=== PATIENT | female | born 1935 | race Caucasian/White ===

== ENCOUNTER 2018-05-21 08:43 | Inpatient (IN) | payer MEDICARE ==
[~2018-05-21] VITALS: Ht 157.5 cm; Wt 80.0 kg
[2018-05-21 14:45] VITALS: BP 148/37
[2018-05-21] MEDS ORDERED: FURO40TA4 PO ×2 (15:03)
[2018-05-21] MEDS ORDERED: CLOP75TA PO (15:03)
[2018-05-21] MEDS ORDERED: ONDA4TAB12 PO (15:03)
[2018-05-21] MEDS ORDERED: METO-239 PO (15:03)
[2018-05-21] MEDS ORDERED: CRESTOR20 MG PO (15:03)
[2018-05-21] MEDS ORDERED: LEVO88TA4 PO (15:11)
[2018-05-21] MEDS ORDERED: LOSA100T14 PO (15:11)
[2018-05-21] MEDS ORDERED: AMIO200T4 PO (15:11)
[2018-05-21] MEDS ORDERED: PANT20TA2 PO (15:11)
[2018-05-21] MEDS ORDERED: METO2.5T PO (15:11)
[2018-05-21] MEDS ORDERED: ONDANSETRON ODT 4 MG TAB.RAPDIS. PO PRN (15:30)
--- NOTE | 2018-05-21 16:01 | PDOC2 ---
CARDIAC CONSULT DATE OF CONSULT Date of Consult DATE: 05/21/18 TIME: 15:54 REASON FOR CONSULT Reason for Consult: hypotension, bradycardia, CHF REFERRING PHYSICIAN Referring Physician: Albert SOURCE Source: Chart review, Patient HISTORY OF PRESENT ILLNESS HISTORY OF PRESENT ILLNESS This is a pleasant 82 yo female admitted for complains of nausea, vomiting, anorexia. Also with LIVE but no SOA at rest. She went to PCP yesterday and CT abd was ordered and noted with hepatosplenomegaly with possible cirrhosis. She was over at the PCPs office and noted with bradycardia but unclear how low and also with low BP. Denies any significant abdominal pain, fever or chills. No orthopnea, PND. Denies any chest pain, palpitations, dizziness or passing out. She is positive for CAD, CHF and hx of PAFIB. She just moved here from [place] to be close to her daughter. PAST MEDICAL HISTORY Cardiovascular: AFIB, CAD, CHF, HTN, Hyperlipidemia, Other (carotid artery disease) Pulmonary: No pertinent hx CENTRAL NERVOUS SYSTEM: Other (tremors) GI: GERD Heme/Onc: Anemia NOS (blood transfusion in the past) Hepatobiliary: No pertinent hx Psych: No pertinent hx Musculoskeletal: Osteoarthritis Rheumatologic: No pertinent hx Infectious disease: No pertinent hx ENT: No pertinent hx Renal/: Chronic renal insuff Endocrine: Hypothyroidism Dermatology: No pertinent hx PAST SURGICAL HISTORY Past Surgical History: Appendectomy, Cataract Removal, Other (PCI/stents' left carotid endarterectomy) FAMILY HISTORY Family History: Coronary Artery Disease (mother and father) SOCIAL HISTORY Smoke: Quit (remotely) ALCOHOL: none Drugs: None Lives: with Family (daughter) ALLERGIES ALLERGIES: Coded Allergies: Sulfa (Sulfonamide Antibiotics) (Verified Allergy, Severe, Rash, 05/21/18) blisters on whole body morphine (Verified Allergy, Intermediate, Nausea and Vomiting, 05/21/18) ROS Review of System 14 point ROS evlauated with pertinent positives noted per HPI PHYSICAL EXAM General: Alert, Oriented X3, Cooperative, No acute distress HEENT: Atraumatic, Mucous membr. moist/pink Lungs: Clear to auscultation Heart: Regular rate (SR/SB), Normal S1, Normal S2, Other (2/6 systolic murmur to LLS border) Abdomen: Soft, No tenderness Extremities: No cyanosis, Other (trace LE edema) Skin: No breakdown, No significant lesion, Other (telangectasia) Neuro: Normal speech, Sensation intact Psych/Mental Status: Mental status NL, Mood NL MUSCULOSKELETAL: Osteoarthritic changes both hands VITALS VITALS Vital Signs Date Time Temp Pulse Resp B/P (MAP) Pulse Ox O2 Delivery O2 Flow Rate FiO2 05/21/18 14:45 98.4 54 16 148/37 (74) 100 Nasal Cannula 2.0 98.4 IMAGES IMAGES IMPRESSION: 1. Mild hepatosplenomegaly. There is slight suspected recanalization of the umbilical vein which may be due to a component of cirrhosis. Correlate with liver function laboratory values. 2. Colonic diverticulosis. 3. Small right renal cysts. 4. No acute abdominal or pelvic finding. DATE: 05/20/18 1446 ASSESSMENT/PLAN ASSESSMENT/PLAN 1. 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 Diastolic CHF: appears compensated 3. CAD: 03/2018 x2 stents in [place], no CP, clinically stable 4. HLP 5. HTN: controlled. Hypotensive at times. 6. Essential tremors: amiodarone could be a factor as well. 7. PAFIB: currently SR/SB 9. TAMMY vs CKD: possibly stage 4. 10. Hypothyroidism: on home replacement 11. Episodes of recent hypotension likely from BP meds, poor intake and vomiting. Recommendations CMP, INR, CBC, NH3, Mg, EKG, TTE, CXR GI workup pending Stop amiodarone (has been on amiodarone for 3 yrs). Start lower of toprol unless significantly bradycardic. ASA, plavix till cath report is obtained unless severely thrombocytopenic. Restart statin if OK with GI and pending lipids. Await renal labs before restarting home diuretics Was on Xarelto in the past but discontinued due to anemia and possibly not a candidate for chcf use with liver issues. Consult nephrology Records from [place] pending NAHUN SAENZ APRN May 21, 2018 16:01
[2018-05-21 16:25] LABS: BASO % 1 % (0-3); EOS # 0.1 x10^3/uL (0.0-0.7); EOS % 1 % (0-3); HEMATOCRIT 31.9 % (36.0-47.0); HEMOGLOBIN 10.6 g/dL (12.0-15.5); LYMPH # 0.9 x10^3/uL (1.0-4.8); LYMPH % 17 % (24-48); MEAN CORPUSCULAR HEMOGLOBIN 29 pg (25-35); MEAN CORPUSCULAR HGB CONC 33 g/dL (31-37); MEAN CORPUSCULAR VOLUME 87 fL (79-100); MONO # 0.4 x10^3/uL (0.0-1.1); MONO % 8 % (0-9); NEUT % 74 % (31-73); PLATELET COUNT 164 x10^3/uL (140-400); RED BLOOD COUNT 3.67 x10^6/uL (3.50-5.40); RED CELL DISTRIBUTION WIDTH 16.3 % (11.5-14.5); WHITE BLOOD COUNT 5.3 x10^3/uL (4.0-11.0)
[2018-05-21 16:26] LABS: CALCIUM 9.3 mg/dL (8.5-10.1); CREATININE 2.9 mg/dL (0.6-1.0); GFR 15.6; POTASSIUM 3.2 mmol/L (3.5-5.1)
[2018-05-21 16:29] LABS: PROTHROMBIN TIME PATIENT 13.8 SEC (11.7-14.0)
[2018-05-21 16:33] LABS: ALBUMIN 3.6 g/dL (3.4-5.0); ALBUMIN/GLOBULIN RATIO 0.8 (1.0-1.7); TOTAL BILIRUBIN 0.5 mg/dL (0.2-1.0); TOTAL PROTEIN 7.9 g/dL (6.4-8.2)
--- NOTE | 2018-05-21 16:33 | EKG ---
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
--- NOTE | 2018-05-21 16:54 | PDOC2 ---
GI CONSULT Reason For Consult: elevated liver enzymes, direct admit HPI: HPI: 82 y/o female directly admitted. Recently moved to this area from [place], [place] - there was recently hospitalized for heart issues. Here w/ daughter and son-in -law (Simran and Cliff). Established new PCP yesterday - was feeling "sick to stomach" like she has since 10/2017. Frequent nausea and retching, "can't eat." Has lost 30 pounds (daughter mentions some of this might be due to fluid) but mostly drinks Gatorade and doesn't eat much. Had labs and CT - was called today and told to come to the hospital for abnormal labs. CT showed mild hepatosplenomegaly and suspected recanalization of the umbilical vein w/ possible component of cirrhosis. Also noted diverticulosis (colon and proximal duodenal diverticulum). During recent hospitalization, was transfused - "it happened after they put me on Xarelto." Denies hematemesis, hematochezia, and melena. Does not recall being told to take iron or B12. Did have EGD and colonoscopy in [place], [place] last month - says colonoscopy was normal and EGD showed "irritation from here to here" (points to throat and epigastrium). Was given pantoprazole which she has been taking - says this doesn't help her nausea/retching. Denies reflux/ heartburn, dysphagia, abd pain, and diarrhea. Admits early satiety. Occasional constipation on Miralax PRN. H/o CAD on Plavix and h/o A Fib on amiodarone x 3 years. No NSAIDs. No GB, liver, or pancreas history. PMH: PMH: A Fib, CAD w/ stents, CHF, HTN, HLD, CKD, tremors, macular degeneration, hypothyroidism appendectomy, hysterectomy, left carotid endarterectomy, cataract removal FH: Family History: Cancer (breast), DM Social History: Smoke: Quit ALCOHOL: none Drugs: None ROS: GEN: Denies fevers, chills, sweats HEENT: Denies blurred vision, sore throat CV: Denies chest pain RESP: Denies shortness of air, cough GI: Per HPI : Denies hematuria, dysuria ENDO: +weight loss NEURO: Denies confusion, dizziness MSK: Denies weakness, joint pain/swelling SKIN: Denies jaundice, pruritus Vitals: Vitals: Vital Signs Date Time Temp Pulse Resp B/P (MAP) Pulse Ox O2 Delivery O2 Flow Rate FiO2 05/21/18 14:45 98.4 54 16 148/37 (74) 100 Nasal Cannula 2.0 98.4 Labs: Labs: Laboratory Tests Test 05/21/18 16:00 White Blood Count 5.3 x10^3/uL (4.0-11.0) Red Blood Count 3.67 x10^6/uL (3.50-5.40) Hemoglobin 10.6 g/dL (12.0-15.5) Hematocrit 31.9 % (36.0-47.0) Mean Corpuscular Volume 87 fL (79-100) Mean Corpuscular Hemoglobin 29 pg (25-35) Mean Corpuscular Hemoglobin Concent 33 g/dL (31-37) Red Cell Distribution Width 16.3 % (11.5-14.5) Platelet Count 164 x10^3/uL (140-400) Neutrophils (%) (Auto) 74 % (31-73) Lymphocytes (%) (Auto) 17 % (24-48) Monocytes (%) (Auto) 8 % (0-9) Eosinophils (%) (Auto) 1 % (0-3) Basophils (%) (Auto) 1 % (0-3) Neutrophils # (Auto) 4.0 x10^3uL (1.8-7.7) Lymphocytes # (Auto) 0.9 x10^3/uL (1.0-4.8) Monocytes # (Auto) 0.4 x10^3/uL (0.0-1.1) Eosinophils # (Auto) 0.1 x10^3/uL (0.0-0.7) Basophils # (Auto) 0.0 x10^3/uL (0.0-0.2) Prothrombin Time 13.8 SEC (11.7-14.0) Prothromb Time International Ratio 1.1 (0.8-1.1) Sodium Level 136 mmol/L (136-145) Potassium Level 3.2 mmol/L (3.5-5.1) Chloride Level 94 mmol/L (98-107) Carbon Dioxide Level 32 mmol/L (21-32) Anion Gap 10 (6-14) Blood Urea Nitrogen 70 mg/dL (7-20) Creatinine 2.9 mg/dL (0.6-1.0) Estimated GFR (Cockcroft-Gault) 15.6 BUN/Creatinine Ratio 24 (6-20) Glucose Level 99 mg/dL (70-99) Calcium Level 9.3 mg/dL (8.5-10.1) Magnesium Level 2.4 mg/dL (1.8-2.4) Total Bilirubin 0.5 mg/dL (0.2-1.0) Aspartate Amino Transf (AST/SGOT) 76 U/L (15-37) Alanine Aminotransferase (ALT/SGPT) 61 U/L (14-59) Alkaline Phosphatase 74 U/L (46-116) Ammonia < 10 mcmol/L (11-34) Total Protein 7.9 g/dL (6.4-8.2) Albumin 3.6 g/dL (3.4-5.0) Albumin/Globulin Ratio 0.8 (1.0-1.7) Allergies: Coded Allergies: Sulfa (Sulfonamide Antibiotics) (Verified Allergy, Severe, Rash, 05/21/18) blisters on whole body morphine (Verified Allergy, Intermediate, Nausea and Vomiting, 05/21/18) Imaging: Imaging: Per HPI. PE: GEN: NAD HEENT: Atraumatic, PERRL LUNGS: CTAB HEART: mildly bradycardic ABD: NABS, S/ND/NT EXTREMITY: No edema SKIN: No rashes, no jaundice NEURO/PSYCH: A & O 3 A/P: A/P: N/v, early satiety, weight loss Anemia, ?TAMMY/CKD, mild transaminitis - recent transfusion Abnormal CT - recanalization of the umbilical vein w/ possible component of cirrhosis ?GERD - "irritation" on recent EGD, on PPI CRC screen - UTD (04/2018 in [place], [place]) Diverticulosis Constipation - controlled w/ Miralax PRN H/o A Fib and CAD - on Plavix and amiodarone -- Check iron profile, Hep B and C, US/Doppler, and GES. Continue PPI. D/w cardiology - plans to stop amiodarone. KAROL JULIAN May 21, 2018 16:54
[2018-05-21] MEDS: PANTOPRAZOLE 40 MG TABLET.DR. PO SCH (17:00)
[2018-05-21] MEDS: METOPROLOL SUCC 24HR ER 25 MG TAB.ER.24H. PO SCH ×2 (17:00→21:22)
--- NOTE | 2018-05-21 17:54 | RAD ---
CHEST PA LATERAL CLINICAL INDICATION: LIVE COMPARISON: None FINDINGS: Heart is normal in size. Lungs are hyperinflated with mild prominence of bilateral interstitium. No focal consolidation. No pneumothorax or pleural effusion. Visualized bony thorax within normal limits. IMPRESSION: Findings of COPD with superimposed atypical/viral infection not ruled out. Electronically signed by: Haroon Cook DO (05/21/2018 5:51 PM) [facility]
[2018-05-21 19:44] VITALS: BP 165/48
[2018-05-21 20:22] LABS: BILIRUBIN,URINE NEGATIVE (NEG); CLARITY,URINE CLOUDY; COLOR,URINE YELLOW; NITRITE,URINE POSITIVE (NEG); PH,URINE 7.5; PROTEIN,URINE 30 mg/dL (NEG-TRACE)
[2018-05-21 20:34] LABS: BACTERIA,URINE MANY /HPF (0-FEW); SQUAMOUS EPITHELIAL CELL,UR MOD /LPF; WBC,URINE TNTC /HPF (0-4)
[2018-05-21] MEDS: ATORVASTATIN CALCIUM 20 MG TABLET PO SCH (21:22)
[2018-05-21 23:40] VITALS: BP 136/30
[2018-05-22 03:59] VITALS: BP 123/47
[2018-05-22] MEDS: PANTOPRAZOLE 40 MG TABLET.DR. PO SCH (06:22)
[2018-05-22] MEDS: LEVOTHYROXINE 88 MCG TABLET PO SCH (06:22)
[2018-05-22 06:43] LABS: CHOLESTEROL/HDL RATIO 2.4
[2018-05-22 07:25] VITALS: BP 149/44
--- NOTE | 2018-05-22 08:08 | RAD ---
Realtime, color and spectral duplex DOPPLER ultrasonography of the right upper quadrant was performed with focused Doppler evaluation of the hepatic vasculature. Clinical Indication: Chronic nausea and vomiting, transaminitis, questionable cirrhosis on CT. Comparison: CT abdomen and pelvis dated 05/20/2018. Grayscale And Color Doppler Abdominal Findings: The liver is mildly enlarged measuring 18.9 cm. Slightly coarse hepatic echotexture. No intrahepatic biliary ductal dilatation or mass is seen. Gallbladder sludge. No gallstones, pericholecystic fluid, or gallbladder wall thickening are seen. The common bile duct is normal in diameter and measures 0.3 cm. Sonographic Kenny's Sign was negative. The IVC is patent at the level of the liver. The right kidney is normal in appearance, measuring 10.4 x 4.7 x 3.1 cm in length. It contains a 0.8 x 0.8 x 1.0 cm cyst in the upper pole. Prominent right renal pelvis. No hydronephrosis or perinephric fluid is seen around the right kidney. The pancreatic head and proximal body are unremarkable in appearance. The tail is not well visualized. The spleen is enlarged measuring 13.3 cm. Duplex Doppler Findings: The portal vein is normal in size measuring up to 1.0 cm. Hepatopedal flow is seen within the main, right, and left portal veins. Main portal venous velocity is slightly elevated measuring 47.7 cm/s. The left portal vein velocity measuring 46.1 cm/s. Hepatofugal flow is seen in the right, middle, and left hepatic veins. Patent hepatic artery with a peak systolic velocity of 98.6 cm/s. Recanalized umbilical vein. Normal directional flow within the splenic vein. Impression: 1. Mild hepatomegaly. Slightly coarse hepatic echotexture which can be seen with hepatocellular disease. 2. Slightly elevated portal venous velocities. Recanalized umbilical vein and splenomegaly indicating portal hypertension. No ascites or large varices seen. 3. Gallbladder sludge. No echogenic gallstone or sonographic evidence of acute cholecystitis. Electronically signed by: Bradley Engle MD (05/22/2018 8:05 AM) [facility]
[2018-05-22] MEDS: ASPIRIN ENTERIC COATED 81 MG TABLET.DR. PO SCH (08:57)
[2018-05-22] MEDS: METOPROLOL SUCC 24HR ER 25 MG TAB.ER.24H. PO SCH (08:57)
[2018-05-22] MEDS: CLOPIDOGREL BISULFATE 75 MG TABLET PO SCH (08:57)
[2018-05-22 11:00] VITALS: BP 106/43
[2018-05-22 11:11] LABS: CALCIUM 8.9 mg/dL (8.5-10.1); CREATININE 2.6 mg/dL (0.6-1.0); GFR 17.7; POTASSIUM 3.1 mmol/L (3.5-5.1)
--- NOTE | 2018-05-22 11:58 | HP ---
ADMIT DATE: 05/21/2018 HISTORY OF PRESENT ILLNESS: The patient is an 82-year-old female patient who has moved recently from [place] to be with her daughter. She was seen at her primary care physician and lab work and CT scan done, showed that she has hepatosplenomegaly, as well as normal liver enzymes and abnormal kidney function and therefore the patient was admitted directly for further evaluation by the automatic machine attendant, full stack java developer as well as dairy grazer. Kidney function was also noted to be abnormal with a creatinine up to 2.9. On questioning her, she said that she has had nausea, vomiting and dry heaving since 10/2017. She has an unintentional weight loss of 25 pounds since 02/2018. She also complained of shortness of breath for the last 3 years and since she started amiodarone for her atrial fibrillation. She also has blurring of vision, that also started or coincided with amiodarone, although she also carries a diagnosis of senile macular degeneration, has had bilateral cataract extraction. According to her, the mitochondrial disorders counselor told her that there is effect of amiodarone on her eyes. PAST MEDICAL HISTORY: Significant for coronary artery disease status post coronary artery bypass graft surgery. She has hypertension, hyperlipidemia, nephrolithiasis, carotid artery disease, gastroesophageal reflux disease and severe esophagitis. According to her, she has also osteoarthritis, hypothyroidism and chronic renal failure. PAST SURGICAL HISTORY: Significant for left heart catheterization and stent deployment, bilateral cataract extraction, appendectomy, total abdominal hysterectomy. She also had percutaneous coronary artery intervention with stent deployment and left carotid endarterectomy. FAMILY HISTORY: Positive for coronary artery disease in her mother and father. Her brother at age of 92 because of prostate cancer. She has 3 older sisters, all of them in their early 70s, two with complication of diabetes and one had stroke. SOCIAL HISTORY: She is , lives alone. She has two daughters. Her son at age of 11 because of malignant brain tumor. She is an ex-smoker, quit 36 years ago. She does not drink alcohol or use any recreational drugs. REVIEW OF SYSTEMS: The patient obviously has bilateral cataract extractions, has blurring vision. She has also senile macular degeneration. 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 She has also some nosebleed, but denied any nasal stuffiness or postnasal drip. She did complain of sore throat, sore tongue, has recently treated for oropharyngeal thrush. Did complain of nausea and vomiting, but denied any hematemesis. Denied any melena or hematochezia. Denied any dysuria, frequency or hematuria. Denied any chest pain, but did complain of shortness of breath on exertion, orthopnea. Denied any paroxysmal nocturnal dyspnea. She denied any cough, phlegm or hemoptysis. Denied any dizziness, lightheadedness, or vertigo. PHYSICAL EXAMINATION: GENERAL: On examining her, she looked well and was clearly in no apparent respiratory distress. She was pale, no jaundice, cyanosis or thyromegaly. No jugular venous distention. No lower limb edema. VITAL SIGNS: Her heart rate was 54, blood pressure was 148/37, temperature was 98.4, respiratory rate was 16 and oxygen saturation was 100% on 2 liters of oxygen. HEAD, EYES, EARS, NOSE AND THROAT: Showed normocephalic, atraumatic. NECK: Supple. HEART: Showed normal first and second sounds. No gallop, rub or murmur. CHEST: Clear to auscultation. No crepitation or rhonchi. ABDOMEN: Distended, soft, nontender. NEUROLOGIC: She was awake, alert, responding appropriately. All cranial nerves intact. EXTREMITIES: She moves extremities without difficulty. She ambulates with a walker. LABORATORY DATA: Showed serum sodium was 136, potassium 3.2, chloride 94, bicarbonate 32, anion gap of 10, BUN 70, creatinine 2.9, estimated GFR was 15.6 mL per minute. Her glucose was 99, calcium 9.3. Total bilirubin and alkaline phosphatase normal. AST, ALT are elevated. Her ammonia is less than 10. Total protein was 7.9, albumin was 3.6. Her white cell count was 5300, hemoglobin 11, hematocrit 32, MCV 87, and platelet count of 164,000 with normal manual differential. Her prothrombin time was 13.8, INR 1.1. Urinalysis showed urine was yellow, cloudy with pH of 7.5, specific gravity of 1.010. There was small amount of protein; negative for glucose, ketones; small amount of blood; positive for nitrite; there was large amount of leukocyte esterase; 3-5 rbc's; too numerous to count wbc and too many bacteria. Her hepatitis A IgM antibody nonreactive, hepatitis B surface antigen nonreactive, hepatitis B core IgM antibody nonreactive and hepatitis ____ antibody nonreactive. ASSESSMENT: In summary, this is an 82-year-old female patient who was seen at her primary care physician and lab work and imaging studies showed that she has hepatosplenomegaly as well as recanalization of the umbilical vein with possible component of cirrhosis as well as diverticulosis. She has nausea, vomiting and weight loss of more than 25 pounds over the last 3 months that is unintentional. She has also acute versus [id number] kidney injury. She is apparently ALLERGIC TO SULFA AND MORPHINE. MEDICATIONS: She is currently on following medications: She is on Plavix 75 mg once a day, amiodarone 200 mg once a day, Crestor 20 mg once a day, metoprolol succinate 50 mg twice a day, losartan potassium 100 mg daily, furosemide 40 mg twice a day and furosemide 40 mg daily p.r.n., metolazone 2.5 mg 3 times per week, ondansetron 4 mg 3 times a day and Protonix 40 mg once a day, levothyroxine sodium 88 mcg once a day. PLAN: I did consult the Gastroenterology team as well as the full stack java developer and dairy grazer. I did hold her Crestor and amiodarone for abnormal liver enzymes. I also held her furosemide and metolazone and losartan because of the abnormal kidney function. I will probably resume her metoprolol, although her heart rate is slow, she is in sinus bradycardia. I will repeat her lab work again today and await the record from [facility]. MARÍA DAWN MD DR: FAWAD/jun JOB#: [id number] / [id number]
--- NOTE | 2018-05-22 12:44 | CARD ---
MR#: [id number] Date of Study: 05/21/2018 Ordering Physician: NAHUN SAENZ, Referring Physician: MARÍA DAWN, Tech: Catie Alexandra APPROVED REPORT EXAM: Two-dimensional and M-mode echocardiogram with Doppler and color Doppler. Other Information Quality : AverageHR: 76bpm INDICATION Congestive Heart Failure Cirrhosis 2D DIMENSIONS RVDd3.5 (2.9-3.5cm)Left Atrium(2D)4.1 (1.6-4.0cm) IVSd1.2 (0.7-1.1cm)Aortic Root(2D)2.5 (2.0-3.7cm) LVDd5.3 (3.9-5.9cm)LVOT Diameter2.0 (1.8-2.4cm) PWd1.1 (0.7-1.1cm)LVDs2.9 (2.5-4.0cm) FS (%) 45.0 %SV103.7 ml Aortic Valve AoV Peak Jonah.127.6cm/sAoV VTI34.7cm AO Peak GR.6.5mmHgLVOT VTI 14.64cm AO Mean GR.4mmHg Mitral Valve MV E Lcpjounz647.4cm/sMV E Peak Gr.10mmHg MV DECEL [id number] A Xuklivii34.2cm/s MV E Mean Gr.2mmHgE/A Ratio2.7 TDI Lateral E' P. V8.88cm/sMedial E' P. V11.26cm/s E/Lateral E'12.4E/Medial E'9.8 Tricuspid Valve TR P. Rbbtyihj525ia/sRAP [id number] TR Peak Gr.08leUpRUVJ24qoVn Pulmonary Vein S1 Wzeuyibo90.2cm/sS2 Zlsckgoa34.20cm/s D2 Invptzya98.2cm/sPVa [id number] LEFT VENTRICLE The left ventricle is normal size. There is mild concentric left ventricular hypertrophy. The left ve ntricular systolic function is normal and the ejection fraction is within normal range. The Ejection Fraction is 55-60%. There is normal LV segmental wall motion. The left ventricular diastolic function and filling is normal for age. RIGHT VENTRICLE The right ventricle is normal size. The right ventricle is borderline hypertrophied. The right ventri cular systolic function is normal. ATRIA The left atrium is borderline dilated. The right atrium size is normal. The interatrial septum is int act with no evidence for an atrial septal defect or patent foramen ovale as noted on 2-D or Doppler i maging. AORTIC VALVE The aortic valve is not well visualized. Doppler and Color Flow revealed no significant aortic regurg itation. There is no significant aortic valvular stenosis. MITRAL VALVE The mitral valve is thickened but opens well. There is no evidence of mitral valve prolapse. There is no mitral valve stenosis. Doppler and Color-flow revealed trace mitral regurgitation. TRICUSPID VALVE The tricuspid valve is normal in structure and function. Doppler and Color Flow revealed trace to mil d tricuspid regurgitation with an estimated PAP of 40 mmHg. There is no tricuspid valve stenosis. PULMONIC VALVE The pulmonic valve is not well visualized. Doppler and Color Flow revealed trace pulmonic valvular re gurgitation. GREAT VESSELS The aortic root is normal in size. The IVC is normal in size and collapses >50% with inspiration. PERICARDIAL EFFUSION There is a trace pericardial effusion with no hemodynamic significance. Critical Notification Critical Value: No <Conclusion> The left ventricle is normal size. The left ventricular systolic function is normal and the ejection fraction is within normal range. The Ejection Fraction is 55-60%. There is mild concentric left ventricular hypertrophy. There is no significant aortic valvular stenosis. Doppler and Color Flow revealed no significant aortic regurgitation. Doppler and Color-flow revealed trace mitral regurgitation. Doppler and Color Flow revealed trace to mild tricuspid regurgitation with an estimated PAP of 40 mmH g. There is a trace pericardial effusion with no hemodynamic significance. Signed by : Emiliano French MD Electronically Approved : 05/22/2018 12:43:30
--- NOTE | 2018-05-22 13:25 | PDOC ---
PROGRESS NOTES Subjective Subjective Patient seen and examined The patient is feeling better today but continues with some mild to moderate nausea. Objective Objective Vital Signs Date Time Temp Pulse Resp B/P (MAP) Pulse Ox O2 Delivery O2 Flow Rate FiO2 05/22/18 11:00 98.0 50 20 106/43 (64) 100 Nasal Cannula 2.0 98.0 Intake and Output 05/22/18 07:00 Intake Total 240 ml Output Total 400 ml Balance -160 ml Intake Oral 240 ml Output Urine Total 400 ml # Voids 2 Physical Exam Abdomen: Normal bowel sounds Heart: Other (regular rhythm rate of 54.) General: mild distress Lungs: Clear to auscultation Assessment Assessment Diastolic heart failure. Compensated. Echo shows a normal ejection fraction at 55-60%, mild tricuspid regurgitation and mildly elevated PAP at 40 mmHg. Continue present treatment. Coronary artery disease. 2 stents placed in March in [place]. No chest pain. Continue medications. Hypertension. Controlled. Continue to monitor. Paxil paroxysmal atrial fibrillation. Currently in sinus rhythm. Acute kidney injury. Monitoring lab. Patient has been on amiodarone apparently for atrial fibrillation. Liver disease as above. Discontinue amiodarone. Additionally her anticoagulation has been held due to anemia and her liver disease. GI and renal ongoing. Comment Review of Relevant I have reviewed the following items brittani (where applicable) has been applied. Labs Laboratory Tests Test 05/21/18 16:00 05/21/18 19:01 05/22/18 05:30 White Blood Count 5.3 x10^3/uL (4.0-11.0) Red Blood Count 3.67 x10^6/uL (3.50-5.40) Hemoglobin 10.6 g/dL (12.0-15.5) Hematocrit 31.9 % (36.0-47.0) Mean Corpuscular Volume 87 fL (79-100) Mean Corpuscular Hemoglobin 29 pg (25-35) Mean Corpuscular Hemoglobin Concent 33 g/dL (31-37) Red Cell Distribution Width 16.3 % (11.5-14.5) Platelet Count 164 x10^3/uL (140-400) Neutrophils (%) (Auto) 74 % (31-73) Lymphocytes (%) (Auto) 17 % (24-48) Monocytes (%) (Auto) 8 % (0-9) Eosinophils (%) (Auto) 1 % (0-3) Basophils (%) (Auto) 1 % (0-3) Neutrophils # (Auto) 4.0 x10^3uL (1.8-7.7) Lymphocytes # (Auto) 0.9 x10^3/uL (1.0-4.8) Monocytes # (Auto) 0.4 x10^3/uL (0.0-1.1) Eosinophils # (Auto) 0.1 x10^3/uL (0.0-0.7) Basophils # (Auto) 0.0 x10^3/uL (0.0-0.2) Prothrombin Time 13.8 SEC (11.7-14.0) Prothromb Time International Ratio 1.1 (0.8-1.1) Sodium Level 136 mmol/L (136-145) 139 mmol/L (136-145) Potassium Level 3.2 mmol/L (3.5-5.1) 3.1 mmol/L (3.5-5.1) Chloride Level 94 mmol/L (98-107) 96 mmol/L (98-107) Carbon Dioxide Level 32 mmol/L (21-32) 32 mmol/L (21-32) Anion Gap 10 (6-14) 11 (6-14) Blood Urea Nitrogen 70 mg/dL (7-20) 64 mg/dL (7-20) Creatinine 2.9 mg/dL (0.6-1.0) 2.6 mg/dL (0.6-1.0) Estimated GFR (Cockcroft-Gault) 15.6 17.7 BUN/Creatinine Ratio 24 (6-20) Glucose Level 99 mg/dL (70-99) 98 mg/dL (70-99) Calcium Level 9.3 mg/dL (8.5-10.1) 8.9 mg/dL (8.5-10.1) Magnesium Level 2.4 mg/dL (1.8-2.4) Iron Level 42 ug/dL (50-170) Total Iron Binding Capacity 371 ug/dL (250-450) Iron Saturation 11 % (15-34) Total Bilirubin 0.5 mg/dL (0.2-1.0) Aspartate Amino Transf (AST/SGOT) 76 U/L (15-37) Alanine Aminotransferase (ALT/SGPT) 61 U/L (14-59) Alkaline Phosphatase 74 U/L (46-116) Ammonia < 10 mcmol/L (11-34) UJ-Uoe-S-Type Natriuretic Peptide 366 pg/mL (0-449) Total Protein 7.9 g/dL (6.4-8.2) Albumin 3.6 g/dL (3.4-5.0) Albumin/Globulin Ratio 0.8 (1.0-1.7) Thyroid Stimulating Hormone (TSH) 2.707 uIU/mL (0.358-3.74) Hepatitis A IgM Antibody Nonreactive (Nonreactive) Hepatitis B Surface Antigen Nonreactive (Nonreactive) Hepatitis B Core IgM Antibody Nonreactive (Nonreactive) Hepatitis C IgG Antibody Nonreactive (Nonreactive) Urine Collection Type Unknown Urine Color Yellow Urine Clarity Cloudy Urine pH 7.5 Urine Specific [place] 1.010 Urine Protein 30 mg/dL (NEG-TRACE) Urine Glucose (UA) Negative mg/dL (NEG) Urine Ketones (Stick) Negative mg/dL (NEG) Urine Blood Small (NEG) Urine Nitrite Positive (NEG) Urine Bilirubin Negative (NEG) Urine Urobilinogen Dipstick 1.0 mg/dL (0.2 mg/dL) Urine Leukocyte Esterase Large (NEG) Urine RBC 3-5 /HPF (0-2) Urine WBC Tntc /HPF (0-4) Urine Squamous Epithelial Cells Mod /LPF Urine Bacteria Many /HPF (0-FEW) Triglycerides Level 87 mg/dL (0-150) Cholesterol Level 116 mg/dL (0-200) LDL Cholesterol, Calculated 51 mg/dL (0-100) VLDL Cholesterol, Calculated 17 mg/dL (0-40) Non-HDL Cholesterol Calculated 68 mg/dL (0-129) HDL Cholesterol 48 mg/dL (40-60) Cholesterol/HDL Ratio 2.4 Laboratory Tests Test 05/21/18 16:00 05/21/18 19:01 05/22/18 05:30 White Blood Count 5.3 x10^3/uL (4.0-11.0) Red Blood Count 3.67 x10^6/uL (3.50-5.40) Hemoglobin 10.6 g/dL (12.0-15.5) Hematocrit 31.9 % (36.0-47.0) Mean Corpuscular Volume 87 fL (79-100) Mean Corpuscular Hemoglobin 29 pg (25-35) Mean Corpuscular Hemoglobin Concent 33 g/dL (31-37) Red Cell Distribution Width 16.3 % (11.5-14.5) Platelet Count 164 x10^3/uL (140-400) Neutrophils (%) (Auto) 74 % (31-73) Lymphocytes (%) (Auto) 17 % (24-48) Monocytes (%) (Auto) 8 % (0-9) Eosinophils (%) (Auto) 1 % (0-3) Basophils (%) (Auto) 1 % (0-3) Neutrophils # (Auto) 4.0 x10^3uL (1.8-7.7) Lymphocytes # (Auto) 0.9 x10^3/uL (1.0-4.8) Monocytes # (Auto) 0.4 x10^3/uL (0.0-1.1) Eosinophils # (Auto) 0.1 x10^3/uL (0.0-0.7) Basophils # (Auto) 0.0 x10^3/uL (0.0-0.2) Prothrombin Time 13.8 SEC (11.7-14.0) Prothromb Time International Ratio 1.1 (0.8-1.1) Sodium Level 136 mmol/L (136-145) 139 mmol/L (136-145) Potassium Level 3.2 mmol/L (3.5-5.1) 3.1 mmol/L (3.5-5.1) Chloride Level 94 mmol/L (98-107) 96 mmol/L (98-107) Carbon Dioxide Level 32 mmol/L (21-32) 32 mmol/L (21-32) Anion Gap 10 (6-14) 11 (6-14) Blood Urea Nitrogen 70 mg/dL (7-20) 64 mg/dL (7-20) Creatinine 2.9 mg/dL (0.6-1.0) 2.6 mg/dL (0.6-1.0) Estimated GFR (Cockcroft-Gault) 15.6 17.7 BUN/Creatinine Ratio 24 (6-20) Glucose Level 99 mg/dL (70-99) 98 mg/dL (70-99) Calcium Level 9.3 mg/dL (8.5-10.1) 8.9 mg/dL (8.5-10.1) Magnesium Level 2.4 mg/dL (1.8-2.4) Iron Level 42 ug/dL (50-170) Total Iron Binding Capacity 371 ug/dL (250-450) Iron Saturation 11 % (15-34) Total Bilirubin 0.5 mg/dL (0.2-1.0) Aspartate Amino Transf (AST/SGOT) 76 U/L (15-37) Alanine Aminotransferase (ALT/SGPT) 61 U/L (14-59) Alkaline Phosphatase 74 U/L (46-116) Ammonia < 10 mcmol/L (11-34) UD-Ubg-K-Type Natriuretic Peptide 366 pg/mL (0-449) Total Protein 7.9 g/dL (6.4-8.2) Albumin 3.6 g/dL (3.4-5.0) Albumin/Globulin Ratio 0.8 (1.0-1.7) Thyroid Stimulating Hormone (TSH) 2.707 uIU/mL (0.358-3.74) Hepatitis A IgM Antibody Nonreactive (Nonreactive) Hepatitis B Surface Antigen Nonreactive (Nonreactive) Hepatitis B Core IgM Antibody Nonreactive (Nonreactive) Hepatitis C IgG Antibody Nonreactive (Nonreactive) Urine Collection Type Unknown Urine Color Yellow Urine Clarity Cloudy Urine pH 7.5 Urine Specific [place] 1.010 Urine Protein 30 mg/dL (NEG-TRACE) Urine Glucose (UA) Negative mg/dL (NEG) Urine Ketones (Stick) Negative mg/dL (NEG) Urine Blood Small (NEG) Urine Nitrite Positive (NEG) Urine Bilirubin Negative (NEG) Urine Urobilinogen Dipstick 1.0 mg/dL (0.2 mg/dL) Urine Leukocyte Esterase Large (NEG) Urine RBC 3-5 /HPF (0-2) Urine WBC Tntc /HPF (0-4) Urine Squamous Epithelial Cells Mod /LPF Urine Bacteria Many /HPF (0-FEW) Triglycerides Level 87 mg/dL (0-150) Cholesterol Level 116 mg/dL (0-200) LDL Cholesterol, Calculated 51 mg/dL (0-100) VLDL Cholesterol, Calculated 17 mg/dL (0-40) Non-HDL Cholesterol Calculated 68 mg/dL (0-129) HDL Cholesterol 48 mg/dL (40-60) Cholesterol/HDL Ratio 2.4 Medications Current Medications Levothyroxine Sodium (Synthroid) 88 mcg DAILY06 PO Last administered on 06:22; Start 05/22/18 at 06:00 Ondansetron HCl (Zofran Odt) 8 mg PRN TID PRN PO NAUSEA/VOMITING; Start at 15:30 Clopidogrel Bisulfate (Plavix) 75 mg DAILYWBKFT PO Last administered on 08:57; Start 05/22/18 at 08:00 Aspirin (Ecotrin) 81 mg DAILYWBKFT PO Last administered on 05/22/18 08:57; Start 05/22/18 at 08:00 Metoprolol Succinate (Toprol Xl) 25 mg DAILY PO Last administered on 05/22/18 08:57; Start 05/21/18 at 17:00 Atorvastatin Calcium (Lipitor) 20 mg QHS PO Last administered on 05/21/18 21:22 ; Start 05/21/18 at 21:00 Pantoprazole Sodium (Protonix) 40 mg DAILYAC PO Last administered on 05/22/18 06:22; Start 05/21/18 at 17:00 Active Scripts Active Reported Levothyroxine Sodium 88 Mcg Tablet 1 Tab PO DAILY Protonix (Pantoprazole Sodium) 20 Mg Tablet.dr 40 Mg PO DAILY Losartan Potassium 100 Mg Tablet 100 Mg PO DAILY Amiodarone Hcl 200 Mg Tablet 1 Tab PO DAILY Metolazone 2.5 Mg Tablet 2.5 Mg PO 3X/WEEK Metoprolol Succinate ( Xl ) (Metoprolol Succinate) 25 Mg Tab.er.24h 2 Tab PO BID Furosemide 40 Mg Tablet 40 Mg PO PRN DAILY PRN Furosemide 40 Mg Tablet 40 Mg PO BID Clopidogrel (Clopidogrel Bisulfate) 75 Mg Tablet 1 Tab PO DAILY Ondansetron Odt (Ondansetron) 4 Mg Tab.rapdis 8 Mg PO TID PRN Crestor (Rosuvastatin Calcium) 20 Mg Tablet 20 Mg PO HS PRN Vitals/I & O Vital Sign - Last 24 Hours 05/21/18 05/21/18 05/21/18 05/21/18 14:45 19:44 20:00 21:22 Temp 98.4 98.2 98.4 98.2 Pulse 54 55 55 Resp 16 18 B/P (MAP) 148/37 (74) 165/48 (87) 165/48 Pulse Ox 100 99 O2 Delivery Nasal Cannula Nasal Cannula Nasal Cannula O2 Flow Rate 2.0 2.0 2.0 05/21/18 05/22/18 05/22/18 05/22/18 23:40 03:59 07:25 08:00 Temp 97.3 97.8 97.7 97.3 97.8 97.7 Pulse 51 52 51 Resp 17 19 20 B/P (MAP) 136/30 (65) 123/47 (72) 149/44 (79) Pulse Ox 100 92 99 O2 Delivery Nasal Cannula Room Air Nasal Cannula Nasal Cannula O2 Flow Rate 2.0 2.0 2.0 05/22/18 05/22/18 08:57 11:00 Temp 98.0 98.0 Pulse 51 50 Resp 20 B/P (MAP) 149/44 106/43 (64) Pulse Ox 100 O2 Delivery Nasal Cannula O2 Flow Rate 2.0 Intake and Output 05/21/18 05/21/18 05/22/18 15:00 23:00 07:00 Intake Total 240 ml Output Total 400 ml Balance -160 ml ELENA GOVEA MD May 22, 2018 13:25
[2018-05-22 15:00] VITALS: BP 106/24
--- NOTE | 2018-05-22 15:34 | PDOC2 ---
CONSULT Date of Consult Date of Consult DATE: 05/22/18 TIME: 15:01 Reason for Consult Reason for Consult: Renal disease Source Source: Chart review, Patient History of Present Illness Reason for Visit: Pt is a 82 yo CF admitted for complains of nausea, gagging anorexia. Also with LIVE but no SOA at rest. She went to PCP and CT abd was ordered and noted with hepatosplenomegaly with possible cirrhosis. She was also noted to have bradycardia and low BP. She reports she was hospitalized in [place] in [place] where she underwent heart cath x2. Initially she was told by card that"her kidney are acting up and she recd IV Lasix" followed by 2 nd cardiac cath and stent placement. She reports she has lost 20-25 lbs weight since February, she was having only popsicles as she couldn't tolerate food and would gag. She denies any vomiting just dry heaves and gagging. She underwent EGD and colonoscopy as well in [place] - states she had irritation of esophagus and was advised to take Protonix qd Denies NSAID, Occ Tylenol. No ETOH, Quit Tobacco 36 yrs back Denies any abdominal pain, fever or chills. No orthopnea, Denies any chest pain, palpitations, dizziness or passing out. She denies any urinary complaints Hx of Nephrolithiasis x 1 many years back She just moved here from [place] to be close to her daughter.Soon in law is at bedside Past Medical History Cardiovascular: AFIB, CAD, CHF, HTN, Hyperlipidemia, Other (carotid artery disease) Pulmonary: No pertinent hx CENTRAL NERVOUS SYSTEM: Other (tremors) GI: GERD Heme/Onc: Anemia NOS (blood transfusion in the past) Hepatobiliary: No pertinent hx Psych: No pertinent hx Musculoskeletal: Osteoarthritis Rheumatologic: No pertinent hx Infectious disease: No pertinent hx ENT: No pertinent hx Renal/: Chronic renal insuff Endocrine: Hypothyroidism Dermatology: No pertinent hx Past Surgical History Past Surgical History: Appendectomy, Cataract Removal, Other (PCI/stents' left carotid endarterectomy) Family History Family History: Coronary Artery Disease (mother and father) Social History Quit ALCOHOL: none Drugs: None Lives: with Family (daughter) Current Medications Current Medications Current Medications Levothyroxine Sodium (Synthroid) 88 mcg DAILY06 PO Last administered on at 06:22; Start 05/22/18 at 06:00 Ondansetron HCl (Zofran Odt) 8 mg PRN TID PRN PO NAUSEA/VOMITING; Start at 15:30 Clopidogrel Bisulfate (Plavix) 75 mg DAILYWBKFT PO Last administered on at 08:57; Start 05/22/18 at 08:00 Aspirin (Ecotrin) 81 mg DAILYWBKFT PO Last administered on 05/22/18 08:57; Start 05/22/18 at 08:00 Metoprolol Succinate (Toprol Xl) 25 mg DAILY PO Last administered on 05/22/18at 08:57; Start 05/21/18 at 17:00 Atorvastatin Calcium (Lipitor) 20 mg QHS PO Last administered on 05/21/18 21:22 ; Start 05/21/18 at 21:00 Pantoprazole Sodium (Protonix) 40 mg DAILYAC PO Last administered on 05/22/18 06:22; Start 05/21/18 at 17:00 Active Scripts Active Reported Levothyroxine Sodium 88 Mcg Tablet 1 Tab PO DAILY Protonix (Pantoprazole Sodium) 20 Mg Tablet.dr 40 Mg PO DAILY Losartan Potassium 100 Mg Tablet 100 Mg PO DAILY Amiodarone Hcl 200 Mg Tablet 1 Tab PO DAILY Metolazone 2.5 Mg Tablet 2.5 Mg PO 3X/WEEK Metoprolol Succinate ( Xl ) (Metoprolol Succinate) 25 Mg Tab.er.24h 2 Tab PO BID Furosemide 40 Mg Tablet 40 Mg PO PRN DAILY PRN Furosemide 40 Mg Tablet 40 Mg PO BID Clopidogrel (Clopidogrel Bisulfate) 75 Mg Tablet 1 Tab PO DAILY Ondansetron Odt (Ondansetron) 4 Mg Tab.rapdis 8 Mg PO TID PRN Crestor (Rosuvastatin Calcium) 20 Mg Tablet 20 Mg PO HS PRN Allergies Allergies: Coded Allergies: Sulfa (Sulfonamide Antibiotics) (Verified Allergy, Severe, Rash, 05/21/18) blisters on whole body morphine (Verified Allergy, Intermediate, Nausea and Vomiting, 05/21/18) ROS Review of System As per HPI Physical Exam Physical Exam General: No acute distress HEENT: Atraumatic, Mucous membr. moist/pink NECK: Supple Lungs: Clear to auscultation Heart: Regular rate Abdomen: Soft, No tenderness Extremities: trace LE edema Skin: No rash Neuro: Normal speech, Sensation intact Psych/Mental Status: Mental status NL, Mood NL - No Price Vital Signs Vital Signs Date Time Temp Pulse Resp B/P (MAP) Pulse Ox O2 Delivery O2 Flow Rate FiO2 05/22/18 11:00 98.0 50 20 106/43 (64) 100 Nasal Cannula 2.0 98.0 Assessment & Plan TAMMY -Pre-renal, ? 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 Hypotensive at times. Essential tremors: amiodarone could be a factor as well. PAFIB: currently SR/SB Discussed A/P with Pt and son-in law at bed side Labs Labs Laboratory Tests Test 05/21/18 16:00 05/21/18 19:01 05/22/18 05:30 White Blood Count 5.3 x10^3/uL (4.0-11.0) Red Blood Count 3.67 x10^6/uL (3.50-5.40) Hemoglobin 10.6 g/dL (12.0-15.5) Hematocrit 31.9 % (36.0-47.0) Mean Corpuscular Volume 87 fL (79-100) Mean Corpuscular Hemoglobin 29 pg (25-35) Mean Corpuscular Hemoglobin Concent 33 g/dL (31-37) Red Cell Distribution Width 16.3 % (11.5-14.5) Platelet Count 164 x10^3/uL (140-400) Neutrophils (%) (Auto) 74 % (31-73) Lymphocytes (%) (Auto) 17 % (24-48) Monocytes (%) (Auto) 8 % (0-9) Eosinophils (%) (Auto) 1 % (0-3) Basophils (%) (Auto) 1 % (0-3) Neutrophils # (Auto) 4.0 x10^3uL (1.8-7.7) Lymphocytes # (Auto) 0.9 x10^3/uL (1.0-4.8) Monocytes # (Auto) 0.4 x10^3/uL (0.0-1.1) Eosinophils # (Auto) 0.1 x10^3/uL (0.0-0.7) Basophils # (Auto) 0.0 x10^3/uL (0.0-0.2) Prothrombin Time 13.8 SEC (11.7-14.0) Prothromb Time International Ratio 1.1 (0.8-1.1) Sodium Level 136 mmol/L (136-145) 139 mmol/L (136-145) Potassium Level 3.2 mmol/L (3.5-5.1) 3.1 mmol/L (3.5-5.1) Chloride Level 94 mmol/L (98-107) 96 mmol/L (98-107) Carbon Dioxide Level 32 mmol/L (21-32) 32 mmol/L (21-32) Anion Gap 10 (6-14) 11 (6-14) Blood Urea Nitrogen 70 mg/dL (7-20) 64 mg/dL (7-20) Creatinine 2.9 mg/dL (0.6-1.0) 2.6 mg/dL (0.6-1.0) Estimated GFR (Cockcroft-Gault) 15.6 17.7 BUN/Creatinine Ratio 24 (6-20) Glucose Level 99 mg/dL (70-99) 98 mg/dL (70-99) Calcium Level 9.3 mg/dL (8.5-10.1) 8.9 mg/dL (8.5-10.1) Magnesium Level 2.4 mg/dL (1.8-2.4) Iron Level 42 ug/dL (50-170) Total Iron Binding Capacity 371 ug/dL (250-450) Iron Saturation 11 % (15-34) Total Bilirubin 0.5 mg/dL (0.2-1.0) Aspartate Amino Transf (AST/SGOT) 76 U/L (15-37) Alanine Aminotransferase (ALT/SGPT) 61 U/L (14-59) Alkaline Phosphatase 74 U/L (46-116) Ammonia < 10 mcmol/L (11-34) SE-Fbl-O-Type Natriuretic Peptide 366 pg/mL (0-449) Total Protein 7.9 g/dL (6.4-8.2) Albumin 3.6 g/dL (3.4-5.0) Albumin/Globulin Ratio 0.8 (1.0-1.7) Thyroid Stimulating Hormone (TSH) 2.707 uIU/mL (0.358-3.74) Hepatitis A IgM Antibody Nonreactive (Nonreactive) Hepatitis B Surface Antigen Nonreactive (Nonreactive) Hepatitis B Core IgM Antibody Nonreactive (Nonreactive) Hepatitis C IgG Antibody Nonreactive (Nonreactive) Urine Collection Type Unknown Urine Color Yellow Urine Clarity Cloudy Urine pH 7.5 Urine Specific [place] 1.010 Urine Protein 30 mg/dL (NEG-TRACE) Urine Glucose (UA) Negative mg/dL (NEG) Urine Ketones (Stick) Negative mg/dL (NEG) Urine Blood Small (NEG) Urine Nitrite Positive (NEG) Urine Bilirubin Negative (NEG) Urine Urobilinogen Dipstick 1.0 mg/dL (0.2 mg/dL) Urine Leukocyte Esterase Large (NEG) Urine RBC 3-5 /HPF (0-2) Urine WBC Tntc /HPF (0-4) Urine Squamous Epithelial Cells Mod /LPF Urine Bacteria Many /HPF (0-FEW) Triglycerides Level 87 mg/dL (0-150) Cholesterol Level 116 mg/dL (0-200) LDL Cholesterol, Calculated 51 mg/dL (0-100) VLDL Cholesterol, Calculated 17 mg/dL (0-40) Non-HDL Cholesterol Calculated 68 mg/dL (0-129) HDL Cholesterol 48 mg/dL (40-60) Cholesterol/HDL Ratio 2.4 Laboratory Tests Test 05/21/18 16:00 05/21/18 19:01 05/22/18 05:30 White Blood Count 5.3 x10^3/uL (4.0-11.0) Red Blood Count 3.67 x10^6/uL (3.50-5.40) Hemoglobin 10.6 g/dL (12.0-15.5) Hematocrit 31.9 % (36.0-47.0) Mean Corpuscular Volume 87 fL (79-100) Mean Corpuscular Hemoglobin 29 pg (25-35) Mean Corpuscular Hemoglobin Concent 33 g/dL (31-37) Red Cell Distribution Width 16.3 % (11.5-14.5) Platelet Count 164 x10^3/uL (140-400) Neutrophils (%) (Auto) 74 % (31-73) Lymphocytes (%) (Auto) 17 % (24-48) Monocytes (%) (Auto) 8 % (0-9) Eosinophils (%) (Auto) 1 % (0-3) Basophils (%) (Auto) 1 % (0-3) Neutrophils # (Auto) 4.0 x10^3uL (1.8-7.7) Lymphocytes # (Auto) 0.9 x10^3/uL (1.0-4.8) Monocytes # (Auto) 0.4 x10^3/uL (0.0-1.1) Eosinophils # (Auto) 0.1 x10^3/uL (0.0-0.7) Basophils # (Auto) 0.0 x10^3/uL (0.0-0.2) Prothrombin Time 13.8 SEC (11.7-14.0) Prothromb Time International Ratio 1.1 (0.8-1.1) Sodium Level 136 mmol/L (136-145) 139 mmol/L (136-145) Potassium Level 3.2 mmol/L (3.5-5.1) 3.1 mmol/L (3.5-5.1) Chloride Level 94 mmol/L (98-107) 96 mmol/L (98-107) Carbon Dioxide Level 32 mmol/L (21-32) 32 mmol/L (21-32) Anion Gap 10 (6-14) 11 (6-14) Blood Urea Nitrogen 70 mg/dL (7-20) 64 mg/dL (7-20) Creatinine 2.9 mg/dL (0.6-1.0) 2.6 mg/dL (0.6-1.0) Estimated GFR (Cockcroft-Gault) 15.6 17.7 BUN/Creatinine Ratio 24 (6-20) Glucose Level 99 mg/dL (70-99) 98 mg/dL (70-99) Calcium Level 9.3 mg/dL (8.5-10.1) 8.9 mg/dL (8.5-10.1) Magnesium Level 2.4 mg/dL (1.8-2.4) Iron Level 42 ug/dL (50-170) Total Iron Binding Capacity 371 ug/dL (250-450) Iron Saturation 11 % (15-34) Total Bilirubin 0.5 mg/dL (0.2-1.0) Aspartate Amino Transf (AST/SGOT) 76 U/L (15-37) Alanine Aminotransferase (ALT/SGPT) 61 U/L (14-59) Alkaline Phosphatase 74 U/L (46-116) Ammonia < 10 mcmol/L (11-34) MW-Sic-K-Type Natriuretic Peptide 366 pg/mL (0-449) Total Protein 7.9 g/dL (6.4-8.2) Albumin 3.6 g/dL (3.4-5.0) Albumin/Globulin Ratio 0.8 (1.0-1.7) Thyroid Stimulating Hormone (TSH) 2.707 uIU/mL (0.358-3.74) Hepatitis A IgM Antibody Nonreactive (Nonreactive) Hepatitis B Surface Antigen Nonreactive (Nonreactive) Hepatitis B Core IgM Antibody Nonreactive (Nonreactive) Hepatitis C IgG Antibody Nonreactive (Nonreactive) Urine Collection Type Unknown Urine Color Yellow Urine Clarity Cloudy Urine pH 7.5 Urine Specific [place] 1.010 Urine Protein 30 mg/dL (NEG-TRACE) Urine Glucose (UA) Negative mg/dL (NEG) Urine Ketones (Stick) Negative mg/dL (NEG) Urine Blood Small (NEG) Urine Nitrite Positive (NEG) Urine Bilirubin Negative (NEG) Urine Urobilinogen Dipstick 1.0 mg/dL (0.2 mg/dL) Urine Leukocyte Esterase Large (NEG) Urine RBC 3-5 /HPF (0-2) Urine WBC Tntc /HPF (0-4) Urine Squamous Epithelial Cells Mod /LPF Urine Bacteria Many /HPF (0-FEW) Triglycerides Level 87 mg/dL (0-150) Cholesterol Level 116 mg/dL (0-200) LDL Cholesterol, Calculated 51 mg/dL (0-100) VLDL Cholesterol, Calculated 17 mg/dL (0-40) Non-HDL Cholesterol Calculated 68 mg/dL (0-129) HDL Cholesterol 48 mg/dL (40-60) Cholesterol/HDL Ratio 2.4 Review All relevant outside records, renal labs, imaging studies, telemetry/EKG's were reviewed. Images Images Abdominal US-- The liver is mildly enlarged measuring 18.9 cm. Slightly coarse hepatic echotexture. No intrahepatic biliary ductal dilatation or mass is seen. Gallbladder sludge. No gallstones, pericholecystic fluid, or gallbladder wall thickening are seen. The common bile duct is normal in diameter and measures 0.3 cm. Sonographic Kenny's Sign was negative. The IVC is patent at the level of the liver. The right kidney is normal in appearance, measuring 10.4 x 4.7 x 3.1 cm in length. It contains a 0.8 x 0.8 x 1.0 cm cyst in the upper pole. Prominent right renal pelvis. No hydronephrosis or perinephric fluid is seen around the right kidney. The pancreatic head and proximal body are unremarkable in appearance. The tail is not well visualized. The spleen is enlarged measuring 13.3 cm. Duplex Doppler Findings: The portal vein is normal in size measuring up to 1.0 cm. Hepatopedal flow is seen within the main, right, and left portal veins. Main portal venous velocity is slightly elevated measuring 47.7 cm/s. The left portal vein velocity measuring 46.1 cm/s. Hepatofugal flow is seen in the right, middle, and left hepatic veins. Patent hepatic artery with a peak systolic velocity of 98.6 cm/s. Recanalized umbilical vein. Normal directional flow within the splenic vein. Impression: 1. Mild hepatomegaly. Slightly coarse hepatic echotexture which can be seen with hepatocellular disease. 2. Slightly elevated portal venous velocities. Recanalized umbilical vein and splenomegaly indicating portal hypertension. No ascites or large varices seen. 3. Gallbladder sludge. No echogenic gallstone or sonographic evidence of acute cholecystitis. FARHANA VALENZUELA MD May 22, 2018 15:34
[2018-05-22] MEDS: POLYETHYLENE GLYCOL 3350 17 GM PACKET. PO PRN (17:24)
[2018-05-22] MEDS ORDERED: cefTRIAXone IV Push 1 GM VIAL. IVP SCH (18:00)
[2018-05-22] MEDS ORDERED: POTASSIUM CHLORIDE 20 MEQ TABLET.ER. PO ONE (18:00)
[2018-05-22 19:38] VITALS: BP 160/46
[2018-05-22] MEDS: ATORVASTATIN CALCIUM 20 MG TABLET PO SCH (20:18)
[2018-05-22 23:54] VITALS: BP 126/76
[2018-05-23 03:43] VITALS: BP 129/37
[2018-05-23] MEDS: LEVOTHYROXINE 88 MCG TABLET PO SCH (06:09)
[2018-05-23 06:34] LABS: CALCIUM 8.6 mg/dL (8.5-10.1); CREATININE 2.4 mg/dL (0.6-1.0); GFR 19.4; POTASSIUM 3.8 mmol/L (3.5-5.1)
[2018-05-23 07:25] VITALS: BP 113/53
[2018-05-23] MEDS: ASPIRIN ENTERIC COATED 81 MG TABLET.DR. PO SCH (08:41)
[2018-05-23] MEDS: PANTOPRAZOLE 40 MG TABLET.DR. PO SCH (08:41)
[2018-05-23] MEDS: POLYETHYLENE GLYCOL 3350 17 GM PACKET. PO PRN (08:41)
[2018-05-23] MEDS: METOPROLOL SUCC 24HR ER 25 MG TAB.ER.24H. PO SCH (08:42)
[2018-05-23] MEDS: CLOPIDOGREL BISULFATE 75 MG TABLET PO SCH (08:42)
[2018-05-23 11:16] VITALS: BP 126/32
--- NOTE | 2018-05-23 14:03 | PDOC ---
PROGRESS NOTES Subjective Subjective Patient seen and examined The patient is feeling mildly better today. She was able to eat breakfast. Objective Objective Vital Signs Date Time Temp Pulse Resp B/P (MAP) Pulse Ox O2 Delivery O2 Flow Rate FiO2 05/23/18 11:16 98.2 53 20 126/32 (63) 100 Nasal Cannula 2.0 98.2 Intake and Output 05/23/18 07:00 Intake Total 880 ml Balance 880 ml Intake Oral 880 ml # Voids 3 Physical Exam Abdomen: Normal bowel sounds Heart: Regular rate General: No acute distress Lungs: Clear to auscultation Assessment Assessment Diastolic heart failure. Compensated. Echo shows a normal ejection fraction at 55-60%, mild tricuspid regurgitation and mildly elevated PAP at 40 mmHg. Continue present treatment. Coronary artery disease. 2 stents placed in March in [place]. No chest pain. Continue medications. Hypertension. Controlled. Continue to monitor. Paroxysmal atrial fibrillation. Currently in sinus rhythm. Continue as above. Have discontinued amiodarone. Acute kidney injury. Monitoring lab. Renal following. Liver disease as above. Discontinue amiodarone. Additionally her anticoagulation has been held due to anemia and her liver disease. GI and renal evaluation is continuing. Comment Review of Relevant I have reviewed the following items brittani (where applicable) has been applied. Labs Laboratory Tests Test 05/21/18 16:00 05/21/18 19:01 05/22/18 05:30 05/23/18 04:55 White Blood Count 5.3 x10^3/uL (4.0-11.0) Red Blood Count 3.67 x10^6/uL (3.50-5.40) Hemoglobin 10.6 g/dL (12.0-15.5) Hematocrit 31.9 % (36.0-47.0) Mean Corpuscular Volume 87 fL (79-100) Mean Corpuscular Hemoglobin 29 pg (25-35) Mean Corpuscular Hemoglobin Concent 33 g/dL (31-37) Red Cell Distribution Width 16.3 % (11.5-14.5) Platelet Count 164 x10^3/uL (140-400) Neutrophils (%) (Auto) 74 % (31-73) Lymphocytes (%) (Auto) 17 % (24-48) Monocytes (%) (Auto) 8 % (0-9) Eosinophils (%) (Auto) 1 % (0-3) Basophils (%) (Auto) 1 % (0-3) Neutrophils # (Auto) 4.0 x10^3uL (1.8-7.7) Lymphocytes # (Auto) 0.9 x10^3/uL (1.0-4.8) Monocytes # (Auto) 0.4 x10^3/uL (0.0-1.1) Eosinophils # (Auto) 0.1 x10^3/uL (0.0-0.7) Basophils # (Auto) 0.0 x10^3/uL (0.0-0.2) Prothrombin Time 13.8 SEC (11.7-14.0) Prothromb Time International Ratio 1.1 (0.8-1.1) Sodium Level 136 mmol/L (136-145) 139 mmol/L (136-145) 138 mmol/L (136-145) Potassium Level 3.2 mmol/L (3.5-5.1) 3.1 mmol/L (3.5-5.1) 3.8 mmol/L (3.5-5.1) Chloride Level 94 mmol/L (98-107) 96 mmol/L (98-107) 100 mmol/L (98-107) Carbon Dioxide Level 32 mmol/L (21-32) 32 mmol/L (21-32) 32 mmol/L (21-32) Anion Gap 10 (6-14) 11 (6-14) 6 (6-14) Blood Urea Nitrogen 70 mg/dL (7-20) 64 mg/dL (7-20) 56 mg/dL (7-20) Creatinine 2.9 mg/dL (0.6-1.0) 2.6 mg/dL (0.6-1.0) 2.4 mg/dL (0.6-1.0) Estimated GFR (Cockcroft-Gault) 15.6 17.7 19.4 BUN/Creatinine Ratio 24 (6-20) Glucose Level 99 mg/dL (70-99) 98 mg/dL (70-99) 92 mg/dL (70-99) Calcium Level 9.3 mg/dL (8.5-10.1) 8.9 mg/dL (8.5-10.1) 8.6 mg/dL (8.5-10.1) Magnesium Level 2.4 mg/dL (1.8-2.4) Iron Level 42 ug/dL (50-170) Total Iron Binding Capacity 371 ug/dL (250-450) Iron Saturation 11 % (15-34) Total Bilirubin 0.5 mg/dL (0.2-1.0) Aspartate Amino Transf (AST/SGOT) 76 U/L (15-37) Alanine Aminotransferase (ALT/SGPT) 61 U/L (14-59) Alkaline Phosphatase 74 U/L (46-116) Ammonia < 10 mcmol/L (11-34) LR-Jzk-C-Type Natriuretic Peptide 366 pg/mL (0-449) Total Protein 7.9 g/dL (6.4-8.2) Albumin 3.6 g/dL (3.4-5.0) Albumin/Globulin Ratio 0.8 (1.0-1.7) Thyroid Stimulating Hormone (TSH) 2.707 uIU/mL (0.358-3.74) Hepatitis A IgM Antibody Nonreactive (Nonreactive) Hepatitis B Surface Antigen Nonreactive (Nonreactive) Hepatitis B Core IgM Antibody Nonreactive (Nonreactive) Hepatitis C IgG Antibody Nonreactive (Nonreactive) Urine Collection Type Unknown Urine Color Yellow Urine Clarity Cloudy Urine pH 7.5 Urine Specific [place] 1.010 Urine Protein 30 mg/dL (NEG-TRACE) Urine Glucose (UA) Negative mg/dL (NEG) Urine Ketones (Stick) Negative mg/dL (NEG) Urine Blood Small (NEG) Urine Nitrite Positive (NEG) Urine Bilirubin Negative (NEG) Urine Urobilinogen Dipstick 1.0 mg/dL (0.2 mg/dL) Urine Leukocyte Esterase Large (NEG) Urine RBC 3-5 /HPF (0-2) Urine WBC Tntc /HPF (0-4) Urine Squamous Epithelial Cells Mod /LPF Urine Bacteria Many /HPF (0-FEW) Creatine Kinase 33 U/L (26-192) Triglycerides Level 87 mg/dL (0-150) Cholesterol Level 116 mg/dL (0-200) LDL Cholesterol, Calculated 51 mg/dL (0-100) VLDL Cholesterol, Calculated 17 mg/dL (0-40) Non-HDL Cholesterol Calculated 68 mg/dL (0-129) HDL Cholesterol 48 mg/dL (40-60) Cholesterol/HDL Ratio 2.4 Laboratory Tests Test 05/23/18 04:55 Sodium Level 138 mmol/L (136-145) Potassium Level 3.8 mmol/L (3.5-5.1) Chloride Level 100 mmol/L (98-107) Carbon Dioxide Level 32 mmol/L (21-32) Anion Gap 6 (6-14) Blood Urea Nitrogen 56 mg/dL (7-20) Creatinine 2.4 mg/dL (0.6-1.0) Estimated GFR (Cockcroft-Gault) 19.4 Glucose Level 92 mg/dL (70-99) Calcium Level 8.6 mg/dL (8.5-10.1) Medications Current Medications Levothyroxine Sodium (Synthroid) 88 mcg DAILY06 PO Last administered on 06:09; Start 05/22/18 at 06:00 Ondansetron HCl (Zofran Odt) 8 mg PRN TID PRN PO NAUSEA/VOMITING; Start at 15:30 Clopidogrel Bisulfate (Plavix) 75 mg DAILYWBKFT PO Last administered on 08:42; Start 05/22/18 at 08:00 Aspirin (Ecotrin) 81 mg DAILYWBKFT PO Last administered on 05/23/18 08:41; Start 05/22/18 at 08:00 Metoprolol Succinate (Toprol Xl) 25 mg DAILY PO Last administered on 05/23/18 08:42; Start 05/21/18 at 17:00 Atorvastatin Calcium (Lipitor) 20 mg QHS PO Last administered on 05/22/18 20:18 ; Start 05/21/18 at 21:00 Pantoprazole Sodium (Protonix) 40 mg DAILYAC PO Last administered on 05/23/18 08:41; Start 05/21/18 at 17:00 Polyethylene Glycol (miraLAX PACKET) 17 gm PRN DAILY PRN PO CONSTIPATION Last administered on 05/23/18 08:41; Start 05/22/18 at 17:00 Ceftriaxone Sodium (Rocephin) 1 gm Q24H IVP Last administered on 05/22/18 17:23 ; Start 05/22/18 at 18:00 Potassium Chloride (Klor-Con) 40 meq 1X ONCE PO Last administered on 05/22/18 17:24; Start 05/22/18 at 18:00; Stop 05/22/18 at 18:01; Status DC Lactobacillus Rhamnosus (Culturelle) 1 cap BID PO ; Start 05/23/18 at 21:00 Active Scripts Active Reported Levothyroxine Sodium 88 Mcg Tablet 1 Tab PO DAILY Protonix (Pantoprazole Sodium) 20 Mg Tablet.dr 40 Mg PO DAILY Losartan Potassium 100 Mg Tablet 100 Mg PO DAILY Amiodarone Hcl 200 Mg Tablet 1 Tab PO DAILY Metolazone 2.5 Mg Tablet 2.5 Mg PO 3X/WEEK Metoprolol Succinate ( Xl ) (Metoprolol Succinate) 25 Mg Tab.er.24h 2 Tab PO BID Furosemide 40 Mg Tablet 40 Mg PO PRN DAILY PRN Furosemide 40 Mg Tablet 40 Mg PO BID Clopidogrel (Clopidogrel Bisulfate) 75 Mg Tablet 1 Tab PO DAILY Ondansetron Odt (Ondansetron) 4 Mg Tab.rapdis 8 Mg PO TID PRN Crestor (Rosuvastatin Calcium) 20 Mg Tablet 20 Mg PO HS PRN Vitals/I & O Vital Sign - Last 24 Hours 05/22/18 05/22/18 05/22/18 05/22/18 15:00 19:38 20:10 23:54 Temp 97.9 97.9 97.5 97.9 97.9 97.5 Pulse 48 50 54 Resp 20 20 16 B/P (MAP) 106/24 (51) 160/46 (84) 126/76 (93) Pulse Ox 100 100 100 O2 Delivery Nasal Cannula Nasal Cannula Nasal Cannula Nasal Cannula O2 Flow Rate 2.0 2.0 2.0 2.0 05/23/18 05/23/18 05/23/18 05/23/18 03:43 07:25 08:00 08:42 Temp 98.1 97.7 98.1 97.7 Pulse 55 50 50 Resp 16 20 B/P (MAP) 129/37 (67) 113/53 (73) 113/53 Pulse Ox 100 99 O2 Delivery Nasal Cannula Nasal Cannula Nasal Cannula O2 Flow Rate 2.0 2.0 2.0 05/23/18 11:16 Temp 98.2 98.2 Pulse 53 Resp 20 B/P (MAP) 126/32 (63) Pulse Ox 100 O2 Delivery Nasal Cannula O2 Flow Rate 2.0 Intake and Output 05/22/18 05/22/18 05/23/18 15:00 23:00 07:00 Intake Total 200 ml 300 ml 380 ml Balance 200 ml 300 ml 380 ml ELENA GOVEA MD May 23, 2018 14:03
--- NOTE | 2018-05-23 14:12 | PDOC ---
SUBJECTIVE ROS States feeling better, OBJECTIVE Vital Signs Vital Signs Date Time Temp Pulse Resp B/P (MAP) Pulse Ox O2 Delivery O2 Flow Rate FiO2 05/23/18 11:16 98.2 53 20 126/32 (63) 100 Nasal Cannula 2.0 98.2 I & 0 Intake and Output 05/23/18 07:00 Intake Total 880 ml Balance 880 ml Intake Oral 880 ml # Voids 3 PHYSICAL EXAM Physical Exam General: No acute distress HEENT: Atraumatic, Mucous membr. 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 Hypotensive at times. Essential tremors: amiodarone could be a factor as well. PAFIB: currently SR/SB GI Symptoms- s/p EGD in Mar Scheduled for [facility] Discussed A/P with Pt and son-in law at bed side COMMENT/RELEVANT DATA Meds Current Medications Medications (Trade) Dose Ordered Sig/Therese Start Time Stop Time Status Last Admin Dose Admin Aspirin (Ecotrin) 81 mg DAILYWBKFT 05/22/18 08:00 05/23/18 08:41 81 MG Atorvastatin Calcium (Lipitor) 20 mg QHS 05/21/18 21:00 05/22/18 20:18 20 MG Ceftriaxone Sodium (Rocephin) 1 gm Q24H 05/22/18 18:00 05/22/18 17:23 1 GM Clopidogrel Bisulfate (Plavix) 75 mg DAILYWBKFT 05/22/18 08:00 05/23/18 08:42 75 MG Lactobacillus Rhamnosus (Culturelle) 1 cap BID 05/23/18 21:00 Levothyroxine Sodium (Synthroid) 88 mcg DAILY06 05/22/18 06:00 05/23/18 06:09 88 MCG Metoprolol Succinate (Toprol Xl) 25 mg DAILY 05/21/18 17:00 05/23/18 08:42 25 MG Ondansetron HCl (Zofran Odt) 8 mg PRN TID PRN 05/21/18 15:30 Pantoprazole Sodium (Protonix) 40 mg DAILYAC 05/21/18 17:00 05/23/18 08:41 40 MG Polyethylene Glycol (miraLAX PACKET) 17 gm PRN DAILY PRN 05/22/18 17:00 05/23/18 08:41 17 GM Potassium Chloride (Klor-Con) 40 meq 1X ONCE 05/22/18 18:00 05/22/18 18:01 DC 05/22/18 17:24 40 MEQ Lab Laboratory Tests Test 05/23/18 04:55 Sodium Level 138 mmol/L (136-145) Potassium Level 3.8 mmol/L (3.5-5.1) Chloride Level 100 mmol/L (98-107) Carbon Dioxide Level 32 mmol/L (21-32) Anion Gap 6 (6-14) Blood Urea Nitrogen 56 mg/dL (7-20) Creatinine 2.4 mg/dL (0.6-1.0) Estimated GFR (Cockcroft-Gault) 19.4 Glucose Level 92 mg/dL (70-99) Calcium Level 8.6 mg/dL (8.5-10.1) Results All relevant outside records, renal labs, imaging studies, telemetry/EKG's were reviewed. FARHANA VALENZUELA MD May 23, 2018 14:12
[2018-05-23 15:06] VITALS: BP 156/51
--- NOTE | 2018-05-23 15:11 | PN ---
DATE: 05/23/2018 SUBJECTIVE: The patient is sitting at the edge of the bed comfortably in no apparent distress. On questioning her, she denied any complaints, in particular denied any chest pain or shortness of breath. Denied any orthopnea or paroxysmal nocturnal dyspnea. Denied any cough, phlegm or hemoptysis. She continued to be in sinus bradycardia despite stopping her amiodarone. PHYSICAL EXAMINATION: GENERAL: When I examined her, she looked well and was clearly in no apparent respiratory distress. No pallor, jaundice, cyanosis or thyromegaly. No jugular venous distension. No lower limb edema. VITAL SIGNS: Her heart rate was 50, blood pressure 113/53, temperature was 97.7, respiratory rate 20, and oxygen saturation was 99% on 2 liters of oxygen. HEAD, EYES, EARS, NOSE AND THROAT: Showed normocephalic, atraumatic. NECK: Supple. HEART: Showed normal first and second heart sounds. No gallop, rub or murmur. CHEST: Clear to auscultation. No crepitation or rhonchi. ABDOMEN: Distended, soft, nontender. No guarding or rigidity. No organomegaly. All hernial orifice intact. Bowel sounds normal. NEUROLOGIC: She is awake, alert, responding appropriately. All cranial nerves intact. She moves extremities without difficulty. She ambulates with a walker. Her intake was 240, output was 400. LABORATORY DATA: As of this morning, her serum sodium was 138, potassium 3.8, chloride was 100, bicarbonate 32, anion gap of 6, BUN 56, creatinine 2.4, estimated GFR was 19.4, glucose was 92 and calcium was 8.6. Her CK was 33. Her triglycerides were 87, total cholesterol 116, LDL was 51, VLDL was 17, HDL cholesterol was 48 and the ratio was 2.4. Her serum iron was 42, TIBC was 371 and iron saturation was 11%. ASSESSMENT: 1. Chronic diastolic congestive heart failure, compensated. Echo shows normal ejection fraction of 55-60%, with mild tricuspid regurgitation, mildly elevated pulmonary artery pressure of 40. 2. Coronary artery disease, status post PCI with stent deployment. The patient is now chest pain free. 3. Hypertension, well controlled. 4. Paroxysmal atrial fibrillation, rate controlled, currently in sinus bradycardia. 5. Acute on chronic kidney injury. Creatinine is improving from 2.9-2.4. 6. 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 Her anticoagulation has also been held due to anemia and her liver disease. PLAN: To continue with current treatment. MARÍA DAWN MD DR: FAWAD/jun JOB#: [id number] / [id number]
[2018-05-23] MEDS ORDERED: BISACODYL 10 MG SUPP.RECT. PR PRN (15:30)
[2018-05-23 19:00] VITALS: BP 135/43
[2018-05-23] MEDS ORDERED: BISACODYL 5 MG TABLET.DR. PO PRN (19:15)
[2018-05-23] MEDS: DOCUSATE SODIUM 100 MG CAPSULE. PO SCH (19:18)
[2018-05-23] MEDS: ACETAMINOPHEN 325 MG TABLET. PO PRN (20:20)
[2018-05-23] MEDS: ATORVASTATIN CALCIUM 20 MG TABLET PO SCH (21:00)
[2018-05-23] MEDS: CEFDINIR 300 MG CAPSULE PO SCH (21:00)
[2018-05-23] MEDS: LACTOBACILLUS RHAMNOSUS GG 1 CAPSULE. PO SCH (21:00)
[2018-05-23 22:52] LABS: BILIRUBIN,URINE NEGATIVE (NEG); CLARITY,URINE CLOUDY; COLOR,URINE YELLOW; NITRITE,URINE NEGATIVE (NEG); PH,URINE 5.5; PROTEIN,URINE 30 mg/dL (NEG-TRACE)
[2018-05-23 22:59] LABS: BACTERIA,URINE MODERATE /HPF (0-FEW); SQUAMOUS EPITHELIAL CELL,UR FEW /LPF; WBC,URINE TNTC /HPF (0-4)
[2018-05-23 23:00] VITALS: BP 137/30
[2018-05-24 03:00] VITALS: BP 116/36
[2018-05-24 05:58] LABS: HEMATOCRIT 28.7 % (36.0-47.0); HEMOGLOBIN 9.5 g/dL (12.0-15.5); RED BLOOD COUNT 3.26 x10^6/uL (3.50-5.40); RED CELL DISTRIBUTION WIDTH 16.7 % (11.5-14.5); WHITE BLOOD COUNT 6.3 x10^3/uL (4.0-11.0)
[2018-05-24] MEDS: LEVOTHYROXINE 88 MCG TABLET PO SCH (06:00)
[2018-05-24 06:24] LABS: ALBUMIN 3.1 g/dL (3.4-5.0); ALBUMIN/GLOBULIN RATIO 0.8 (1.0-1.7); CALCIUM 8.7 mg/dL (8.5-10.1); CREATININE 2.3 mg/dL (0.6-1.0); GFR 20.4; POTASSIUM 3.8 mmol/L (3.5-5.1); TOTAL BILIRUBIN 0.4 mg/dL (0.2-1.0); TOTAL PROTEIN 6.9 g/dL (6.4-8.2)
[2018-05-24 07:00] VITALS: BP 159/40
[2018-05-24] MEDS: PANTOPRAZOLE 40 MG TABLET.DR. PO SCH (07:30)
[2018-05-24] MEDS: CLOPIDOGREL BISULFATE 75 MG TABLET PO SCH (08:00)
[2018-05-24] MEDS: ASPIRIN ENTERIC COATED 81 MG TABLET.DR. PO SCH (08:00)
[2018-05-24] MEDS: METOPROLOL SUCC 24HR ER 25 MG TAB.ER.24H. PO SCH (09:00)
[2018-05-24] MEDS: LACTOBACILLUS RHAMNOSUS GG 1 CAPSULE. PO SCH ×2 (09:00→21:15)
[2018-05-24] MEDS ORDERED: DOCUSATE SODIUM 100 MG CAPSULE. PO SCH (09:00)
--- NOTE | 2018-05-24 10:10 | PDOC ---
SUBJECTIVE ROS States feeling tired, didn't have a good sleep, also just came back from [facility] Denies any SOB, feels retaining some fluid OBJECTIVE Vital Signs Vital Signs Date Time Temp Pulse Resp B/P (MAP) Pulse Ox O2 Delivery O2 Flow Rate FiO2 05/24/18 08:22 Nasal Cannula 2.0 05/24/18 07:00 98.1 60 18 159/40 (79) 99 98.1 I & 0 Intake and Output 05/24/18 06:59 Intake Total 500 ml Output Total 200 ml Balance 300 ml Intake Oral 500 ml Output Urine Total 200 ml # Voids 2 PHYSICAL EXAM Physical Exam General: No acute distress HEENT: On o2 by NC NECK: Supple Lungs: Clear to auscultation Heart: Regular rate Abdomen: Soft, No tenderness Extremities: trace LE edema Skin: No rash Neuro: Normal speech, Sensation intact Psych/Mental Status: Mental status NL, Mood NL - No Price DIAGNOSIS/ASSESSMENT Assessment & Plan TAMMY - ATN, UTI ,Poor PO intake, wt loss baseline Unknown, Recd Contrast x 2 03/2018 At Home Losartan Lasix and Metolazone Renal US unremarkable, CT done at [place] Records from [place] still Not available Cr improving slow UTI - On Abx Hypokalemia- normal today Replace as indicated 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 Hypotensive at times. Essential tremors: amiodarone could be a factor as well. PAFIB: currently SR/SB GI Symptoms- s/p EGD in [place] [facility] today Discussed A/P with Pt and RN at bedside COMMENT/RELEVANT DATA Meds Current Medications Medications (Trade) Dose Ordered Sig/Therese Start Time Stop Time Status Last Admin Dose Admin Acetaminophen (Tylenol) 650 mg PRN Q4HRS PRN 05/23/18 20:00 05/23/18 20:20 650 MG Aspirin (Ecotrin) 81 mg DAILYWBKFT 05/22/18 08:00 05/23/18 08:41 81 MG Atorvastatin Calcium (Lipitor) 20 mg QHS 05/21/18 21:00 05/22/18 20:18 20 MG Bisacodyl (Dulcolax Supp) 10 mg PRN DAILY PRN 05/23/18 15:30 05/23/18 15:42 10 MG Bisacodyl (Dulcolax Tab) 10 mg PRN DAILY PRN 05/23/18 19:15 05/23/18 19:17 10 MG Cefdinir (Omnicef) 300 mg QHS 05/23/18 21:00 Ceftriaxone Sodium (Rocephin) 1 gm Q24H 05/22/18 18:00 05/23/18 19:05 DC 05/22/18 17:23 1 GM Clopidogrel Bisulfate (Plavix) 75 mg DAILYWBKFT 05/22/18 08:00 05/23/18 08:42 75 MG Docusate Sodium (Colace) 100 mg DAILY 05/23/18 19:15 05/23/18 19:18 100 MG Lactobacillus Rhamnosus (Culturelle) 1 cap BID 05/23/18 21:00 Levothyroxine Sodium (Synthroid) 88 mcg DAILY06 05/22/18 06:00 05/23/18 06:09 88 MCG Metoprolol Succinate (Toprol Xl) 25 mg DAILY 05/21/18 17:00 05/23/18 08:42 25 MG Ondansetron HCl (Zofran Odt) 8 mg PRN TID PRN 05/21/18 15:30 Pantoprazole Sodium (Protonix) 40 mg DAILYAC 05/21/18 17:00 05/23/18 08:41 40 MG Polyethylene Glycol (miraLAX PACKET) 17 gm PRN DAILY PRN 05/22/18 17:00 05/23/18 08:41 17 GM Potassium Chloride (Klor-Con) 40 meq 1X ONCE 05/22/18 18:00 05/22/18 18:01 DC 05/22/18 17:24 40 MEQ Lab Laboratory Tests Test 05/23/18 22:40 05/24/18 05:00 Urine Collection Type Unknown Urine Color Yellow Urine Clarity Cloudy Urine pH 5.5 Urine Specific [place] 1.015 Urine Protein 30 mg/dL (NEG-TRACE) Urine Glucose (UA) Negative mg/dL (NEG) Urine Ketones (Stick) Negative mg/dL (NEG) Urine Blood Trace (NEG) Urine Nitrite Negative (NEG) Urine Bilirubin Negative (NEG) Urine Urobilinogen Dipstick 1.0 mg/dL (0.2 mg/dL) Urine Leukocyte Esterase Large (NEG) Urine RBC 1-2 /HPF (0-2) Urine WBC Tntc /HPF (0-4) Urine Squamous Epithelial Cells Few /LPF Urine Bacteria Moderate /HPF (0-FEW) Urine Mucus Slight /LPF White Blood Count 6.3 x10^3/uL (4.0-11.0) Red Blood Count 3.26 x10^6/uL (3.50-5.40) Hemoglobin 9.5 g/dL (12.0-15.5) Hematocrit 28.7 % (36.0-47.0) Mean Corpuscular Volume 88 fL (79-100) Mean Corpuscular Hemoglobin 29 pg (25-35) Mean Corpuscular Hemoglobin Concent 33 g/dL (31-37) Red Cell Distribution Width 16.7 % (11.5-14.5) Platelet Count 137 x10^3/uL (140-400) Sodium Level 139 mmol/L (136-145) Potassium Level 3.8 mmol/L (3.5-5.1) Chloride Level 99 mmol/L (98-107) Carbon Dioxide Level 32 mmol/L (21-32) Anion Gap 8 (6-14) Blood Urea Nitrogen 54 mg/dL (7-20) Creatinine 2.3 mg/dL (0.6-1.0) Estimated GFR (Cockcroft-Gault) 20.4 BUN/Creatinine Ratio 23 (6-20) Glucose Level 88 mg/dL (70-99) Calcium Level 8.7 mg/dL (8.5-10.1) Total Bilirubin 0.4 mg/dL (0.2-1.0) Aspartate Amino Transf (AST/SGOT) 58 U/L (15-37) Alanine Aminotransferase (ALT/SGPT) 49 U/L (14-59) Alkaline Phosphatase 69 U/L (46-116) Total Protein 6.9 g/dL (6.4-8.2) Albumin 3.1 g/dL (3.4-5.0) Albumin/Globulin Ratio 0.8 (1.0-1.7) Results All relevant outside records, renal labs, imaging studies, telemetry/EKG's were reviewed. FARHANA VALENZUELA MD May 24, 2018 10:10
--- NOTE | 2018-05-24 10:14 | PDOC ---
Subjective: Subjective: Not feeling too good today. Ate some [place] toast and chicken pot pie yesterday, then vomited in the evening. Denies pain. Concerned because no BM since Thursday - usually Miralax works. Has taken Miralax and Dulcolax here without good response - but says disimpacted herself last night and feels better now. Kept oatmeal down for [facility]. Objective: Vital Signs: Vital Signs Date Time Temp Pulse Resp B/P (MAP) Pulse Ox O2 Delivery O2 Flow Rate FiO2 05/24/18 08:22 Nasal Cannula 2.0 05/24/18 07:00 98.1 60 18 159/40 (79) 99 98.1 Labs: Laboratory Tests Test 05/23/18 22:40 05/24/18 05:00 Urine Collection Type Unknown Urine Color Yellow Urine Clarity Cloudy Urine pH 5.5 Urine Specific [place] 1.015 Urine Protein 30 mg/dL Urine Glucose (UA) Negative mg/dL Urine Ketones (Stick) Negative mg/dL Urine Blood Trace Urine Nitrite Negative Urine Bilirubin Negative Urine Urobilinogen Dipstick 1.0 mg/dL Urine Leukocyte Esterase Large Urine RBC 1-2 /HPF Urine WBC Tntc /HPF Urine Squamous Epithelial Cells Few /LPF Urine Bacteria Moderate /HPF Urine Mucus Slight /LPF White Blood Count 6.3 x10^3/uL Red Blood Count 3.26 x10^6/uL Hemoglobin 9.5 g/dL Hematocrit 28.7 % Mean Corpuscular Volume 88 fL Mean Corpuscular Hemoglobin 29 pg Mean Corpuscular Hemoglobin Concent 33 g/dL Red Cell Distribution Width 16.7 % Platelet Count 137 x10^3/uL Sodium Level 139 mmol/L Potassium Level 3.8 mmol/L Chloride Level 99 mmol/L Carbon Dioxide Level 32 mmol/L Anion Gap 8 Blood Urea Nitrogen 54 mg/dL Creatinine 2.3 mg/dL Estimated GFR (Cockcroft-Gault) 20.4 BUN/Creatinine Ratio 23 Glucose Level 88 mg/dL Calcium Level 8.7 mg/dL Total Bilirubin 0.4 mg/dL Aspartate Amino Transf (AST/SGOT) 58 U/L Alanine Aminotransferase (ALT/SGPT) 49 U/L Alkaline Phosphatase 69 U/L Total Protein 6.9 g/dL Albumin 3.1 g/dL Albumin/Globulin Ratio 0.8 Imaging: CXR 05/21 IMPRESSION: Findings of COPD with superimposed atypical/viral infection not ruled out. Abd US/Doppler 05/22 Impression: 1. Mild hepatomegaly. Slightly coarse hepatic echotexture which can be seen with hepatocellular disease. 2. Slightly elevated portal venous velocities. Recanalized umbilical vein and splenomegaly indicating portal hypertension. No ascites or large varices seen. 3. Gallbladder sludge. No echogenic gallstone or sonographic evidence of acute cholecystitis. [facility]ES 05/24 in process PE: GEN: NAD LUNGS: CTAB HEART: RRR ABD: NABS, S/ND/NT NEURO/PSYCH: A & O 3 A/P: N/v, early satiety, weight loss ?GERD Constipation Anemia - iron sat 11, on Plavix and ASA Mild transaminitis (checked 05/21/18), hepatomegaly/cirrhosis, portal hypertension - previously on Amiodarone, viral Hep panel neg -- Await [facility]. No records received from recent EGD and colonoscopy in [place], [place]. Continue PPI, adjust constipation meds. KAROL JULIAN May 24, 2018 10:14
--- NOTE | 2018-05-24 10:22 | PDOC ---
CARDIO Progress Notes Date and Time Date of Service 05/24/18 Time of Evaluation 1010 Subjective Subjective: No Chest Pain, No shortness of breath Vitals Vitals Vital Signs Date Time Temp Pulse Resp B/P (MAP) Pulse Ox O2 Delivery O2 Flow Rate FiO2 05/24/18 08:22 Nasal Cannula 2.0 05/24/18 07:00 98.1 60 18 159/40 (79) 99 98.1 Weight Weight [ ] Input and Output Intake and Output Intake and Output 05/24/18 06:59 Intake Total 500 ml Output Total 200 ml Balance 300 ml Intake Oral 500 ml Output Urine Total 200 ml # Voids 2 Laboratory Labs Laboratory Tests Test 05/23/18 22:40 05/24/18 05:00 Urine Collection Type Unknown Urine Color Yellow Urine Clarity Cloudy Urine pH 5.5 Urine Specific [place] 1.015 Urine Protein 30 mg/dL (NEG-TRACE) Urine Glucose (UA) Negative mg/dL (NEG) Urine Ketones (Stick) Negative mg/dL (NEG) Urine Blood Trace (NEG) Urine Nitrite Negative (NEG) Urine Bilirubin Negative (NEG) Urine Urobilinogen Dipstick 1.0 mg/dL (0.2 mg/dL) Urine Leukocyte Esterase Large (NEG) Urine RBC 1-2 /HPF (0-2) Urine WBC Tntc /HPF (0-4) Urine Squamous Epithelial Cells Few /LPF Urine Bacteria Moderate /HPF (0-FEW) Urine Mucus Slight /LPF White Blood Count 6.3 x10^3/uL (4.0-11.0) Red Blood Count 3.26 x10^6/uL (3.50-5.40) Hemoglobin 9.5 g/dL (12.0-15.5) Hematocrit 28.7 % (36.0-47.0) Mean Corpuscular Volume 88 fL (79-100) Mean Corpuscular Hemoglobin 29 pg (25-35) Mean Corpuscular Hemoglobin Concent 33 g/dL (31-37) Red Cell Distribution Width 16.7 % (11.5-14.5) Platelet Count 137 x10^3/uL (140-400) Sodium Level 139 mmol/L (136-145) Potassium Level 3.8 mmol/L (3.5-5.1) Chloride Level 99 mmol/L (98-107) Carbon Dioxide Level 32 mmol/L (21-32) Anion Gap 8 (6-14) Blood Urea Nitrogen 54 mg/dL (7-20) Creatinine 2.3 mg/dL (0.6-1.0) Estimated GFR (Cockcroft-Gault) 20.4 BUN/Creatinine Ratio 23 (6-20) Glucose Level 88 mg/dL (70-99) Calcium Level 8.7 mg/dL (8.5-10.1) Total Bilirubin 0.4 mg/dL (0.2-1.0) Aspartate Amino Transf (AST/SGOT) 58 U/L (15-37) Alanine Aminotransferase (ALT/SGPT) 49 U/L (14-59) Alkaline Phosphatase 69 U/L (46-116) Total Protein 6.9 g/dL (6.4-8.2) Albumin 3.1 g/dL (3.4-5.0) Albumin/Globulin Ratio 0.8 (1.0-1.7) Physical Exam HEENT: Neck Supple W Full Motion Chest: Symmetric LUNGS: Clear to Auscultation Heart: S1S2, RRR Abdomen: Soft N/T Extremities: No Edema Neurology: alert, oriented Assessment Assessment 1. Liver disease/nausea/vomiting; gastric emptying study today. As per GI 2. Chronic diastolic CHF: clinically compensated 3. CAD: 03/2018 x2 stents in [place], no CP, clinically stable 4. HLP 5. HTN: controlled. 6. PAFIB: currently SR/SB. Amiodarone has been discontinued due to liver disease 7. TAMMY on CKD: improved 10. Hypothyroidism: on home replacement Recommendations No OSH received. Hold metoprolol with bradycardia Continue ASA/Plavix unless severe thrombocytopenia is noted.. Continue statin ASA for stroke prevention; previously on Xarelto, but discontinued due to anemia. Follow GI recs F/u in our office with Dr. Isaac in 1 month LEANNE GONZALEZ APRN May 24, 2018 10:22
[2018-05-24 11:00] VITALS: BP 169/79
[2018-05-24] MEDS ORDERED: BISACODYL 10 MG SUPP.RECT. PR PRN (11:00)
[2018-05-24] MEDS ORDERED: BISACODYL 5 MG TABLET.DR. PO PRN (11:00)
--- NOTE | 2018-05-24 12:53 | RAD ---
Gastric Emptying Study 05/24/2018 Indication: dry heaves, nausea for 7 months, acid reflux, Oatmeal and 4oz. water. 2.1mCi Tc99m Sulfur Colloid. Stopped scan at 3 hours. Procedure: Anterior and posterior projection static images are obtained over the stomach following oral administration of 2.1 mCi of 99 M technetium sulfur colloid in a solid meal. Time points include an immediate baseline, and 1, 2, 3 hour measurements were obtained as follows. Findings: There is progressive emptying of the stomach on sequential images. Percentage retention at... One hour is 17% (normal 34.8-91%). Two hours 9 % (normal 2.7-60%). Three hours 3% (normal 0.5-28%). Impression: Rapid gastric emptying at 1 hour time point. Correlate with evidence of dumping syndrome. Consensus Recommendations for Gastric Emptying Scintigraphy: A Joint Report of the [place] [employer] and the Society of Nuclear Medicine: J. Nucl. Med. Technol. April 2007 vol. 36 no. 1 44-54 Grading for severity of delayed GE based on the 4-h value: grade 1 (mild): 11?20% retention at 4 h grade 2 (moderate): 21?35% retention at 4 h grade 3 (severe): 36?50% retention at 4 h grade 4 (very severe): >50% retention at 4 h. Electronically signed by: Renato Fried MD (05/24/2018 12:51 PM) [id number]
--- NOTE | 2018-05-24 12:55 | NUR ---
SW following Pt for anticipated dc needs. Chart reviewed and discussed with RN. Pt lives at home with family and has home 02. Pt seen by PT/OT and does not have skilled needs. No other SW needs noted at this time.
[2018-05-24] MEDS: FUROSEMIDE 40 MG TABLET. PO SCH (13:00)
[2018-05-24] MEDS: DOCUSATE SODIUM 100 MG CAPSULE. PO SCH (13:01)
[2018-05-24 16:00] VITALS: BP 157/43
[2018-05-24] MEDS ORDERED: POLYETHYLENE GLYCOL 3350 17 GM PACKET. PO PRN (16:00)
[2018-05-24] MEDS: FERROUS SULFATE 325 MG TABLET. PO SCH (16:11)
[2018-05-24] MEDS: ACETAMINOPHEN 325 MG TABLET. PO PRN (16:12)
[2018-05-24 19:15] VITALS: BP 152/48
[2018-05-24] MEDS ORDERED: POLYETHYLENE GLYCOL 3350 17 GM PACKET. PO SCH (21:00)
[2018-05-24] MEDS: CEFDINIR 300 MG CAPSULE PO SCH (21:15)
[2018-05-24] MEDS: ATORVASTATIN CALCIUM 20 MG TABLET PO SCH (21:15)
[2018-05-24 23:15] VITALS: BP 165/53
--- NOTE | 2018-05-25 00:01 | PN ---
DATE: 05/24/2018 SUBJECTIVE: The patient is sitting in the edge of the bed comfortably in no apparent distress. She denied any complaint, in particular any shortness of breath, orthopnea or paroxysmal nocturnal dyspnea. Denied any cough, phlegm or hemoptysis. She apparently had not had any bowel movement, but denied any nausea, vomiting. Denied any abdominal pain. She is scheduled for gastric emptying study today. PHYSICAL EXAMINATION: GENERAL: When I examined her, she was pale, no jaundice, cyanosis, or thyromegaly. No jugular venous distension. No lower limb edema. VITAL SIGNS: Her heart rate was 60, blood pressure was 159/40, temperature was 98.1, respiratory rate was 18 and oxygen saturation was 99% on 2 liters of oxygen. HEAD, EYES, EARS, NOSE AND THROAT: Showed normocephalic, atraumatic. NECK: Supple. HEART: Showed normal first and second sounds. No gallop, rub or murmur. CHEST: Clear to auscultation. No crepitation or rhonchi. ABDOMEN: Distended, soft, nontender. No guarding or rigidity. No organomegaly. All hernial orifices intact. Bowel sounds normal. NEUROLOGIC: She was awake, alert, responding appropriately. All cranial nerves intact. She moves extremities without difficulty. She ambulates with a walker. Her intake was 808 and no output was recorded. LABORATORY DATA: This morning showed a serum sodium 139, potassium 3.8, chloride 99, bicarbonate 32, anion gap of 8, BUN 54, creatinine 2.3, estimated GFR was 20 mL per minute. Her glucose was 88, calcium was 8.7. Total bilirubin, AST, ALT, alkaline phosphatase were normal. Total protein was 6.9, albumin was 3.1. Her white cell count was 6300, hemoglobin 9.5, hematocrit 28.7, MCV 88 and platelet count of 137,000. Her prothrombin time was 13.8, INR 1.1. Urinalysis showed the urine was yellow, cloudy with a pH of 5.5, specific gravity 1.015 with too numerous to count wbc's, large amount of leukocyte esterase, moderate amount of bacteria. Her hepatitis A IgM antibody negative. Hepatitis B surface antigen and hepatitis B core IgM antibody negative and hepatitis C IgG antibodies were negative. ASSESSMENT: 1. Chronic diastolic congestive heart failure, compensated. Echo shows normal ejection fraction 55-60% with mild tricuspid regurgitation, mildly elevated pulmonary artery pressure of 40 mmHg. 2. Coronary artery disease, status post PCI stent deployment. The patient is now chest pain free. 3. Hypertension, well controlled. 4. Paroxysmal atrial fibrillation, rate controlled, currently in sinus bradycardia. 5. [id number]-rx-[id number] kidney injury. Her creatinine is down from 2.9 to 2.3. 6. 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 7. She is not currently on any anticoagulation given her anemia and liver disease. 8. Hypothyroidism for which she is on levothyroxine 88 mcg. Her TSH is normal at 2.707. PLAN: To await for the gastric emptying study and I will discuss with the site damage prevention technician to discussed what medication she needs to go on home when decision is made to discharge her. MARÍA DAWN MD DR: FAWAD/jun JOB#: [id number] / [id number]
[2018-05-25 03:15] VITALS: BP 133/45
[2018-05-25] MEDS: PANTOPRAZOLE 40 MG TABLET.DR. PO SCH (05:34)
[2018-05-25] MEDS: LEVOTHYROXINE 88 MCG TABLET PO SCH (05:34)
[2018-05-25 07:49] VITALS: BP 131/39
[2018-05-25] MEDS: DOCUSATE SODIUM 100 MG CAPSULE. PO SCH (08:26)
[2018-05-25] MEDS: LACTOBACILLUS RHAMNOSUS GG 1 CAPSULE. PO SCH (08:26)
[2018-05-25] MEDS: FERROUS SULFATE 325 MG TABLET. PO SCH (08:27)
[2018-05-25] MEDS: CLOPIDOGREL BISULFATE 75 MG TABLET PO SCH (08:27)
[2018-05-25] MEDS: METOPROLOL SUCC 24HR ER 25 MG TAB.ER.24H. PO SCH (08:27)
[2018-05-25] MEDS: ASPIRIN ENTERIC COATED 81 MG TABLET.DR. PO SCH (08:30)
[2018-05-25] MEDS: FUROSEMIDE 40 MG TABLET. PO SCH (08:33)
--- NOTE | 2018-05-25 09:42 | PDOC ---
Subjective: Subjective: Ate a pancake for breakfast and stooled at 3:00 a.m. - feeling better. Asks if she can go home. Objective: Vital Signs: Vital Signs Date Time Temp Pulse Resp B/P (MAP) Pulse Ox O2 Delivery O2 Flow Rate FiO2 05/25/18 08:27 65 131/39 05/25/18 07:49 97.8 19 100 Nasal Cannula 2.0 97.8 Imaging: [facility] 05/24 Percentage retention at... One hour is 17% (normal 34.8-91%). Two hours 9 % (normal 2.7-60%). Three hours 3% (normal 0.5-28%). Impression: Rapid gastric emptying at 1 hour time point. Correlate with evidence of dumping syndrome. PE: GEN: NAD - sitting on edge of bed LUNGS: NC HEART: RRR ABD: S/ND/NT NEURO/PSYCH: A & O 3 A/P: N/v, early satiety - better, presume h/o GERD on recent 'scopes in [place], [place] ( no records) Constipation - resolved MICHELLE - started PO iron yesterday Hepatomegaly/cirrhosis, portal hypertension - Amiodarone stopped -- DC per primary on PPI, iron, and Miralax. Follow-up w/ GI PRN. KAROL JULIAN May 25, 2018 09:42
[2018-05-25 10:50] VITALS: BP 138/39
--- NOTE | 2018-05-25 13:24 | DS ---
DATE OF DISCHARGE: 05/25/2018 HISTORY OF PRESENT ILLNESS: The patient is an 82-year-old female patient who was admitted directly from her primary care physician's office as lab work and CT scan showed that she has hepatosplenomegaly as well as abnormal liver enzymes, abnormal kidney function and therefore she was admitted to [facility] for further evaluation by the rn critical care, arc cutter as well as locomotive firer/fireman. On admission, her creatinine was 2.9. The patient stated that she has been having nausea, vomiting and dry heaving since 10/2017, has had unintentional weight loss of over 25 pounds since 02/2018. Did complain of shortness of breath for the last 3 years ever since she started amiodarone for atrial fibrillation, she also has blurring of vision since she was started on amiodarone, although she also carries a diagnosis of macular degeneration, has had bilateral cataract extractions. She was seen by the rn critical care and recommended to discontinue amiodarone as it was felt that the liver disease is induced by amiodarone. Her hepatitis serologies were all negative. She was excessively diuresed and dehydrated with [id number] kidney injury, so we stopped her Lasix, metolazone as well as losartan and her kidney function has steadily improved. Her creatinine came down from 2.9 to 2.3 and her BUN came down from 70 to 54. She was seen in consultation by the locomotive firer/fireman who recommended to restart her on Lasix at 40 mg once a day and the arc cutter also recommended to discontinue the amiodarone. While in the hospital, she was also noted to have urinary tract infection for which she was treated with IV Rocephin and eventually she was switched to cefdinir 300 mg twice a day. As she has remained stable, a decision was made to discharge her home to continue with the aspirin and Plavix, continue with statin and continue with proton pump inhibitor and on the Lasix 40 mg once a day. She did have also an episode of constipation and finally had a bowel movement after she was treated with Colace, MiraLax and Dulcolax suppository. PHYSICAL EXAMINATION: GENERAL: When I saw her this morning, she was resting slightly propped up in bed, in no apparent respiratory distress, pale, but no jaundice, cyanosis, or thyromegaly. No jugular venous distension. No limb edema. VITAL SIGNS: Her heart rate was 65, blood pressure 131/39, temperature was 97.8, respiratory rate was 19, and oxygen saturation 100% at 2 liters of oxygen. HEAD, EYES, EARS, NOSE AND THROAT: Showed normocephalic, atraumatic. NECK: Supple. HEART: Showed normal first and second heart sounds. No gallop, rub or murmur. CHEST: Clear to auscultation. No crepitation or rhonchi. ABDOMEN: Distended, soft, nontender. No guarding or rigidity. No organomegaly. All hernial orifices intact. Bowel sounds normal. NEUROLOGIC: She is awake, alert, responding appropriately. All her cranial nerves intact. She moves extremities without difficulty. She ambulates with a walker. INS AND OUTS: Her intake over the last 24 hours was 500, no output was recorded. LABORATORY DATA: Most recent lab work showed a serum sodium 139, potassium 3.8, chloride 99, bicarbonate 32, anion gap of 8, BUN 54, creatinine 2.3, estimated GFR was 20 mL per minute. Her glucose was 88, calcium was 8.7. Total bilirubin, AST, ALT, alkaline phosphatase were normal. Her total protein was 6.9, albumin 3.1. Her white cell count was 6300, hemoglobin 10, hematocrit 29, MCV 88 and platelet count of 137,000. Her hepatitis A IgM antibody was nonreactive, hepatitis B surface antigen was negative, hepatitis B core IgM antibody was negative and hepatitis C IgG antibody was negative. Urinalysis was positive for nitrite. There was large amount of leukocyte esterase and too numerous to count wbc's and large amount of bacteria. The urine culture and sensitivity is still pending at the time of this dictation. The abdominal ultrasound showed that the liver is mildly enlarged measuring 18.9, slightly coarse hepatic echotexture, no intrahepatic biliary ductal dilatation or masses seen. There is gallbladder sludge. No gallstones, pericholecystic fluid or gallbladder wall thickening are seen. The common bile duct is normal in diameter and measures 0.3 cm, sonographic Kenny sign was negative. Her IVC is patent at the level of the liver. The right kidney is normal in appearance measuring 10.4 x 4.7 x 3.1 cm. No hydronephrosis or perinephric fluid is seen around the right kidney. The pancreatic head and proximal body are unremarkable in appearance. The tail is not well visualized. The spleen is enlarged measuring 13.3 cm. She underwent gastric emptying study, which basically showed that she has rapid gastric emptying at 1 hour time point, correlate with evidence of dumping syndrome. DISCHARGE MEDICATIONS: The patient was discharged home to continue on following medications: Cefdinir 300 mg twice a day for 5 more days, docusate sodium 100 mg twice a day, ferrous sulfate 325 mg twice a day with meals, furosemide 40 mg daily, lactobacillus acidophilus 1 capsule twice a day, polyethylene glycol 17 grams daily. She should continue also on Plavix 75 mg once a day, levothyroxine sodium 88 mcg once a day, losartan potassium 100 mg once a day, metoprolol succinate 25 mg 2 tablets p.o. b.i.d., ondansetron 8 mg 3 times a day, Protonix 40 mg daily and Crestor 20 mg at bedtime. FINAL DISCHARGE DIAGNOSES: 1. Liver disease, felt to be likely due to amiodarone and therefore amiodarone was discontinued. Nausea and vomiting resolved. Her gastric emptying showed that the gastric emptying is rapid in one hour consistent with dumping syndrome. 2. Chronic diastolic congestive heart failure, clinically well compensated. 3. Coronary artery disease, status post percutaneous coronary intervention with stent deployment x 2, currently chest pain free, clinically stable. 4. Hyperlipidemia. 5. Hypertension. 6. Paroxysmal atrial fibrillation. Her amiodarone has been discontinued due to liver disease. 7. Acute on chronic kidney injury has improved. 8. Hypothyroidism. The patient is both clinically and biochemically euthyroid. MARÍA DAWN MD DR: FAWAD/jun JOB#: [id number] / [id number]
[2018-05-25] MEDS: ACETAMINOPHEN 325 MG TABLET. PO PRN (14:43)
--- NOTE | 2018-05-25 14:44 | PDOC ---
CARDIO Progress Notes Date and Time Date of Service 05/25/2018 Time of Evaluation 1440 Subjective Subjective: No Chest Pain, No shortness of breath, No Palpitations Vitals Vitals Vital Signs Date Time Temp Pulse Resp B/P (MAP) Pulse Ox O2 Delivery O2 Flow Rate FiO2 05/25/18 10:50 97.7 59 18 138/39 (72) 100 Room Air 97.7 05/25/18 08:00 2.0 Weight Weight [ ] Input and Output Intake and Output Intake and Output 05/25/18 06:59 Intake Total 700 ml Balance 700 ml Intake Oral 700 ml # Voids 6 # Bowel Movements 1 Physical Exam HEENT: Neck Supple W Full Motion Chest: Symmetric LUNGS: Clear to Auscultation Heart: S1S2, RRR (SR) Abdomen: Soft N/T Extremities: Other (trace LE edema) Neurology: alert, oriented, follow commands Assessment Assessment 1. Cirrhosis/gastroparesis; GI following 2. Chronic diastolic CHF: EF nml. clinically compensated 3. CAD: 03/2018 x2 stents in [place], no CP, clinically stable 4. HLP 5. HTN: controlled. 6. PAFIB: currently SR/SB. Amiodarone has been discontinued due to liver disease 7. TAMMY on CKD: improved, nephrology following 10. Hypothyroidism: on home replacement Recommendations Continue ASA/Plavix Continue low dose statin, metoprolol. ASA for stroke prevention; previously on Xarelto, but discontinued due to anemia. Follow GI recs F/u in our office with Dr. Isaac in 1 month NAHUN SAENZ APRN May 25, 2018 14:44
[2018-05-25 15:00] VITALS: BP 145/41
--- NOTE | 2018-05-25 15:12 | PDOC ---
SUBJECTIVE ROS Sitting at the side of bed, states wants to go home. Having mild headache OBJECTIVE Vital Signs Vital Signs Date Time Temp Pulse Resp B/P (MAP) Pulse Ox O2 Delivery O2 Flow Rate FiO2 05/25/18 10:50 97.7 59 18 138/39 (72) 100 Room Air 97.7 05/25/18 08:00 2.0 I & 0 Intake and Output 05/25/18 06:59 Intake Total 700 ml Balance 700 ml Intake Oral 700 ml # Voids 6 # Bowel Movements 1 PHYSICAL EXAM Physical Exam General: No acute distress HEENT: On o2 by NC NECK: Supple Lungs: Clear to auscultation Heart: Regular rate Abdomen: Soft, No tenderness Extremities: trace LE edema Skin: No rash Neuro: Normal speech, Sensation intact Psych/Mental Status: Mental status NL, Mood NL - No Price DIAGNOSIS/ASSESSMENT Assessment & Plan TAMMY - ATN, UTI ,Poor PO intake, wt loss baseline Unknown, Recd Contrast x 2 03/2018 At Home Losartan Lasix and Metolazone Renal US unremarkable, CT done at [facility] Records from [place] still Not available Cr improving slow UTI - On Abx Hypokalemia- No labs Cirrhosis - ? amiodarone induced Diastolic CHF: appears compensated Add back Lasix PO 40 mg QD(Home dose is 40 BID and Metolazone 3 x wwek) CAD: 03/2018 x2 stents in [place] HTN: controlled. Hypotensive at times. Essential tremors: amiodarone could be a factor as well. PAFIB: currently SR/SB GI Symptoms- s/p EGD in [place] [facility] today Discussed A/P with Pt and RN at bedside Follow up with PCP in 1-2 weeks with BMP Follow with our office in 1-2 months COMMENT/RELEVANT DATA Meds Current Medications Medications (Trade) Dose Ordered Sig/Therese Start Time Stop Time Status Last Admin Dose Admin Acetaminophen (Tylenol) 650 mg PRN Q4HRS PRN 05/23/18 20:00 05/25/18 14:43 650 MG Aspirin (Ecotrin) 81 mg DAILYWBKFT 05/22/18 08:00 05/25/18 08:30 81 MG Atorvastatin Calcium (Lipitor) 20 mg QHS 05/21/18 21:00 05/24/18 21:15 20 MG Bisacodyl (Dulcolax Supp) 10 mg PRN DAILY PRN 05/24/18 11:00 UNV Bisacodyl (Dulcolax Tab) 5 mg PRN DAILY PRN 05/24/18 11:00 UNV Cefdinir (Omnicef) 300 mg QHS 05/23/18 21:00 05/24/18 21:15 300 MG Ceftriaxone Sodium (Rocephin) 1 gm Q24H 05/22/18 18:00 05/23/18 19:05 DC 05/22/18 17:23 1 GM Clopidogrel Bisulfate (Plavix) 75 mg DAILYWBKFT 05/22/18 08:00 05/25/18 08:27 75 MG Docusate Sodium (Colace) 100 mg DAILY 05/23/18 19:15 05/25/18 08:26 100 MG Ferrous Sulfate (Feosol) 325 mg BIDWMEALS 05/24/18 17:00 05/25/18 08:27 325 MG Furosemide (Lasix) 40 mg DAILY 05/24/18 12:30 05/25/18 08:33 40 MG Lactobacillus Rhamnosus (Culturelle) 1 cap BID 05/23/18 21:00 05/25/18 08:26 1 CAP Levothyroxine Sodium (Synthroid) 88 mcg DAILY06 05/22/18 06:00 05/25/18 05:34 88 MCG Metoprolol Succinate (Toprol Xl) 25 mg DAILY 05/21/18 17:00 05/25/18 08:27 25 MG Ondansetron HCl (Zofran Odt) 8 mg PRN TID PRN 05/21/18 15:30 Pantoprazole Sodium (Protonix) 40 mg DAILYAC 05/21/18 17:00 05/25/18 05:34 40 MG Polyethylene Glycol (miraLAX PACKET) 17 gm PRN BID PRN 05/24/18 16:00 05/24/18 21:16 17 GM Potassium Chloride (Klor-Con) 40 meq 1X ONCE 05/22/18 18:00 05/22/18 18:01 DC 05/22/18 17:24 40 MEQ Results All relevant outside records, renal labs, imaging studies, telemetry/EKG's were reviewed. FARHANA VALENZUELA MD May 25, 2018 15:12
[2018-05-25] MEDS ORDERED: METO-239 PO ×3 (17:31→17:34)
[2018-05-25] MEDS ORDERED: LOSA-73 PO (17:32)
--- NOTE | 2018-05-25 18:05 | NUR ---
Pt discharged to home with family. Discussed medication changes with daughter and pt. Gave information and phone numbers for all consults. Verbalized understanding of discharge instructions.
== END 2018-05-25 18:05 | disposition home or self-care (01) | DRG 441 ==
LOC: 6 SOUTH 13:39
PROVIDERS: ADMIT Internal Medicine; ATTEND Internal Medicine
DX: K71.7 Toxic liver disease with fibrosis and cirrhosis of liver (principal); N17.0 Acute kidney failure with tubular necrosis; I13.0 Hypertensive heart and chronic kidney disease with heart failure and stage 1 through stage 4 chronic kidney disease, or unspecified chronic kidney disease; I50.32 Chronic diastolic (congestive) heart failure; K76.6 Portal hypertension; N39.0 Urinary tract infection, site not specified; K57.50 Diverticulosis of both small and large intestine without perforation or abscess without bleeding; N18.9 Chronic kidney disease, unspecified; T46.2X5A Adverse effect of other antidysrhythmic drugs, initial encounter; Z88.2 Allergy status to sulfonamides; Z88.8 Allergy status to other drugs, medicaments and biological substances; B34.9 Viral infection, unspecified; D64.9 Anemia, unspecified; E03.9 Hypothyroidism, unspecified; E78.5 Hyperlipidemia, unspecified; E86.0 Dehydration; G25.0 Essential tremor; H35.30 Unspecified macular degeneration; I25.10 Atherosclerotic heart disease of native coronary artery without angina pectoris; I48.0 Paroxysmal atrial fibrillation; J44.9 Chronic obstructive pulmonary disease, unspecified; K21.9 Gastro-esophageal reflux disease without esophagitis; K31.84 Gastroparesis; K59.00 Constipation, unspecified; K82.8 Other specified diseases of gallbladder; M19.90 Unspecified osteoarthritis, unspecified site; K91.1 Postgastric surgery syndromes; N28.1 Cyst of kidney, acquired; Z79.899 Other long term (current) drug therapy; Z80.3 Family history of malignant neoplasm of breast; Z82.3 Family history of stroke; Z82.49 Family history of ischemic heart disease and other diseases of the circulatory system; Z83.3 Family history of diabetes mellitus; Z87.442 Personal history of urinary calculi; Z87.891 Personal history of nicotine dependence; Z88.5 Allergy status to narcotic agent; Z90.710 Acquired absence of both cervix and uterus; Z95.1 Presence of aortocoronary bypass graft; Z95.5 Presence of coronary angioplasty implant and graft; Z98.41 Cataract extraction status, right eye; Z98.42 Cataract extraction status, left eye; E87.6 Hypokalemia
CPT/HCPCS: 36415; 71046; 76705; 78264; 80048; 80053; 80061; 81001; 82140; 82550; 83540; 83550; 83735; 83880; 84443; 85025; 85027; 85610; 86705; 86709; 86803; 87086; 87186; 87340; 93005; 93306; 93976; A9541; J0696

== ENCOUNTER 2018-06-29 14:02 | Inpatient (IN) | payer MEDICARE ==
[~2018-06-29] VITALS: Ht 157.5 cm; Wt 79.8 kg
[~2018-06-29 14:02] MED LIST: AMIO200T4 PO; CLOP75TA PO; CRESTOR20 MG PO; FURO40TA4 PO; LEVO88TA4 PO; LOSA-73 PO; LOSA100T14 PO; METO-239 PO; METO2.5T PO; ONDA4TAB12 PO; PANT20TA2 PO
[2018-06-29 15:32] LABS: BASO % 1 % (0-3); EOS # 0.1 x10^3/uL (0.0-0.7); EOS % 1 % (0-3); LYMPH # 0.8 x10^3/uL (1.0-4.8); LYMPH % 16 % (24-48); MEAN CORPUSCULAR HEMOGLOBIN 28 pg (25-35); MEAN CORPUSCULAR HGB CONC 32 g/dL (31-37); MEAN CORPUSCULAR VOLUME 88 fL (79-100); MONO # 0.4 x10^3/uL (0.0-1.1); MONO % 8 % (0-9); NEUT # 3.6 x10^3uL (1.8-7.7); NEUT % 74 % (31-73); PLATELET COUNT 194 x10^3/uL (140-400); RED BLOOD COUNT 1.88 x10^6/uL (3.50-5.40); RED CELL DISTRIBUTION WIDTH 16.1 % (11.5-14.5); WHITE BLOOD COUNT 4.9 x10^3/uL (4.0-11.0)
[2018-06-29 15:36] LABS: HEMATOCRIT 16.6 % (36.0-47.0); HEMOGLOBIN 5.3 g/dL (12.0-15.5)
[2018-06-29 15:44] LABS: CALCIUM 9.1 mg/dL (8.5-10.1); CREATININE 1.7 mg/dL (0.6-1.0); GFR 28.8; POTASSIUM 4.7 mmol/L (3.5-5.1)
[2018-06-29 15:50] LABS: ALBUMIN 2.9 g/dL (3.4-5.0); ALBUMIN/GLOBULIN RATIO 0.7 (1.0-1.7); TOTAL BILIRUBIN 0.4 mg/dL (0.2-1.0); TOTAL PROTEIN 6.8 g/dL (6.4-8.2)
--- NOTE | 2018-06-29 15:59 | PHYS DOC ---
Past Medical History Past Medical History: A-Fib, CAD, CHF, GERD, Hypertension, Hypothyroid Past Surgical History: Appendectomy, Hysterectomy, Other Additional Past Surgical Histo: caratodidectomy; cardiac stent Alcohol Use: None Drug Use: None Adult General Chief Complaint Chief Complaint: ABNORMAL LABS HPI HPI Patient is a 82 year old F who presents for abnormal labs. She has not been feeling well for awhile. She was also recently tx for a UTI. 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 She denies blood in stool, black stools, or any bleeding at all. Review of Systems Review of Systems Constitutional: Denies fever or chills Eyes: Denies change in visual acuity, redness, or eye pain HENT: Denies nasal congestion or sore throat Respiratory: Denies cough or shortness of breath Cardiovascular: Denies CP GI: Denies abdominal pain, nausea, vomiting, bloody stools or diarrhea : Denies dysuria or hematuria Musculoskeletal: Denies back pain or joint pain Integument: Denies rash or skin lesions Neurologic: Denies headache, focal weakness or sensory changes Endocrine: Denies polyuria or polydipsia All other systems were reviewed and found to be within normal limits, except as documented in this note. Allergies Allergies Allergies Coded Allergies Type Severity Reaction Last Updated Verified Sulfa (Sulfonamide Antibiotics) Allergy Severe Rash 05/21/18 Yes morphine Allergy Intermediate Nausea and Vomiting 05/21/18 Yes Physical Exam Physical Exam Constitutional: Well developed, well nourished, no acute distress, non-toxic appearance. HENT: Normocephalic, atraumatic, bilateral external ears normal, oropharynx moist, no oral exudates, nose normal. Eyes: PERRLA, EOMI, conjunctiva normal, no discharge. Neck: Normal range of motion, no tenderness, supple, no stridor. Cardiovascular:Heart rate regular rhythm, no murmur Lungs & Thorax: Bilateral breath sounds clear to auscultation Abdomen: Bowel sounds normal, soft, no tenderness, no masses, no pulsatile masses. Skin: Warm, dry, no erythema, no rash. Back: No tenderness, no CVA tenderness. Extremities: No tenderness, no cyanosis, no clubbing, ROM intact, 2+ pitting edema Neurologic: Alert and oriented X 3, normal motor function, normal sensory function, no focal deficits noted. Psychologic: Affect normal, judgement normal, mood normal. Current Patient Data Vital Signs Vital Signs Date Time Temp Pulse Resp B/P (MAP) Pulse Ox O2 Delivery O2 Flow Rate FiO2 06/29/18 14:55 98.3 67 18 147/61 (89) 100 Room Air 98.3 Lab Values Laboratory Tests Test 06/29/18 15:14 White Blood Count 4.9 x10^3/uL (4.0-11.0) Red Blood Count 1.88 x10^6/uL (3.50-5.40) L Hemoglobin 5.3 g/dL (12.0-15.5) *L Hematocrit 16.6 % (36.0-47.0) *L Mean Corpuscular Volume 88 fL (79-100) Mean Corpuscular Hemoglobin 28 pg (25-35) Mean Corpuscular Hemoglobin Concent 32 g/dL (31-37) Red Cell Distribution Width 16.1 % (11.5-14.5) H Platelet Count 194 x10^3/uL (140-400) Neutrophils (%) (Auto) 74 % (31-73) H Lymphocytes (%) (Auto) 16 % (24-48) L Monocytes (%) (Auto) 8 % (0-9) Eosinophils (%) (Auto) 1 % (0-3) Basophils (%) (Auto) 1 % (0-3) Neutrophils # (Auto) 3.6 x10^3uL (1.8-7.7) Lymphocytes # (Auto) 0.8 x10^3/uL (1.0-4.8) L Monocytes # (Auto) 0.4 x10^3/uL (0.0-1.1) Eosinophils # (Auto) 0.1 x10^3/uL (0.0-0.7) Basophils # (Auto) 0.0 x10^3/uL (0.0-0.2) Sodium Level 137 mmol/L (136-145) Potassium Level 4.7 mmol/L (3.5-5.1) Chloride Level 102 mmol/L (98-107) Carbon Dioxide Level 26 mmol/L (21-32) Anion Gap 9 (6-14) Blood Urea Nitrogen 51 mg/dL (7-20) H Creatinine 1.7 mg/dL (0.6-1.0) H Estimated GFR (Cockcroft-Gault) 28.8 BUN/Creatinine Ratio 30 (6-20) H Glucose Level 104 mg/dL (70-99) H Calcium Level 9.1 mg/dL (8.5-10.1) Magnesium Level 2.0 mg/dL (1.8-2.4) Total Bilirubin 0.4 mg/dL (0.2-1.0) Aspartate Amino Transferase (AST) 35 U/L (15-37) Alanine Aminotransferase (ALT) 20 U/L (14-59) Alkaline Phosphatase 71 U/L (46-116) Total Protein 6.8 g/dL (6.4-8.2) Albumin 2.9 g/dL (3.4-5.0) L Albumin/Globulin Ratio 0.7 (1.0-1.7) L Laboratory Tests 06/29/18 15:14 Laboratory Tests 06/29/18 15:14 EKG EKG [] Radiology/Procedures Radiology/Procedures [] Course & Med Decision Making Course & Med Decision Making Pertinent Labs and Imaging studies reviewed. (See chart for details) 82 y/o F presents for anemia. Sent to ER by her PMD for admission and blood transfusion. Hb 5.3. Type and screen ordered. UA ordered - pt recently tx for UTI. Admit to hospitalist. Nguyễn Disclaimer Dragon Disclaimer This electronic medical record was generated, in whole or in part, using a voice recognition dictation system. Departure Departure Impression: Primary Impression: Anemia Disposition: 09 ADMITTED INPATIENT Admitting Physician: Kellee Andrew Condition: GUARDED Referrals: LIZ LAMBERT (PCP) YOKO GARCIA MD June 29, 2018 15:59
--- NOTE | 2018-06-29 16:51 | EKG ---
[facility] [address] [place] [address] Test Date: 2018-06-29 Test Time: 14:57:29 Pat Name: GABY JHA Department: Room: Gender: F [employer] Programmer: JANA : 1935 Requested By: YOKO GARCIA Order Number: [id number] Reading MD: Kenny Malone Measurements Intervals [place] Rate: 73 P: 90 CO: 204 QRS: -15 QRSD: 92 T: 46 QT: 406 QTc: 451 Interpretive Statements SINUS RHYTHM LEFTWARD AXIS Electronically Signed On 07-23-2018 11:50:18 CDT by Kenny Malone
[2018-06-29 18:12] LABS: BILIRUBIN,URINE NEGATIVE (NEG); CLARITY,URINE CLEAR; COLOR,URINE YELLOW; NITRITE,URINE POSITIVE (NEG); PH,URINE 5.5; PROTEIN,URINE NEGATIVE (NEG-TRACE); UROBILINOGEN,URINE 0.2 mg/dL (0.2 mg/dL)
[2018-06-29 18:24] LABS: BACTERIA,URINE MANY /HPF (0-FEW); HYALINE CASTS, URINE FEW /HPF; RBC,URINE RARE /HPF (0-2); SQUAMOUS EPITHELIAL CELL,UR MANY /LPF
--- NOTE | 2018-06-29 19:09 | PDOC1 ---
History and Physical Date of Admission Date of Admission DATE: 06/29/18 TIME: 19:03 Identification/Chief Complaint Chief Complaint weakness Source Source: Chart review, Patient History of Present Illness History of Present Illness MS. Damon, is a 82 year old cantankerous F admit for worsneing weakness, and lethargy, she had seen primary care today, sent to the ER for anemia, prior admit for same, unable to locate source, slow GI bleed seems likely , prior EGD in [place], [place], 4 months ago, ongoing problems, ongoing amemia, she was very weak for 3 days, lethargic and new LE edema She was also recently tx for a UTI. 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 she is retired from [employer], Past Medical History Cardiovascular: CAD, HTN GI: Other (slow GI bleed) Heme/Onc: No pertinent hx Hepatobiliary: Cirrhosis Musculoskeletal: low back pain Family History Family History: Heart Disease Social History Smoke: No ALCOHOL: none (never) Drugs: None Current Problem List Problem List Problems Medical Problems: (1) Anemia Status: Acute Current Medications Current Medications Active Scripts Active Reported Metoprolol Succinate ( Xl ) (Metoprolol Succinate) 25 Mg Tab.er.24h 1 Tab PO DAILY Losartan Potassium 50 Mg Tablet 50 Mg PO DAILY Levothyroxine Sodium 88 Mcg Tablet 1 Tab PO DAILY Protonix (Pantoprazole Sodium) 20 Mg Tablet.dr 40 Mg PO DAILY Clopidogrel (Clopidogrel Bisulfate) 75 Mg Tablet 1 Tab PO DAILY Ondansetron Odt (Ondansetron) 4 Mg Tab.rapdis 8 Mg PO TID PRN Crestor (Rosuvastatin Calcium) 20 Mg Tablet 20 Mg PO HS PRN Allergies Allergies: Coded Allergies: Sulfa (Sulfonamide Antibiotics) (Verified Allergy, Severe, Rash, 05/21/18) blisters on whole body morphine (Verified Allergy, Intermediate, Nausea and Vomiting, 05/21/18) ROS General: YES: Chills, Fatigue, Malaise; No: Night Sweats, Appetite, Other PSYCHOLOGICAL ROS: No: Anxiety, Behavioral Disorder, Concentration difficultie, Decreased libido, Depression, Disorientation, Hallucinations, Hostility, Irritablity, Memory difficulties, Mood Swings, Obsessive thoughts, Physical abuse, Sexual abuse, Sleep disturbances, Suicidal ideation, Other Eyes: No Blurry vision, No Decreased vision, No Double vision, No Dry eyes, No Excessive tearing, No Eye Pain, No Itchy Eyes, No Loss of vision, No Photophobia, No Scotomata, No Uses contacts, No Uses glasses, No Other HEENT: No: Heacaches, Visual Changes, Hearing change, Nasal congestion, Nasal discharge, Oral lesions, Sinus pain, Sore Throat, Epistaxis, Sneezing, Snoring, Tinnitus, Vertigo, Vocal changes, Other Respiratory: No: Cough, Hemoptysis, Orthopnea, Pleuritic Pain, Shortness of breath, SOB with excertion, Sputum Changes, Stridor, Tachypnea, Wheezing, Other Cardiovascular: No Chest Pain, No Palpitations, No Orthopnea, No Paroxysmal Noc. Dyspnea, No Edema, No Lt Headedness, No Other Gastrointestinal: Yes Nausea; No Vomiting, No Abdominal Pain, No Diarrhea, No Constipation, No Melena, No Hematochezia, No Other Genitourinary: No Dysuria, No Frequency, No Incontinence, No Hematuria, No Retention, No Discharge, No Urgency, No Pain, No Flank Pain, No Other, No , No , No , No , No , No , No Musculoskeletal: Yes Muscular Weakness Neurological: Yes Weakness; No Behavorial Changes, No Bowel/Bladder ControlChng, No Confusion, No Dizziness, No Gait Disturbance, No Headaches, No Impaired Coord/balance, No Memory Loss, No Numbness/Tingling, No Seizures, No Speech Problems, No Tremors, No Visual Changes, No Other Skin: No Dry Skin, No Eczema, No Hair Changes, No Lumps, No Mole Changes, No Mottling, No Nail Changes, No Pruritus, No Rash, No Skin Lesion Changes, No Other, No Acne Physical Exam General: Alert, Oriented X3, Cooperative, mild distress (weak) HEENT: PERRLA, EOMI, Mucous membr. moist/pink Lungs: Clear to auscultation, Normal air movement Heart: S1S2, no gallops, no murmurs Abdomen: Normal bowel sounds, Soft Extremities: No cyanosis, No edema, Normal pulses Skin: No rashes Neuro: Normal gait, Normal speech, Strength at 5/5 X4 ext, Normal tone, Sensation intact Psych/Mental Status: Mood NL Vitals Vitals Vital Signs Date Time Temp Pulse Resp B/P (MAP) Pulse Ox O2 Delivery O2 Flow Rate FiO2 06/29/18 17:59 70 20 167/67 (100) 98 Room Air 06/29/18 14:55 98.3 98.3 Labs Labs Laboratory Tests Test 06/29/18 15:14 06/29/18 17:30 White Blood Count 4.9 x10^3/uL (4.0-11.0) Red Blood Count 1.88 x10^6/uL (3.50-5.40) Hemoglobin 5.3 g/dL (12.0-15.5) Hematocrit 16.6 % (36.0-47.0) Mean Corpuscular Volume 88 fL (79-100) Mean Corpuscular Hemoglobin 28 pg (25-35) Mean Corpuscular Hemoglobin Concent 32 g/dL (31-37) Red Cell Distribution Width 16.1 % (11.5-14.5) Platelet Count 194 x10^3/uL (140-400) Neutrophils (%) (Auto) 74 % (31-73) Lymphocytes (%) (Auto) 16 % (24-48) Monocytes (%) (Auto) 8 % (0-9) Eosinophils (%) (Auto) 1 % (0-3) Basophils (%) (Auto) 1 % (0-3) Neutrophils # (Auto) 3.6 x10^3uL (1.8-7.7) Lymphocytes # (Auto) 0.8 x10^3/uL (1.0-4.8) Monocytes # (Auto) 0.4 x10^3/uL (0.0-1.1) Eosinophils # (Auto) 0.1 x10^3/uL (0.0-0.7) Basophils # (Auto) 0.0 x10^3/uL (0.0-0.2) Sodium Level 137 mmol/L (136-145) Potassium Level 4.7 mmol/L (3.5-5.1) Chloride Level 102 mmol/L (98-107) Carbon Dioxide Level 26 mmol/L (21-32) Anion Gap 9 (6-14) Blood Urea Nitrogen 51 mg/dL (7-20) Creatinine 1.7 mg/dL (0.6-1.0) Estimated GFR (Cockcroft-Gault) 28.8 BUN/Creatinine Ratio 30 (6-20) Glucose Level 104 mg/dL (70-99) Calcium Level 9.1 mg/dL (8.5-10.1) Magnesium Level 2.0 mg/dL (1.8-2.4) Total Bilirubin 0.4 mg/dL (0.2-1.0) Aspartate Amino Transf (AST/SGOT) 35 U/L (15-37) Alanine Aminotransferase (ALT/SGPT) 20 U/L (14-59) Alkaline Phosphatase 71 U/L (46-116) Total Protein 6.8 g/dL (6.4-8.2) Albumin 2.9 g/dL (3.4-5.0) Albumin/Globulin Ratio 0.7 (1.0-1.7) Urine Collection Type Unknown Urine Color Yellow Urine Clarity Clear Urine pH 5.5 Urine Specific [place] 1.010 Urine Protein Negative mg/dL (NEG-TRACE) Urine Glucose (UA) Negative mg/dL (NEG) Urine Ketones (Stick) Negative mg/dL (NEG) Urine Blood Negative (NEG) Urine Nitrite Positive (NEG) Urine Bilirubin Negative (NEG) Urine Urobilinogen Dipstick 0.2 mg/dL (0.2 mg/dL) Urine Leukocyte Esterase Moderate (NEG) Urine RBC Rare /HPF (0-2) Urine WBC 11-20 /HPF (0-4) Urine Squamous Epithelial Cells Many /LPF Urine Bacteria Many /HPF (0-FEW) Urine Hyaline Casts Few /HPF Urine Mucus Slight /LPF Laboratory Tests Test 06/29/18 15:14 06/29/18 17:30 White Blood Count 4.9 x10^3/uL (4.0-11.0) Red Blood Count 1.88 x10^6/uL (3.50-5.40) Hemoglobin 5.3 g/dL (12.0-15.5) Hematocrit 16.6 % (36.0-47.0) Mean Corpuscular Volume 88 fL (79-100) Mean Corpuscular Hemoglobin 28 pg (25-35) Mean Corpuscular Hemoglobin Concent 32 g/dL (31-37) Red Cell Distribution Width 16.1 % (11.5-14.5) Platelet Count 194 x10^3/uL (140-400) Neutrophils (%) (Auto) 74 % (31-73) Lymphocytes (%) (Auto) 16 % (24-48) Monocytes (%) (Auto) 8 % (0-9) Eosinophils (%) (Auto) 1 % (0-3) Basophils (%) (Auto) 1 % (0-3) Neutrophils # (Auto) 3.6 x10^3uL (1.8-7.7) Lymphocytes # (Auto) 0.8 x10^3/uL (1.0-4.8) Monocytes # (Auto) 0.4 x10^3/uL (0.0-1.1) Eosinophils # (Auto) 0.1 x10^3/uL (0.0-0.7) Basophils # (Auto) 0.0 x10^3/uL (0.0-0.2) Sodium Level 137 mmol/L (136-145) Potassium Level 4.7 mmol/L (3.5-5.1) Chloride Level 102 mmol/L (98-107) Carbon Dioxide Level 26 mmol/L (21-32) Anion Gap 9 (6-14) Blood Urea Nitrogen 51 mg/dL (7-20) Creatinine 1.7 mg/dL (0.6-1.0) Estimated GFR (Cockcroft-Gault) 28.8 BUN/Creatinine Ratio 30 (6-20) Glucose Level 104 mg/dL (70-99) Calcium Level 9.1 mg/dL (8.5-10.1) Magnesium Level 2.0 mg/dL (1.8-2.4) Total Bilirubin 0.4 mg/dL (0.2-1.0) Aspartate Amino Transf (AST/SGOT) 35 U/L (15-37) Alanine Aminotransferase (ALT/SGPT) 20 U/L (14-59) Alkaline Phosphatase 71 U/L (46-116) Total Protein 6.8 g/dL (6.4-8.2) Albumin 2.9 g/dL (3.4-5.0) Albumin/Globulin Ratio 0.7 (1.0-1.7) Urine Collection Type Unknown Urine Color Yellow Urine Clarity Clear Urine pH 5.5 Urine Specific [place] 1.010 Urine Protein Negative mg/dL (NEG-TRACE) Urine Glucose (UA) Negative mg/dL (NEG) Urine Ketones (Stick) Negative mg/dL (NEG) Urine Blood Negative (NEG) Urine Nitrite Positive (NEG) Urine Bilirubin Negative (NEG) Urine Urobilinogen Dipstick 0.2 mg/dL (0.2 mg/dL) Urine Leukocyte Esterase Moderate (NEG) Urine RBC Rare /HPF (0-2) Urine WBC 11-20 /HPF (0-4) Urine Squamous Epithelial Cells Many /LPF Urine Bacteria Many /HPF (0-FEW) Urine Hyaline Casts Few /HPF Urine Mucus Slight /LPF VTE Prophylaxis Ordered VTE Prophylaxis Devices: No VTE Pharmacological Prophylaxi: Contraindicated Assessment/Plan Assessment/Plan symptomatic anemia acute on chronic GI bleed, Hx CAD, CHF, le edema, should improved with hgb improvement hypothyroid, check tsh obese, BMI 32 RAYA MANNING MD June 29, 2018 19:09
[2018-06-29] MEDS ORDERED: ONDANSETRON ODT 4 MG TAB.RAPDIS. PO PRN (19:15)
[2018-06-29 19:27] VITALS: BP 142/39
[2018-06-29] MEDS ORDERED: [UNRECOGNIZED DRUG - OTHER] PO (20:18)
[2018-06-29] MEDS ORDERED: FURO40TA4 PO (20:18)
[2018-06-29 20:20] VITALS: BP 130/49
[2018-06-29] MEDS ORDERED: POLY17PO29 PO (20:31)
[2018-06-29 21:20] VITALS: BP 144/44
[2018-06-29 22:20] VITALS: BP 161/44
[2018-06-29] MEDS: ATORVASTATIN CALCIUM 40 MG TABLET. PO SCH (22:34)
[2018-06-29] MEDS: POLYETHYLENE GLYCOL 3350 17 GM PACKET. PO SCH (22:34)
[2018-06-29 23:25] VITALS: BP 156/45
[2018-06-29 23:35] VITALS: BP 156/45
[2018-06-30] VITALS (10 sets, daily range): BP systolic 138–171; BP diastolic 32–53
[2018-06-30 05:04] LABS: BASO % 1 % (0-3); EOS # 0.1 x10^3/uL (0.0-0.7); EOS % 2 % (0-3); HEMATOCRIT 22.3 % (36.0-47.0); HEMOGLOBIN 7.2 g/dL (12.0-15.5); LYMPH # 0.8 x10^3/uL (1.0-4.8); LYMPH % 15 % (24-48); MEAN CORPUSCULAR HEMOGLOBIN 29 pg (25-35); MEAN CORPUSCULAR HGB CONC 32 g/dL (31-37); MEAN CORPUSCULAR VOLUME 89 fL (79-100); MONO # 0.4 x10^3/uL (0.0-1.1); MONO % 7 % (0-9); NEUT % 76 % (31-73); PLATELET COUNT 173 x10^3/uL (140-400); RED CELL DISTRIBUTION WIDTH 14.6 % (11.5-14.5); WHITE BLOOD COUNT 5.4 x10^3/uL (4.0-11.0)
[2018-06-30 05:17] LABS: ALBUMIN 2.7 g/dL (3.4-5.0); ALBUMIN/GLOBULIN RATIO 0.8 (1.0-1.7); CALCIUM 8.9 mg/dL (8.5-10.1); CREATININE 1.5 mg/dL (0.6-1.0); GFR 33.3; POTASSIUM 4.3 mmol/L (3.5-5.1); TOTAL BILIRUBIN 0.6 mg/dL (0.2-1.0); TOTAL PROTEIN 6.1 g/dL (6.4-8.2)
[2018-06-30] MEDS: LEVOTHYROXINE 88 MCG TABLET PO SCH (06:06)
[2018-06-30] MEDS ORDERED: POTA20LI27 PO (06:35)
--- NOTE | 2018-06-30 08:05 | NUR ---
Chart review done. Pt admitted w/ anemia. H&P indicates progressive weakness. Pt may benefit from PT/OT Eval and treat. Addendum: 06/30/18 at 0805 by DMITRI ALMODOVAR OT Amended: Links added.
[2018-06-30] MEDS: PANTOPRAZOLE 40 MG TABLET.DR. PO SCH (08:23)
[2018-06-30] MEDS: FUROSEMIDE 40 MG TABLET. PO SCH ×2 (08:23→14:35)
[2018-06-30] MEDS: LOSARTAN POTASSIUM 50 MG TABLET. PO SCH (08:23)
[2018-06-30] MEDS: METOPROLOL SUCC 24HR ER 25 MG TAB.ER.24H. PO SCH (08:24)
[2018-06-30] MEDS: POLYETHYLENE GLYCOL 3350 17 GM PACKET. PO SCH (09:00)
--- NOTE | 2018-06-30 09:22 | PDOC2 ---
GI CONSULT Reason For Consult: GI bleed acute on chronic HPI: HPI: 82 y/o female who we saw last month for a variety of GI issues including nausea, retching, weight loss, early satiety, constipation, cirrhosis/portal hypertension on imaging (thought to be related to amiodarone use - has been stopped), and MICHELLE. Reports EGD and colonoscopy w/ "inflammation" in [place], [place] in 04/2018 - records were requested but not received. She was discharged on 05/25/18 w/ recommendations to take adjust PPI dosing (take in in a.m. 30-45 min before breakfast) and to continue PO iron. Nausea, retching, and anorexia have resolved - she has continued pantoprazole. Also reports she stopped Zofran and has Reglan for PRN use - took once. Is stooling w/ Miralax. Has continued Plavix and ASA for h/o CAD and A Fib. Did not continue iron and says "no one gave it to me." Has been feeling SOA and weak, back to ER yesterday for this. Hgb was 5.3 (now 7.2 s/p transfusions). Says Dr. lAonso and Dr. Oliveira recommended repeating EGD and colonoscopy. Denies dysphagia, abd pain, hematochezia, and melena. No GB or pancreas history. No NSAIDs. 4 hr GES was normal in 05/2018. PMH: PMH: A Fib, CAD w/ stents, CHF, HTN, HLD, CKD, tremors, macular degeneration, hypothyroidism, GERD, constipation, cirrhosis/portal hypertension appendectomy, hysterectomy, left carotid endarterectomy, cataract removal FH: Family History: No pertinent hx Social History: Smoke: No ALCOHOL: none Drugs: None ROS: GEN: Denies fevers, chills, sweats HEENT: Denies blurred vision, sore throat CV: Denies chest pain RESP: +SOA GI: Per HPI : Denies hematuria, dysuria ENDO: Denies weight changes NEURO: Denies confusion, dizziness MSK: +weakness SKIN: Denies jaundice, pruritus Vitals: Vitals: Vital Signs Date Time Temp Pulse Resp B/P (MAP) Pulse Ox O2 Delivery O2 Flow Rate FiO2 06/30/18 08:24 69 155/42 06/30/18 07:00 98.2 16 97 Nasal Cannula 2.0 98.2 Labs: Labs: Laboratory Tests Test 06/29/18 15:14 06/29/18 17:30 06/30/18 04:30 White Blood Count 4.9 x10^3/uL (4.0-11.0) 5.4 x10^3/uL (4.0-11.0) Red Blood Count 1.88 x10^6/uL (3.50-5.40) 2.48 x10^6/uL (3.50-5.70) Hemoglobin 5.3 g/dL (12.0-15.5) 7.2 g/dL (12.0-15.5) Hematocrit 16.6 % (36.0-47.0) 22.3 % (36.0-47.0) Mean Corpuscular Volume 88 fL (79-100) 89 fL (79-100) Mean Corpuscular Hemoglobin 28 pg (25-35) 29 pg (25-35) Mean Corpuscular Hemoglobin Concent 32 g/dL (31-37) 32 g/dL (31-37) Red Cell Distribution Width 16.1 % (11.5-14.5) 14.6 % (11.5-14.5) Platelet Count 194 x10^3/uL (140-400) 173 x10^3/uL (140-400) Neutrophils (%) (Auto) 74 % (31-73) 76 % (31-73) Lymphocytes (%) (Auto) 16 % (24-48) 15 % (24-48) Monocytes (%) (Auto) 8 % (0-9) 7 % (0-9) Eosinophils (%) (Auto) 1 % (0-3) 2 % (0-3) Basophils (%) (Auto) 1 % (0-3) 1 % (0-3) Neutrophils # (Auto) 3.6 x10^3uL (1.8-7.7) 4.0 x10^3uL (1.8-7.7) Lymphocytes # (Auto) 0.8 x10^3/uL (1.0-4.8) 0.8 x10^3/uL (1.0-4.8) Monocytes # (Auto) 0.4 x10^3/uL (0.0-1.1) 0.4 x10^3/uL (0.0-1.1) Eosinophils # (Auto) 0.1 x10^3/uL (0.0-0.7) 0.1 x10^3/uL (0.0-0.7) Basophils # (Auto) 0.0 x10^3/uL (0.0-0.2) 0.0 x10^3/uL (0.0-0.2) Sodium Level 137 mmol/L (136-145) 138 mmol/L (136-145) Potassium Level 4.7 mmol/L (3.5-5.1) 4.3 mmol/L (3.5-5.1) Chloride Level 102 mmol/L (98-107) 103 mmol/L (98-107) Carbon Dioxide Level 26 mmol/L (21-32) 25 mmol/L (21-32) Anion Gap 9 (6-14) 10 (6-14) Blood Urea Nitrogen 51 mg/dL (7-20) 51 mg/dL (7-20) Creatinine 1.7 mg/dL (0.6-1.0) 1.5 mg/dL (0.6-1.0) Estimated GFR (Cockcroft-Gault) 28.8 33.3 BUN/Creatinine Ratio 30 (6-20) 34 (6-20) Glucose Level 104 mg/dL (70-99) 95 mg/dL (70-99) Calcium Level 9.1 mg/dL (8.5-10.1) 8.9 mg/dL (8.5-10.1) Magnesium Level 2.0 mg/dL (1.8-2.4) Total Bilirubin 0.4 mg/dL (0.2-1.0) 0.6 mg/dL (0.2-1.0) Aspartate Amino Transf (AST/SGOT) 35 U/L (15-37) 34 U/L (15-37) Alanine Aminotransferase (ALT/SGPT) 20 U/L (14-59) 17 U/L (14-59) Alkaline Phosphatase 71 U/L (46-116) 59 U/L (46-116) Total Protein 6.8 g/dL (6.4-8.2) 6.1 g/dL (6.4-8.2) Albumin 2.9 g/dL (3.4-5.0) 2.7 g/dL (3.4-5.0) Albumin/Globulin Ratio 0.7 (1.0-1.7) 0.8 (1.0-1.7) Urine Collection Type Unknown Urine Color Yellow Urine Clarity Clear Urine pH 5.5 Urine Specific [place] 1.010 Urine Protein Negative mg/dL (NEG-TRACE) Urine Glucose (UA) Negative mg/dL (NEG) Urine Ketones (Stick) Negative mg/dL (NEG) Urine Blood Negative (NEG) Urine Nitrite Positive (NEG) Urine Bilirubin Negative (NEG) Urine Urobilinogen Dipstick 0.2 mg/dL (0.2 mg/dL) Urine Leukocyte Esterase Moderate (NEG) Urine RBC Rare /HPF (0-2) Urine WBC 11-20 /HPF (0-4) Urine Squamous Epithelial Cells Many /LPF Urine Bacteria Many /HPF (0-FEW) Urine Hyaline Casts Few /HPF Urine Mucus Slight /LPF Absolute Reticulocyte Count 0.070 x10^6/uL (0.020-0.120) Percent Reticulocyte Count 2.8 % (0.5-2.3) Immature Reticulocyte Fraction 0.46 (0.20-0.60) Iron Level 35 ug/dL (50-170) Total Iron Binding Capacity 361 ug/dL (250-450) Iron Saturation 10 % (15-34) Thyroid Stimulating Hormone (TSH) 3.320 uIU/mL (0.358-3.74) Allergies: Coded Allergies: Sulfa (Sulfonamide Antibiotics) (Verified Allergy, Severe, Rash, 05/21/18) blisters on whole body morphine (Verified Allergy, Intermediate, Nausea and Vomiting, 05/21/18) Medications: Current Medications Medications (Trade) Dose Ordered Sig/Therese Route PRN Reason Start Time Stop Time Status Last Admin Dose Admin Levothyroxine Sodium (Synthroid) 88 mcg DAILY06 PO 06/30/18 06:00 06/30/18 06:06 Losartan Potassium (Cozaar) 50 mg DAILY PO 06/30/18 09:00 06/30/18 08:23 Metoprolol Succinate (Toprol Xl) 25 mg DAILY PO 06/30/18 09:00 06/30/18 08:24 Pantoprazole Sodium (Protonix) 40 mg DAILYAC PO 06/30/18 07:30 06/30/18 08:23 Atorvastatin Calcium (Lipitor) 80 mg QHS PO 06/29/18 21:00 06/29/18 22:34 Furosemide (Lasix) 40 mg [id number] PO 06/30/18 09:00 06/30/18 08:23 Polyethylene Glycol (miraLAX PACKET) 17 gm DAILY PO 06/29/18 21:00 06/29/18 22:34 Imaging: Imaging: - PE: GEN: NAD - sitting on edge of bed HEENT: Atraumatic, PERRL LUNGS: diminished, NC HEART: RRR ABD: NABS, S/ND/NT EXTREMITY: No edema SKIN: No rashes, no jaundice NEURO/PSYCH: A & O 3, pleasant A/P: A/P: SOA, weakness MICHELLE GERD - symptoms better w/ PPI Chronic constipation - controlled CRC screen - UTD (04/2018) Cirrhosis/portal hypertension - amiodarone stopped 05/2018 H/o CAD and A Fib on Plavix and ASA, CKD ?UTI -- Known MICHELLE not taking iron. She feels better with transfusion. Had 'scopes in [place], [place] in 04/2018 - records requested last admission but not received, will try again. Continue PPI, restart iron. KAROL JULIAN June 30, 2018 09:22
--- NOTE | 2018-06-30 09:30 | PDOC2 ---
CONSULT Date of Consult Date of Consult DATE: 06/30/18 TIME: 09:21 Reason for consultation: Anemia Consult: Hematology oncology, Dr. Junior Oliveira History of present illness: Patient is an 82-year-old female, admitted with severe anemia, from clinic after seeing Dr. Alonso yesterday, with history of renal insufficiency, hemoglobin was 5.3, associated with dyspnea, despite oxygen, improved after 2 units transfusion, acute, hemoglobin had been 10.6 on 21 May 2018, likely worsened due to some associated upper GI findings noted in March, she's not sure what they were but did believe that there was a cause of bleeding noted at that time on EGD, and she has also had iron deficient anemia getting IV iron infusions. the last was probably about February of this year or last January, from a doctor in [place]. She has transferred care up here as she now lives with her daughter. Past medical history: Iron deficiency anemia Upper GI bleeding, occult UTI Cirrhosis Coronary artery disease Hypertension Hypothyroid GERD Hyperlipidemia Obesity Macular degeneration Tremor A. fib Oxygen dependent Osteoarthritis Nephrolithiasis Past surgical history: EGD with colonoscopy separate 2018 Cataracts Left carotid endarterectomy with stent CABG Appendectomy Hysterectomy Allergies: Morphine and sulfa Medications: See attached list Social history: Lives with the daughter, quit smoking 39 years ago, no alcohol, no drugs, retired Family history: Prostate and breast and colon cancer and her son of medulloblastoma at 11 Review of systems: Constipation, GERD, nosebleed, nausea and vomiting, weight loss of 20 pounds, anorexia, urinary retention, lower extremity edema, tremor, shortness of air with anemia, otherwise 10 point review of systems negative Physical exam: Vitals reviewed Gen.: Well-nourished and well-developed in no acute distress elderly female HEENT: mucous membranes moist, head normocephalic atraumatic Neck: Supple, no lymphadenopathy Lymph nodes: No palpable lymphadenopathy neck or axilla Lungs: Breathing comfortably, nasal cannula on top of nose, no evidence of respiratory distress, slight epistaxis Abdomen: Soft, nontender, nondistended Extremities: No cyanosis, bilateral lower extremity edema Skin: No obvious rashes or skin breakdown on limited skin exam Neuro: Alert and oriented 3 Psych: pleasant mood and affect Lab reviewed: White count 4.9, hemoglobin 5.3 up to 7.2 after 2 units, platelets 194, MCV of 88 Hemoglobin had been 10.6 in May Antibody screen for blood transfusion negative Iron sat of 10%, TIBC of 361, serum iron 35, T bili normal Retic 2.8% Creatinine 1.5 TSH 3.3 Ammonia less than 10 Rads reviewed: Recent gastric emptying study showed rapid gastric emptying in A pril and ultrasound at the time showed portal hypertension with mild hepatosplenomegaly Case discussed with: Patient, [facility] including labs and radiology, please see note for summary details. Assessment and Plan: Ms Damon is an 82-year-old female with history of iron deficient anemia and concern for ongoing upper GI bleed. Anemia: Would transfuse for hemoglobin less than 7, checking rest of anemia labs, folic acid cannot be checked here, history of IV iron, if ferritin is low will repeat IV iron here or as outpatient as needed Concern for upper GI bleed: May need repeat endoscopy, GI has been consulted, on PPI renal insufficiency: May benefit from Aranesp if hemoglobin remains less than 10 in follow-up History of vascular disease, Plavix is currently held, she tells me she will always need this Disposition: After continued clinical improvement, I will not be here tomorrow but will see her on Thursday if still here and we can certainly set up follow-up as an outpatient as needed as she will be receiving IV iron from us here as needed in the future if she has ongoing GI bleeding issues Thank you kindly for this consultation, and please don't hesitate to call with any further questions. Past Medical History Cardiovascular: CAD, HTN GI: Other (slow GI bleed) Heme/Onc: No pertinent hx Hepatobiliary: Cirrhosis Musculoskeletal: low back pain Family History Family History: Heart Disease Social History No ALCOHOL: none (never) Drugs: None Current Problem List Problem List Problems Medical Problems: (1) Anemia Status: Acute Current Medications Current Medications Current Medications Levothyroxine Sodium (Synthroid) 88 mcg DAILY06 PO Last administered on 06/30/18at 06:06; Start 06/30/18 at 06:00 Losartan Potassium (Cozaar) 50 mg DAILY PO Last administered on 06/30/18at 08:23; Start 06/30/18 at 09:00 Metoprolol Succinate (Toprol Xl) 25 mg DAILY PO Last administered on 06/30/18at 08:24; Start 06/30/18 at 09:00 Ondansetron HCl (Zofran Odt) 8 mg PRN TID PRN PO NAUSEA/VOMITING; Start 06/29/18 at 19:15 Pantoprazole Sodium (Protonix) 40 mg DAILYAC PO Last administered on 06/30/18at 08:23; Start 06/30/18 at 07:30 Atorvastatin Calcium (Lipitor) 80 mg QHS PO Last administered on 06/29/18at 22:34; Start 06/29/18 at 21:00 Furosemide (Lasix) 40 mg BID92 PO Last administered on 06/30/18at 08:23; Start 06/30/18 at 09:00 Polyethylene Glycol (miraLAX PACKET) 17 gm DAILY PO Last administered on 06/29/18at 22:34; Start 06/29/18 at 21:00 Active Scripts Active Reported Potassium Chloride Oral Liquid (Potassium Chloride) 20 Meq/15 Ml Liquid 20 Meq PO TIDWMEALS Miralax (Polyethylene Glycol 3350) 17 Gm Powd.pack 1 Pkt PO HS [macuguard supplement] 1 Tab PO DAILY Furosemide 40 Mg Tablet 40 Mg PO BID Metoprolol Succinate ( Xl ) (Metoprolol Succinate) 25 Mg Tab.er.24h 1 Tab PO DAILY Losartan Potassium 50 Mg Tablet 50 Mg PO DAILY Levothyroxine Sodium 88 Mcg Tablet 1 Tab PO DAILY Protonix (Pantoprazole Sodium) 20 Mg Tablet.dr 40 Mg PO DAILY Clopidogrel (Clopidogrel Bisulfate) 75 Mg Tablet 1 Tab PO DAILY Ondansetron Odt (Ondansetron) 4 Mg Tab.rapdis 8 Mg PO TID PRN Crestor (Rosuvastatin Calcium) 20 Mg Tablet 20 Mg PO HS PRN Allergies Allergies: Coded Allergies: Sulfa (Sulfonamide Antibiotics) (Verified Allergy, Severe, Rash, 05/21/18) blisters on whole body morphine (Verified Allergy, Intermediate, Nausea and Vomiting, 05/21/18) Vitals VITALS Vital Signs Date Time Temp Pulse Resp B/P (MAP) Pulse Ox O2 Delivery O2 Flow Rate FiO2 06/30/18 08:24 69 155/42 06/30/18 07:00 98.2 16 97 Nasal Cannula 2.0 98.2 Labs Labs Laboratory Tests Test 06/29/18 15:14 06/29/18 17:30 06/30/18 04:30 White Blood Count 4.9 x10^3/uL (4.0-11.0) 5.4 x10^3/uL (4.0-11.0) Red Blood Count 1.88 x10^6/uL (3.50-5.40) 2.48 x10^6/uL (3.50-5.70) Hemoglobin 5.3 g/dL (12.0-15.5) 7.2 g/dL (12.0-15.5) Hematocrit 16.6 % (36.0-47.0) 22.3 % (36.0-47.0) Mean Corpuscular Volume 88 fL (79-100) 89 fL (79-100) Mean Corpuscular Hemoglobin 28 pg (25-35) 29 pg (25-35) Mean Corpuscular Hemoglobin Concent 32 g/dL (31-37) 32 g/dL (31-37) Red Cell Distribution Width 16.1 % (11.5-14.5) 14.6 % (11.5-14.5) Platelet Count 194 x10^3/uL (140-400) 173 x10^3/uL (140-400) Neutrophils (%) (Auto) 74 % (31-73) 76 % (31-73) Lymphocytes (%) (Auto) 16 % (24-48) 15 % (24-48) Monocytes (%) (Auto) 8 % (0-9) 7 % (0-9) Eosinophils (%) (Auto) 1 % (0-3) 2 % (0-3) Basophils (%) (Auto) 1 % (0-3) 1 % (0-3) Neutrophils # (Auto) 3.6 x10^3uL (1.8-7.7) 4.0 x10^3uL (1.8-7.7) Lymphocytes # (Auto) 0.8 x10^3/uL (1.0-4.8) 0.8 x10^3/uL (1.0-4.8) Monocytes # (Auto) 0.4 x10^3/uL (0.0-1.1) 0.4 x10^3/uL (0.0-1.1) Eosinophils # (Auto) 0.1 x10^3/uL (0.0-0.7) 0.1 x10^3/uL (0.0-0.7) Basophils # (Auto) 0.0 x10^3/uL (0.0-0.2) 0.0 x10^3/uL (0.0-0.2) Sodium Level 137 mmol/L (136-145) 138 mmol/L (136-145) Potassium Level 4.7 mmol/L (3.5-5.1) 4.3 mmol/L (3.5-5.1) Chloride Level 102 mmol/L (98-107) 103 mmol/L (98-107) Carbon Dioxide Level 26 mmol/L (21-32) 25 mmol/L (21-32) Anion Gap 9 (6-14) 10 (6-14) Blood Urea Nitrogen 51 mg/dL (7-20) 51 mg/dL (7-20) Creatinine 1.7 mg/dL (0.6-1.0) 1.5 mg/dL (0.6-1.0) Estimated GFR (Cockcroft-Gault) 28.8 33.3 BUN/Creatinine Ratio 30 (6-20) 34 (6-20) Glucose Level 104 mg/dL (70-99) 95 mg/dL (70-99) Calcium Level 9.1 mg/dL (8.5-10.1) 8.9 mg/dL (8.5-10.1) Magnesium Level 2.0 mg/dL (1.8-2.4) Total Bilirubin 0.4 mg/dL (0.2-1.0) 0.6 mg/dL (0.2-1.0) Aspartate Amino Transf (AST/SGOT) 35 U/L (15-37) 34 U/L (15-37) Alanine Aminotransferase (ALT/SGPT) 20 U/L (14-59) 17 U/L (14-59) Alkaline Phosphatase 71 U/L (46-116) 59 U/L (46-116) Total Protein 6.8 g/dL (6.4-8.2) 6.1 g/dL (6.4-8.2) Albumin 2.9 g/dL (3.4-5.0) 2.7 g/dL (3.4-5.0) Albumin/Globulin Ratio 0.7 (1.0-1.7) 0.8 (1.0-1.7) Urine Collection Type Unknown Urine Color Yellow Urine Clarity Clear Urine pH 5.5 Urine Specific [place] 1.010 Urine Protein Negative mg/dL (NEG-TRACE) Urine Glucose (UA) Negative mg/dL (NEG) Urine Ketones (Stick) Negative mg/dL (NEG) Urine Blood Negative (NEG) Urine Nitrite Positive (NEG) Urine Bilirubin Negative (NEG) Urine Urobilinogen Dipstick 0.2 mg/dL (0.2 mg/dL) Urine Leukocyte Esterase Moderate (NEG) Urine RBC Rare /HPF (0-2) Urine WBC 11-20 /HPF (0-4) Urine Squamous Epithelial Cells Many /LPF Urine Bacteria Many /HPF (0-FEW) Urine Hyaline Casts Few /HPF Urine Mucus Slight /LPF Absolute Reticulocyte Count 0.070 x10^6/uL (0.020-0.120) Percent Reticulocyte Count 2.8 % (0.5-2.3) Immature Reticulocyte Fraction 0.46 (0.20-0.60) Iron Level 35 ug/dL (50-170) Total Iron Binding Capacity 361 ug/dL (250-450) Iron Saturation 10 % (15-34) Thyroid Stimulating Hormone (TSH) 3.320 uIU/mL (0.358-3.74) Laboratory Tests Test 06/29/18 15:14 06/29/18 17:30 06/30/18 04:30 White Blood Count 4.9 x10^3/uL (4.0-11.0) 5.4 x10^3/uL (4.0-11.0) Red Blood Count 1.88 x10^6/uL (3.50-5.40) 2.48 x10^6/uL (3.50-5.70) Hemoglobin 5.3 g/dL (12.0-15.5) 7.2 g/dL (12.0-15.5) Hematocrit 16.6 % (36.0-47.0) 22.3 % (36.0-47.0) Mean Corpuscular Volume 88 fL (79-100) 89 fL (79-100) Mean Corpuscular Hemoglobin 28 pg (25-35) 29 pg (25-35) Mean Corpuscular Hemoglobin Concent 32 g/dL (31-37) 32 g/dL (31-37) Red Cell Distribution Width 16.1 % (11.5-14.5) 14.6 % (11.5-14.5) Platelet Count 194 x10^3/uL (140-400) 173 x10^3/uL (140-400) Neutrophils (%) (Auto) 74 % (31-73) 76 % (31-73) Lymphocytes (%) (Auto) 16 % (24-48) 15 % (24-48) Monocytes (%) (Auto) 8 % (0-9) 7 % (0-9) Eosinophils (%) (Auto) 1 % (0-3) 2 % (0-3) Basophils (%) (Auto) 1 % (0-3) 1 % (0-3) Neutrophils # (Auto) 3.6 x10^3uL (1.8-7.7) 4.0 x10^3uL (1.8-7.7) Lymphocytes # (Auto) 0.8 x10^3/uL (1.0-4.8) 0.8 x10^3/uL (1.0-4.8) Monocytes # (Auto) 0.4 x10^3/uL (0.0-1.1) 0.4 x10^3/uL (0.0-1.1) Eosinophils # (Auto) 0.1 x10^3/uL (0.0-0.7) 0.1 x10^3/uL (0.0-0.7) Basophils # (Auto) 0.0 x10^3/uL (0.0-0.2) 0.0 x10^3/uL (0.0-0.2) Sodium Level 137 mmol/L (136-145) 138 mmol/L (136-145) Potassium Level 4.7 mmol/L (3.5-5.1) 4.3 mmol/L (3.5-5.1) Chloride Level 102 mmol/L (98-107) 103 mmol/L (98-107) Carbon Dioxide Level 26 mmol/L (21-32) 25 mmol/L (21-32) Anion Gap 9 (6-14) 10 (6-14) Blood Urea Nitrogen 51 mg/dL (7-20) 51 mg/dL (7-20) Creatinine 1.7 mg/dL (0.6-1.0) 1.5 mg/dL (0.6-1.0) Estimated GFR (Cockcroft-Gault) 28.8 33.3 BUN/Creatinine Ratio 30 (6-20) 34 (6-20) Glucose Level 104 mg/dL (70-99) 95 mg/dL (70-99) Calcium Level 9.1 mg/dL (8.5-10.1) 8.9 mg/dL (8.5-10.1) Magnesium Level 2.0 mg/dL (1.8-2.4) Total Bilirubin 0.4 mg/dL (0.2-1.0) 0.6 mg/dL (0.2-1.0) Aspartate Amino Transf (AST/SGOT) 35 U/L (15-37) 34 U/L (15-37) Alanine Aminotransferase (ALT/SGPT) 20 U/L (14-59) 17 U/L (14-59) Alkaline Phosphatase 71 U/L (46-116) 59 U/L (46-116) Total Protein 6.8 g/dL (6.4-8.2) 6.1 g/dL (6.4-8.2) Albumin 2.9 g/dL (3.4-5.0) 2.7 g/dL (3.4-5.0) Albumin/Globulin Ratio 0.7 (1.0-1.7) 0.8 (1.0-1.7) Urine Collection Type Unknown Urine Color Yellow Urine Clarity Clear Urine pH 5.5 Urine Specific [place] 1.010 Urine Protein Negative mg/dL (NEG-TRACE) Urine Glucose (UA) Negative mg/dL (NEG) Urine Ketones (Stick) Negative mg/dL (NEG) Urine Blood Negative (NEG) Urine Nitrite Positive (NEG) Urine Bilirubin Negative (NEG) Urine Urobilinogen Dipstick 0.2 mg/dL (0.2 mg/dL) Urine Leukocyte Esterase Moderate (NEG) Urine RBC Rare /HPF (0-2) Urine WBC 11-20 /HPF (0-4) Urine Squamous Epithelial Cells Many /LPF Urine Bacteria Many /HPF (0-FEW) Urine Hyaline Casts Few /HPF Urine Mucus Slight /LPF Absolute Reticulocyte Count 0.070 x10^6/uL (0.020-0.120) Percent Reticulocyte Count 2.8 % (0.5-2.3) Immature Reticulocyte Fraction 0.46 (0.20-0.60) Iron Level 35 ug/dL (50-170) Total Iron Binding Capacity 361 ug/dL (250-450) Iron Saturation 10 % (15-34) Thyroid Stimulating Hormone (TSH) 3.320 uIU/mL (0.358-3.74) JUNIOR OLIVEIRA MD June 30, 2018 09:30
--- NOTE | 2018-06-30 10:45 | PDOC2 ---
CARDIAC CONSULT DATE OF CONSULT Date of Consult DATE: 06/30/18 TIME: 10:21 REASON FOR CONSULT Reason for Consult: CAD, anemia REFERRING PHYSICIAN Referring Physician: Dr. Andrew SOURCE Source: Chart review, Patient HISTORY OF PRESENT ILLNESS HISTORY OF PRESENT ILLNESS This is an 82 yo female who presented secondary to anemia. Blood work was checked by PCP. Hgb noted to be low so patient was recommended to go to the ED for further evaluation and treatment. Patient reports experiencing LE edema, shortness or breath, and fatigue for the last month. No chest pain, palpitations, dizziness, diaphoresis, or nausea/vomiting. Hgb noted at 5.3 upon arrival. 2 units PRBCs has been transfused. Patient feels better, but continues with mild dyspnea and LE edema. H/o CAD s/p PCI/stent in [place], [place] 03/23/18. No lives local with daughter and has transferred her care. PAST MEDICAL HISTORY Past Medical History Cardiovascular: AFIB, CAD (s/p PCI/stents 03/23/18 in [place], [place]), CHF, HTN, Hyperlipidemia, Other (carotid artery disease) Pulmonary: No pertinent hx CENTRAL NERVOUS SYSTEM: Other (tremors) GI: GERD Heme/Onc: Anemia, iron deficiency Hepatobiliary: Cirrhosis/portal hypertension - amiodarone stopped 05/2018 Psych: No pertinent hx Musculoskeletal: Osteoarthritis Rheumatologic: No pertinent hx Infectious disease: No pertinent hx ENT: No pertinent hx Renal/: Chronic renal insuff Endocrine: Hypothyroidism Dermatology: No pertinent hx PAST SURGICAL HISTORY Past Surgical History Appendectomy, Cataract Removal, Other (PCI/stents' left carotid endarterectomy) FAMILY HISTORY Family History: Coronary Artery Disease (mother and father ) SOCIAL HISTORY Social History Smoke: Quit (remotely) ALCOHOL: none Drugs: None Lives: with Family (daughter) CURRENT MEDICATIONS CURRENT MEDICATIONS Current Medications Medications (Trade) Dose Ordered Sig/Therese Route PRN Reason Start Time Stop Time Status Last Admin Dose Admin Levothyroxine Sodium (Synthroid) 88 mcg DAILY06 PO 06/30/18 06:00 06/30/18 06:06 Losartan Potassium (Cozaar) 50 mg DAILY PO 06/30/18 09:00 06/30/18 08:23 Metoprolol Succinate (Toprol Xl) 25 mg DAILY PO 06/30/18 09:00 06/30/18 08:24 Pantoprazole Sodium (Protonix) 40 mg DAILYAC PO 06/30/18 07:30 06/30/18 08:23 Atorvastatin Calcium (Lipitor) 80 mg QHS PO 06/29/18 21:00 06/29/18 22:34 Furosemide (Lasix) 40 mg BID92 PO 06/30/18 09:00 06/30/18 08:23 Polyethylene Glycol (miraLAX PACKET) 17 gm DAILY PO 06/29/18 21:00 06/29/18 22:34 ALLERGIES ALLERGIES: Coded Allergies: Sulfa (Sulfonamide Antibiotics) (Verified Allergy, Severe, Rash, 05/21/18) blisters on whole body morphine (Verified Allergy, Intermediate, Nausea and Vomiting, 05/21/18) ROS Review of System 14 point ROS conducted with pertinent positives noted above in HPI PHYSICAL EXAM PHYSICAL EXAM General: Alert, Oriented X3, Cooperative, No acute distress HEENT: Atraumatic, Mucous membr. moist/pink Lungs: bibasilar crackles Heart: Regular rate (SR), Normal S1, Normal S2, Other (2/6 systolic murmur) Abdomen: Soft, No tenderness Extremities: No cyanosis, Other (1+ LE edema) Skin: No breakdown, No significant lesion Neuro: Normal speech, Sensation intact Psych/Mental Status: Mental status NL, Mood NL MUSCULOSKELETAL: Osteoarthritic changes both hands VITALS VITALS Vital Signs Date Time Temp Pulse Resp B/P (MAP) Pulse Ox O2 Delivery O2 Flow Rate FiO2 06/30/18 08:24 69 155/42 06/30/18 08:00 Nasal Cannula 2.0 06/30/18 07:00 98.2 16 97 98.2 LABS Lab: Laboratory Tests Test 06/29/18 15:14 06/29/18 17:30 06/30/18 04:30 White Blood Count 4.9 x10^3/uL (4.0-11.0) 5.4 x10^3/uL (4.0-11.0) Red Blood Count 1.88 x10^6/uL (3.50-5.40) 2.48 x10^6/uL (3.50-5.70) Hemoglobin 5.3 g/dL (12.0-15.5) 7.2 g/dL (12.0-15.5) Hematocrit 16.6 % (36.0-47.0) 22.3 % (36.0-47.0) Mean Corpuscular Volume 88 fL (79-100) 89 fL (79-100) Mean Corpuscular Hemoglobin 28 pg (25-35) 29 pg (25-35) Mean Corpuscular Hemoglobin Concent 32 g/dL (31-37) 32 g/dL (31-37) Red Cell Distribution Width 16.1 % (11.5-14.5) 14.6 % (11.5-14.5) Platelet Count 194 x10^3/uL (140-400) 173 x10^3/uL (140-400) Neutrophils (%) (Auto) 74 % (31-73) 76 % (31-73) Lymphocytes (%) (Auto) 16 % (24-48) 15 % (24-48) Monocytes (%) (Auto) 8 % (0-9) 7 % (0-9) Eosinophils (%) (Auto) 1 % (0-3) 2 % (0-3) Basophils (%) (Auto) 1 % (0-3) 1 % (0-3) Neutrophils # (Auto) 3.6 x10^3uL (1.8-7.7) 4.0 x10^3uL (1.8-7.7) Lymphocytes # (Auto) 0.8 x10^3/uL (1.0-4.8) 0.8 x10^3/uL (1.0-4.8) Monocytes # (Auto) 0.4 x10^3/uL (0.0-1.1) 0.4 x10^3/uL (0.0-1.1) Eosinophils # (Auto) 0.1 x10^3/uL (0.0-0.7) 0.1 x10^3/uL (0.0-0.7) Basophils # (Auto) 0.0 x10^3/uL (0.0-0.2) 0.0 x10^3/uL (0.0-0.2) Sodium Level 137 mmol/L (136-145) 138 mmol/L (136-145) Potassium Level 4.7 mmol/L (3.5-5.1) 4.3 mmol/L (3.5-5.1) Chloride Level 102 mmol/L (98-107) 103 mmol/L (98-107) Carbon Dioxide Level 26 mmol/L (21-32) 25 mmol/L (21-32) Anion Gap 9 (6-14) 10 (6-14) Blood Urea Nitrogen 51 mg/dL (7-20) 51 mg/dL (7-20) Creatinine 1.7 mg/dL (0.6-1.0) 1.5 mg/dL (0.6-1.0) Estimated GFR (Cockcroft-Gault) 28.8 33.3 BUN/Creatinine Ratio 30 (6-20) 34 (6-20) Glucose Level 104 mg/dL (70-99) 95 mg/dL (70-99) Calcium Level 9.1 mg/dL (8.5-10.1) 8.9 mg/dL (8.5-10.1) Magnesium Level 2.0 mg/dL (1.8-2.4) Total Bilirubin 0.4 mg/dL (0.2-1.0) 0.6 mg/dL (0.2-1.0) Aspartate Amino Transf (AST/SGOT) 35 U/L (15-37) 34 U/L (15-37) Alanine Aminotransferase (ALT/SGPT) 20 U/L (14-59) 17 U/L (14-59) Alkaline Phosphatase 71 U/L (46-116) 59 U/L (46-116) Total Protein 6.8 g/dL (6.4-8.2) 6.1 g/dL (6.4-8.2) Albumin 2.9 g/dL (3.4-5.0) 2.7 g/dL (3.4-5.0) Albumin/Globulin Ratio 0.7 (1.0-1.7) 0.8 (1.0-1.7) Urine Collection Type Unknown Urine Color Yellow Urine Clarity Clear Urine pH 5.5 Urine Specific [place] 1.010 Urine Protein Negative mg/dL (NEG-TRACE) Urine Glucose (UA) Negative mg/dL (NEG) Urine Ketones (Stick) Negative mg/dL (NEG) Urine Blood Negative (NEG) Urine Nitrite Positive (NEG) Urine Bilirubin Negative (NEG) Urine Urobilinogen Dipstick 0.2 mg/dL (0.2 mg/dL) Urine Leukocyte Esterase Moderate (NEG) Urine RBC Rare /HPF (0-2) Urine WBC 11-20 /HPF (0-4) Urine Squamous Epithelial Cells Many /LPF Urine Bacteria Many /HPF (0-FEW) Urine Hyaline Casts Few /HPF Urine Mucus Slight /LPF Absolute Reticulocyte Count 0.070 x10^6/uL (0.020-0.120) Percent Reticulocyte Count 2.8 % (0.5-2.3) Immature Reticulocyte Fraction 0.46 (0.20-0.60) Iron Level 35 ug/dL (50-170) Total Iron Binding Capacity 361 ug/dL (250-450) Iron Saturation 10 % (15-34) Ferritin 35 ng/mL (8-252) Thyroid Stimulating Hormone (TSH) 3.320 uIU/mL (0.358-3.74) ECHOCARDIOGRAM ECHOCARDIOGRAM <Conclusion> The left ventricle is normal size. The left ventricular systolic function is normal and the ejection fraction is within normal range. The Ejection Fraction is 55-60%. There is mild concentric left ventricular hypertrophy. There is no significant aortic valvular stenosis. Doppler and Color Flow revealed no significant aortic regurgitation. Doppler and Color-flow revealed trace mitral regurgitation. Doppler and Color Flow revealed trace to mild tricuspid regurgitation with an estimated PAP of 40 mmHg. There is a trace pericardial effusion with no hemodynamic significance. DATE: 05/22/18 1243 ASSESSMENT/PLAN ASSESSMENT/PLAN 1. Anemia; hgb 5.3 upon arrival. S/p 2 units PRBCs. PPI. iron resumed. 2. Cirrhosis, portal hypertension; possibly Amio induced 3. Acute on chronic diastolic CHF 4. CAD: 03/2018 x2 stents in [place], [place]. on DAPT with ASA and Plavix. Records requested last admission, but none received 5. Hyperlipidemia; statin 6. Hypertension; mildly elevated 7. PAFIB: Amiodarone discontinued 06/04 due to liver disease. 8. TAMMY on CKD; improved 9. Hypothyroidism: on home replacement 10. UTI Recommendations May hold ASA/Plavix as stents were > 3 months ago Obtain OSH cardiac records Transfuse as warranted CXR NT ProBNP Diuresis as warranted Follow GI recs Supportive care LEANNE GONZALEZ APRN June 30, 2018 10:45
[2018-06-30] MEDS: FERROUS SULFATE 325 MG TABLET. PO SCH ×2 (12:52→17:35)
--- NOTE | 2018-06-30 14:47 | RAD ---
EXAM: CHEST 1 VIEW History: Shortness of breath COMPARISON: None available. TECHNIQUE: Single portable radiograph of the chest FINDINGS: Mild cardiomegaly. Mild diffuse prominent appearing bilateral interstitial lung markings. Trace bilateral pleural effusions. IMPRESSION: Diffuse prominent appearing bilateral interstitial lung markings likely congestive changes. Electronically signed by: Delvis Le MD (06/30/2018 2:44 PM) [place] [id number]
[2018-06-30] MEDS ORDERED: FUROSEMIDE 20 MG/2 ML VIAL. IVP ONE (15:15)
--- NOTE | 2018-06-30 19:17 | PDOC ---
PROGRESS NOTES Chief Complaint Chief Complaint GI bleeding etiology undetermined at the present time Iron deficiency anemia secondary to the above History of coronary artery disease History of essential hypertension History of hypothyroidism acquired History of GERD History of A. fib Obesity with a BMI of 32 History of chronic kidney disease stage IIIa Plan: follow h and h in the am transfuse as recommendedation by hematology natural remedy consultant follow gi recommendations will reasses in the am further recommendations based on clinical course. will need iron moving forward History of Present Illness History of Present Illness Patient laying in bed in no apparent distress. The patient denies chest pain palpitations no shortness of breath has been reported. The patient denies headache no ringing in the ears either. CONCERNS were addressed to the best of my abilities Vitals Vitals Vital Signs Date Time Temp Pulse Resp B/P (MAP) Pulse Ox O2 Delivery O2 Flow Rate FiO2 06/30/18 15:00 98.0 65 16 151/37 (75) 99 Nasal Cannula 2.0 98.0 Physical Exam General: Alert, Oriented X3, Cooperative, mild distress (weak) Abdomen: Normal bowel sounds, Soft Extremities: No cyanosis, No edema, Normal pulses Skin: No rashes Labs LABS Laboratory Tests Test 06/30/18 04:30 White Blood Count 5.4 x10^3/uL (4.0-11.0) Red Blood Count 2.48 x10^6/uL (3.50-5.70) Hemoglobin 7.2 g/dL (12.0-15.5) Hematocrit 22.3 % (36.0-47.0) Mean Corpuscular Volume 89 fL (79-100) Mean Corpuscular Hemoglobin 29 pg (25-35) Mean Corpuscular Hemoglobin Concent 32 g/dL (31-37) Red Cell Distribution Width 14.6 % (11.5-14.5) Platelet Count 173 x10^3/uL (140-400) Neutrophils (%) (Auto) 76 % (31-73) Lymphocytes (%) (Auto) 15 % (24-48) Monocytes (%) (Auto) 7 % (0-9) Eosinophils (%) (Auto) 2 % (0-3) Basophils (%) (Auto) 1 % (0-3) Neutrophils # (Auto) 4.0 x10^3uL (1.8-7.7) Lymphocytes # (Auto) 0.8 x10^3/uL (1.0-4.8) Monocytes # (Auto) 0.4 x10^3/uL (0.0-1.1) Eosinophils # (Auto) 0.1 x10^3/uL (0.0-0.7) Basophils # (Auto) 0.0 x10^3/uL (0.0-0.2) Absolute Reticulocyte Count 0.070 x10^6/uL (0.020-0.120) Percent Reticulocyte Count 2.8 % (0.5-2.3) Immature Reticulocyte Fraction 0.46 (0.20-0.60) Sodium Level 138 mmol/L (136-145) Potassium Level 4.3 mmol/L (3.5-5.1) Chloride Level 103 mmol/L (98-107) Carbon Dioxide Level 25 mmol/L (21-32) Anion Gap 10 (6-14) Blood Urea Nitrogen 51 mg/dL (7-20) Creatinine 1.5 mg/dL (0.6-1.0) Estimated GFR (Cockcroft-Gault) 33.3 BUN/Creatinine Ratio 34 (6-20) Glucose Level 95 mg/dL (70-99) Calcium Level 8.9 mg/dL (8.5-10.1) Iron Level 35 ug/dL (50-170) Total Iron Binding Capacity 361 ug/dL (250-450) Iron Saturation 10 % (15-34) Ferritin 35 ng/mL (8-252) Total Bilirubin 0.6 mg/dL (0.2-1.0) Aspartate Amino Transf (AST/SGOT) 34 U/L (15-37) Alanine Aminotransferase (ALT/SGPT) 17 U/L (14-59) Alkaline Phosphatase 59 U/L (46-116) BL-[id number]-[id number]-Type Natriuretic Peptide 432 pg/mL (0-449) Total Protein 6.1 g/dL (6.4-8.2) Albumin 2.7 g/dL (3.4-5.0) Albumin/Globulin Ratio 0.8 (1.0-1.7) Vitamin B12 Level 342 pg/mL (247-911) Thyroid Stimulating Hormone (TSH) 3.320 uIU/mL (0.358-3.74) Review of Systems Review of Systems Possible respirations GI otherwise 14 point review of system is negative Assessment and Plan Assessmemt and Plan Problems Medical Problems: (1) Anemia Status: Acute Comment Review of Relevant I have reviewed the following items brittani (where applicable) has been applied. Labs Laboratory Tests Test 06/29/18 15:14 06/29/18 17:30 06/30/18 04:30 White Blood Count 4.9 x10^3/uL (4.0-11.0) 5.4 x10^3/uL (4.0-11.0) Red Blood Count 1.88 x10^6/uL (3.50-5.40) 2.48 x10^6/uL (3.50-5.70) Hemoglobin 5.3 g/dL (12.0-15.5) 7.2 g/dL (12.0-15.5) Hematocrit 16.6 % (36.0-47.0) 22.3 % (36.0-47.0) Mean Corpuscular Volume 88 fL (79-100) 89 fL (79-100) Mean Corpuscular Hemoglobin 28 pg (25-35) 29 pg (25-35) Mean Corpuscular Hemoglobin Concent 32 g/dL (31-37) 32 g/dL (31-37) Red Cell Distribution Width 16.1 % (11.5-14.5) 14.6 % (11.5-14.5) Platelet Count 194 x10^3/uL (140-400) 173 x10^3/uL (140-400) Neutrophils (%) (Auto) 74 % (31-73) 76 % (31-73) Lymphocytes (%) (Auto) 16 % (24-48) 15 % (24-48) Monocytes (%) (Auto) 8 % (0-9) 7 % (0-9) Eosinophils (%) (Auto) 1 % (0-3) 2 % (0-3) Basophils (%) (Auto) 1 % (0-3) 1 % (0-3) Neutrophils # (Auto) 3.6 x10^3uL (1.8-7.7) 4.0 x10^3uL (1.8-7.7) Lymphocytes # (Auto) 0.8 x10^3/uL (1.0-4.8) 0.8 x10^3/uL (1.0-4.8) Monocytes # (Auto) 0.4 x10^3/uL (0.0-1.1) 0.4 x10^3/uL (0.0-1.1) Eosinophils # (Auto) 0.1 x10^3/uL (0.0-0.7) 0.1 x10^3/uL (0.0-0.7) Basophils # (Auto) 0.0 x10^3/uL (0.0-0.2) 0.0 x10^3/uL (0.0-0.2) Sodium Level 137 mmol/L (136-145) 138 mmol/L (136-145) Potassium Level 4.7 mmol/L (3.5-5.1) 4.3 mmol/L (3.5-5.1) Chloride Level 102 mmol/L (98-107) 103 mmol/L (98-107) Carbon Dioxide Level 26 mmol/L (21-32) 25 mmol/L (21-32) Anion Gap 9 (6-14) 10 (6-14) Blood Urea Nitrogen 51 mg/dL (7-20) 51 mg/dL (7-20) Creatinine 1.7 mg/dL (0.6-1.0) 1.5 mg/dL (0.6-1.0) Estimated GFR (Cockcroft-Gault) 28.8 33.3 BUN/Creatinine Ratio 30 (6-20) 34 (6-20) Glucose Level 104 mg/dL (70-99) 95 mg/dL (70-99) Calcium Level 9.1 mg/dL (8.5-10.1) 8.9 mg/dL (8.5-10.1) Magnesium Level 2.0 mg/dL (1.8-2.4) Total Bilirubin 0.4 mg/dL (0.2-1.0) 0.6 mg/dL (0.2-1.0) Aspartate Amino Transf (AST/SGOT) 35 U/L (15-37) 34 U/L (15-37) Alanine Aminotransferase (ALT/SGPT) 20 U/L (14-59) 17 U/L (14-59) Alkaline Phosphatase 71 U/L (46-116) 59 U/L (46-116) Total Protein 6.8 g/dL (6.4-8.2) 6.1 g/dL (6.4-8.2) Albumin 2.9 g/dL (3.4-5.0) 2.7 g/dL (3.4-5.0) Albumin/Globulin Ratio 0.7 (1.0-1.7) 0.8 (1.0-1.7) Urine Collection Type Unknown Urine Color Yellow Urine Clarity Clear Urine pH 5.5 Urine Specific [employer] [place] 1.010 Urine Protein Negative mg/dL (NEG-TRACE) Urine Glucose (UA) Negative mg/dL (NEG) Urine Ketones (Stick) Negative mg/dL (NEG) Urine Blood Negative (NEG) Urine Nitrite Positive (NEG) Urine Bilirubin Negative (NEG) Urine Urobilinogen Dipstick 0.2 mg/dL (0.2 mg/dL) Urine Leukocyte Esterase Moderate (NEG) Urine RBC Rare /HPF (0-2) Urine WBC 11-20 /HPF (0-4) Urine Squamous Epithelial Cells Many /LPF Urine Bacteria Many /HPF (0-FEW) Urine Hyaline Casts Few /HPF Urine Mucus Slight /LPF Absolute Reticulocyte Count 0.070 x10^6/uL (0.020-0.120) Percent Reticulocyte Count 2.8 % (0.5-2.3) Immature Reticulocyte Fraction 0.46 (0.20-0.60) Iron Level 35 ug/dL (50-170) Total Iron Binding Capacity 361 ug/dL (250-450) Iron Saturation 10 % (15-34) Ferritin 35 ng/mL (8-252) BW-Xqd-Q-Type Natriuretic Peptide 432 pg/mL (0-449) Vitamin B12 Level 342 pg/mL (247-911) Thyroid Stimulating Hormone (TSH) 3.320 uIU/mL (0.358-3.74) Laboratory Tests Test 06/30/18 04:30 White Blood Count 5.4 x10^3/uL (4.0-11.0) Red Blood Count 2.48 x10^6/uL (3.50-5.70) Hemoglobin 7.2 g/dL (12.0-15.5) Hematocrit 22.3 % (36.0-47.0) Mean Corpuscular Volume 89 fL (79-100) Mean Corpuscular Hemoglobin 29 pg (25-35) Mean Corpuscular Hemoglobin Concent 32 g/dL (31-37) Red Cell Distribution Width 14.6 % (11.5-14.5) Platelet Count 173 x10^3/uL (140-400) Neutrophils (%) (Auto) 76 % (31-73) Lymphocytes (%) (Auto) 15 % (24-48) Monocytes (%) (Auto) 7 % (0-9) Eosinophils (%) (Auto) 2 % (0-3) Basophils (%) (Auto) 1 % (0-3) Neutrophils # (Auto) 4.0 x10^3uL (1.8-7.7) Lymphocytes # (Auto) 0.8 x10^3/uL (1.0-4.8) Monocytes # (Auto) 0.4 x10^3/uL (0.0-1.1) Eosinophils # (Auto) 0.1 x10^3/uL (0.0-0.7) Basophils # (Auto) 0.0 x10^3/uL (0.0-0.2) Absolute Reticulocyte Count 0.070 x10^6/uL (0.020-0.120) Percent Reticulocyte Count 2.8 % (0.5-2.3) Immature Reticulocyte Fraction 0.46 (0.20-0.60) Sodium Level 138 mmol/L (136-145) Potassium Level 4.3 mmol/L (3.5-5.1) Chloride Level 103 mmol/L (98-107) Carbon Dioxide Level 25 mmol/L (21-32) Anion Gap 10 (6-14) Blood Urea Nitrogen 51 mg/dL (7-20) Creatinine 1.5 mg/dL (0.6-1.0) Estimated GFR (Cockcroft-Gault) 33.3 BUN/Creatinine Ratio 34 (6-20) Glucose Level 95 mg/dL (70-99) Calcium Level 8.9 mg/dL (8.5-10.1) Iron Level 35 ug/dL (50-170) Total Iron Binding Capacity 361 ug/dL (250-450) Iron Saturation 10 % (15-34) Ferritin 35 ng/mL (8-252) Total Bilirubin 0.6 mg/dL (0.2-1.0) Aspartate Amino Transf (AST/SGOT) 34 U/L (15-37) Alanine Aminotransferase (ALT/SGPT) 17 U/L (14-59) Alkaline Phosphatase 59 U/L (46-116) NN-Jjd-J-Type Natriuretic Peptide 432 pg/mL (0-449) Total Protein 6.1 g/dL (6.4-8.2) Albumin 2.7 g/dL (3.4-5.0) Albumin/Globulin Ratio 0.8 (1.0-1.7) Vitamin B12 Level 342 pg/mL (247-911) Thyroid Stimulating Hormone (TSH) 3.320 uIU/mL (0.358-3.74) Medications Current Medications Levothyroxine Sodium (Synthroid) 88 mcg DAILY06 PO Last administered on 06/30/18 06:06; Start 06/30/18 at 06:00 Losartan Potassium (Cozaar) 50 mg DAILY PO Last administered on 06/30/18 08:23; Start 06/30/18 at 09:00 Metoprolol Succinate (Toprol Xl) 25 mg DAILY PO Last administered on 06/30/18 08:24; Start 06/30/18 at 09:00 Ondansetron HCl (Zofran Odt) 8 mg PRN TID PRN PO NAUSEA/VOMITING; Start 06/29/18 at 19:15 Pantoprazole Sodium (Protonix) 40 mg DAILYAC PO Last administered on 06/30/18 08:23; Start 06/30/18 at 07:30 Atorvastatin Calcium (Lipitor) 80 mg QHS PO Last administered on 06/29/18 22:34; Start 06/29/18 at 21:00 Furosemide (Lasix) 40 mg BID92 PO Last administered on 06/30/18 14:35; Start 06/30/18 at 09:00 Polyethylene Glycol (miraLAX PACKET) 17 gm DAILY PO Last administered on 06/29/18 22:34; Start 06/29/18 at 21:00 Ferrous Sulfate (Feosol) 325 mg BIDWMEALS PO Last administered on 06/30/18 17:35; Start 06/30/18 at 12:00 Furosemide (Lasix) 20 mg 1X ONCE IVP Last administered on 06/30/18 16:03; Start 06/30/18 at 15:15; Stop 06/30/18 at 15:26; Status DC Active Scripts Active Reported Potassium Chloride Oral Liquid (Potassium Chloride) 20 Meq/15 Ml Liquid 20 Meq PO TIDWMEALS Miralax (Polyethylene Glycol 3350) 17 Gm Powd.pack 1 Pkt PO HS [macuguard supplement] 1 Tab PO DAILY Furosemide 40 Mg Tablet 40 Mg PO BID Metoprolol Succinate ( Xl ) (Metoprolol Succinate) 25 Mg Tab.er.24h 1 Tab PO DAILY Losartan Potassium 50 Mg Tablet 50 Mg PO DAILY Levothyroxine Sodium 88 Mcg Tablet 1 Tab PO DAILY Protonix (Pantoprazole Sodium) 20 Mg Tablet.dr 40 Mg PO DAILY Clopidogrel (Clopidogrel Bisulfate) 75 Mg Tablet 1 Tab PO DAILY Ondansetron Odt (Ondansetron) 4 Mg Tab.rapdis 8 Mg PO TID PRN Crestor (Rosuvastatin Calcium) 20 Mg Tablet 20 Mg PO HS PRN Vitals/I & O Vital Sign - Last 24 Hours 06/29/18 06/29/18 06/29/18 06/29/18 19:27 20:20 20:20 21:20 Temp 97.5 98.1 98.3 97.5 98.1 98.3 Pulse 70 71 65 Resp 16 18 16 B/P (MAP) 142/39 (73) 130/49 144/44 (77) Pulse Ox 100 99 O2 Delivery Nasal Cannula Nasal Cannula Nasal Cannula O2 Flow Rate 2.0 2.0 2.0 06/29/18 06/29/18 06/29/18 06/29/18 21:20 22:20 23:25 23:35 Temp 98.3 98.1 97.4 97.4 98.3 98.1 97.4 97.4 Pulse 65 68 68 68 Resp 18 18 18 B/P (MAP) 144/44 161/44 156/45 (82) 156/45 Pulse Ox 100 O2 Delivery Nasal Cannula O2 Flow Rate 2.0 06/30/18 06/30/18 06/30/18 06/30/18 00:50 01:50 02:50 03:25 Temp 98.1 98.0 98.1 98.1 98.1 98.0 98.1 98.1 Pulse 68 71 73 73 Resp 18 18 18 18 B/P (MAP) 163/48 171/51 153/46 153/46 (81) Pulse Ox 100 O2 Delivery Nasal Cannula O2 Flow Rate 2.0 06/30/18 06/30/18 06/30/18 06/30/18 04:05 07:00 08:00 08:23 Temp 98.2 98.2 98.2 98.2 Pulse 72 69 69 Resp 16 16 B/P (MAP) 153/34 155/42 (79) 155/42 Pulse Ox 97 O2 Delivery Nasal Cannula Nasal Cannula O2 Flow Rate 2.0 2.0 06/30/18 06/30/18 06/30/18 08:24 11:00 15:00 Temp 98.2 98.0 98.2 98.0 Pulse 69 67 65 Resp 16 16 B/P (MAP) 155/42 138/32 (67) 151/37 (75) Pulse Ox 100 99 O2 Delivery Nasal Cannula Nasal Cannula O2 Flow Rate 2.0 2.0 Intake and Output 06/29/18 06/29/18 06/30/18 15:00 23:00 07:00 Intake Total 30 ml 10 ml Output Total 200 ml Balance 30 ml -190 ml HILDA CHAO MD June 30, 2018 19:16
[2018-06-30] MEDS: ATORVASTATIN CALCIUM 40 MG TABLET. PO SCH (21:04)
[2018-07-01 03:14] VITALS: BP 124/36
[2018-07-01] MEDS: LEVOTHYROXINE 88 MCG TABLET PO SCH (05:51)
[2018-07-01 07:56] VITALS: BP 139/36
[2018-07-01 08:41] LABS: ALBUMIN/GLOBULIN RATIO 0.9 (1.0-1.7); CALCIUM 8.9 mg/dL (8.5-10.1); CREATININE 1.5 mg/dL (0.6-1.0); GFR 33.3; POTASSIUM 4.2 mmol/L (3.5-5.1); TOTAL BILIRUBIN 0.8 mg/dL (0.2-1.0); TOTAL PROTEIN 6.2 g/dL (6.4-8.2)
[2018-07-01] MEDS: POLYETHYLENE GLYCOL 3350 17 GM PACKET. PO SCH (09:00)
[2018-07-01] MEDS: FUROSEMIDE 40 MG TABLET. PO SCH ×2 (09:00→13:16)
[2018-07-01] MEDS: FERROUS SULFATE 325 MG TABLET. PO SCH (09:01)
[2018-07-01] MEDS: PANTOPRAZOLE 40 MG TABLET.DR. PO SCH (09:01)
[2018-07-01] MEDS: LOSARTAN POTASSIUM 50 MG TABLET. PO SCH (09:01)
[2018-07-01] MEDS: METOPROLOL SUCC 24HR ER 25 MG TAB.ER.24H. PO SCH (09:01)
[2018-07-01 09:57] LABS: BASO % 1 % (0-3); EOS # 0.1 x10^3/uL (0.0-0.7); EOS % 2 % (0-3); HEMATOCRIT 22.9 % (36.0-47.0); HEMOGLOBIN 7.4 g/dL (12.0-15.5); LYMPH # 0.7 x10^3/uL (1.0-4.8); LYMPH % 15 % (24-48); MEAN CORPUSCULAR HEMOGLOBIN 29 pg (25-35); MEAN CORPUSCULAR HGB CONC 32 g/dL (31-37); MEAN CORPUSCULAR VOLUME 89 fL (79-100); MONO # 0.3 x10^3/uL (0.0-1.1); MONO % 7 % (0-9); NEUT # 3.4 x10^3uL (1.8-7.7); NEUT % 76 % (31-73); PLATELET COUNT 167 x10^3/uL (140-400); RED BLOOD COUNT 2.57 x10^6/uL (3.50-5.40); WHITE BLOOD COUNT 4.5 x10^3/uL (4.0-11.0)
[2018-07-01 11:45] VITALS: BP 141/36
--- NOTE | 2018-07-01 12:06 | PDOC ---
Subjective: Subjective: Wants to go home and follow-up for outpt scopes on Thursday. Objective: Objective: No records from [place]. Vital Signs: Vital Signs Date Time Temp Pulse Resp B/P (MAP) Pulse Ox O2 Delivery O2 Flow Rate FiO2 07/01/18 11:45 98.1 65 18 141/36 (71) 99 Nasal Cannula 2.0 98.1 Labs: Laboratory Tests Test 07/01/18 08:00 07/01/18 09:05 Sodium Level 138 mmol/L Potassium Level 4.2 mmol/L Chloride Level 101 mmol/L Carbon Dioxide Level 22 mmol/L Anion Gap 15 Blood Urea Nitrogen 41 mg/dL Creatinine 1.5 mg/dL Estimated GFR (Cockcroft-Gault) 33.3 BUN/Creatinine Ratio 27 Glucose Level 88 mg/dL Calcium Level 8.9 mg/dL Total Bilirubin 0.8 mg/dL Aspartate Amino Transf (AST/SGOT) 62 U/L Alanine Aminotransferase (ALT/SGPT) 32 U/L Alkaline Phosphatase 65 U/L Total Protein 6.2 g/dL Albumin 3.0 g/dL Albumin/Globulin Ratio 0.9 White Blood Count 4.5 x10^3/uL Red Blood Count 2.57 x10^6/uL Hemoglobin 7.4 g/dL Hematocrit 22.9 % Mean Corpuscular Volume 89 fL Mean Corpuscular Hemoglobin 29 pg Mean Corpuscular Hemoglobin Concent 32 g/dL Red Cell Distribution Width 15.0 % Platelet Count 167 x10^3/uL Neutrophils (%) (Auto) 76 % Lymphocytes (%) (Auto) 15 % Monocytes (%) (Auto) 7 % Eosinophils (%) (Auto) 2 % Basophils (%) (Auto) 1 % Neutrophils # (Auto) 3.4 x10^3uL Lymphocytes # (Auto) 0.7 x10^3/uL Monocytes # (Auto) 0.3 x10^3/uL Eosinophils # (Auto) 0.1 x10^3/uL Basophils # (Auto) 0.0 x10^3/uL PE: GEN: NAD LUNGS: NC HEART: RRR ABD: NABS, S/ND/NT NEURO/PSYCH: A & O 3 A/P: MICHELLE - stable post transfusion, PO iron restarted, recent EGD and colonoscopy in [place], [place] H/o CAD and A Fib - Plavix and ASA currently held -- No records. She was to discharge. Need to review w/ Dr. Jolley. KAROL JULIAN July 01, 2018 12:06
--- NOTE | 2018-07-01 14:20 | PDOC2 ---
CONSULT Date of Consult Date of Consult DATE: 07/01/18 TIME: 14:03 Reason for Consult Reason for Consult: CKD Source Source: Chart review, Patient History of Present Illness Reason for Visit: Pt is 82 yo C female who was seen by me in office on 06/29. A day before the Office visit she was advised to to go to the ED due to Drop in Hgb on the OP lab . Pt decided to come to the office the next day with daughter . She reportd that she was not ffling well, More short of breath , Increased home O2 to 2lts , Increased LE edema though wt was stable Hgb noted at 5.3 upon arrival. 2 units PRBCs has been transfused. She has been followed by GI as OP- saw Dr. Jolley recently . She had EGD/Coloscopy done at [place], [place] in Mar- as per Pt esophageal ulcers. She reported that Dr. Jolley is awaiting the results of Bx CAD s/p PCI/stent in [place], [place] 03/23/18, lives local with daughter and has transferred her care. currently states feeling better. No CP, . No dizziness, diaphoresis, or na usea/vomiting. No Urinary complaints, Good UOP Past Medical History Cardiovascular: CAD, HTN GI: Other (slow GI bleed) Heme/Onc: No pertinent hx Hepatobiliary: Cirrhosis Musculoskeletal: low back pain Family History Family History: Coronary Artery Disease (mother and father ) Social History No ALCOHOL: none Drugs: None Current Problem List Problem List Problems Medical Problems: (1) Anemia Status: Acute Current Medications Current Medications Current Medications Levothyroxine Sodium (Synthroid) 88 mcg DAILY06 PO Last administered on 07/01/18at 05:51; Start 06/30/18 at 06:00 Losartan Potassium (Cozaar) 50 mg DAILY PO Last administered on 07/01/18at 09:01; Start 06/30/18 at 09:00 Metoprolol Succinate (Toprol Xl) 25 mg DAILY PO Last administered on 07/01/18at 09:01; Start 06/30/18 at 09:00 Ondansetron HCl (Zofran Odt) 8 mg PRN TID PRN PO NAUSEA/VOMITING; Start 06/29/18 at 19:15 Pantoprazole Sodium (Protonix) 40 mg DAILYAC PO Last administered on 07/01/18at 09:01; Start 06/30/18 at 07:30 Atorvastatin Calcium (Lipitor) 80 mg QHS PO Last administered on 06/30/18at 21:04; Start 06/29/18 at 21:00 Furosemide (Lasix) 40 mg BID92 PO Last administered on 07/01/18at 13:16; Start 06/30/18 at 09:00 Polyethylene Glycol (miraLAX PACKET) 17 gm DAILY PO Last administered on at 22:34; Start 06/29/18 at 21:00 Ferrous Sulfate (Feosol) 325 mg BIDWMEALS PO Last administered on 07/01/18at 09:01; Start 06/30/18 at 12:00 Furosemide (Lasix) 20 mg 1X ONCE IVP Last administered on 06/30/18at 16:03; Start 06/30/18 at 15:15; Stop 06/30/18 at 15:26; Status DC Active Scripts Active Reported Potassium Chloride Oral Liquid (Potassium Chloride) 20 Meq/15 Ml Liquid 20 Meq PO TIDWMEALS Miralax (Polyethylene Glycol 3350) 17 Gm Powd.pack 1 Pkt PO HS [macuguard supplement] 1 Tab PO DAILY Furosemide 40 Mg Tablet 40 Mg PO BID Metoprolol Succinate ( Xl ) (Metoprolol Succinate) 25 Mg Tab.er.24h 1 Tab PO DAILY Losartan Potassium 50 Mg Tablet 50 Mg PO DAILY Levothyroxine Sodium 88 Mcg Tablet 1 Tab PO DAILY Protonix (Pantoprazole Sodium) 20 Mg Tablet.dr 40 Mg PO DAILY Clopidogrel (Clopidogrel Bisulfate) 75 Mg Tablet 1 Tab PO DAILY Ondansetron Odt (Ondansetron) 4 Mg Tab.rapdis 8 Mg PO TID PRN Crestor (Rosuvastatin Calcium) 20 Mg Tablet 20 Mg PO HS PRN Allergies Allergies: Coded Allergies: Sulfa (Sulfonamide Antibiotics) (Verified Allergy, Severe, Rash, 05/21/18) blisters on whole body morphine (Verified Allergy, Intermediate, Nausea and Vomiting, 05/21/18) ROS Review of System As per HPI Physical Exam Physical Exam Gen.: NAD HEENT: Om moist , O2 by NC Neck: Supple Lungs: CTA, Abdomen: Soft, nontender, Extremities: , bilateral lower extremity edema Skin: No obvious rashes Neuro: Alert and oriented 3 Psych: pleasant mood and affect No gonzalez Vital Signs Vital Signs Date Time Temp Pulse Resp B/P (MAP) Pulse Ox O2 Delivery O2 Flow Rate FiO2 07/01/18 11:45 98.1 65 18 141/36 (71) 99 Nasal Cannula 2.0 98.1 Assessment & Plan CKD stage 3- Stable renal function E-Lytes and acid base stable Monitor Anemia- marked drop in Hgb Severe Fe def- Drop in Tsat from 23-> 10-->6 s/p PRBC x2 at presentation EGD in mar [address] Jolley following as OP Hem/Onc saw the pt as well TAMMY - May 2018 , resolved ATN due to UTI ,Poor PO intake, wt loss , Cardiac , Diuretics Renal US unremarkable, CT done at [facility] 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 Jolley as OP Gi consulted Diastolic CHF: Lasix PO 40 mg BID at home Metolazone has been on Hold since TAMMY in may \ Card managing CAD: 03/2018 x2 stents HTN: controlled. Hypotensive at times. PAFIB: currently SR/SB Labs Labs Laboratory Tests Test 06/29/18 15:14 06/29/18 15:25 06/29/18 17:30 06/30/18 04:30 White Blood Count 4.9 x10^3/uL (4.0-11.0) 5.4 x10^3/uL (4.0-11.0) Red Blood Count 1.88 x10^6/uL (3.50-5.40) 2.48 x10^6/uL (3.50-5.70) Hemoglobin 5.3 g/dL (12.0-15.5) 7.2 g/dL (12.0-15.5) Hematocrit 16.6 % (36.0-47.0) 22.3 % (36.0-47.0) Mean Corpuscular Volume 88 fL (79-100) 89 fL (79-100) Mean Corpuscular Hemoglobin 28 pg (25-35) 29 pg (25-35) Mean Corpuscular Hemoglobin Concent 32 g/dL (31-37) 32 g/dL (31-37) Red Cell Distribution Width 16.1 % (11.5-14.5) 14.6 % (11.5-14.5) Platelet Count 194 x10^3/uL (140-400) 173 x10^3/uL (140-400) Neutrophils (%) (Auto) 74 % (31-73) 76 % (31-73) Lymphocytes (%) (Auto) 16 % (24-48) 15 % (24-48) Monocytes (%) (Auto) 8 % (0-9) 7 % (0-9) Eosinophils (%) (Auto) 1 % (0-3) 2 % (0-3) Basophils (%) (Auto) 1 % (0-3) 1 % (0-3) Neutrophils # (Auto) 3.6 x10^3uL (1.8-7.7) 4.0 x10^3uL (1.8-7.7) Lymphocytes # (Auto) 0.8 x10^3/uL (1.0-4.8) 0.8 x10^3/uL (1.0-4.8) Monocytes # (Auto) 0.4 x10^3/uL (0.0-1.1) 0.4 x10^3/uL (0.0-1.1) Eosinophils # (Auto) 0.1 x10^3/uL (0.0-0.7) 0.1 x10^3/uL (0.0-0.7) Basophils # (Auto) 0.0 x10^3/uL (0.0-0.2) 0.0 x10^3/uL (0.0-0.2) Sodium Level 137 mmol/L (136-145) 138 mmol/L (136-145) Potassium Level 4.7 mmol/L (3.5-5.1) 4.3 mmol/L (3.5-5.1) Chloride Level 102 mmol/L (98-107) 103 mmol/L (98-107) Carbon Dioxide Level 26 mmol/L (21-32) 25 mmol/L (21-32) Anion Gap 9 (6-14) 10 (6-14) Blood Urea Nitrogen 51 mg/dL (7-20) 51 mg/dL (7-20) Creatinine 1.7 mg/dL (0.6-1.0) 1.5 mg/dL (0.6-1.0) Estimated GFR (Cockcroft-Gault) 28.8 33.3 BUN/Creatinine Ratio 30 (6-20) 34 (6-20) Glucose Level 104 mg/dL (70-99) 95 mg/dL (70-99) Calcium Level 9.1 mg/dL (8.5-10.1) 8.9 mg/dL (8.5-10.1) Magnesium Level 2.0 mg/dL (1.8-2.4) Total Bilirubin 0.4 mg/dL (0.2-1.0) 0.6 mg/dL (0.2-1.0) Aspartate Amino Transf (AST/SGOT) 35 U/L (15-37) 34 U/L (15-37) Alanine Aminotransferase (ALT/SGPT) 20 U/L (14-59) 17 U/L (14-59) Alkaline Phosphatase 71 U/L (46-116) 59 U/L (46-116) Total Protein 6.8 g/dL (6.4-8.2) 6.1 g/dL (6.4-8.2) Albumin 2.9 g/dL (3.4-5.0) 2.7 g/dL (3.4-5.0) Albumin/Globulin Ratio 0.7 (1.0-1.7) 0.8 (1.0-1.7) Haptoglobin 188 mg/dL (34-200) Urine Collection Type Unknown Urine Color Yellow Urine Clarity Clear Urine pH 5.5 Urine Specific [place] 1.010 Urine Protein Negative mg/dL (NEG-TRACE) Urine Glucose (UA) Negative mg/dL (NEG) Urine Ketones (Stick) Negative mg/dL (NEG) Urine Blood Negative (NEG) Urine Nitrite Positive (NEG) Urine Bilirubin Negative (NEG) Urine Urobilinogen Dipstick 0.2 mg/dL (0.2 mg/dL) Urine Leukocyte Esterase Moderate (NEG) Urine RBC Rare /HPF (0-2) Urine WBC 11-20 /HPF (0-4) Urine Squamous Epithelial Cells Many /LPF Urine Bacteria Many /HPF (0-FEW) Urine Hyaline Casts Few /HPF Urine Mucus Slight /LPF Absolute Reticulocyte Count 0.070 x10^6/uL (0.020-0.120) Percent Reticulocyte Count 2.8 % (0.5-2.3) Immature Reticulocyte Fraction 0.46 (0.20-0.60) Iron Level 35 ug/dL (50-170) Total Iron Binding Capacity 361 ug/dL (250-450) Iron Saturation 10 % (15-34) Ferritin 35 ng/mL (8-252) TD-Rsa-H-Type Natriuretic Peptide 432 pg/mL (0-449) Vitamin B12 Level 342 pg/mL (247-911) Thyroid Stimulating Hormone (TSH) 3.320 uIU/mL (0.358-3.74) Test 07/01/18 08:00 07/01/18 09:05 Sodium Level 138 mmol/L (136-145) Potassium Level 4.2 mmol/L (3.5-5.1) Chloride Level 101 mmol/L (98-107) Carbon Dioxide Level 22 mmol/L (21-32) Anion Gap 15 (6-14) Blood Urea Nitrogen 41 mg/dL (7-20) Creatinine 1.5 mg/dL (0.6-1.0) Estimated GFR (Cockcroft-Gault) 33.3 BUN/Creatinine Ratio 27 (6-20) Glucose Level 88 mg/dL (70-99) Calcium Level 8.9 mg/dL (8.5-10.1) Total Bilirubin 0.8 mg/dL (0.2-1.0) Aspartate Amino Transf (AST/SGOT) 62 U/L (15-37) Alanine Aminotransferase (ALT/SGPT) 32 U/L (14-59) Alkaline Phosphatase 65 U/L (46-116) Total Protein 6.2 g/dL (6.4-8.2) Albumin 3.0 g/dL (3.4-5.0) Albumin/Globulin Ratio 0.9 (1.0-1.7) White Blood Count 4.5 x10^3/uL (4.0-11.0) Red Blood Count 2.57 x10^6/uL (3.50-5.40) Hemoglobin 7.4 g/dL (12.0-15.5) Hematocrit 22.9 % (36.0-47.0) Mean Corpuscular Volume 89 fL (79-100) Mean Corpuscular Hemoglobin 29 pg (25-35) Mean Corpuscular Hemoglobin Concent 32 g/dL (31-37) Red Cell Distribution Width 15.0 % (11.5-14.5) Platelet Count 167 x10^3/uL (140-400) Neutrophils (%) (Auto) 76 % (31-73) Lymphocytes (%) (Auto) 15 % (24-48) Monocytes (%) (Auto) 7 % (0-9) Eosinophils (%) (Auto) 2 % (0-3) Basophils (%) (Auto) 1 % (0-3) Neutrophils # (Auto) 3.4 x10^3uL (1.8-7.7) Lymphocytes # (Auto) 0.7 x10^3/uL (1.0-4.8) Monocytes # (Auto) 0.3 x10^3/uL (0.0-1.1) Eosinophils # (Auto) 0.1 x10^3/uL (0.0-0.7) Basophils # (Auto) 0.0 x10^3/uL (0.0-0.2) Laboratory Tests Test 07/01/18 08:00 07/01/18 09:05 Sodium Level 138 mmol/L (136-145) Potassium Level 4.2 mmol/L (3.5-5.1) Chloride Level 101 mmol/L (98-107) Carbon Dioxide Level 22 mmol/L (21-32) Anion Gap 15 (6-14) Blood Urea Nitrogen 41 mg/dL (7-20) Creatinine 1.5 mg/dL (0.6-1.0) Estimated GFR (Cockcroft-Gault) 33.3 BUN/Creatinine Ratio 27 (6-20) Glucose Level 88 mg/dL (70-99) Calcium Level 8.9 mg/dL (8.5-10.1) Total Bilirubin 0.8 mg/dL (0.2-1.0) Aspartate Amino Transf (AST/SGOT) 62 U/L (15-37) Alanine Aminotransferase (ALT/SGPT) 32 U/L (14-59) Alkaline Phosphatase 65 U/L (46-116) Total Protein 6.2 g/dL (6.4-8.2) Albumin 3.0 g/dL (3.4-5.0) Albumin/Globulin Ratio 0.9 (1.0-1.7) White Blood Count 4.5 x10^3/uL (4.0-11.0) Red Blood Count 2.57 x10^6/uL (3.50-5.40) Hemoglobin 7.4 g/dL (12.0-15.5) Hematocrit 22.9 % (36.0-47.0) Mean Corpuscular Volume 89 fL (79-100) Mean Corpuscular Hemoglobin 29 pg (25-35) Mean Corpuscular Hemoglobin Concent 32 g/dL (31-37) Red Cell Distribution Width 15.0 % (11.5-14.5) Platelet Count 167 x10^3/uL (140-400) Neutrophils (%) (Auto) 76 % (31-73) Lymphocytes (%) (Auto) 15 % (24-48) Monocytes (%) (Auto) 7 % (0-9) Eosinophils (%) (Auto) 2 % (0-3) Basophils (%) (Auto) 1 % (0-3) Neutrophils # (Auto) 3.4 x10^3uL (1.8-7.7) Lymphocytes # (Auto) 0.7 x10^3/uL (1.0-4.8) Monocytes # (Auto) 0.3 x10^3/uL (0.0-1.1) Eosinophils # (Auto) 0.1 x10^3/uL (0.0-0.7) Basophils # (Auto) 0.0 x10^3/uL (0.0-0.2) Review All relevant outside records, renal labs, imaging studies, telemetry/EKG's were reviewed. FARHANA VALENZUELA MD July 01, 2018 14:20
[2018-07-01 15:21] VITALS: BP 130/32
[2018-07-01] MEDS ORDERED: FERR325T72 PO (16:45)
--- NOTE | 2018-07-01 17:36 | NUR ---
Reviewed discharge paperwork with patient. IV d/c. No further questions for me at this time.
--- NOTE | 2018-07-01 21:06 | PDOC3 ---
Discharge Summary Visit Information Date of Admission: June 29, 2018 Date of Discharge: July 01, 2018 Admitting Diagnosis: symptomatic anemia Final Diagnosis GI bleeding etiology undetermined at the present time,, recent EGD but unfortunately no records were able to be faxed from [facility] Iron deficiency anemia secondary to the above History of coronary artery disease History of essential hypertension History of hypothyroidism acquired History of GERD History of A. fib Obesity with a BMI of 32 History of chronic kidney disease stage IIIa Brief Hospital Course Allergies Allergies Coded Allergies Type Severity Reaction Last Updated Verified Sulfa (Sulfonamide Antibiotics) Allergy Severe Rash 05/21/18 Yes morphine Allergy Intermediate Nausea and Vomiting 05/21/18 Yes Vital Signs Vital Signs Date Time Temp Pulse Resp B/P (MAP) Pulse Ox O2 Delivery O2 Flow Rate FiO2 07/01/18 15:21 98.2 61 18 130/32 (64) 100 Nasal Cannula 2.0 98.2 Lab Results Laboratory Tests Test 06/30/18 04:30 07/01/18 08:00 07/01/18 09:05 White Blood Count 5.4 x10^3/uL (4.0-11.0) 4.5 x10^3/uL (4.0-11.0) Red Blood Count 2.48 x10^6/uL (3.50-5.70) 2.57 x10^6/uL (3.50-5.40) Hemoglobin 7.2 g/dL (12.0-15.5) 7.4 g/dL (12.0-15.5) Hematocrit 22.3 % (36.0-47.0) 22.9 % (36.0-47.0) Mean Corpuscular Volume 89 fL (79-100) 89 fL (79-100) Mean Corpuscular Hemoglobin 29 pg (25-35) 29 pg (25-35) Mean Corpuscular Hemoglobin Concent 32 g/dL (31-37) 32 g/dL (31-37) Red Cell Distribution Width 14.6 % (11.5-14.5) 15.0 % (11.5-14.5) Platelet Count 173 x10^3/uL (140-400) 167 x10^3/uL (140-400) Neutrophils (%) (Auto) 76 % (31-73) 76 % (31-73) Lymphocytes (%) (Auto) 15 % (24-48) 15 % (24-48) Monocytes (%) (Auto) 7 % (0-9) 7 % (0-9) Eosinophils (%) (Auto) 2 % (0-3) 2 % (0-3) Basophils (%) (Auto) 1 % (0-3) 1 % (0-3) Neutrophils # (Auto) 4.0 x10^3uL (1.8-7.7) 3.4 x10^3uL (1.8-7.7) Lymphocytes # (Auto) 0.8 x10^3/uL (1.0-4.8) 0.7 x10^3/uL (1.0-4.8) Monocytes # (Auto) 0.4 x10^3/uL (0.0-1.1) 0.3 x10^3/uL (0.0-1.1) Eosinophils # (Auto) 0.1 x10^3/uL (0.0-0.7) 0.1 x10^3/uL (0.0-0.7) Basophils # (Auto) 0.0 x10^3/uL (0.0-0.2) 0.0 x10^3/uL (0.0-0.2) Absolute Reticulocyte Count 0.070 x10^6/uL (0.020-0.120) Percent Reticulocyte Count 2.8 % (0.5-2.3) Immature Reticulocyte Fraction 0.46 (0.20-0.60) Sodium Level 138 mmol/L (136-145) 138 mmol/L (136-145) Potassium Level 4.3 mmol/L (3.5-5.1) 4.2 mmol/L (3.5-5.1) Chloride Level 103 mmol/L (98-107) 101 mmol/L (98-107) Carbon Dioxide Level 25 mmol/L (21-32) 22 mmol/L (21-32) Anion Gap 10 (6-14) 15 (6-14) Blood Urea Nitrogen 51 mg/dL (7-20) 41 mg/dL (7-20) Creatinine 1.5 mg/dL (0.6-1.0) 1.5 mg/dL (0.6-1.0) Estimated GFR (Cockcroft-Gault) 33.3 33.3 BUN/Creatinine Ratio 34 (6-20) 27 (6-20) Glucose Level 95 mg/dL (70-99) 88 mg/dL (70-99) Calcium Level 8.9 mg/dL (8.5-10.1) 8.9 mg/dL (8.5-10.1) Iron Level 35 ug/dL (50-170) Total Iron Binding Capacity 361 ug/dL (250-450) Iron Saturation 10 % (15-34) Ferritin 35 ng/mL (8-252) Total Bilirubin 0.6 mg/dL (0.2-1.0) 0.8 mg/dL (0.2-1.0) Aspartate Amino Transf (AST/SGOT) 34 U/L (15-37) 62 U/L (15-37) Alanine Aminotransferase (ALT/SGPT) 17 U/L (14-59) 32 U/L (14-59) Alkaline Phosphatase 59 U/L (46-116) 65 U/L (46-116) RL-Zyz-I-Type Natriuretic Peptide 432 pg/mL (0-449) Total Protein 6.1 g/dL (6.4-8.2) 6.2 g/dL (6.4-8.2) Albumin 2.7 g/dL (3.4-5.0) 3.0 g/dL (3.4-5.0) Albumin/Globulin Ratio 0.8 (1.0-1.7) 0.9 (1.0-1.7) Vitamin B12 Level 342 pg/mL (247-911) Thyroid Stimulating Hormone (TSH) 3.320 uIU/mL (0.358-3.74) Laboratory Tests Test 07/01/18 08:00 07/01/18 09:05 Sodium Level 138 mmol/L (136-145) Potassium Level 4.2 mmol/L (3.5-5.1) Chloride Level 101 mmol/L (98-107) Carbon Dioxide Level 22 mmol/L (21-32) Anion Gap 15 (6-14) Blood Urea Nitrogen 41 mg/dL (7-20) Creatinine 1.5 mg/dL (0.6-1.0) Estimated GFR (Cockcroft-Gault) 33.3 BUN/Creatinine Ratio 27 (6-20) Glucose Level 88 mg/dL (70-99) Calcium Level 8.9 mg/dL (8.5-10.1) Total Bilirubin 0.8 mg/dL (0.2-1.0) Aspartate Amino Transf (AST/SGOT) 62 U/L (15-37) Alanine Aminotransferase (ALT/SGPT) 32 U/L (14-59) Alkaline Phosphatase 65 U/L (46-116) Total Protein 6.2 g/dL (6.4-8.2) Albumin 3.0 g/dL (3.4-5.0) Albumin/Globulin Ratio 0.9 (1.0-1.7) White Blood Count 4.5 x10^3/uL (4.0-11.0) Red Blood Count 2.57 x10^6/uL (3.50-5.40) Hemoglobin 7.4 g/dL (12.0-15.5) Hematocrit 22.9 % (36.0-47.0) Mean Corpuscular Volume 89 fL (79-100) Mean Corpuscular Hemoglobin 29 pg (25-35) Mean Corpuscular Hemoglobin Concent 32 g/dL (31-37) Red Cell Distribution Width 15.0 % (11.5-14.5) Platelet Count 167 x10^3/uL (140-400) Neutrophils (%) (Auto) 76 % (31-73) Lymphocytes (%) (Auto) 15 % (24-48) Monocytes (%) (Auto) 7 % (0-9) Eosinophils (%) (Auto) 2 % (0-3) Basophils (%) (Auto) 1 % (0-3) Neutrophils # (Auto) 3.4 x10^3uL (1.8-7.7) Lymphocytes # (Auto) 0.7 x10^3/uL (1.0-4.8) Monocytes # (Auto) 0.3 x10^3/uL (0.0-1.1) Eosinophils # (Auto) 0.1 x10^3/uL (0.0-0.7) Basophils # (Auto) 0.0 x10^3/uL (0.0-0.2) Brief Hospital Course MS. Damon, is a 82 year old cantankerous F admit for worsneing weakness, and lethargy, she had seen primary care today, sent to the ER for anemia, prior admit for same, unable to locate source, slow GI bleed seems likely , prior EGD in [place], [place], 4 months ago, ongoing problems, ongoing amemia, she was very weak for 3 days, lethargic and new LE edema She was also recently tx for a UTI. 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 she is retired from [employer], Patient seen in consultation by hematology, GI as well, Patient received tranfusions of 2 units of PRBCs while inpatient. Her iron stores are depleted and recommendations by all consultants are greatly appreiciated, She was encouraged to take iron evne after her last admission at [facility] but she had not followed the recommendations. She was deemed appropriatefor dishcarge since no active bleeding was evident and her counts remained stable for 48 hours. Signs and symptoms of alarm were discussed prior to discharge all concerns addressed to the best of my abilities Discharge required greater than 35 minutes in counseling coordination of care and arrangements for a safe discharge. Discharge Information Condition at Discharge: Improved Follow Up: Weeks (with primary care) Disposition/Orders: D/C to Home Scheduled Clopidogrel Bisulfate (Clopidogrel) 75 Mg Tablet, 1 TAB PO DAILY for a fib, #90 Ref 1 (Reported) Entered as Reported by: MOE WESLEY on 05/21/18 150 Last Action: HELD on 06/29/181906 by RAYA MANNING Ferrous Sulfate (Feosol) 325 Mg Tablet, 325 MG PO DAILY for iron deficiency for 30 Days, #30 Ref 11 Prescribed by: HILDA CHAO MD on 07/01/18 1645 Furosemide (Furosemide) 40 Mg Tablet, 40 MG PO BID for chf, (Reported) Entered as Reported by: SHOBHA CALLE on 06/29/182017 Last Action: Continued on 06/29/182101 by RAYA MANNING Levothyroxine Sodium (Levothyroxine Sodium) 88 Mcg Tablet, 1 TAB PO DAILY for hypothyroidism , #30 Ref 5 (Reported) Entered as Reported by: MOE WESLEY on 05/21/18 151 Last Action: Continued on 06/29/181906 by RAYA MANNING Losartan Potassium (Losartan Potassium) 50 Mg Tablet, 50 MG PO DAILY for HYPERT ENSION, (Reported) Entered as Reported by: NAVID SEGOVIA on 05/25/181731 Last Action: Continued on 06/29/181906 by RAYA MANNING Metoprolol Succinate (Metoprolol Succinate ( Xl )) 25 Mg Tab.er.24h, 1 TAB PO DAILY for HTN, #30 Ref 5 (Reported) Entered as Reported by: NAVID SEGOVIA on 05/25/181733 Last Action: Continued on 06/29/181906 by RAYA MANNING Pantoprazole Sodium (Protonix) 20 Mg Tablet.dr, 40 MG PO DAILY for GERD, (Reported) Entered as Reported by: MOE WESLEY on 05/21/181510 Last Action: Converted on 06/29/181906 by RAYA MANNING Polyethylene Glycol 3350 (Miralax) 17 Gm Powd.pack, 1 PKT PO HS for chronic constipation, (Reported) Entered as Reported by: SHOBHA CALLE on 06/29/182030 Last Action: Converted on 06/29/182101 by RAYA MANNING Potassium Chloride (Potassium Chloride Oral Liquid) 20 Meq/15 Ml Liquid, 20 MEQ PO TIDWMEALS for supplement, (Reported) Entered as Reported by: SHOBHA CALLE on 06/30/18634 Last Action: New Order on 06/30/18634 by SHOBHA CALLE [macuguard supplement] , 1 TAB PO DAILY, (Reported) Entered as Reported by: SHOBHA CALLE on 06/29/182017 Last Action: New Order on 06/29/182017 by SHOBHA CALLE Scheduled PRN Ondansetron (Ondansetron Odt) 4 Mg Tab.rapdis, 8 MG PO TID PRN for NAUSEA/VOMITING, (Reported) Entered as Reported by: MOE WESLEY on 05/21/181502 Last Action: Continued on 06/29/181906 by RAYA MANNING Rosuvastatin Calcium (Crestor) 20 Mg Tablet, 20 MG PO HS PRN for Cholesterol, #30 Ref 0 (Reported) Entered as Reported by: MOE WESLEY on 05/21/181502 Last Action: Converted on 06/29/181906 by HILDA HUSTON MD July 01, 2018 21:06
[2018-07-02 15:14] LABS: IMMUNOGLOBULIN A 244 mg/dL (64-422); IMMUNOGLOBULIN G 1100 mg/dL (700-1600); IMMUNOGLOBULIN M 280 mg/dL (26-217)
[2018-07-02 16:11] LABS: ALBUM 3.3 g/dL (2.9-4.4); ALPHA 1 0.3 g/dL (0.0-0.4); ALPHA 2 0.8 g/dL (0.4-1.0); BETA 0.9 g/dL (0.7-1.3); GAMMA 1.2 g/dL (0.4-1.8); PROTEIN TOTAL 6.5 g/dL (6.0-8.5)
== END 2018-07-01 20:00 | disposition home or self-care (01) | DRG 377 ==
LOC: ER 14:02 → 6 SOUTH 15:53 → OBSVTOIN 06-30 08:46
PROVIDERS: ADMIT Internal Medicine; ATTEND Internal Medicine
PROC: 30233N1 Transfusion of Nonautologous Red Blood Cells into Peripheral Vein, Percutaneous Approach (ICD-10-PCS; principal; 2018-07-01)
DX: K92.2 Gastrointestinal hemorrhage, unspecified (principal); I50.33 Acute on chronic diastolic (congestive) heart failure; I13.0 Hypertensive heart and chronic kidney disease with heart failure and stage 1 through stage 4 chronic kidney disease, or unspecified chronic kidney disease; N17.9 Acute kidney failure, unspecified; K76.6 Portal hypertension; D50.9 Iron deficiency anemia, unspecified; N18.3 Chronic kidney disease, stage 3 (moderate); Z68.32 Body mass index [BMI] 32.0-32.9, adult; M19.90 Unspecified osteoarthritis, unspecified site; K21.9 Gastro-esophageal reflux disease without esophagitis; I48.0 Paroxysmal atrial fibrillation; H35.30 Unspecified macular degeneration; K59.00 Constipation, unspecified; I25.10 Atherosclerotic heart disease of native coronary artery without angina pectoris; E03.9 Hypothyroidism, unspecified; E66.9 Obesity, unspecified; K74.60 Unspecified cirrhosis of liver; E78.5 Hyperlipidemia, unspecified; Z90.710 Acquired absence of both cervix and uterus; Z95.1 Presence of aortocoronary bypass graft; Z88.1 Allergy status to other antibiotic agents; Z88.5 Allergy status to narcotic agent; Z88.8 Allergy status to other drugs, medicaments and biological substances; Z99.81 Dependence on supplemental oxygen; Z87.442 Personal history of urinary calculi; Z87.891 Personal history of nicotine dependence; Z95.5 Presence of coronary angioplasty implant and graft; Z79.02 Long term (current) use of antithrombotics/antiplatelets; Z90.49 Acquired absence of other specified parts of digestive tract; Z80.0 Family history of malignant neoplasm of digestive organs; Z82.49 Family history of ischemic heart disease and other diseases of the circulatory system
CPT/HCPCS: 36415; 71045; 80053; 81001; 82607; 82728; 83010; 83540; 83550; 83735; 83880; 84165; 84443; 85025; 85045; 86334; 86850; 86900; 86901; 86920; 93005; G0378; G0379; J1940; P9016; 99285-25

== ENCOUNTER → 2019-03-07 | Outpatient (CLI) | payer MEDICARE ==
[~2019-03-07] MED LIST changes: +FERR325T72 PO; +POLY17PO29 PO; +POTA20LI2 PO; +[UNRECOGNIZED DRUG - OTHER] PO
--- NOTE | 2019-03-07 11:35 | KCIC ---
MRA of the brain without contrast 03/07/2019 Clinical History: Tremors with left-sided facial pain. Technique: Using 3-D time of flight techniques, a MRA of the major arterial structures surrounding the lower [place] of [place] was performed. Findings: Comparison is made to the patient's MRI of the brain performed concurrently with this study. Mild to moderate atheromatous plaque formation is seen involving the petrous, cavernous, and supraclinoid internal carotid arteries along with the distal vertebral arteries, the basilar artery and the anterior, middle and posterior cerebral arteries bilaterally. No hemodynamically significant stenosis or area of occlusion is seen. No intracranial aneurysm is noted. IMPRESSION: No intracranial stenosis or area of occlusion is seen. Electronically signed by: Santiago Fraga MD (03/07/2019 11:32 AM) [facility]-[email or web address]
--- NOTE | 2019-03-07 12:01 | KCIC ---
MRI of the brain without contrast 03/07/2019 Clinical History: Tremors, left-sided facial and neck pain for several weeks. Trigeminal neuralgia. Technique: Unenhanced T1-weighted sagittal and axial, T2-weighted axial and coronal and FLAIR, gradient echo and diffusion-weighted axial images of the brain were obtained. Additionally thin section T1-weighted and T2-weighted axial images through the proximal trigeminal nerves were obtained. Findings: No previous imaging studies are available for comparison. Images from the study are degraded by patient motion. There is generalized parenchymal atrophy. Patchy, confluent and several small focal areas of increased signal intensity are seen within the periventricular and subcortical white matter of both cerebral hemispheres on the FLAIR and T2-weighted images consistent with areas of small vessel ischemic disease. No acute parenchymal abnormality is seen. No extra-axial fluid collection is seen. There is no MRI evidence of acute ischemia/infarction. Images through the trigeminal nerves are difficult to evaluate due to motion limitations. No soft tissue mass is seen. No area of abnormal signal intensity is seen involving the proximal trigeminal nerves. The IACs are within normal limits. Mild mucosal thickening in seen scattered throughout the paranasal sinuses. There are small bilateral mastoid effusions. Normal flow voids are seen within the major vascular structures surrounding the brain parenchyma. Impression: No acute parenchymal abnormality is seen. Electronically signed by: Santiago Fraga MD (03/07/2019 11:58 AM) [id number]
== END | disposition home or self-care (01) ==
LOC: KCIC MRI 09:33
PROVIDERS: ATTEND Registered Nurse
DX: G50.0 Trigeminal neuralgia (principal); I65.23 Occlusion and stenosis of bilateral carotid arteries
CPT/HCPCS: 70544; 70551

== ENCOUNTER 2021-05-05 12:36 | Inpatient (IN) | payer MEDICARE ==
[~2021-05-05] VITALS: Ht 157.5 cm; Wt 83.0 kg
[~2021-05-05 12:36] MED LIST changes: -AMIO200T4 PO; +AMIO200T53 PO
--- NOTE | 2021-05-05 13:14 | PHYS DOC ---
Past Medical History Past Medical History: A-Fib, CAD, CHF, GERD, Hypertension, Hypothyroid Past Surgical History: Appendectomy, Hysterectomy, Other Additional Past Surgical Histo: caratodidectomy; cardiac stent Smoking Status: Former Smoker Alcohol Use: None Drug Use: None General Adult HPI: HPI: 85-year-old female past medical history of CHF on 2L NC, GERD, hypertension, hyperlipidemia, iron deficiency anemia and hypothyroidism, presents to the ED with her daughter, complaints of shortness of breath and orthopnea for the past few weeks. Reports her oxygen today was 64%. Reports she had an EPO infusion on Thursday and her oxygen was in the low 80s then. Is concerned that EPO can cause blood clots. No prior history of blood clots. Takes Lasix 40 mg twice daily. Primary care physician is Noemy Duran. Review of Systems: Review of Systems: Constitutional: Denies fever or chills. [] Eyes: Denies change in visual acuity. [] HENT: Denies nasal congestion or sore throat. [] Respiratory: Denies cough or hemoptysis Cardiovascular: Denies chest pain or edema. [] GI: Denies abdominal pain, nausea, vomiting, bloody stools or diarrhea. [] : Denies dysuria or hematuria Musculoskeletal: Denies back pain or joint pain. [] Integument: Denies rash or diaphoresis Neurologic: Denies headache, focal weakness or sensory changes. [] Endocrine: Denies polyuria or polydipsia. [] Lymphatic: Denies swollen glands. [] Psychiatric: Denies depression or anxiety. [] Heart Score: C/O Chest Pain: No Risk Factors: Risk Factors: DM, Current or recent (<one month) smoker, HTN, HLP, family history of CAD, obesity. Risk Scores: Score 0 - 3: 2.5% MACE over next 6 weeks - Discharge Home Score 4 - 6: 20.3% MACE over next 6 weeks - Admit for Clinical Observation Score 7 - 10: 72.7% MACE over next 6 weeks - Early Invasive Strategies Allergies: Allergies: Allergies Coded Allergies Type Severity Reaction Last Updated Verified Sulfa (Sulfonamide Antibiotics) Allergy Severe Rash 05/03/21 Yes morphine Allergy Intermediate Nausea and Vomiting 05/03/21 Yes Physical Exam: PE: Constitutional: no acute distress, non-toxic appearance. HENT: Normocephalic, atraumatic, Eyes: EOMI, conjunctiva normal, no discharge. Neck: Normal range of motion, supple, Cardiovascular: S1/2 present, irregular rhythm Lungs & Thorax: Speaking in full sentences, bilateral equal chest rise, no tachypnea or increased work of breathing Abdomen: soft, no tenderness, Skin: Warm, dry, no erythema, no rash. [] Extremities: No tenderness, no cyanosis, bilateral equal lower extremity edema Neurologic: Alert and oriented X 3, normal motor function, normal sensory function, no focal deficits noted. [] Psychologic: Affect normal, judgement normal, mood normal. [] EKG: EKG: Sinus 91 bpm, no axis deviation, normal intervals, no T wave inversion, no ST e levation or ST depression Radiology/Procedures: Radiology/Procedures: IMAGING REPORT Signed PATIENT: GABY JHA ACCOUNT: [id number] : 1935 LOCATION: ER AGE: 85 SEX: F EXAM STATUS: REG ER ORD. PHYSICIAN: NOEMY GRIFFIN DO REASON: soa PROCEDURE: PORTABLE CHEST 1V AP chest. HISTORY: Short of air AP view was done without contrast Blunting of the left costophrenic angle suggesting a pleural effusion. There is mild vascular congestion. There are interstitial changes from infiltrates or edema. Chronic interstitial lung disease is possible. There is mild increase atelectasis or infiltrate in the lung bases versus poor inspiration. Little other change is noted. IMPRESSION: 1. Poor inspiration. 2. Mild increased basilar atelectasis or infiltrates. Electronically signed by: Karlo Stovall MD (05/05/2021 1:36 PM) [id number] DICTATED and SIGNED BY: KARLO STOVALL MD DATE: 05/05/21 1333 IMAGING REPORT Signed PATIENT: GABY JHA ACCOUNT: [id number] : 1935 LOCATION: [address] [place] [address] AGE: 85 SEX: F EXAM STATUS: ADM IN ORD. PHYSICIAN: NOEMY GRIFFIN DO REASON: leg sweeling-SONO NOTIFIED PROCEDURE: VENOUS LOWER EXT BILATERAL Bilateral Leg Venous Doppler Ultrasound, 05/05/2021 3:38 PM Indication: Bilateral leg swelling Comparison: None available Procedure: Real-time grayscale, color flow color duplex Doppler and spectral analysis are obtained with and without compression in the area of the common femoral vein, superficial femoral vein - femoral vein junction, main femoral vein (superficial femoral vein) and popliteal vein. Veins of the proximal calf are also imaged. Findings: There is normal duplex flow, color flow and compressibility of all visualized vein segments. No evidence of deep venous thrombus is present. Impression: Negative venous Doppler of bilateral lower extremity Electronically signed by: Sapna Bach MD (05/05/2021 4:23 PM) [facility] DICTATED and SIGNED BY: SAPNA BACH MD DATE: 05/05/211621 Course & Med Decision Making: Course & Med Decision Making Pertinent Labs and Imaging studies reviewed. (See chart for details) Concern for shortness of breath in the setting of lower extremity swelling, chronic kidney disease and anemia. Suspect mild congestive heart failure. IV Lasix given. Venous ultrasound of lower extremities []. Will admit for further medical management. Patient stable time admission agrees with this plan. I have spoken with the patient and/or caregivers. I have explained the patient's condition, diagnosis and treatment plan based on the information available to me at this time. I have answered the patient's and/or caregivers questions and answered any concerns. The patient and/or caregivers have as good an understanding of the patient's diagnosis, condition and treatment plan as can be expected at this point. The patient has been stabilized within the capability of the emergency department. The patient will be transported for further care and management or will be moved to an observation or inpatient service. I have communicated with the staff or medical practitioner taking over this patient's care. Nguyễn Disclaimer: Nguyễn Disclaimer: This electronic medical record was generated, in whole or in part, using a voice recognition dictation system. Departure Departure Impression: Primary Impression: Dyspnea Additional Impressions: CKD (chronic kidney disease) Anemia Leg swelling Disposition: ADMITTED INPATIENT Admitting Physician: HAILY (Dr. Pagan) Condition: STABLE Referrals: NOEMY LAMBERT (PCP) NOEMY GRIFFIN DO May 05, 2021 13:14
[2021-05-05 13:21] LABS: BASO % 1 % (0-3); EOS % 0 % (0-3); HEMATOCRIT 23.8 % (36.0-47.0); HEMOGLOBIN 7.5 g/dL (12.0-15.5); LYMPH # 0.5 x10^3/uL (1.0-4.8); LYMPH % 9 % (24-48); MEAN CORPUSCULAR HEMOGLOBIN 31 pg (25-35); MEAN CORPUSCULAR HGB CONC 32 g/dL (31-37); MEAN CORPUSCULAR VOLUME 97 fL (79-100); MONO # 0.5 x10^3/uL (0.0-1.1); MONO % 7 % (0-9); NEUT # 5.3 x10^3/uL (1.8-7.7); NEUT % 83 % (31-73); PLATELET COUNT 207 x10^3/uL (140-400); RED BLOOD COUNT 2.46 x10^6/uL (3.50-5.40); RED CELL DISTRIBUTION WIDTH 14.7 % (11.5-14.5); WHITE BLOOD COUNT 6.4 x10^3/uL (4.0-11.0)
[2021-05-05 13:36] LABS: CREATININE 1.9 mg/dL (0.6-1.0); GFR 25.2; POTASSIUM 4.6 mmol/L (3.5-5.1)
--- NOTE | 2021-05-05 13:39 | RAD ---
AP chest. HISTORY: Short of air AP view was done without contrast Blunting of the left costophrenic angle suggesting a pleural effusion. There is mild vascular congest ion. There are interstitial changes from infiltrates or edema. Chronic interstitial lung disease is p ossible. There is mild increase atelectasis or infiltrate in the lung bases versus poor inspiration. Little other change is noted. IMPRESSION: 1. Poor inspiration. 2. Mild increased basilar atelectasis or infiltrates. Electronically signed by: Karlo Stovall MD (05/05/2021 1:36 PM) [id number]
[2021-05-05 13:40] LABS: ALBUMIN 3.4 g/dL (3.4-5.0); ALBUMIN/GLOBULIN RATIO 0.9 (1.0-1.7); TOTAL BILIRUBIN 0.7 mg/dL (0.2-1.0); TOTAL PROTEIN 7.3 g/dL (6.4-8.2)
[2021-05-05] MEDS ORDERED: FUROSEMIDE 40 MG/4 ML VIAL. IVP ONE ×2 (14:30→19:00)
--- NOTE | 2021-05-05 16:25 | RAD ---
Bilateral Leg Venous Doppler Ultrasound, 05/05/2021 3:38 PM Indication: Bilateral leg swelling Comparison: None available Procedure: Real-time grayscale, color flow color duplex Doppler and spectral analysis are obtained w ith and without compression in the area of the common femoral vein, superficial femoral vein - femora l vein junction, main femoral vein (superficial femoral vein) and popliteal vein. Veins of the proxim al calf are also imaged. Findings: There is normal duplex flow, color flow and compressibility of all visualized vein segment s. No evidence of deep venous thrombus is present. Impression: Negative venous Doppler of bilateral lower extremity Electronically signed by: Sapna Bach MD (05/05/2021 4:23 PM) [facility]
[2021-05-05 16:35] VITALS: BP 157/65
[2021-05-05] MEDS ORDERED: C.DIFF MED SCREEN BY RX. MC ONE (17:45)
[2021-05-05] MEDS ORDERED: FERR-36 PO (18:32)
[2021-05-05] MEDS ORDERED: LUTE1CAP5 PO (18:32)
[2021-05-05] MEDS ORDERED: METO-247 PO (18:32)
--- NOTE | 2021-05-05 18:41 | EKG ---
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
[2021-05-05 19:00] VITALS: BP 132/60
--- NOTE | 2021-05-05 20:30 | NUR ---
ASKED TO ASSESS PT FOR DYSPNEA. PT SUBJECTIVELY SOA, SPO2 ON 4LNC 94%. PT HAS BIBASILAR CRACKLES AND CLEAR IN UPPER LOBES. ABG DRAWN AND BREATHING TREATMENT GIVEN. PT REPORTS MINIMAL IMPROVEMENT IN SOA. ABG RESULTS WNL, SEE EMR FOR LAB. WILL CONTINUE TO MONITOR
[2021-05-05] MEDS: IPRATRPIUM/ALBUTEROL 0.5/2.5MG 3 ML NEBU. NEB SCH (20:38)
[2021-05-05 21:00] LABS: BASE EXCESS ABG 1 mmol/L (-3-3); HCO3 ABG 25 mmol/L (21-28); PCO2 ABG 38 mmHg (35-46); PO2 ABG 66 mmHg (65-108); SAT O2 ABG 92 % (92-99)
[2021-05-05 21:12] LABS: FIO2 ABG 4LNC
[2021-05-05] MEDS: methylPREDNISolone SOD SUCC PF 40 MG/ML VIAL. IV SCH (21:14)
--- NOTE | 2021-05-05 22:56 | HP ---
DATE OF SERVICE: 05/05/2021 ADMIT DATE: 05/05/2021 CHIEF COMPLAINT: Shortness of breath and orthopnea. HISTORY OF PRESENT ILLNESS: The patient is a pleasant 85-year-old female who presented to the ER with shortness of breath and orthopnea. This has been occurring for the past few days, but it got worse today. Her oxygen saturation got down to 64%. She is apparently on oxygen at home at 2 liters. She probably has a history of COPD, used to smoke. Clinically in the ER, she appears to be in heart failure. I discussed the case with ER physician. We are going to admit the patient and consult Cardiology, Pulmonary and give her some IV Lasix, steroids, breathing treatments and oxygen. PAST MEDICAL HISTORY: AFib, CHF, CAD, GERD, hypertension, hypothyroidism, appendectomy, hysterectomy, carotid endarterectomy, cardiac stents, previous tobacco abuse, so I suspect she has an element of COPD. ALLERGIES: FENTANYL, CODEINE AND SULFA. FAMILY HISTORY: Diabetes. SOCIAL HISTORY: She used to smoke. No drink or drugs. MEDICATIONS: Reviewed, please refer to the MRAD. REVIEW OF SYSTEMS: GENERAL: No history of weight change, weakness or fevers. SKIN: No bruising, hair changes or rashes. EYES: No blurred, double or loss of vision. NOSE AND THROAT: No history of nosebleeds, hoarseness or sore throat. HEART: No history of palpitations, chest pain. LUNGS: She complains of shortness of breath. GASTROINTESTINAL: She complains of nausea. GENITOURINARY: No history of frequency, urgency, hesitancy or nocturia. NEUROLOGIC: Denies history of numbness, tingling, tremor or weakness. PSYCHIATRIC: No history of panic, anxiety or depression. ENDOCRINE: No history of heat or cold intolerance, polyuria or polydipsia. EXTREMITIES: Denies muscle weakness, joint pain, pain on walking or stiffness. PHYSICAL EXAMINATION: VITALS: Within normal limits and are stable. GENERAL: No apparent distress. Alert and oriented. HEENT: Normal cephalic atraumatic, external auditory canals are patent EYES: Extraocular muscles are intact, pupils are equally round and reactive to light and accommodation MUSCULOSKELETAL: Well developed, well nourished, good range of motion ENDOCRINE: No thyromegaly was palpated LYMPHATICS: No cervical chain or axillary nodes were noted HEMATOPOIETIC: No bruising NECK: Supple, no JVD, no thyromegaly was noted. LUNGS: She has bibasilar crackles. HEART: RRR, S1, S2 present. Peripheral pulses intact, no obvious murmurs were noted. ABDOMEN: Soft, nontender. Positive bowel sounds no organomegaly, normal bowel sounds. EXTREMITIES: Without any cyanosis, clubbing, or edema. Pedal pulses intact, Homans sign is negative. NEUROLOGIC: Normal speech, normal tone. A and O x 3, moves all extremities, no obvious focal deficits. PSYCHIATRIC: Normal affect, normal mood. Stable. SKIN: No ulcerations or rashes, good skin turgor, no jaundice. VASCULAR: Good capillary refill, neurovascular bundle appears to be intact. LABORATORY DATA: White count is 6.4, hemoglobin 7.5, platelets 207. Electrolytes normal other than a BUN of 40 and creatinine 1.9. Glucose is 105. BNP 4533. Chest x-ray shows bilateral atelectasis or infiltrates. ASSESSMENT AND PLAN: Multifactorial respiratory failure, suspect chronic obstructive pulmonary disease and congestive heart failure and possible pneumonia. The patient has been admitted. We will give her IV Lasix. We have consulted Cardiology, consult Pulmonary. IV steroids, breathing treatments, oxygen, empiric IV antibiotics, home meds. DVT prophylaxis. Full code. Trend labs. ANGELES/ALBER/CRIS DR: ANGELES/jun TID: [id number]
[2021-05-05 23:00] VITALS: BP 154/63
[2021-05-06] MEDS: cefTRIAXone IV Push 1 GM VIAL. IVP SCH ×2 (00:48→20:57)
[2021-05-06] MEDS ORDERED: ACETAMINOPHEN 325 MG TABLET. PO PRN (02:00)
[2021-05-06 03:00] VITALS: BP 136/64
[2021-05-06 05:55] LABS: CALCIUM 9.2 mg/dL (8.5-10.1); CREATININE 1.6 mg/dL (0.6-1.0); GFR 30.7; MAGNESIUM 2.3 mg/dL (1.8-2.4); POTASSIUM 4.4 mmol/L (3.5-5.1)
[2021-05-06] MEDS: methylPREDNISolone SOD SUCC PF 40 MG/ML VIAL. IV SCH ×3 (06:00→20:57)
[2021-05-06 07:00] VITALS: BP 127/59
[2021-05-06] MEDS: IPRATRPIUM/ALBUTEROL 0.5/2.5MG 3 ML NEBU. NEB SCH ×4 (07:30→20:06)
--- NOTE | 2021-05-06 08:43 | PDOC2 ---
CARDIAC CONSULT DATE OF CONSULT Date of Consult DATE: 05/06/21 TIME: 08:42 REASON FOR CONSULT Reason for Consult: CHF REFERRING PHYSICIAN Referring Physician: Dr. Pagan SOURCE Source: Chart review, Patient HISTORY OF PRESENT ILLNESS HISTORY OF PRESENT ILLNESS This is an 85 yo female who presented secondary to shortness of breath for the last couple of weeks. Associated with orthopnea and LE edema. She denies any chest pain, palpitations, dizziness, diaphoresis, or nausea/vomiting. Reports compliance with Lasix at home. Reports feeling better s/p IV Lasix, but continues to be short of air. PAST MEDICAL HISTORY Past Medical History Cardiovascular: AFIB, CAD (s/p PCI/stents 03/23/18 in [place], [place]), CHF, HTN, Hyperlipidemia, Other (carotid artery disease) Pulmonary: No pertinent hx CENTRAL NERVOUS SYSTEM: Other (tremors) GI: GERD Heme/Onc: Anemia, iron deficiency Hepatobiliary: Cirrhosis/portal hypertension - amiodarone stopped 05/2018 Psych: No pertinent hx Musculoskeletal: Osteoarthritis Rheumatologic: No pertinent hx Infectious disease: No pertinent hx ENT: No pertinent hx Renal/: Chronic renal insuff Endocrine: Hypothyroidism Dermatology: No pertinent hx PAST SURGICAL HISTORY Past Surgical History Appendectomy, Cataract Removal, Other (PCI/stents, left carotid endarterectomy) FAMILY HISTORY Family History Coronary Artery Disease (mother and father ) SOCIAL HISTORY Social History Smoke: Quit (remotely) ALCOHOL: none Drugs: None Lives: with Family (daughter) CURRENT MEDICATIONS CURRENT MEDICATIONS Current Medications Medications (Trade) Dose Ordered Sig/Therese Route PRN Reason Start Time Stop Time Status Last Admin Dose Admin Furosemide (Lasix) 40 mg 1X ONCE IVP 05/05/21 14:30 05/05/21 14:31 DC 05/05/21 14:20 Methylprednisolone Sodium Succinate (SOLU-Medrol 40MG VIAL) 60 mg Q8HRS IV 05/05/21 22:00 05/06/21 06:00 Furosemide (Lasix) 40 mg 1X ONCE IVP 05/05/21 19:00 05/05/21 19:01 DC 05/05/21 20:22 Albuterol/ Ipratropium (Duoneb) 3 ml RTQID NEB 05/05/21 20:00 05/06/21 07:30 Ceftriaxone Sodium (Rocephin) 1 gm Q24H IVP 05/05/21 22:00 05/06/21 00:48 Acetaminophen (Tylenol) 650 mg PRN Q6HRS PRN PO MILD PAIN / TEMP > 100.3'F 05/06/21 02:00 05/06/21 03:30 ALLERGIES ALLERGIES: Coded Allergies: Sulfa (Sulfonamide Antibiotics) (Verified Allergy, Severe, Rash, 05/03/21) blisters on whole body fentanyl (Verified Allergy, Severe, 05/05/21) codeine (Verified Allergy, Unknown, 05/05/21) morphine (Verified Adverse Reaction, Intermediate, Nausea and Vomiting, 05/06/21) ROS Review of System 14 point ROS conducted with pertinent positives noted above in HPi PHYSICAL EXAM PHYSICAL EXAM General: Alert, Oriented X3, Cooperative, No acute distress HEENT: Atraumatic, Mucous membr. moist/pink Lungs: bibasilar crackles Heart: Regular rate (heart tones regular, not on tele.), Normal S1, Normal S2, Other (2/6 systolic murmur) Abdomen: Soft, No tenderness Extremities: No cyanosis, Other (2+ LE edema) Skin: No breakdown, No significant lesion Neuro: Normal speech, Sensation intact Psych/Mental Status: Mental status NL, Mood NL MUSCULOSKELETAL: Osteoarthritic changes both hands VITALS/I&O VITALS/I&O: Vital Signs Date Time Temp Pulse Resp B/P (MAP) Pulse Ox O2 Delivery O2 Flow Rate FiO2 05/06/21 07:30 97 Nasal Cannula 3.0 05/06/21 07:00 97.5 104 17 127/59 (81) 97.5 I & O 05/05/21 05/05/21 05/06/21 15:00 23:00 07:00 Intake Total 0 ml Output Total 800 ml 600 ml Balance -800 ml -600 ml LABS Lab: Laboratory Tests Test 05/05/21 13:10 05/05/21 20:50 05/06/21 04:40 White Blood Count 6.4 x10^3/uL (4.0-11.0) Red Blood Count 2.46 x10^6/uL (3.50-5.40) L Hemoglobin 7.5 g/dL (12.0-15.5) L Hematocrit 23.8 % (36.0-47.0) L Mean Corpuscular Volume 97 fL (79-100) Mean Corpuscular Hemoglobin 31 pg (25-35) Mean Corpuscular Hemoglobin Concent 32 g/dL (31-37) Red Cell Distribution Width 14.7 % (11.5-14.5) H Platelet Count 207 x10^3/uL (140-400) Neutrophils (%) (Auto) 83 % (31-73) H Lymphocytes (%) (Auto) 9 % (24-48) L Monocytes (%) (Auto) 7 % (0-9) Eosinophils (%) (Auto) 0 % (0-3) Basophils (%) (Auto) 1 % (0-3) Neutrophils # (Auto) 5.3 x10^3/uL (1.8-7.7) Lymphocytes # (Auto) 0.5 x10^3/uL (1.0-4.8) L Monocytes # (Auto) 0.5 x10^3/uL (0.0-1.1) Eosinophils # (Auto) 0.0 x10^3/uL (0.0-0.7) Basophils # (Auto) 0.0 x10^3/uL (0.0-0.2) Sodium Level 139 mmol/L (136-145) 139 mmol/L (136-145) Potassium Level 4.6 mmol/L (3.5-5.1) 4.4 mmol/L (3.5-5.1) Chloride Level 103 mmol/L (98-107) 101 mmol/L (98-107) Carbon Dioxide Level 28 mmol/L (21-32) 27 mmol/L (21-32) Anion Gap 8 (6-14) 11 (6-14) Blood Urea Nitrogen 40 mg/dL (7-20) H 37 mg/dL (7-20) H Creatinine 1.9 mg/dL (0.6-1.0) H 1.6 mg/dL (0.6-1.0) H Estimated GFR (Cockcroft-Gault) 25.2 30.7 BUN/Creatinine Ratio 21 (6-20) H Glucose Level 105 mg/dL (70-99) H 159 mg/dL (70-99) H Calcium Level 9.0 mg/dL (8.5-10.1) 9.2 mg/dL (8.5-10.1) Total Bilirubin 0.7 mg/dL (0.2-1.0) Aspartate Amino Transferase (AST) 13 U/L (15-37) L Alanine Aminotransferase (ALT) 12 U/L (14-59) L Alkaline Phosphatase 75 U/L (46-116) Creatine Kinase 24 U/L (26-192) L Troponin I High Sensitivity 15 ng/L (4-50) QB-Rhg-P-Type Natriuretic Peptide 4553 pg/mL (0-449) H Total Protein 7.3 g/dL (6.4-8.2) Albumin 3.4 g/dL (3.4-5.0) Albumin/Globulin Ratio 0.9 (1.0-1.7) L O2 Saturation 92 % (92-99) Arterial Blood pH 7.44 (7.35-7.45) Arterial Blood pCO2 at Patient Temp 38 mmHg (35-46) Arterial Blood pO2 at Patient Temp 66 mmHg (65-108) Arterial Blood HCO3 25 mmol/L (21-28) Arterial Blood Base Excess 1 mmol/L (-3-3) FiO2 4lnc Magnesium Level 2.3 mg/dL (1.8-2.4) Laboratory Tests 05/05/21 13:10 Laboratory Tests 05/05/21 13:10 05/06/21 04:40 ECHOCARDIOGRAM ECHOCARDIOGRAM <Conclusion> The left ventricle is normal size. The left ventricular systolic function is normal and the ejection fraction is within normal range. The Ejection Fraction is 55-60%. There is mild concentric left ventricular hypertrophy. There is no significant aortic valvular stenosis. Doppler and Color Flow revealed no significant aortic regurgitation. Doppler and Color-flow revealed trace mitral regurgitation. Doppler and Color Flow revealed trace to mild tricuspid regurgitation with an estimated PAP of 40 mmHg. There is a trace pericardial effusion with no hemodynamic significance. DATE: 05/22/18 1243 ASSESSMENT/PLAN ASSESSMENT/PLAN 1. Acute on chronic diastolic CHF; s/p IV Lasix 2. TAMMY on CKD; CR improved 3. CAD; s/p PCI/stent x2 03/2018 in [place], [place]. Clinically stable. On Plavix. Not on ASA/OAC due to h/o anemia requiring transfusion 4. Hypertension; controlled 5. Hyperlipidemia; statin 6. PAFIB: Amiodarone discontinued 06/04 due to liver disease. EKG shows SR 7. Iron deficiency anemia 8. H/o cirrhosis, portal hypertension 9. Hypothyroidism: on home replacement Recommendations Diuresis with monitoring of renal function Echo to assess LV systolic function Resume metoprolol for rate control Place on tele. Secondary prevention Supportive care LEANNE GONZALEZ APRN May 06, 2021 08:43
--- NOTE | 2021-05-06 09:57 | NUR ---
SW following. Discussed with RN, pt from home with daughter, 2L (uses oxygen at home), cardiac diet. Pulmonology and Cardiology following. RN ordering PT/OT. SW will continue to follow.
[2021-05-06] MEDS: LACTOBACILLUS RHAMNOSUS GG 1 CAPSULE. PO SCH ×2 (10:00→20:56)
[2021-05-06] MEDS ORDERED: POTASSIUM CHLORIDE 20 MEQ TABLET.ER. PO SCH (10:00)
[2021-05-06] MEDS: MULTIVITAMIN I-VITE TABLET. PO SCH (10:01)
[2021-05-06] MEDS: LEVOTHYROXINE 88 MCG TABLET PO SCH (10:01)
[2021-05-06] MEDS: METOPROLOL SUCC 24HR ER 100 MG TAB.ER.24H. PO SCH (10:01)
[2021-05-06] MEDS: PANTOPRAZOLE 40 MG TABLET.DR. PO SCH (10:02)
[2021-05-06] MEDS: CLOPIDOGREL BISULFATE 75 MG TABLET PO SCH (10:02)
--- NOTE | 2021-05-06 10:48 | PDOC ---
[employer] PROGRESS NOTE Date of Service DOS: DATE: 05/06/21 TIME: 10:36 Chief Complaint Chief Complaint ASSESSMENT/PLAN Acute hypoxic respiratory failure Acute on chronic diastolic CHF; s/p IV Lasix last echo done 2 years ago TAMMY on CKD CAD; s/p PCI/stent x2 03/2018 in [place], [place]. Hypertension; controlled Hyperlipidemia; statin PAFIB: Amiodarone discontinued 06/04 due to liver disease. Iron deficiency anemia H/o cirrhosis, portal hypertension Hypothyroidism: on home replacement Reported history of pulmonary nodule in [place] Continue with IV diuresis as needed, will defer this to cardiology Strict I's/O monitor urine output Avoid nephrotoxic agents Resume home meds Pending cardiology and pulmonology evaluation Pending CT of the chest History of Present Illness History of Present Illness 85-year-old female who presented to the ER with shortness of breath and orthopnea. This has been occurring for the past few days, but it got worse today. Her oxygen saturation got down to 64%. She is apparently on oxygen at home at 2 liters. She probably has a history of COPD, used to smoke. Clinically in the ER, she appears to be in heart failure. I discussed the case with ER physician. We are going to admit the patient and consult Cardiology, Pulmonary and give her some IV Lasix, steroids, breathing treatments and oxygen. 05/06/2021 No acute events overnight. Patient seen examined bedside. Patient improved in dyspnea after IV Lasix given. Pedal edema has also improved. Patient's chart, labs, images were reviewed and discussed with RN In addition to my E/M visit, advance care planning done with A total time of 20 minutes was spent from 1015 to 1035 over the phone discussion with daughter regarding the patient's goals of care, CODE STATUS. Vitals/I&O Vitals/I&O: Vital Signs Date Time Temp Pulse Resp B/P (MAP) Pulse Ox O2 Delivery O2 Flow Rate FiO2 05/06/21 10:01 104 127/59 05/06/21 07:30 97 Nasal Cannula 3.0 05/06/21 07:00 97.5 17 97.5 I & O 0 05/05/21 05/05/21 05/06/21 15:00 23:00 07:00 Intake Total 0 ml Output Total 800 ml 600 ml Balance -800 ml -600 ml Labs Labs: Laboratory Tests Test 05/05/21 13:10 05/05/21 20:50 05/06/21 04:40 White Blood Count 6.4 x10^3/uL (4.0-11.0) Red Blood Count 2.46 x10^6/uL (3.50-5.40) Hemoglobin 7.5 g/dL (12.0-15.5) Hematocrit 23.8 % (36.0-47.0) Mean Corpuscular Volume 97 fL (79-100) Mean Corpuscular Hemoglobin 31 pg (25-35) Mean Corpuscular Hemoglobin Concent 32 g/dL (31-37) Red Cell Distribution Width 14.7 % (11.5-14.5) Platelet Count 207 x10^3/uL (140-400) Neutrophils (%) (Auto) 83 % (31-73) Lymphocytes (%) (Auto) 9 % (24-48) Monocytes (%) (Auto) 7 % (0-9) Eosinophils (%) (Auto) 0 % (0-3) Basophils (%) (Auto) 1 % (0-3) Neutrophils # (Auto) 5.3 x10^3/uL (1.8-7.7) Lymphocytes # (Auto) 0.5 x10^3/uL (1.0-4.8) Monocytes # (Auto) 0.5 x10^3/uL (0.0-1.1) Eosinophils # (Auto) 0.0 x10^3/uL (0.0-0.7) Basophils # (Auto) 0.0 x10^3/uL (0.0-0.2) Sodium Level 139 mmol/L (136-145) 139 mmol/L (136-145) Potassium Level 4.6 mmol/L (3.5-5.1) 4.4 mmol/L (3.5-5.1) Chloride Level 103 mmol/L (98-107) 101 mmol/L (98-107) Carbon Dioxide Level 28 mmol/L (21-32) 27 mmol/L (21-32) Anion Gap 8 (6-14) 11 (6-14) Blood Urea Nitrogen 40 mg/dL (7-20) 37 mg/dL (7-20) Creatinine 1.9 mg/dL (0.6-1.0) 1.6 mg/dL (0.6-1.0) Estimated GFR (Cockcroft-Gault) 25.2 30.7 BUN/Creatinine Ratio 21 (6-20) Glucose Level 105 mg/dL (70-99) 159 mg/dL (70-99) Calcium Level 9.0 mg/dL (8.5-10.1) 9.2 mg/dL (8.5-10.1) Total Bilirubin 0.7 mg/dL (0.2-1.0) Aspartate Amino Transf (AST/SGOT) 13 U/L (15-37) Alanine Aminotransferase (ALT/SGPT) 12 U/L (14-59) Alkaline Phosphatase 75 U/L (46-116) Creatine Kinase 24 U/L (26-192) Troponin I High Sensitivity 15 ng/L (4-50) UH-Dbi-X-Type Natriuretic Peptide 4553 pg/mL (0-449) Total Protein 7.3 g/dL (6.4-8.2) Albumin 3.4 g/dL (3.4-5.0) Albumin/Globulin Ratio 0.9 (1.0-1.7) O2 Saturation 92 % (92-99) Arterial Blood pH 7.44 (7.35-7.45) Arterial Blood pCO2 at Patient Temp 38 mmHg (35-46) Arterial Blood pO2 at Patient Temp 66 mmHg (65-108) Arterial Blood HCO3 25 mmol/L (21-28) Arterial Blood Base Excess 1 mmol/L (-3-3) FiO2 4lnc Magnesium Level 2.3 mg/dL (1.8-2.4) Assessment and Plan Assessmemt and Plan Problems Medical Problems: (1) Anemia Status: Acute (2) CKD (chronic kidney disease) Status: Acute (3) Dyspnea Status: Acute (4) Leg swelling Status: Acute Comment Review of Relevant I have reviewed the following items brittani (where applicable) has been applied. Medications: Current Medications Medications (Trade) Dose Ordered Sig/Therese Route PRN Reason Start Time Stop Time Status Last Admin Dose Admin Furosemide (Lasix) 40 mg 1X ONCE IVP 05/05/21 14:30 05/05/21 14:31 DC 05/05/21 14:20 Methylprednisolone Sodium Succinate (SOLU-Medrol 40MG VIAL) 60 mg Q8HRS IV 05/05/21 22:00 05/06/21 06:00 Furosemide (Lasix) 40 mg 1X ONCE IVP 05/05/21 19:00 05/05/21 19:01 DC 05/05/21 20:22 Albuterol/ Ipratropium (Duoneb) 3 ml RTQID NEB 05/05/21 20:00 05/06/21 07:30 Ceftriaxone Sodium (Rocephin) 1 gm Q24H IVP 05/05/21 22:00 05/06/21 00:48 Lactobacillus Rhamnosus (Culturelle) 1 cap BID PO 05/06/21 09:00 05/06/21 10:00 Acetaminophen (Tylenol) 650 mg PRN Q6HRS PRN PO MILD PAIN / TEMP > 100.3'F 05/06/21 02:00 05/06/21 03:30 Clopidogrel Bisulfate (Plavix) 75 mg DAILY PO 05/06/21 10:00 05/06/21 10:02 Levothyroxine Sodium (Synthroid) 88 mcg DAILY07 PO 05/06/21 10:00 05/06/21 10:01 Metoprolol Succinate (Toprol Xl) 100 mg DAILY PO 05/06/21 10:00 05/06/21 10:01 Multivitamins/ Minerals (I-Dee) 1 tab DAILY PO 05/06/21 10:00 05/06/21 10:01 Pantoprazole Sodium (Protonix) 40 mg DAILYAC PO 05/06/21 10:00 05/06/21 10:02 Justifications for Admission Other Justification ANA MINA MD May 06, 2021 10:48
[2021-05-06 11:00] VITALS: BP 129/62
[2021-05-06] MEDS: LOSARTAN POTASSIUM 50 MG TABLET. PO SCH (11:30)
--- NOTE | 2021-05-06 11:38 | CONS ---
DATE OF CONSULTATION: 05/06/2021 PULMONARY CONSULTATION ATTENDING PHYSICIAN: Laura Pagan DO REASON FOR CONSULTATION: Dyspnea, chronic respiratory failure, abnormal chest x-ray. HISTORY OF PRESENT ILLNESS: The patient is an 85-year-old female who has smoked for about 30 years, 1 pack over the last 2 days. She is on home oxygen at about 3 liters on a 24-hour basis. The patient was brought into the hospital after she was experiencing increasing shortness of breath and orthopnea. She has significant increase in lower extremity edema. The patient has a cough, which has been nonproductive. No chest pain, no headaches, no nausea, vomiting or diarrhea. The patient used to see a rn wound care in [place]. She is now moved to [place] and now is living with her daughter. She states, in December of last year, she had a nodule, which she thinks was 4 mm in the left lung and was supposed to have a followup in March. The patient did receive COVID vaccine including a booster; however, she got infected with COVID in February of this year. I have reviewed the patient's chest x-ray, it shows bilateral interstitial infiltrates. Consultation requested for further evaluation and management. PAST MEDICAL HISTORY: History of atrial fibrillation, CHF, CAD, GERD, hypertension, hypothyroidism. PAST SURGICAL HISTORY: Appendectomy, hysterectomy, carotid endarterectomy, cardiac stents. ALLERGIES: FENTANYL, CODEINE AND SULFA. FAMILY HISTORY: Diabetes. SOCIAL HISTORY: Quit tobacco 40 years ago. Before that, smoked for 30 years, 1 pack over the last 2 days. MEDICATIONS: Reviewed as listed in the [facility]AD including methylprednisone, Rocephin and DuoNeb. She did receive Lasix. REVIEW OF SYSTEMS: A 12-point review of system obtained. Pertinent positives discussed in my present illness, otherwise noncontributory. All systems that were negative were reviewed as well. FAMILY HISTORY: Noncontributory to lungs. PHYSICAL EXAMINATION: VITAL SIGNS: Reviewed. Pulse ox 97% on 3 liters, afebrile, blood pressure stable. NECK: Supple. LUNGS: With few crackles posteriorly at the bases. CARDIOVASCULAR: With a regular rate. ABDOMEN: Soft, nontender. EXTREMITIES: With 2+ pitting edema bilaterally. LABORATORY DATA: Reviewed. ABG showed a pH of 7.44, pCO2 of 30 and a pO2 of 66 on 4 liters nasal cannula. BUN was 14, creatinine was 1.9. Now, BUN is 37 and creatinine of 1.6. White cell count is 6.4, hemoglobin 7.5 and platelets are 207. IMPRESSION: 1. Acute on chronic hypoxic respiratory failure secondary to suspected congestive heart failure. Clinically, less likely pneumonia. She has significant increase in lower extremity edema along with bilateral interstitial infiltrates. She did have COVID in February of this year and the possibility of COVID-related residual viral interstitial infiltrates would also be in the differential diagnosis. 2. Anemia with a hemoglobin of 7.5. Could be dilutional. Could also be contributing to dyspnea as well. 3. Underlying chronic obstructive pulmonary disease. She is on home oxygen initially at 2 liters, but now recently be on 3 liters at home. She smoked for 30 years before quitting 40 years ago. 4. Significant lower extremity edema. Likely congestive heart failure. 5. Acute kidney injury. 6. No significant leukocytosis. 7. The patient also has a history of cirrhosis and portal hypertension. RECOMMENDATIONS: 1. The patient is status post Lasix. We will follow up chest x-ray. Anticipating radiographic response to diuretics. 2. Noncontrast CT chest to better assess for interstitial infiltrates and follow up on the lung nodule in the left lung. 3. Continue present bronchodilators. 4. Empiric antibiotics, though clinical suspicion for pneumonia is low. 5. Obtain echocardiogram. 6. Continue bronchodilators. 7. Follow Cardiology recommendations. 8. PFTs as an outpatient. 9. The patient has history of CAD and status post stent x2. Await Cardiology recommendation. 10. Workup of anemia per PCP and GI. 11. The patient used to be on amiodarone, which was discontinued in 05/2018 due to liver disease. 12. Discussed with the patient and RN. We will follow along with you. DONNY DR: Paddy TID: [id number]
--- NOTE | 2021-05-06 13:22 | RAD ---
PQRS Compliance Statement: One or more of the following individualized dose reduction techniques were utilized for this examinat ion: 1. Automated exposure control 2. Adjustment of the mA and/or kV according to patient size 3. Use of iterative reconstruction technique CT THORAX WO 05/06/2021 11:02 AM Indication: History of pulmonary nodule COMPARISON: None available TECHNIQUE: Multiple axial CT images of the chest without and with intravenous contrast. Coronal and s agittal reformats are provided. FINDINGS: Thyroid gland is normal in appearance. Precarinal lymph node measures up to 0.9 cm by short axis (series 3, image 97). There is a subcarinal lymph node measuring 1.1 cm. Evaluation of hilar lymphadenopathy is limited by lack of intravenous c ontrast. No pathologically enlarged axillary lymph nodes. Mitral annular calcifications are present. Three-vessel coronary artery vascular calcifications are present. Trace pericardial fluid. Heart size is within normal limits. Thoracic aorta is normal in course and caliber. Thoracic esophagus is elvis l in appearance. Anterior chest wall appears intact. There is a 5 mm oval nodule identified within the right middle lobe (series 8, image 55). Small bilat eral pleural effusions with adjacent compressive atelectasis versus infiltrates. Mosaic attenuation w ithin the lungs favors areas of air trapping as may be seen with underlying COPD. No pneumothorax. No significant pulmonary vascular congestion. Visualized portions of the upper abdomen are normal in appearance within limitations of a noncontrast examination. Spinal augmentation changes are identified at T12, L1 and L2. Inferior plate compression fracture at T11 with 25% height loss and no significant retropulsion.. No paraspinal soft tissue mass. IMPRESSION: 1. COPD changes are present with 5 mm oval nodule identified in the right middle lobe. Fleischner garth delines for incidentally detected pulmonary nodules suggests no routine follow-up for low risk patien ts and optional CT at 12 months for high risk patients with solid noncalcified pulmonary nodules less than 6 mm in size. 2. Small bilateral pleural effusions with adjacent compressive atelectasis versus infiltrates. 3. Atherosclerotic changes of the thoracic aorta and coronary vessels identified. Mitral annular calc ifications are present. 4. Inferior endplate compression fracture at T11 results in 25% height loss, age indeterminate. Chron ic compression fractures which have been treated with spinal augmentation identified at T12, L1 and L 2. Electronically signed by: Lissy Rangel MD (05/06/2021 1:19 PM) [id number]
[2021-05-06] MEDS: ENOXAPARIN 30 MG/0.3 ML SYRINGE. SQ SCH (14:47)
[2021-05-06 15:00] VITALS: BP 152/55
[2021-05-06] MEDS ORDERED: FUROSEMIDE 40 MG/4 ML VIAL. IVP ONE (15:00)
[2021-05-06] MEDS ORDERED: POTASSIUM CHLORIDE 20 MEQ TABLET.ER. PO ONE (15:00)
[2021-05-06 19:00] VITALS: BP 135/89
[2021-05-06] MEDS: POLYETHYLENE GLYCOL 3350 17 GM PACKET. PO SCH ×2 (20:56→21:00)
[2021-05-06] MEDS: ATORVASTATIN CALCIUM 40 MG TABLET. PO SCH (20:56)
[2021-05-06 23:00] VITALS: BP 127/66
[2021-05-07 03:00] VITALS: BP 144/75
[2021-05-07] MEDS: PANTOPRAZOLE 40 MG TABLET.DR. PO SCH (06:07)
[2021-05-07] MEDS: LEVOTHYROXINE 88 MCG TABLET PO SCH (06:07)
[2021-05-07] MEDS: methylPREDNISolone SOD SUCC PF 40 MG/ML VIAL. IV SCH ×3 (06:07→20:29)
[2021-05-07 07:00] VITALS: BP 143/70
[2021-05-07] MEDS: IPRATRPIUM/ALBUTEROL 0.5/2.5MG 3 ML NEBU. NEB SCH ×4 (07:18→20:11)
[2021-05-07] MEDS: METOPROLOL SUCC 24HR ER 100 MG TAB.ER.24H. PO SCH (08:05)
[2021-05-07] MEDS: CLOPIDOGREL BISULFATE 75 MG TABLET PO SCH (08:05)
[2021-05-07] MEDS: LACTOBACILLUS RHAMNOSUS GG 1 CAPSULE. PO SCH ×2 (08:05→20:29)
[2021-05-07] MEDS: MULTIVITAMIN I-VITE TABLET. PO SCH (08:05)
--- NOTE | 2021-05-07 08:31 | RAD ---
XR CHEST 1V History: Reason: CHF / Spl. Instructions: / History: Comparison: May 05, 2021 Findings: Mild interstitial thickening with ill-defined opacities, similar compared to prior. Small left pleura l effusion, unchanged. Unchanged enlarged cardiac size. No pneumothorax. Chronic compression fracture s with prior vertebroplasty, unchanged. Impression: 1. Stable appearance of the chest compared to prior. Electronically signed by: Jerald Le DO (05/07/2021 8:29 AM) [id number]
--- NOTE | 2021-05-07 10:06 | PDOC ---
[employer] PROGRESS NOTE Date of Service DOS: DATE: 05/07/21 TIME: 10:03 Chief Complaint Chief Complaint ASSESSMENT/PLAN Acute hypoxic respiratory failure Acute on chronic diastolic CHF; s/p IV Lasix last echo done 2 years ago TAMMY on CKD CAD; s/p PCI/stent x2 03/2018 in [place], [place]. Hypertension; controlled Hyperlipidemia; statin PAFIB: Amiodarone discontinued 06/04 due to liver disease. Iron deficiency anemia H/o cirrhosis, portal hypertension Hypothyroidism: on home replacement Stable RML pulmonary nodule Chronic T11 compression fracture Pending TTE Continue with IV diuresis as needed, will defer this to cardiology Strict I's/O monitor urine output Avoid nephrotoxic agents Resume home meds Pending cardiology and pulmonology evaluation Pending CT of the chest History of Present Illness History of Present Illness 85-year-old female who presented to the ER with shortness of breath and orthopnea. This has been occurring for the past few days, but it got worse today. Her oxygen saturation got down to 64%. She is apparently on oxygen at home at 2 liters. She probably has a history of COPD, used to smoke. Clinically in the ER, she appears to be in heart failure. I discussed the case with ER physician. We are going to admit the patient and consult Cardiology, Pulmonary and give her some IV Lasix, steroids, breathing treatments and oxygen. 05/06/2021 No acute events overnight. Patient seen examined bedside. Patient improved in dyspnea after IV Lasix given. Pedal edema has also improved. Patient's chart, labs, images were reviewed and discussed with RN In addition to my E/M visit, advance care planning done with A total time of 20 minutes was spent from 1015 to 1035 over the phone discussion with daughter regarding the patient's goals of care, CODE STATUS. 05/07/2021 No acute events overnight. Patient seen examined bedside. CT chest yesterday completed showing stable pulmonary nodule. We will continue with IV Lasix diuresis. Pending echocardiogram. Patient's chart, labs, images were reviewed and discussed with RN Vitals/I&O Vitals/I&O: Vital Signs Date Time Temp Pulse Resp B/P (MAP) Pulse Ox O2 Delivery O2 Flow Rate FiO2 05/07/21 08:05 136 143/70 05/07/21 08:00 Nasal Cannula 2.0 05/07/21 07:18 94 05/07/21 07:00 97.9 18 97.9 I & O 05/06/21 05/06/21 05/07/21 15:00 23:00 07:00 Intake Total 360 ml 180 ml 440 ml Output Total 1 ml Balance 360 ml 179 ml 440 ml Physical Exam General: Alert, Oriented X3, Cooperative Heart: Regular rate Lungs: Clear Abdomen: Normal bowel sounds Extremities: No clubbing Skin: No rashes Assessment and Plan Assessmemt and Plan Problems Medical Problems: (1) Anemia Status: Acute (2) CKD (chronic kidney disease) Status: Acute (3) Dyspnea Status: Acute (4) Leg swelling Status: Acute Comment Review of Relevant I have reviewed the following items brittani (where applicable) has been applied. Medications: Current Medications Medications (Trade) Dose Ordered Sig/Therese Route PRN Reason Start Time Stop Time Status Last Admin Dose Admin Atorvastatin Calcium (Lipitor) 80 mg HS PO 05/06/21 21:00 05/06/21 20:56 Furosemide (Lasix) 40 mg 1X ONCE IVP 05/06/21 15:00 05/06/21 15:01 DC 05/06/21 14:39 Potassium Chloride (Klor-Con) 20 meq 1X ONCE PO 05/06/21 15:00 05/06/21 15:01 DC 05/06/21 14:40 Enoxaparin Sodium (Lovenox 30mg Syringe) 30 mg Q24H SQ 05/06/21 15:00 05/06/21 14:47 Justifications for Admission Other Justification ANA MINA MD May 07, 2021 10:06
--- NOTE | 2021-05-07 10:09 | PDOC ---
PULMONARY PROGRESS NOTES DATE: 05/07/21 TIME: 10:07 Subjective Breathing stable at rest but complains of dyspnea with exertion. Remains on nasal cannula. Vitals Vital Signs Date Time Temp Pulse Resp B/P (MAP) Pulse Ox O2 Delivery O2 Flow Rate FiO2 05/07/21 08:05 136 143/70 05/07/21 08:00 Nasal Cannula 2.0 05/07/21 07:18 94 05/07/21 07:00 97.9 18 97.9 General: Alert, No acute distress Lungs: Clear Cardiovascular: S1 Abdomen: Soft Neuro Exam: Alert Extremities: No Edema Skin: Warm Labs Laboratory Tests Test 05/05/21 13:10 05/05/21 20:50 05/06/21 04:40 White Blood Count 6.4 x10^3/uL (4.0-11.0) Red Blood Count 2.46 x10^6/uL (3.50-5.40) Hemoglobin 7.5 g/dL (12.0-15.5) Hematocrit 23.8 % (36.0-47.0) Mean Corpuscular Volume 97 fL (79-100) Mean Corpuscular Hemoglobin 31 pg (25-35) Mean Corpuscular Hemoglobin Concent 32 g/dL (31-37) Red Cell Distribution Width 14.7 % (11.5-14.5) Platelet Count 207 x10^3/uL (140-400) Neutrophils (%) (Auto) 83 % (31-73) Lymphocytes (%) (Auto) 9 % (24-48) Monocytes (%) (Auto) 7 % (0-9) Eosinophils (%) (Auto) 0 % (0-3) Basophils (%) (Auto) 1 % (0-3) Neutrophils # (Auto) 5.3 x10^3/uL (1.8-7.7) Lymphocytes # (Auto) 0.5 x10^3/uL (1.0-4.8) Monocytes # (Auto) 0.5 x10^3/uL (0.0-1.1) Eosinophils # (Auto) 0.0 x10^3/uL (0.0-0.7) Basophils # (Auto) 0.0 x10^3/uL (0.0-0.2) Sodium Level 139 mmol/L (136-145) 139 mmol/L (136-145) Potassium Level 4.6 mmol/L (3.5-5.1) 4.4 mmol/L (3.5-5.1) Chloride Level 103 mmol/L (98-107) 101 mmol/L (98-107) Carbon Dioxide Level 28 mmol/L (21-32) 27 mmol/L (21-32) Anion Gap 8 (6-14) 11 (6-14) Blood Urea Nitrogen 40 mg/dL (7-20) 37 mg/dL (7-20) Creatinine 1.9 mg/dL (0.6-1.0) 1.6 mg/dL (0.6-1.0) Estimated GFR (Cockcroft-Gault) 25.2 30.7 BUN/Creatinine Ratio 21 (6-20) Glucose Level 105 mg/dL (70-99) 159 mg/dL (70-99) Calcium Level 9.0 mg/dL (8.5-10.1) 9.2 mg/dL (8.5-10.1) Total Bilirubin 0.7 mg/dL (0.2-1.0) Aspartate Amino Transf (AST/SGOT) 13 U/L (15-37) Alanine Aminotransferase (ALT/SGPT) 12 U/L (14-59) Alkaline Phosphatase 75 U/L (46-116) Creatine Kinase 24 U/L (26-192) Troponin I High Sensitivity 15 ng/L (4-50) JA-Gbw-X-Type Natriuretic Peptide 4553 pg/mL (0-449) Total Protein 7.3 g/dL (6.4-8.2) Albumin 3.4 g/dL (3.4-5.0) Albumin/Globulin Ratio 0.9 (1.0-1.7) O2 Saturation 92 % (92-99) Arterial Blood pH 7.44 (7.35-7.45) Arterial Blood pCO2 at Patient Temp 38 mmHg (35-46) Arterial Blood pO2 at Patient Temp 66 mmHg (65-108) Arterial Blood HCO3 25 mmol/L (21-28) Arterial Blood Base Excess 1 mmol/L (-3-3) FiO2 4lnc Magnesium Level 2.3 mg/dL (1.8-2.4) Medications Active Scripts Medications Dose Route/Sig Max Daily Dose Days Date Category Ocuvite Lutein 25-5 mg Softgel (Lutein/Zeaxanthin) 1 Each Capsule 1 Cap PO DAILY 30 05/05/21 Reported Iron (Ferrous Sulfate) 325 Mg Tablet 1 Tab PO TID 30 05/05/21 Reported Metoprolol Succinate ( Xl ) (Metoprolol Succinate) 100 Mg Tab.er.24h 1 Tab PO DAILY 05/05/21 Reported Feosol (Ferrous Sulfate) 325 Mg Tablet 325 Mg PO DAILY 30 07/01/18 Rx Potassium Chloride Oral Liquid (Potassium Chloride) 20 Meq/15 Ml Liquid 20 Meq PO TIDWMEALS 06/30/18 Reported Miralax (Polyethylene Glycol 3350) 17 Gm Powd.pack 1 Pkt PO HS 06/29/18 Reported Furosemide 40 Mg Tablet 40 Mg PO BID 06/29/18 Reported Losartan Potassium 50 Mg Tablet 100 Mg PO [id number] 05/25/18 Reported Levothyroxine Sodium 88 Mcg Tablet 1 Tab PO DAILY 05/21/18 Reported Protonix (Pantoprazole Sodium) 20 Mg Tablet.dr 40 Mg PO DAILY 05/21/18 Reported Clopidogrel (Clopidogrel Bisulfate) 75 Mg Tablet 1 Tab PO DAILY 05/21/18 Reported Crestor (Rosuvastatin Calcium) 20 Mg Tablet 20 Mg PO HS PRN 05/21/18 Reported Impression . 1. Acute on chronic hypoxic respiratory failure secondary to suspected diastolic congestive heart failure. Clinically, less likely pneumonia. She has significant increase in lower extremity edema along with bilateral interstitial infiltrates. She did have COVID in February of this year and the possibility of COVID-related residual viral interstitial infiltrates would also be in the differential diagnosis. 2. Anemia with a hemoglobin of 7.5. Could be dilutional. Could also be contributing to dyspnea as well. 3. Underlying chronic obstructive pulmonary disease. She is on home oxygen initially at 2 liters, She smoked for 30 years before quitting 40 years ago. 4. Significant lower extremity edema. Likely congestive heart failure. 5. Acute kidney injury. 6. No significant leukocytosis. 7. The patient also has a history of cirrhosis and portal hypertension. Plan . RECOMMENDATIONS: 1. The patient is status post Lasix. Follow-up chest x-ray today is stable with mildly prominent interstitial markings. This could be positional effect. 2. Noncontrast CT chest reviewed. Small basilar effusions. Associated basilar atelectasis. No definite consolidation. 5 mm nodule reported in the right middle lobe. 3. Continue present bronchodilators. 4. Empiric antibiotics, though clinical suspicion for pneumonia is low. 5. Obtain echocardiogram. 6. Continue bronchodilators. 7. Follow Cardiology recommendations. 8. PFTs as an outpatient. 9. The patient has history of CAD and status post stent x2. Await Cardiology recommendation. 10. Workup of anemia per PCP and GI. 11. The patient used to be on amiodarone, which was discontinued in 05/2018 due to liver disease. 12. Discussed with the patient and RN. Would recommend to increase oxygen to 3 L with activity. KARY PHOENIX MD May 07, 2021 10:09
[2021-05-07 10:17] LABS: BASO % 0 % (0-3); EOS % 0 % (0-3); HEMATOCRIT 25.2 % (36.0-47.0); LYMPH # 0.1 x10^3/uL (1.0-4.8); LYMPH % 3 % (24-48); MEAN CORPUSCULAR HEMOGLOBIN 31 pg (25-35); MEAN CORPUSCULAR HGB CONC 32 g/dL (31-37); MEAN CORPUSCULAR VOLUME 96 fL (79-100); MONO # 0.1 x10^3/uL (0.0-1.1); MONO % 3 % (0-9); NEUT # 4.3 x10^3/uL (1.8-7.7); NEUT % 95 % (31-73); PLATELET COUNT 273 x10^3/uL (140-400); RED BLOOD COUNT 2.61 x10^6/uL (3.50-5.40); RED CELL DISTRIBUTION WIDTH 15.1 % (11.5-14.5); WHITE BLOOD COUNT 4.6 x10^3/uL (4.0-11.0)
[2021-05-07 10:55] LABS: CALCIUM 9.2 mg/dL (8.5-10.1); CREATININE 2.1 mg/dL (0.6-1.0); GFR 22.4; MAGNESIUM 2.4 mg/dL (1.8-2.4)
[2021-05-07 11:00] VITALS: BP 134/63
[2021-05-07 11:08] LABS: % LYMPHS 7 % (24-48); % MONOS 2 % (0-10); % SEGS 91 % (35-66); PLT ESTIMATE ADEQUATE (ADEQUATE)
[2021-05-07] MEDS: LOSARTAN POTASSIUM 50 MG TABLET. PO SCH (11:33)
[2021-05-07 15:00] VITALS: BP 121/55
[2021-05-07] MEDS: ENOXAPARIN 30 MG/0.3 ML SYRINGE. SQ SCH (15:00)
--- NOTE | 2021-05-07 15:31 | PDOC ---
NAHUN SAENZ [employer] DIV[employer] PROJECT MANAGER 05/07/21 1530: CARDIO Progress Notes Date and Time Date of Service 05/07/2021 Time of Evaluation 1520 Subjective Subjective: No Chest Pain, No shortness of breath, No Palpitations Vitals Vitals Vital Signs Date Time Temp Pulse Resp B/P (MAP) Pulse Ox O2 Delivery O2 Flow Rate FiO2 05/07/21 15:00 97.9 119 20 121/55 (77) 97 Nasal Cannula 2.0 97.9 Weight Weight [ ] Input and Output Intake and Output Intake and Output 05/07/21 06:59 Intake Total 980 ml Output Total 1 ml Balance 979 ml Intake Oral 980 ml Output Urine Total 1 ml # Bowel Movements 1 Laboratory Labs Laboratory Tests Test 05/07/21 10:00 White Blood Count 4.6 x10^3/uL (4.0-11.0) Red Blood Count 2.61 x10^6/uL (3.50-5.40) Hemoglobin 8.0 g/dL (12.0-15.5) Hematocrit 25.2 % (36.0-47.0) Mean Corpuscular Volume 96 fL (79-100) Mean Corpuscular Hemoglobin 31 pg (25-35) Mean Corpuscular Hemoglobin Concent 32 g/dL (31-37) Red Cell Distribution Width 15.1 % (11.5-14.5) Platelet Count 273 x10^3/uL (140-400) Neutrophils (%) (Auto) 95 % (31-73) Lymphocytes (%) (Auto) 3 % (24-48) Monocytes (%) (Auto) 3 % (0-9) Eosinophils (%) (Auto) 0 % (0-3) Basophils (%) (Auto) 0 % (0-3) Neutrophils # (Auto) 4.3 x10^3/uL (1.8-7.7) Lymphocytes # (Auto) 0.1 x10^3/uL (1.0-4.8) Monocytes # (Auto) 0.1 x10^3/uL (0.0-1.1) Eosinophils # (Auto) 0.0 x10^3/uL (0.0-0.7) Basophils # (Auto) 0.0 x10^3/uL (0.0-0.2) Segmented Neutrophils % 91 % (35-66) Lymphocytes % 7 % (24-48) Monocytes % 2 % (0-10) Platelet Estimate Adequate (ADEQUATE) Sodium Level 138 mmol/L (136-145) Potassium Level 4.0 mmol/L (3.5-5.1) Chloride Level 99 mmol/L (98-107) Carbon Dioxide Level 28 mmol/L (21-32) Anion Gap 11 (6-14) Blood Urea Nitrogen 54 mg/dL (7-20) Creatinine 2.1 mg/dL (0.6-1.0) Estimated GFR (Cockcroft-Gault) 22.4 Glucose Level 269 mg/dL (70-99) Calcium Level 9.2 mg/dL (8.5-10.1) Magnesium Level 2.4 mg/dL (1.8-2.4) Ferritin 912 ng/mL (8-252) Physical Exam LUNGS: Other (diminished bases) Heart: irregularly irregular (AFIB RVR) Extremities: Other (2-3+ bilateral LE pitting edema) Neurology: alert, oriented, follow commands Assessment Assessment 1. Acute on chronic diastolic CHF: appears compensated 2. TAMMY on CKD; CR improved 3. CAD; s/p PCI/stent x2 03/2018 in [place], [place]. Clinically stable. 4. Hypertension; controlled 5. Hyperlipidemia; statin 6. PAFIB: Amiodarone discontinued 06/04 due to liver disease. Presently AFIB RVR 7. Iron deficiency anemia 8. H/o cirrhosis, portal hypertension 9. Hypothyroidism: on home replacement Recommendations Lasix therapy TTE. DC plavix. start on ECASA for stroke prevention. Not a NOAC candidate due to anemia and cirrhosis No other options Continue metoprolol for rate control. No IV access, bolus with PO digoxin. Hold losartan for now. BMP tomorrow. Secondary prevention Supportive care Justicifation of Admission Dx: Justifications for Admission: Justification of Admission Dx: Yes ELENA GOVEA MD 05/08/21 1442: CARDIO Progress Notes Assessment Assessment Patient seen and examined on 05/07/2021. I agree with our nurse practitioners assessment and plan. Acute on chronic diastolic CHF: compensated TAMMY on CKD; CR improved CAD; s/p PCI/stent x2 03/2018 in [place], [place]. Clinically stable. Aspirin. Hypertension; controlled Hyperlipidemia; statin PAFIB: Amiodarone discontinued 06/04 due to liver disease. Presently AFIB RVR. Beta-blockers. Iron deficiency anemia H/o cirrhosis, portal hypertension Hypothyroidism: on home replacement NAHUN SAENZ APRN May 07, 2021 15:30 ELEAN GOVEA MD May 08, 2021 14:42
[2021-05-07] MEDS ORDERED: DIGOXIN IV 500 MCG/2 ML AMPUL. IV ONE (16:30)
[2021-05-07] MEDS ORDERED: DIGOXIN 125 MCG TABLET. PO ONE (17:15)
[2021-05-07 19:00] VITALS: BP 114/66
[2021-05-07] MEDS: ATORVASTATIN CALCIUM 40 MG TABLET. PO SCH (20:29)
[2021-05-07] MEDS: POLYETHYLENE GLYCOL 3350 17 GM PACKET. PO SCH (20:29)
[2021-05-07] MEDS: cefTRIAXone IV Push 1 GM VIAL. IVP SCH (20:30)
[2021-05-07] MEDS ORDERED: FAMOTIDINE 20 MG TABLET. PO SCH (21:00)
[2021-05-07 23:14] VITALS: BP 134/62
[2021-05-08 03:00] VITALS: BP 123/76
[2021-05-08] MEDS: methylPREDNISolone SOD SUCC PF 40 MG/ML VIAL. IV SCH (03:32)
[2021-05-08] MEDS: LEVOTHYROXINE 88 MCG TABLET PO SCH (05:40)
[2021-05-08 07:00] VITALS: BP 104/65
[2021-05-08] MEDS ORDERED: ASPIRIN ENTERIC COATED 81 MG TABLET.DR. PO SCH (08:00)
[2021-05-08 08:05] LABS: CALCIUM 9.1 mg/dL (8.5-10.1); CREATININE 1.9 mg/dL (0.6-1.0); GFR 25.2; POTASSIUM 4.5 mmol/L (3.5-5.1)
[2021-05-08] MEDS: LACTOBACILLUS RHAMNOSUS GG 1 CAPSULE. PO SCH (08:06)
[2021-05-08] MEDS: MULTIVITAMIN I-VITE TABLET. PO SCH (08:07)
[2021-05-08] MEDS: METOPROLOL SUCC 24HR ER 100 MG TAB.ER.24H. PO SCH (08:07)
[2021-05-08] MEDS ORDERED: FUROSEMIDE 20 MG TABLET PO SCH (09:00)
[2021-05-08] MEDS ORDERED: predniSONE 20 MG TABLET PO SCH (09:45)
[2021-05-08] MEDS ORDERED: TORSEMIDE 20 MG TABLET. PO SCH (09:45)
[2021-05-08] MEDS ORDERED: DOXYCYCLINE HYCLATE 100 MG TABLET PO SCH (09:45)
--- NOTE | 2021-05-08 10:32 | PDOC ---
[facility] PROGRESS NOTE Date of Service DOS: DATE: 05/08/21 TIME: 09:44 Chief Complaint Chief Complaint Acute hypoxic respiratory failure - due to combined CHF/COPD Acute on chronic diastolic CHF - s/p IV Lasix last echo done 2 years ago TAMMY on CKD CAD; s/p PCI/stent x2 03/2018 in [place], [place]. Hypertension - controlled Hyperlipidemia - statin PAFIB: Amiodarone discontinued 06/04 due to liver/pulmonary disease. Iron deficiency anemia H/o cirrhosis, portal hypertension Hypothyroidism: on home replacement Stable RML pulmonary nodule Chronic T11 compression fracture Pending TTE Continue with IV diuresis as needed, will defer this to cardiology Strict I's/O monitor urine output Avoid nephrotoxic agents Resume home meds History of Present Illness History of Present Illness Ms Damon is an 85 yo female who presented to the ER with shortness of breath and orthopnea. This has been occurring for the past few days, but it got worse today. Her oxygen saturation got down to 64%. She is apparently on oxygen at home at 2 L/min. She probably has a history of COPD, used to smoke. Clinically in the ER, she appears to be in heart failure. I discussed the case with ER physician. We are going to admit the patient and consult Cardiology, Pulmonary and give her some IV Lasix, steroids, breathing treatments and oxygen. 05/06: No acute events overnight. Patient seen examined bedside. Patient improved in dyspnea after IV Lasix given. Pedal edema has also improved. Patient's chart, labs, images were reviewed and discussed with RN 05/07: No acute events overnight. Patient seen examined bedside. CT chest yesterday completed showing stable pulmonary nodule. We will continue with IV Lasix diuresis. Pending echocardiogram. Patient's chart, labs, images were reviewed and discussed with RN 05/08: Lost IV access. Still with dyspnea on exertion and swelling. Switching to PO prednisone, doxycycline and torsemide today. Awaiting echocardiogram. She is feeling weak and feels like her questions are not being answered. Advance care planning total time spent [id number] with patient 22 minutes in discussion with goals of care, comfort care, end-of-life care, pain management, CODE STATUS. D/w daughter, Simran, as well. Vitals/I&O Vitals/I&O: Vital Signs Date Time Temp Pulse Resp B/P (MAP) Pulse Ox O2 Delivery O2 Flow Rate FiO2 05/08/21 08:07 118 104/65 05/08/21 08:00 Nasal Cannula 2.0 05/08/21 07:48 98 05/08/21 03:00 97.6 20 97.6 I & O 05/07/21 05/07/21 05/08/21 15:00 23:00 07:00 Intake Total 200 ml 250 ml Output Total 300 ml Balance -100 ml 250 ml Physical Exam General: Alert, Oriented X3, Cooperative Heart: Regular rate Lungs: Clear Abdomen: Normal bowel sounds Extremities: No clubbing Skin: No rashes Labs Labs: Laboratory Tests Test 05/07/21 10:00 05/07/21 10:12 05/08/21 07:06 White Blood Count 4.6 x10^3/uL (4.0-11.0) Red Blood Count 2.61 x10^6/uL (3.50-5.40) Hemoglobin 8.0 g/dL (12.0-15.5) Hematocrit 25.2 % (36.0-47.0) Mean Corpuscular Volume 96 fL (79-100) Mean Corpuscular Hemoglobin 31 pg (25-35) Mean Corpuscular Hemoglobin Concent 32 g/dL (31-37) Red Cell Distribution Width 15.1 % (11.5-14.5) Platelet Count 273 x10^3/uL (140-400) Neutrophils (%) (Auto) 95 % (31-73) Lymphocytes (%) (Auto) 3 % (24-48) Monocytes (%) (Auto) 3 % (0-9) Eosinophils (%) (Auto) 0 % (0-3) Basophils (%) (Auto) 0 % (0-3) Neutrophils # (Auto) 4.3 x10^3/uL (1.8-7.7) Lymphocytes # (Auto) 0.1 x10^3/uL (1.0-4.8) Monocytes # (Auto) 0.1 x10^3/uL (0.0-1.1) Eosinophils # (Auto) 0.0 x10^3/uL (0.0-0.7) Basophils # (Auto) 0.0 x10^3/uL (0.0-0.2) Segmented Neutrophils % 91 % (35-66) Lymphocytes % 7 % (24-48) Monocytes % 2 % (0-10) Platelet Estimate Adequate (ADEQUATE) Sodium Level 138 mmol/L (136-145) 141 mmol/L (136-145) Potassium Level 4.0 mmol/L (3.5-5.1) 4.5 mmol/L (3.5-5.1) Chloride Level 99 mmol/L (98-107) 102 mmol/L (98-107) Carbon Dioxide Level 28 mmol/L (21-32) 29 mmol/L (21-32) Anion Gap 11 (6-14) 10 (6-14) Blood Urea Nitrogen 54 mg/dL (7-20) 65 mg/dL (7-20) Creatinine 2.1 mg/dL (0.6-1.0) 1.9 mg/dL (0.6-1.0) Estimated GFR (Cockcroft-Gault) 22.4 25.2 Glucose Level 269 mg/dL (70-99) 122 mg/dL (70-99) Calcium Level 9.2 mg/dL (8.5-10.1) 9.1 mg/dL (8.5-10.1) Magnesium Level 2.4 mg/dL (1.8-2.4) Ferritin 912 ng/mL (8-252) Coronavirus (COVID-19)(PCR) Not detected (NOT DETECTD) Assessment and Plan Assessmemt and Plan Problems Medical Problems: (1) Anemia Status: Acute (2) CKD (chronic kidney disease) Status: Acute (3) Dyspnea Status: Acute (4) Leg swelling Status: Acute Comment Review of Relevant I have reviewed the following items brittani (where applicable) has been applied. Medications: Current Medications Medications (Trade) Dose Ordered Sig/Therese Route PRN Reason Start Time Stop Time Status Last Admin Dose Admin Famotidine (Pepcid) 20 mg QHS PO 05/07/21 21:00 05/07/21 20:29 Aspirin (Ecotrin) 81 mg DAILYWBKFT PO 05/08/21 08:00 05/08/21 08:06 Furosemide (Lasix) 20 mg DAILY PO 05/08/21 09:00 05/08/21 08:07 Digoxin (Lanoxin) 500 mcg 1X ONCE PO 05/07/21 17:15 05/07/21 17:16 DC 05/07/21 17:20 Justifications for Admission Other Justification SOILA ZHAO MD May 08, 2021 10:32
--- NOTE | 2021-05-08 10:46 | PDOC ---
PULMONARY PROGRESS NOTES DATE: 05/08/21 TIME: 10:45 Subjective Breathing stable at rest but complains of dyspnea with exertion. Remains on nasal cannula. Vitals Vital Signs Date Time Temp Pulse Resp B/P (MAP) Pulse Ox O2 Delivery O2 Flow Rate FiO2 05/08/21 08:07 118 104/65 05/08/21 08:00 Nasal Cannula 2.0 05/08/21 07:48 98 05/08/21 07:00 98.5 16 98.5 General: Alert, No acute distress Lungs: Clear Cardiovascular: S1 Abdomen: Soft Neuro Exam: Alert Extremities: No Edema Skin: Warm Labs Laboratory Tests Test 05/07/21 10:00 05/07/21 10:12 05/08/21 07:06 White Blood Count 4.6 x10^3/uL (4.0-11.0) Red Blood Count 2.61 x10^6/uL (3.50-5.40) Hemoglobin 8.0 g/dL (12.0-15.5) Hematocrit 25.2 % (36.0-47.0) Mean Corpuscular Volume 96 fL (79-100) Mean Corpuscular Hemoglobin 31 pg (25-35) Mean Corpuscular Hemoglobin Concent 32 g/dL (31-37) Red Cell Distribution Width 15.1 % (11.5-14.5) Platelet Count 273 x10^3/uL (140-400) Neutrophils (%) (Auto) 95 % (31-73) Lymphocytes (%) (Auto) 3 % (24-48) Monocytes (%) (Auto) 3 % (0-9) Eosinophils (%) (Auto) 0 % (0-3) Basophils (%) (Auto) 0 % (0-3) Neutrophils # (Auto) 4.3 x10^3/uL (1.8-7.7) Lymphocytes # (Auto) 0.1 x10^3/uL (1.0-4.8) Monocytes # (Auto) 0.1 x10^3/uL (0.0-1.1) Eosinophils # (Auto) 0.0 x10^3/uL (0.0-0.7) Basophils # (Auto) 0.0 x10^3/uL (0.0-0.2) Segmented Neutrophils % 91 % (35-66) Lymphocytes % 7 % (24-48) Monocytes % 2 % (0-10) Platelet Estimate Adequate (ADEQUATE) Sodium Level 138 mmol/L (136-145) 141 mmol/L (136-145) Potassium Level 4.0 mmol/L (3.5-5.1) 4.5 mmol/L (3.5-5.1) Chloride Level 99 mmol/L (98-107) 102 mmol/L (98-107) Carbon Dioxide Level 28 mmol/L (21-32) 29 mmol/L (21-32) Anion Gap 11 (6-14) 10 (6-14) Blood Urea Nitrogen 54 mg/dL (7-20) 65 mg/dL (7-20) Creatinine 2.1 mg/dL (0.6-1.0) 1.9 mg/dL (0.6-1.0) Estimated GFR (Cockcroft-Gault) 22.4 25.2 Glucose Level 269 mg/dL (70-99) 122 mg/dL (70-99) Calcium Level 9.2 mg/dL (8.5-10.1) 9.1 mg/dL (8.5-10.1) Magnesium Level 2.4 mg/dL (1.8-2.4) Ferritin 912 ng/mL (8-252) Coronavirus (COVID-19)(PCR) Not detected (NOT DETECTD) Laboratory Tests Test 05/08/21 07:06 Sodium Level 141 mmol/L (136-145) Potassium Level 4.5 mmol/L (3.5-5.1) Chloride Level 102 mmol/L (98-107) Carbon Dioxide Level 29 mmol/L (21-32) Anion Gap 10 (6-14) Blood Urea Nitrogen 65 mg/dL (7-20) Creatinine 1.9 mg/dL (0.6-1.0) Estimated GFR (Cockcroft-Gault) 25.2 Glucose Level 122 mg/dL (70-99) Calcium Level 9.1 mg/dL (8.5-10.1) Medications Active Scripts Medications Dose Route/Sig Max Daily Dose Days Date Category Ocuvite Lutein 25-5 mg Softgel (Lutein/Zeaxanthin) 1 Each Capsule 1 Cap PO DAILY 30 05/05/21 Reported Iron (Ferrous Sulfate) 325 Mg Tablet 1 Tab PO TID 30 05/05/21 Reported Metoprolol Succinate ( Xl ) (Metoprolol Succinate) 100 Mg Tab.er.24h 1 Tab PO DAILY 05/05/21 Reported Feosol (Ferrous Sulfate) 325 Mg Tablet 325 Mg PO DAILY 30 07/01/18 Rx Potassium Chloride Oral Liquid (Potassium Chloride) 20 Meq/15 Ml Liquid 20 Meq PO TIDWMEALS 06/30/18 Reported Miralax (Polyethylene Glycol 3350) 17 Gm Powd.pack 1 Pkt PO HS 06/29/18 Reported Furosemide 40 Mg Tablet 40 Mg PO BID 06/29/18 Reported Losartan Potassium 50 Mg Tablet 100 Mg PO DAILYBFRLUN 05/25/18 Reported Levothyroxine Sodium 88 Mcg Tablet 1 Tab PO DAILY 05/21/18 Reported Protonix (Pantoprazole Sodium) 20 Mg Tablet.dr 40 Mg PO DAILY 05/21/18 Reported Clopidogrel (Clopidogrel Bisulfate) 75 Mg Tablet 1 Tab PO DAILY 05/21/18 Reported Crestor (Rosuvastatin Calcium) 20 Mg Tablet 20 Mg PO HS PRN 05/21/18 Reported Impression . 1. Acute on chronic hypoxic respiratory failure secondary to suspected diastolic congestive heart failure. Clinically, less likely pneumonia. She has significant increase in lower extremity edema along with bilateral interstitial infiltrates. She did have COVID in February of this year and the possibility of COVID-related residual viral interstitial infiltrates would also be in the differential diagnosis. 2. Anemia with a hemoglobin of 7.5. Could be dilutional. Could also be contributing to dyspnea as well. 3. Underlying chronic obstructive pulmonary disease. She is on home oxygen initially at 2 liters, She smoked for 30 years before quitting 40 years ago. 4. Significant lower extremity edema. Likely congestive heart failure. 5. Acute kidney injury. 6. No significant leukocytosis. 7. The patient also has a history of cirrhosis and portal hypertension. Plan . RECOMMENDATIONS: 1. The patient is status post Lasix. Follow-up chest x-ray is stable with mildly prominent interstitial markings. This could be positional effect. 2. Noncontrast CT chest reviewed. Small basilar effusions. Associated basilar atelectasis. No definite consolidation. 5 mm nodule reported in the right middle lobe. 3. Continue present bronchodilators. 4. Empiric antibiotics, though clinical suspicion for pneumonia is low. 5. Obtain echocardiogram. 6. Continue bronchodilators. 7. Follow Cardiology recommendations. 8. PFTs as an outpatient. 9. The patient has history of CAD and status post stent x2. Await Cardiology recommendation. 10. Workup of anemia per PCP and GI. 11. The patient used to be on amiodarone, which was discontinued in 05/2018 due to liver disease. 12. Discussed with the patient and RN. Would recommend to increase oxygen to 3 L with activity. 6 MIN WALK AT LA KARY PHOENIX MD May 08, 2021 10:46
[2021-05-08 11:00] VITALS: BP 120/47
--- NOTE | 2021-05-08 11:01 | PDOC ---
NAHUN SAENZ WAREHOUSE ORDER PULLER 05/08/21 1101: CARDIO Progress Notes Date and Time Date of Service 05/08/2021 Time of Evaluation 1045 Subjective Subjective: No Chest Pain, No shortness of breath, No Palpitations Vitals Vitals Vital Signs Date Time Temp Pulse Resp B/P (MAP) Pulse Ox O2 Delivery O2 Flow Rate FiO2 05/08/21 08:07 118 104/65 05/08/21 08:00 Nasal Cannula 2.0 05/08/21 07:48 98 05/08/21 07:00 98.5 16 98.5 Weight Weight [ ] Input and Output Intake and Output Intake and Output 05/08/21 07:00 Intake Total 450 ml Output Total 300 ml Balance 150 ml Intake Oral 450 ml Output Urine Total 300 ml # Voids 3 Laboratory Labs Laboratory Tests Test 05/08/21 07:06 Sodium Level 141 mmol/L (136-145) Potassium Level 4.5 mmol/L (3.5-5.1) Chloride Level 102 mmol/L (98-107) Carbon Dioxide Level 29 mmol/L (21-32) Anion Gap 10 (6-14) Blood Urea Nitrogen 65 mg/dL (7-20) Creatinine 1.9 mg/dL (0.6-1.0) Estimated GFR (Cockcroft-Gault) 25.2 Glucose Level 122 mg/dL (70-99) Calcium Level 9.1 mg/dL (8.5-10.1) Physical Exam LUNGS: Other (diminished bases) Heart: irregularly irregular (AFIB) Abdomen: Soft N/T Extremities: Other (2+ bilateral LE pitting edema) Neurology: alert, oriented, follow commands Assessment Assessment 1. Acute on chronic diastolic CHF: appears compensated 2. TAMMY on CKD; CR improved 3. CAD; s/p PCI/stent x2 03/2018 in [place], [place]. Clinically stable. 4. Hypertension; controlled 5. Hyperlipidemia; statin 6. PAFIB: Amiodarone discontinued 06/04 due to liver disease. rate now controlled after digoxin 7. Iron deficiency anemia 8. H/o cirrhosis, portal hypertension 9. Hypothyroidism: on home replacement Recommendations Torsemide therapy TTE. DC plavix. start on ECASA for stroke prevention. Not a NOAC candidate due to anemia and cirrhosis No other options Continue metoprolol for rate control.Hold losartan for now. Start on QOD digoxin and dig level in 2 weeks Secondary prevention Supportive care Possible SNU today. Justicifation of Admission Dx: Justifications for Admission: Justification of Admission Dx: Yes ELENA GOVEA MD 05/08/21 1548: CARDIO Progress Notes Assessment Assessment Patient seen and examined The patient is feeling mildly better today. I agree with our nurse practitioners assessment and plan. Acute on chronic diastolic CHF: compensated TAMMY on CKD; CR improved CAD; s/p PCI/stent x2 03/2018 in [place], [place]. Clinically stable. Aspirin as above. Hypertension; controlled Hyperlipidemia; statin PAFIB: Amiodarone discontinued 06/04 due to liver disease. rate now controlled after digoxin H/o cirrhosis, portal hypertension Hypothyroidism: on home replacement NAHUN SAENZ APRN May 08, 2021 11:01 ELENA GOVEA MD May 08, 2021 15:48
--- NOTE | 2021-05-08 11:04 | NUR ---
[facility] following. Discussed with RN, [facility] never received referral yesterday. [facility] refaxed this morning and also faxed to [email or web address] after speaking with pt's daughter, Simran. Awaiting acceptance decision. [facility] will continue to follow. Addendum: 05/08/21 at 1342 by YOLIS BARNHART Pt accepted at [facility], awaiting discharge orders. Dr. Cabrera, family and RN notified. Addendum: 05/08/21 at 1531 by YOLIS BARNHART Discharge orders faxed, transportation arranged for [phone] by [facility]. Family and RN notified.
[2021-05-08] MEDS: IPRATRPIUM/ALBUTEROL 0.5/2.5MG 3 ML NEBU. NEB SCH ×3 (11:53→15:54)
[2021-05-08] MEDS ORDERED: PERFLUTREN PROTEIN-A MICROSPHR 0.22 MG/ML 3 ML VIAL. IV ONE ×2 (13:29→13:30)
[2021-05-08] MEDS ORDERED: ASPI-886 PO (13:33)
[2021-05-08] MEDS ORDERED: DIGO125T3 PO (13:33)
[2021-05-08] MEDS ORDERED: TORS20TA2 PO (13:33)
[2021-05-08] MEDS ORDERED: IPRA3AMP29 NEB (13:33)
[2021-05-08] MEDS ORDERED: DOXY100T PO (13:33)
[2021-05-08] MEDS ORDERED: ACET325T21 PO (13:33)
[2021-05-08] MEDS ORDERED: PRED20TA PO (13:33)
[2021-05-08] MEDS ORDERED: LACT1CAP19 PO (13:33)
[2021-05-08] MEDS ORDERED: BUDE0.5A3 NEB (13:34)
--- NOTE | 2021-05-08 13:41 | SNU/HH DC ---
DISCHARGE ORDERS DISCHARGE INFORMATION: DISCHARGE DATE: May 08, 2021 FINAL DIAGNOSIS Problems Medical Problems: (1) Anemia Status: Acute (2) CKD (chronic kidney disease) Status: Acute (3) Dyspnea Status: Acute (4) Leg swelling Status: Acute CONDITION ON DISCHARGE: Stable CODE STATUS: Code Status: Full NURSING HOME: SNF STAY <30 DAYS: Yes POST DISCHARGE ORDERS: ACTIVITY ORDERS: Activity as tolerated WEIGHT BEARING STATUS: No restrictions DIET AFTER DISCHARGE: Cardiac WOUND/INCISION CARE: No wound care needed CHECKS AFTER DISCHARGE: CHECKS AFTER DISCHARGE: Check blood press - daily, Check your Temp as needed, Weigh Yourself Daily FOLLOW-UP: LAB ORDERS FOR FOLLOW-UP: BMP, Mg, Digoxin level weekly Qmon Additional Instructions: Call to follow up with cardiology - Dr. Isaac [address] [place], [address] [place] [address] [facility] Doctors: Hussein [address] [place] [address], [address] [place] [address] Pulmonology f/u Cara Fernández, and Zoë [address], [address] [place], [place] [id number] TREATMENT/EQUIPMENT ORDERS: ADAPTIVE EQUIPMENT NEEDED: None RESPIRATORY EQUIPMENT NEEDED: Oxygen (2L/min at rest, 4L/min on exertion) Physical Therapy For: Evalulation/Treatment Occupational Therapy For: Evaluation/Treatment DISCHARGE MEDICATIONS: Home Meds Active Scripts Budesonide (PULMICORT) 0.5 Mg/2 Ml Ampul.neb, 1 VIAL NEB BID for COPD for 30 Days, #60 VIAL 3 Refills Prov:SOILA ZHAO MD 05/08/21 Lactobacillus Rhamnosus Gg (CULTURELLE) 1 Each Cap.sprink, 1 CAP PO BID for GI prophylaxis for 7 Days, #14 CAP Prov:SOILA ZHAO MD 05/08/21 Prednisone (PREDNISONE) 20 Mg Tablet, 20 MG PO DAILY for COPD for 4 Days, #4 TAB Prov:SOILA ZHAO MD 05/08/21 Torsemide (TORSEMIDE) 20 Mg Tablet, 20 MG PO DAILY for CHF for 30 Days, #30 TAB 2 Refills Prov:SOILA ZHAO MD 05/08/21 Acetaminophen (ACETAMINOPHEN) 325 Mg Tablet, 650 MG PO PRN Q6HRS PRN for MILD PAIN / TEMP > 100.3'F for 30 Days, #120 TAB Prov:SOILA ZHAO MD 05/08/21 Aspirin (ASPIRIN EC) 81 Mg Tablet.dr, 81 MG PO DAILYWBKFT for CAD for 30 Days, #30 TAB.SR 11 Refills Prov:SOILA ZHAO MD 05/08/21 Digoxin (DIGOXIN) 125 Mcg Tablet, 125 MCG PO QODAY for Afib for 30 Days, #15 TAB 2 Refills Prov:SOILA ZHAO MD 05/08/21 Ipratropium/Albuterol Sulfate (DUONEB 0.5-3(2.5) MG/3 ML) 3 Ml Ampul.neb, 3 ML NEB RTQID for COPD for 30 Days, #120 EACH 3 Refills Prov:SOILA ZHAO MD 05/08/21 Doxycycline Hyclate (DOXYCYCLINE HYCLATE) 100 Mg Tablet, 100 MG PO BID for COPD for 4 Days, #8 TAB Prov:SOILA ZHAO MD 05/08/21 Ferrous Sulfate (FEOSOL) 325 Mg Tablet, 325 MG PO DAILY for iron deficiency for 30 Days, #30 TAB 11 Refills Prov:HILDA CHAO MD 07/01/18 Reported Medications Lutein/Zeaxanthin (Ocuvite Lutein 25-5 mg Softgel) 1 Each Capsule, 1 CAP PO DAILY for eyes for 30 Days, #30 CAP 0 Refills 05/05/21 Metoprolol Succinate (METOPROLOL SUCCINATE ( XL )) 100 Mg Tab.er.24h, 1 TAB PO DAILY for blood pressure, #30 TAB 5 Refills 05/05/21 Polyethylene Glycol 3350 (MIRALAX) 17 Gm Powd.pack, 1 PKT PO HS for chronic constipation, PKT 06/29/18 Levothyroxine Sodium (LEVOTHYROXINE SODIUM) 88 Mcg Tablet, 1 TAB PO DAILY for hypothyroidism , #30 TAB 5 Refills 05/21/18 Pantoprazole Sodium (PROTONIX) 20 Mg Tablet.dr, 40 MG PO DAILY for GERD, TAB 05/21/18 Rosuvastatin Calcium (CRESTOR) 20 Mg Tablet, 20 MG PO HS PRN for Cholesterol, #30 TAB 0 Refills 05/21/18 Discontinued Reported Medications Ferrous Sulfate (IRON) 325 Mg Tablet, 1 TAB PO TID for anemia for 30 Days, #90 TAB 0 Refills 05/05/21 Potassium Chloride (POTASSIUM CHLORIDE ORAL LIQUID) 20 Meq/15 Ml Liquid, 20 MEQ PO TIDWMEALS for supplement, LIQUID 06/30/18 Furosemide (FUROSEMIDE) 40 Mg Tablet, 40 MG PO BID for chf, TAB 06/29/18 Losartan Potassium (LOSARTAN POTASSIUM) 50 Mg Tablet, 100 MG PO DAILYBFRLUN for HYPERTENSION, TAB 05/25/18 Clopidogrel Bisulfate (CLOPIDOGREL) 75 Mg Tablet, 1 TAB PO DAILY for a fib, #90 TAB 1 Refill 05/21/18 [macuguard supplement] No Conflict Check, 1 TAB PO DAILY 06/29/18 Ondansetron (ONDANSETRON ODT) 4 Mg Tab.rapdis, 8 MG PO TID PRN for NAUSEA/VOMITING, TAB 05/21/18 SOILA ZHAO MD May 08, 2021 13:41
--- NOTE | 2021-05-08 13:46 | PDOC3 ---
Discharge Summary Visit Information Date of Admission: May 05, 2021 Date of Discharge: May 08, 2021 Admitting Diagnosis: Dyspnea on exertion Final Diagnosis Problems Medical Problems: (1) Anemia Status: Acute (2) CKD (chronic kidney disease) Status: Acute (3) Dyspnea Status: Acute (4) Leg swelling Status: Acute Brief Hospital Course Allergies Allergies Coded Allergies Type Severity Reaction Last Updated Verified Sulfa (Sulfonamide Antibiotics) Allergy Severe Rash 05/03/21 Yes fentanyl Allergy Severe 05/05/21 Yes codeine Allergy Unknown 05/05/21 Yes morphine Adverse Reaction Intermediate Nausea and Vomiting 05/06/21 Yes Vital Signs Vital Signs Date Time Temp Pulse Resp B/P (MAP) Pulse Ox O2 Delivery O2 Flow Rate FiO2 05/08/21 11:55 96 Nasal Cannula 2.0 05/08/21 11:00 98.5 111 16 120/47 (71) 98.5 Lab Results Laboratory Tests Test 05/07/21 10:00 05/07/21 10:12 05/08/21 07:06 White Blood Count 4.6 x10^3/uL (4.0-11.0) Red Blood Count 2.61 x10^6/uL (3.50-5.40) Hemoglobin 8.0 g/dL (12.0-15.5) Hematocrit 25.2 % (36.0-47.0) Mean Corpuscular Volume 96 fL (79-100) Mean Corpuscular Hemoglobin 31 pg (25-35) Mean Corpuscular Hemoglobin Concent 32 g/dL (31-37) Red Cell Distribution Width 15.1 % (11.5-14.5) Platelet Count 273 x10^3/uL (140-400) Neutrophils (%) (Auto) 95 % (31-73) Lymphocytes (%) (Auto) 3 % (24-48) Monocytes (%) (Auto) 3 % (0-9) Eosinophils (%) (Auto) 0 % (0-3) Basophils (%) (Auto) 0 % (0-3) Neutrophils # (Auto) 4.3 x10^3/uL (1.8-7.7) Lymphocytes # (Auto) 0.1 x10^3/uL (1.0-4.8) Monocytes # (Auto) 0.1 x10^3/uL (0.0-1.1) Eosinophils # (Auto) 0.0 x10^3/uL (0.0-0.7) Basophils # (Auto) 0.0 x10^3/uL (0.0-0.2) Segmented Neutrophils % 91 % (35-66) Lymphocytes % 7 % (24-48) Monocytes % 2 % (0-10) Platelet Estimate Adequate (ADEQUATE) Sodium Level 138 mmol/L (136-145) 141 mmol/L (136-145) Potassium Level 4.0 mmol/L (3.5-5.1) 4.5 mmol/L (3.5-5.1) Chloride Level 99 mmol/L (98-107) 102 mmol/L (98-107) Carbon Dioxide Level 28 mmol/L (21-32) 29 mmol/L (21-32) Anion Gap 11 (6-14) 10 (6-14) Blood Urea Nitrogen 54 mg/dL (7-20) 65 mg/dL (7-20) Creatinine 2.1 mg/dL (0.6-1.0) 1.9 mg/dL (0.6-1.0) Estimated GFR (Cockcroft-Gault) 22.4 25.2 Glucose Level 269 mg/dL (70-99) 122 mg/dL (70-99) Calcium Level 9.2 mg/dL (8.5-10.1) 9.1 mg/dL (8.5-10.1) Magnesium Level 2.4 mg/dL (1.8-2.4) Ferritin 912 ng/mL (8-252) Coronavirus (COVID-19)(PCR) Not detected (NOT DETECTD) Laboratory Tests Test 05/08/21 07:06 Sodium Level 141 mmol/L (136-145) Potassium Level 4.5 mmol/L (3.5-5.1) Chloride Level 102 mmol/L (98-107) Carbon Dioxide Level 29 mmol/L (21-32) Anion Gap 10 (6-14) Blood Urea Nitrogen 65 mg/dL (7-20) Creatinine 1.9 mg/dL (0.6-1.0) Estimated GFR (Cockcroft-Gault) 25.2 Glucose Level 122 mg/dL (70-99) Calcium Level 9.1 mg/dL (8.5-10.1) Brief Hospital Course Ms Damon is an 85 yo female who presented to the ER with shortness of breath and orthopnea. This has been occurring for the past few days, but it got worse today. Her oxygen saturation got down to 64%. She is apparently on oxygen at home at 2 L/min. She probably has a history of COPD, used to smoke. Clinically i n the ER, she appears to be in heart failure. I discussed the case with ER physician. We are going to admit the patient and consult Cardiology, Pulmonary and give her some IV Lasix, steroids, breathing treatments and oxygen. 05/06: No acute events overnight. Patient seen examined bedside. Patient improved in dyspnea after IV Lasix given. Pedal edema has also improved. Patient's chart, labs, images were reviewed and discussed with RN 05/07: No acute events overnight. Patient seen examined bedside. CT chest yesterday completed showing stable pulmonary nodule. We will continue with IV Lasix diuresis. Pending echocardiogram. Patient's chart, labs, images were reviewed and discussed with RN 05/08: Lost IV access. Still with dyspnea on exertion and swelling. Switching to PO prednisone, doxycycline and torsemide today. Awaiting echocardiogram. She is feeling weak and feels like her questions are not being answered. Discussed with her pulmonology and cardiology will switch to torsemide and change O2 to 2 L/min at rest and 4 L/min on exertion and overall we will start looking into palliative care options given the progression of her CHF and renal disease. Started on digoxin 125 mcg every other day will need level checked soon given her chronic renal insufficiency. Advance care planning total time spent [id number] with patient 22 minutes in discussion with goals of care, comfort care, end-of-life care, pain management, CODE STATUS. D/w daughter, Simran, as well. Problem list: Acute hypoxic respiratory failure - due to combined CHF/COPD Acute on chronic diastolic CHF - s/p IV Lasix last echo done 2 years ago TAMMY on CKD CAD; s/p PCI/stent x2 03/2018 in [place], [place]. Hypertension - controlled Hyperlipidemia - statin PAFIB: Amiodarone discontinued 06/04 due to liver/pulmonary disease. Iron deficiency anemia H/o cirrhosis, portal hypertension Hypothyroidism: on home replacement Stable RML pulmonary nodule Chronic T11 compression fracture Consults: Cardiology, Pulmonology Greater than 30 minutes spent on d/c to SNF Discharge Information Condition at Discharge: Improved Follow Up: Weeks (1) Disposition/Orders: D/C to Another Facility Scheduled Aspirin (Aspirin Ec) 81 Mg Tablet.dr, 81 MG PO DAILYWBKFT for CAD for 30 Days, #30 Ref 11 Prescribed by: SOILA ZHAO MD on 05/08/21 1333 Budesonide (Pulmicort) 0.5 Mg/2 Ml Ampul.neb, 1 VIAL NEB BID for COPD for 30 Days, #60 Ref 3 Prescribed by: SOILA ZHAO MD on 05/08/21 1334 Digoxin (Digoxin) 125 Mcg Tablet, 125 MCG PO QODAY for Afib for 30 Days, #15 Ref 2 Prescribed by: SOILA ZHAO MD on 05/08/21 1333 Doxycycline Hyclate (Doxycycline Hyclate) 100 Mg Tablet, 100 MG PO BID for COPD for 4 Days, #8 Prescribed by: SOILA ZHAO MD on 05/08/21 1333 Ferrous Sulfate (Feosol) 325 Mg Tablet, 325 MG PO DAILY for iron deficiency for 30 Days, #30 Ref 11 Prescribed by: HILDA CHAO MD on 07/01/18 1645 Ipratropium/Albuterol Sulfate (Duoneb 0.5-3(2.5) Mg/3 Ml) 3 Ml Ampul.neb, 3 ML NEB RTQID for COPD for 30 Days, #120 Ref 3 Prescribed by: SOILA ZHAO MD on 05/08/21 1333 Lactobacillus Rhamnosus Gg (Culturelle) 1 Each Cap.sprink, 1 CAP PO BID for GI prophylaxis for 7 Days, #14 Prescribed by: SOILA ZHAO MD on 05/08/21 1333 Levothyroxine Sodium (Levothyroxine Sodium) 88 Mcg Tablet, 1 TAB PO DAILY for hypothyroidism , #30 Ref 5 (Reported) Entered as Reported by: MOE WESLEY on 05/21/18 1511 Last Action: Continued on 05/06/21 0854 by LEANNE GONZALEZ APRN Lutein/Zeaxanthin (Ocuvite Lutein 25-5 mg Softgel) 1 Each Capsule, 1 CAP PO DAILY for eyes for 30 Days, #30 Ref 0 (Reported) Entered as Reported by: CORY KASPER on 3/20/22 1832 Last Taken: Unknown Dose on Unknown Date & Time Last Action: Converted on 05/06/21853 by LEANNE GONZALEZ APRN Metoprolol Succinate (Metoprolol Succinate ( Xl )) 100 Mg Tab.er.24h, 1 TAB PO DAILY for blood pressure, #30 Ref 5 (Reported) Entered as Reported by: CORY KASPER on 05/05/211831 Last Taken: Unknown Dose on Unknown Date & Time Last Action: Continued on 05/06/21853 by LEANNE GONZALEZ APRN Pantoprazole Sodium (Protonix) 20 Mg Tablet.dr, 40 MG PO DAILY for GERD, (Reported) Entered as Reported by: MOE WESLEY on 05/21/18 151 Last Action: Converted on 05/06/21853 by LEANNE GONZALEZ APRN Polyethylene Glycol 3350 (Miralax) 17 Gm Powd.pack, 1 PKT PO HS for chronic constipation, (Reported) Entered as Reported by: SHOBHA CALLE on 06/29/182030 Last Action: Continued on 05/06/21853 by LEANNE GONZALEZ APRN Prednisone (Prednisone) 20 Mg Tablet, 20 MG PO DAILY for COPD for 4 Days, #4 Prescribed by: SOILA ZHAO MD on 05/08/21 1333 Torsemide (Torsemide) 20 Mg Tablet, 20 MG PO DAILY for CHF for 30 Days, #30 Ref 2 Prescribed by: SOILA ZHAO MD on 05/08/21 1333 Scheduled PRN Acetaminophen (Acetaminophen) 325 Mg Tablet, 650 MG PO PRN Q6HRS PRN for MILD PAIN / TEMP > 100.3'F for 30 Days, #120 Prescribed by: SOILA ZHAO MD on 05/08/21 1333 Rosuvastatin Calcium (Crestor) 20 Mg Tablet, 20 MG PO HS PRN for Cholesterol, #30 Ref 0 (Reported) Entered as Reported by: MOE WESLEY on 05/21/181502 Last Action: Converted on 05/06/21853 by LEANNE GONZALEZ APRN Discontinued Medications Clopidogrel Bisulfate (Clopidogrel) 75 Mg Tablet, 1 TAB PO DAILY for a fib, #90 Ref 1 (Reported) Entered as Reported by: MOE WESLEY on 05/21/181502 Last Action: Continued on 05/06/2154 by LEANNE GONZALEZ APRN Ferrous Sulfate (Iron) 325 Mg Tablet, 1 TAB PO TID for anemia for 30 Days, #90 Ref 0 (Reported) Entered as Reported by: CORY KASPER on 05/05/211831 Last Taken: Unknown Dose on Unknown Date & Time Last Action: Reviewed on 05/06/21751 by DEMIAN CONTRERAS RN Furosemide (Furosemide) 40 Mg Tablet, 40 MG PO BID for chf, (Reported) Entered as Reported by: SHOBHA CALLE on 06/29/182017 Last Action: Reviewed on 05/06/21751 by DEMIAN CONTRERAS RN Losartan Potassium (Losartan Potassium) 50 Mg Tablet, 100 MG PO DAILYBFRLUN for HYPERTENSION, (Reported) Entered as Reported by: NAVID SEGOVIA on 05/25/18 173 Last Action: Continued on 05/06/21853 by LEANNE GONZALEZ APRN Ondansetron (Ondansetron Odt) 4 Mg Tab.rapdis, 8 MG PO TID PRN for NAUSEA/VOMITING, (Reported) Entered as Reported by: MOE WESLEY on 05/21/181502 Last Action: Discontinued on 05/05/211831 by CORY KASPER Potassium Chloride (Potassium Chloride Oral Liquid) 20 Meq/15 Ml Liquid, 20 MEQ PO TIDWMEALS for supplement, (Reported) Entered as Reported by: SHOBHA CALLE on 06/30/18 0635 Last Action: Converted on 05/06/21853 by LEANNE GONZALEZ APRN [macuguard supplement] , 1 TAB PO DAILY, (Reported) Entered as Reported by: SHOBHA CALLE on 06/29/182017 Last Action: Discontinued on 05/05/211831 by CORY KASPER Justicifation of Admission Dx: Justifications for Admission: Justification of Admission Dx: Yes SOILA ZHAO MD May 08, 2021 13:46
[2021-05-08 15:00] VITALS: BP 103/42
[2021-05-08] MEDS: ENOXAPARIN 30 MG/0.3 ML SYRINGE. SQ SCH (15:00)
--- NOTE | 2021-05-08 17:08 | CARD ---
MR#: [id number] Date of Study: 05/08/2021 Ordering Physician: NAHUN SAENZ, Referring Physician: NAHUN SAENZ Tech: Madhuri Choi [facility] APPROVED REPORT EXAM: Two-dimensional and M-mode echocardiogram with Doppler and color Doppler. Other Information Quality : Technically LimitedHR: 82bpm Rhythm : NSR INDICATION Congestive Heart Failure RISK FACTORS Hypertension Obesity Hyperlipidemia Diabetes 2D DIMENSIONS Left Atrium(2D)4.2 (1.6-4.0cm)IVSd1.2 (0.7-1.1cm) Aortic Root(2D)2.8 (2.0-3.7cm)LVDd4.8 (3.9-5.9cm) LVOT Diameter2.0 (1.8-2.4cm)PWd1.1 (0.7-1.1cm) LVDs3.5 (2.5-4.0cm)FS (%) 28.0 % SV59.4 ml Aortic Valve AoV Peak Jonah.149.3cm/sAoV VTI28.5cm AO Peak GR.8.9mmHgLVOT Peak Jonah.84.5cm/s AO Mean GR.4mmHgAVA (VMAX)1.70cm2 Pulmonary Valve PV Peak Duhzteiw520.1cm/s Tricuspid Valve TR P. Edkhqmgc721bo/sTR Peak Gr.54mmHg LEFT VENTRICLE The left ventricle is normal size. There is mild concentric left ventricular hypertrophy. The left ve ntricular systolic function is normal and the ejection fraction is within normal range. LV ejection f raction of 55 to 60%. There is normal LV segmental wall motion. RIGHT VENTRICLE The right ventricle is normal size. There is normal right ventricular wall thickness. The right ventr icular systolic function is normal. ATRIA The left atrium size is normal. The right atrium size is normal. The interatrial septum is intact wit h no evidence for an atrial septal defect or patent foramen ovale as noted on 2-D or Doppler imaging. AORTIC VALVE The aortic valve is normal in structure and function. Doppler and Color Flow revealed no significant aortic regurgitation. There is no significant aortic valvular stenosis. MITRAL VALVE The mitral valve is normal in structure and function. There is no evidence of mitral valve prolapse. There is no mitral valve stenosis. Doppler and Color-flow revealed mild mitral regurgitation. TRICUSPID VALVE The tricuspid valve is normal in structure and function. Doppler and Color Flow revealed moderate tri cuspid regurgitation. Estimated PAP 50-55 mmHg. There is no tricuspid valve stenosis. PULMONIC VALVE The pulmonary valve is normal in structure and function. Doppler and Color Flow revealed no pulmonic valvular regurgitation. GREAT VESSELS The aortic root is normal in size. The ascending aorta is normal in size. The IVC is dilated and mcihael apses <50% with inspiration. PERICARDIAL EFFUSION There is no evidence of significant pericardial effusion. Critical Notification Critical Value: No <Conclusion> The left ventricle is normal size. The left ventricular systolic function is normal and the ejection fraction is within normal range. LV ejection fraction of 55 to 60%. There is normal LV segmental wall motion. There is mild concentric left ventricular hypertrophy. Doppler and Color Flow revealed no significant aortic regurgitation. There is no significant aortic valvular stenosis. Doppler and Color-flow revealed mild mitral regurgitation. Doppler and Color Flow revealed moderate tricuspid regurgitation. Estimated PAP 50-55 mmHg. Signed by : Emiliano French MD Electronically Approved : 05/08/2021 17:08:49
--- NOTE | 2021-05-08 17:53 | NUR ---
Discharge Note: PT DISCHARGED TO [facility]. PT LEFT FACILITY VIA [facility]. PT STABLE AND ALERT UPON DISCHARGE. PT HAD NO IV ACCESS TO REMOVE, TELE BOX REMOVED. REPORT CALLED TO GARCIA AT 1715. EDUCATED ABOUT DISCHARGE INSTRUCTIONS, DISCHARGE MEDICATIONS, AND FOLLOW-UP CARE INSTRUCTIONS, NO CONCERNS VOICED AT THIS TIME. PT LEFT WITH ALL PERSONAL BELONGINGS. GABY JHA Discharge instructions and discharge home medications reviewed with Patient and a copy given. All questions have been answered and understanding verbalized.
[2021-05-09] MEDS ORDERED: DIGOXIN 125 MCG TABLET. PO SCH (09:00)
== END 2021-05-08 17:50 | DRG 291 ==
LOC: ER 12:36 → 5 NORTH 14:49
PROVIDERS: ADMIT Internal Medicine; ATTEND Internal Medicine
DX: I13.0 Hypertensive heart and chronic kidney disease with heart failure and stage 1 through stage 4 chronic kidney disease, or unspecified chronic kidney disease (principal); J18.9 Pneumonia, unspecified organism; I50.33 Acute on chronic diastolic (congestive) heart failure; J96.21 Acute and chronic respiratory failure with hypoxia; N17.9 Acute kidney failure, unspecified; K76.6 Portal hypertension; M48.54XA Collapsed vertebra, not elsewhere classified, thoracic region, initial encounter for fracture; J98.11 Atelectasis; Z20.822 Contact with and (suspected) exposure to COVID-19; D50.9 Iron deficiency anemia, unspecified; E03.9 Hypothyroidism, unspecified; E78.5 Hyperlipidemia, unspecified; I25.10 Atherosclerotic heart disease of native coronary artery without angina pectoris; I48.0 Paroxysmal atrial fibrillation; J44.9 Chronic obstructive pulmonary disease, unspecified; K74.60 Unspecified cirrhosis of liver; K21.9 Gastro-esophageal reflux disease without esophagitis; M19.90 Unspecified osteoarthritis, unspecified site; R91.1 Solitary pulmonary nodule; N18.9 Chronic kidney disease, unspecified; Z82.49 Family history of ischemic heart disease and other diseases of the circulatory system; Z83.3 Family history of diabetes mellitus; Z86.16 Personal history of COVID-19; Z87.891 Personal history of nicotine dependence; Z90.49 Acquired absence of other specified parts of digestive tract; Z90.710 Acquired absence of both cervix and uterus; Z95.5 Presence of coronary angioplasty implant and graft; Z79.899 Other long term (current) drug therapy; Z88.5 Allergy status to narcotic agent; Z88.2 Allergy status to sulfonamides
CPT/HCPCS: 36415; 36600; 71045; 71250; 80048; 80053; 82550; 82728; 82805; 83735; 83880; 84484; 85007; 85014; 85018; 85025; 93005; 93306; 93970; 94640; 94760; 96374; J0696; J1650; J1940; J2920; J7512; U0003; 97110-GP; 97116-GP; 97530-GP; 97535-GO; 99285-25; C8929; G0378

== ENCOUNTER 2021-05-22 19:48 | Inpatient (IN) | payer MEDICARE ==
[~2021-05-22] VITALS: Ht 157.5 cm; Wt 84.5 kg
[~2021-05-22 19:48] MED LIST changes: +ACET325T21 PO; +ASPI-886 PO; +BUDE0.5A3 NEB; +DIGO125T3 PO; +DOXY100T PO; +FERR-36 PO; +IPRA3AMP29 NEB; +LACT1CAP19 PO; +LUTE1CAP5 PO; +METO-247 PO; +PRED20TA PO; +TORS20TA2 PO
[2021-05-22] MEDS ORDERED: methylPREDNISolone SOD SUCC PF 125 MG/2 ML VIAL. IV ONE (20:15)
[2021-05-22] MEDS ORDERED: IPRATRPIUM/ALBUTEROL 0.5/2.5MG 3 ML NEBU. NEB ONE (20:15)
[2021-05-22] MEDS ORDERED: FUROSEMIDE 40 MG/4 ML VIAL. IVP ONE (20:15)
[2021-05-22] MEDS: ACETAMINOPHEN 500 MG TABLET PO ONE ×2 (20:22→20:51)
[2021-05-22] MEDS ORDERED: ONDANSETRON PF 4 MG/2 ML VIAL. IVP ONE (20:30)
[2021-05-22 20:32] LABS: BASO # 0.1 x10^3/uL (0.0-0.2); BASO % 0 % (0-3); EOS % 0 % (0-3); HEMATOCRIT 26.3 % (36.0-47.0); HEMOGLOBIN 8.5 g/dL (12.0-15.5); LYMPH # 0.4 x10^3/uL (1.0-4.8); LYMPH % 3 % (24-48); MEAN CORPUSCULAR HEMOGLOBIN 31 pg (25-35); MEAN CORPUSCULAR HGB CONC 32 g/dL (31-37); MEAN CORPUSCULAR VOLUME 95 fL (79-100); MONO # 0.7 x10^3/uL (0.0-1.1); MONO % 5 % (0-9); NEUT % 91 % (31-73); PLATELET COUNT 219 x10^3/uL (140-400); RED BLOOD COUNT 2.78 x10^6/uL (3.50-5.40); RED CELL DISTRIBUTION WIDTH 16.7 % (11.5-14.5); WHITE BLOOD COUNT 13.2 x10^3/uL (4.0-11.0)
[2021-05-22 20:38] LABS: BACTERIA,URINE 0 /HPF (0-FEW); RBC,URINE 0 /HPF (0-2)
[2021-05-22 20:41] LABS: PROTHROMBIN TIME PATIENT 15.1 SEC (11.7-14.0)
[2021-05-22 20:44] LABS: CALCIUM 9.4 mg/dL (8.5-10.1); CREATININE 1.4 mg/dL (0.6-1.0)
[2021-05-22 20:45] LABS: GFR 35.8
[2021-05-22 20:50] LABS: ALBUMIN 3.7 g/dL (3.4-5.0); ALBUMIN/GLOBULIN RATIO 1.1 (1.0-1.7); TOTAL BILIRUBIN 1.3 mg/dL (0.2-1.0)
--- NOTE | 2021-05-22 20:52 | RAD ---
Study: XR CHEST 1V Indication: Shortness of air. Comparison: 05/07/2021 Findings: Persistence of small bilateral pleural effusions with overlying volume loss. Emphysematous changes. I ncreased lung markings and scattered reticular densities similar to the prior. No newly seen lobar co nsolidation. No pneumothorax. Unchanged morphology of the cardiomediastinal silhouette and jackie. Aortic calcific atherosclerosis. Osteopenia. Previous compression fracture augmentation. Impression: There are again findings of pulmonary edema superimposed on emphysema. Small bilateral pleural effusi ons. No lobar consolidation to indicate a superimposed organizing pneumonia. Electronically signed by: LORELEI FERGUSON MD (05/22/2021 8:49 PM) [facility]
--- NOTE | 2021-05-22 21:40 | RAD ---
STUDY: CT head without contrast INDICATION: Headache. COMPARISON: Brain MRI from 03/07/2019 TECHNIQUE: Axial CT imaging through the head without the use of intravenous contrast. Sagittal and co bianca reformats were obtained. One or more of the following individualized dose reduction techniques were utilized for this examinat ion: 1. Automated exposure control 2. Adjustment of the mA and/or kV according to patient size 3. Use of iterative reconstruction technique. FINDINGS: No acute intracranial hemorrhage. Maintained lomeli-white matter interface. No localized mass effect, m idline shift or hydrocephalus. Frontotemporal predominant volume loss. Intracranial calcific atherosclerosis. White matter findings typical of relatively mild chronic microvascular ischemic change. Intact calvarium. Unremarkable mastoid air cells and visualized paranasal sinuses with only minimal a nterior ethmoidal air cell opacification on the right. IMPRESSION: 1. No acute intracranial abnormality by CT. 2. Chronic/senescent observations discussed above. Electronically signed by: LORELEI FERGUSON MD (05/22/2021 9:38 PM) [facility]
[2021-05-22] MEDS ORDERED: AZITHROMYCIN 500 MG in IV NORMAL SALINE 250ML 250 ML IV ONE (22:00)
--- NOTE | 2021-05-22 22:54 | PHYS DOC ---
Past Medical History Past Medical History: A-Fib, CAD, CHF, GERD, Hypertension, Hypothyroid Past Surgical History: No Surgical History Additional Past Surgical Histo: caratodidectomy; cardiac stent Smoking Status: Never Smoker Alcohol Use: None Drug Use: None Adult General Chief Complaint Chief Complaint: SHORTNESS OF BREATH HPI HPI The patient is an 85-year-old female with a history of hypertension, hyperlipidemia, coronary artery disease status post stenting x2 in [facility], diastolic heart failure on daily loop diuretic, probable COPD with a long tobacco use history. Ms. Damon was admitted to this facility about 2 weeks ago for what was felt to be a heart failure and COPD exacerbation. She was diuresed, felt better and discharged to rehab. Ultimately she went home. Ms. Damon presents for evaluation of dyspnea with minimal exertion, orthopnea and paroxysmal nocturnal dyspnea, all with onset over the past 2 days. She denies any other focal or specific symptoms and specifically denies fevers, nausea or vomiting, upper respiratory congestion/rhinorrhea, cough, sore throat, chest pain of any kind, abdominal pain of any kind, flank pain, midline back p ain, dysuria, hematuria, polyuria or oliguria, changes in bowel habits, new or different pain or swelling to arms or legs (she notes some symmetric peripheral edema to the distal legs which is not worse than usual today). Patient secondarily notes a gradual onset generalized headache which has been present for the same amount of time as her respiratory symptoms. Vital signs are appropriate here and the patient's typical home oxygen and she is in no acute distress. Review of Systems Review of Systems A 12 point review of systems was completed and was negative except where noted in HPI above. Current Medications Current Medications Current Medications Medications (Trade) Dose Ordered Sig/Therese Start Time Stop Time Status Last Admin Dose Admin Acetaminophen (Tylenol) 1,000 mg 1X ONCE 05/22/21 20:15 05/22/21 20:17 DC 05/22/21 20:51 1,000 MG Albuterol/ Ipratropium (Duoneb) 3 ml 1X ONCE 05/22/21 20:15 05/22/21 20:17 DC 05/22/21 22:11 3 ML Azithromycin 500 mg/Sodium Chloride 250 ml @ 250 mls/hr 1X ONCE 05/22/21 22:00 05/22/21 22:59 05/22/21 20:52 250 MLS/HR Furosemide (Lasix) 40 mg 1X ONCE 05/22/21 20:15 05/22/21 20:17 DC 05/22/21 20:22 40 MG Methylprednisolone Sodium Succinate (SOLU-Medrol 125MG VIAL) 125 mg 1X ONCE 05/22/21 20:15 05/22/21 20:17 DC 05/22/21 20:22 125 MG Ondansetron HCl (Zofran) 4 mg 1X ONCE 05/22/21 20:30 05/22/21 20:31 DC 05/22/21 20:45 4 MG Allergies Allergies Allergies Coded Allergies Type Severity Reaction Last Updated Verified Sulfa (Sulfonamide Antibiotics) Allergy Severe Rash 05/22/21 Yes fentanyl Allergy Severe 05/22/21 Yes codeine Allergy Intermediate 05/22/21 Yes morphine Adverse Reaction Intermediate Nausea and Vomiting 05/22/21 Yes Physical Exam Physical Exam 85-year-old female appearing nontoxic and in no acute distress. Head is normocephalic and atraumatic. Neck is supple and nontender. Oropharynx is moist. Lungs with diminished breath sounds with faint crackles at the bilateral bases and soft wheezes to all servin. There is a normal S1 and S2 without rubs or gallops and capillary refill is appropriate, less than 2 seconds globally. Abdomen is soft, nontender and nondistended. Skin is warm and dry without cyanosis or clubbing. Psychiatrically, the patient demonstrates appropriate mood and affect and is alert. Evaluation of the extremities reveals BUEs and BLEs neurovascularly intact distally with strength out of 5, sensation intact light touch in all nerve distributions, radial, DP and PT pulses 2+ equal bilaterally, capillary refill less than 2 seconds, hands and feet warm and well-perfused. 2+ dependent pitting peripheral edema below the level of the knees bilaterally, symmetric. No calf tenderness or swelling bilaterally. Homans test is negative bilaterally. Current Patient Data Vital Signs Vital Signs Date Time Temp Pulse Resp B/P (MAP) Pulse Ox O2 Delivery O2 Flow Rate FiO2 05/22/21 22:09 92 Nasal Cannula 3.0 05/22/21 20:00 90 30 177/92 (120) Lab Values Laboratory Tests Test 05/22/21 19:55 05/22/21 20:05 05/22/21 20:09 Urine Collection Type Unknown Urine Color (Auto) Light yellow Urine Turbidity Clear Urine pH (Auto) 5.5 (<5.0-8.0) Urine Specific [place] 1.013 (1.000-1.030) Urine Protein (Auto) Negative mg/dL (Negative) Urine Glucose (Auto)(UA) Negative mg/dL (Negative) Urine Ketones (Auto) Negative mg/dL (Negative) Urine Blood (Auto) Negative (Negative) Urine Nitrite Negative (Negative) Urine Bilirubin (Auto) Negative (Negative) Urine Urobilinogen (Auto) Normal mg/dL (Normal) Urine Leukocyte Esterase (Auto) Moderate (Negative) Urine RBC 0 /HPF (0-2) Urine WBC 11-20 /HPF (0-4) Urine Squamous Epithelial Cells Few /LPF Urine Bacteria 0 /HPF (0-FEW) Sodium Level 142 mmol/L (136-145) Potassium Level 4.0 mmol/L (3.5-5.1) Chloride Level 102 mmol/L (98-107) Carbon Dioxide Level 28 mmol/L (21-32) Anion Gap 12 (6-14) Blood Urea Nitrogen 37 mg/dL (7-20) H Creatinine 1.4 mg/dL (0.6-1.0) H Estimated GFR (Cockcroft-Gault) 35.8 BUN/Creatinine Ratio 26 (6-20) H Glucose Level 128 mg/dL (70-99) H Lactic Acid Level 1.6 mmol/L (0.4-2.0) Calcium Level 9.4 mg/dL (8.5-10.1) Total Bilirubin 1.3 mg/dL (0.2-1.0) H Aspartate Amino Transferase (AST) 17 U/L (15-37) Alanine Aminotransferase (ALT) 15 U/L (14-59) Alkaline Phosphatase 82 U/L (46-116) Troponin I High Sensitivity 41 ng/L (4-50) XD-Kds-S-Type Natriuretic Peptide 8009 pg/mL (0-449) H Total Protein 7.0 g/dL (6.4-8.2) Albumin 3.7 g/dL (3.4-5.0) Albumin/Globulin Ratio 1.1 (1.0-1.7) Procalcitonin < 0.10 ng/mL (0.00-0.10) White Blood Count 13.2 x10^3/uL (4.0-11.0) H Red Blood Count 2.78 x10^6/uL (3.50-5.40) L Hemoglobin 8.5 g/dL (12.0-15.5) L Hematocrit 26.3 % (36.0-47.0) L Mean Corpuscular Volume 95 fL (79-100) Mean Corpuscular Hemoglobin 31 pg (25-35) Mean Corpuscular Hemoglobin Concent 32 g/dL (31-37) Red Cell Distribution Width 16.7 % (11.5-14.5) H Platelet Count 219 x10^3/uL (140-400) Neutrophils (%) (Auto) 91 % (31-73) H Lymphocytes (%) (Auto) 3 % (24-48) L Monocytes (%) (Auto) 5 % (0-9) Eosinophils (%) (Auto) 0 % (0-3) Basophils (%) (Auto) 0 % (0-3) Neutrophils # (Auto) 12.0 x10^3/uL (1.8-7.7) H Lymphocytes # (Auto) 0.4 x10^3/uL (1.0-4.8) L Monocytes # (Auto) 0.7 x10^3/uL (0.0-1.1) Eosinophils # (Auto) 0.0 x10^3/uL (0.0-0.7) Basophils # (Auto) 0.1 x10^3/uL (0.0-0.2) Prothrombin Time 15.1 SEC (11.7-14.0) H Prothrombin Time INR 1.2 (0.8-1.1) H Activated Partial Thromboplast Time 37 SEC (24-38) Laboratory Tests 05/22/21 20:09 Laboratory Tests 05/22/21 20:05 EKG EKG Sinus rhythm, rate 100, no acute ST elevation or depression, NC 194, QRS 82, QTc 517, EP interpretation. Nonischemic tracing, prolonged QT. Radiology/Procedures Radiology/Procedures STUDY: CT head without contrast INDICATION: Headache. COMPARISON: Brain MRI from 03/07/2019 TECHNIQUE: Axial CT imaging through the head without the use of intravenous contrast. Sagittal and coronal reformats were obtained. One or more of the following individualized dose reduction techniques were utilized for this examination: 1. Automated exposure control 2. Adjustment of the mA and/or kV according to patient size 3. Use of iterative reconstruction technique. FINDINGS: No acute intracranial hemorrhage. Maintained lomeli-white matter interface. No localized mass effect, midline shift or hydrocephalus. Frontotemporal predominant volume loss. Intracranial calcific atherosclerosis. White matter findings typical of relatively mild chronic microvascular ischemic change. Intact calvarium. Unremarkable mastoid air cells and visualized paranasal sinuses with only minimal anterior ethmoidal air cell opacification on the right. IMPRESSION: 1. No acute intracranial abnormality by CT. 2. Chronic/senescent observations discussed above. Electronically signed by: LORELEI FERGUSON MD (05/22/2021 9:38 PM) [facility] DICTATED and SIGNED BY: LORELEI FERGUSON MD DATE: 05/22/212135 Study: XR CHEST 1V Indication: Shortness of air. Comparison: 05/07/2021 Findings: Persistence of small bilateral pleural effusions with overlying volume loss. Emphysematous changes. Increased lung markings and scattered reticular densities similar to the prior. No newly seen lobar consolidation. No pneumothorax. Unchanged morphology of the cardiomediastinal silhouette and jackie. Aortic calcific atherosclerosis. Osteopenia. Previous compression fracture augmentation. Impression: There are again findings of pulmonary edema superimposed on emphysema. Small bilateral pleural effusions. No lobar consolidation to indicate a superimposed organizing pneumonia. Electronically signed by: LORELEI FERGUSON MD (05/22/2021 8:49 PM) [facility] DICTATED and SIGNED BY: LORELEI FERGUSON MD DATE: 05/22/212042 Course & Med Decision Making Course & Med Decision Making Work-up as above, remarkable for evidence of recurrent congestive failure with fluid overload on plain films of the chest and elevated BNP. Patient has been diuresed with IV Lasix, has received empiric Rocephin and azithromycin after cultures to cover for infectious possibilities (though lower suspicion), and has received bronchodilators and steroids to address likely superimposed COPD exacerbation. She is resting comfortably in no acute distress. She is graciously accepted for further inpatient care by Dr. Pagan. Critical care time today was 37 minutes for acute hypoxemic respiratory failure. Dragon Disclaimer Dragon Disclaimer This electronic medical record was generated, in whole or in part, using a voice recognition dictation system. Departure Departure Impression: Primary Impression: Acute on chronic respiratory failure with hypoxemia Additional Impressions: Acute exacerbation of congestive heart failure COPD with exacerbation Disposition: ADMITTED INPATIENT Condition: GUARDED Referrals: LIZ LAMBERT (PCP) Problem Qualifiers Additional Impressions: Acute exacerbation of congestive heart failure Heart failure type: diastolic Qualified Codes: I50.33 - Acute on chronic diastolic (congestive) heart failure ANTONIO MORRIS MD May 22, 2021 22:54
[2021-05-22] MEDS ORDERED: ACETAMINOPHEN 325 MG TABLET. PO PRN (23:00)
[2021-05-22 23:30] VITALS: BP 164/57
[2021-05-23] VITALS (10 sets, daily range): BP systolic 84–148; BP diastolic 38–66
[2021-05-23] MEDS: cefTRIAXone IV Push 1 GM VIAL. IVP SCH ×2 (00:15→22:59)
--- NOTE | 2021-05-23 00:23 | NUR ---
Patient arrived to unit at approx 2320. SOA, placed on 3L NC which patient wears at home. Assessment complete. VS stable. Patient reports a headache at this time, was given Tylenol in ED. 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 Belongings left with patient at time of admission. call light in reach. bed in low locked position, bed alarm on. will continue to monitor.
[2021-05-23 05:23] LABS: CALCIUM 8.5 mg/dL (8.5-10.1); CREATININE 1.3 mg/dL (0.6-1.0)
[2021-05-23 06:38] LABS: BASO % 0 % (0-3); EOS % 0 % (0-3); HEMATOCRIT 22.9 % (36.0-47.0); HEMOGLOBIN 7.2 g/dL (12.0-15.5); LYMPH # 0.2 x10^3/uL (1.0-4.8); LYMPH % 3 % (24-48); MEAN CORPUSCULAR HEMOGLOBIN 30 pg (25-35); MEAN CORPUSCULAR HGB CONC 31 g/dL (31-37); MEAN CORPUSCULAR VOLUME 96 fL (79-100); MONO % 1 % (0-9); NEUT # 5.4 x10^3/uL (1.8-7.7); NEUT % 96 % (31-73); PLATELET COUNT 176 x10^3/uL (140-400); RED CELL DISTRIBUTION WIDTH 16.5 % (11.5-14.5); WHITE BLOOD COUNT 5.6 x10^3/uL (4.0-11.0)
[2021-05-23] MEDS: IPRATRPIUM/ALBUTEROL 0.5/2.5MG 3 ML NEBU. NEB SCH ×4 (08:00→20:25)
[2021-05-23] MEDS ORDERED: IPRATRPIUM/ALBUTEROL 0.5/2.5MG 3 ML NEBU. NEB SCH (08:00)
--- NOTE | 2021-05-23 08:13 | EKG ---
[facility] [address] [place] [address] Test Date: 2021-05-22 Test Time: 20:09:41 Pat Name: GABY JHA Department: Room: [facility] Gender: F Track Supervisor: [id number] : 1935 Requested By: ANTONIO MORRIS Order Number: [id number] Reading MD: Kenny Malone Measurements Intervals [place] Rate: 100 P: 16 IN: 194 QRS: 8 QRSD: 82 T: 56 QT: 398 QTc: 517 Interpretive Statements SINUS RHYTHM PROLONGED QT Electronically Signed On 06-01-2021 9:01:20 CDT by Kenny Malone
[2021-05-23] MEDS ORDERED: methylPREDNISolone SOD SUCC PF 40 MG/ML VIAL. IV SCH (09:00)
--- NOTE | 2021-05-23 09:15 | PDOC2 ---
CONSULT Date of Consult Date of Consult DATE: 05/23/21 TIME: 09:14 Reason for Consult Reason for Consult: CRI History of Present Illness Reason for Visit: 85-year-old CF with a history of hypertension, hyperlipidemia, coronary artery disease status post stenting x2 in [facility], diastolic heart failure , probable COPD with a long tobacco use history. She was admitted to this facility about 2-3 weeks ago for what was felt to be a heart failure and COPD exacerbation. She was diuresed, felt better and discharged to rehab. During her stay in Rehab her Hgb was found to be 6, she was sent to [facility] for PRBC . She has been at home for a week now . . She presents to the ER for evaluation of dyspnea with minimal exertion, orthopnea and paroxysmal nocturnal dyspnea, all with onset over the past 2 days.Denies fevers, nausea or vomiting. Denies upper respiratory congestion/rhinorrhea, cough, sore throat,. No chest pain or abdominal pain Denies any flank pain dysuria, hematuria . No Diarrhea She reports her Pa[place] Layer advised her to to go to the ER . She has been getting ALYSSA as OP recommended by me . She was seen in our Office in April 2021(Prior to that in 2018 , moved to [place]) She has been having headaches on and off and is concerned if possible side effect of ALYSSA . She is on O2 at home 2-3 lts by [place] . She reports she has LE edema , chronic but better . Past Medical History Cardiovascular: CAD, HTN GI: Other Heme/Onc: No pertinent hx Hepatobiliary: Cirrhosis Musculoskeletal: low back pain Family History Family History: Coronary Artery Disease Social History ALCOHOL: none Drugs: None Current Problem List Problem List Problems Medical Problems: (1) Acute exacerbation of congestive heart failure Status: Acute (2) Acute on chronic respiratory failure with hypoxemia Status: Acute (3) COPD with exacerbation Status: Acute Current Medications Current Medications Current Medications Azithromycin 500 mg/Sodium Chloride 250 ml @ 250 mls/hr 1X ONCE IV Last administered on 05/22/21at 20:52; Start 05/22/21 at 22:00; Stop 05/22/21 at 22:59; Status DC Albuterol/ Ipratropium (Duoneb) 3 ml 1X ONCE NEB Last administered on 05/22/21at 22:11; Start 05/22/21 at 20:15; Stop 05/22/21 at 20:17; Status DC Methylprednisolone Sodium Succinate (SOLU-Medrol 125MG VIAL) 125 mg 1X ONCE IV Last administered on 05/22/21at 20:22; Start 05/22/21 at 20:15; Stop 05/22/21 at 20:17; Status DC Furosemide (Lasix) 40 mg 1X ONCE IVP Last administered on 05/22/21at 20:22; Start 05/22/21 at 20:15; Stop 05/22/21 at 20:17; Status DC Acetaminophen (Tylenol) 1,000 mg 1X ONCE PO Last administered on 05/22/21at 20:51; Start 05/22/21 at 20:15; Stop 05/22/21 at 20:17; Status DC Ondansetron HCl (Zofran) 4 mg 1X ONCE IVP Last administered on 05/22/21at 20:45; Start 05/22/21 at 20:30; Stop 05/22/21 at 20:31; Status DC Methylprednisolone Sodium Succinate (SOLU-Medrol 40MG VIAL) 40 mg BID IV ; Start 05/23/21 at 09:00 Ceftriaxone Sodium (Rocephin) 1 gm Q24H IVP Last administered on 05/23/21at 00:15; Start 05/22/21 at 23:00 Albuterol/ Ipratropium (Duoneb) 3 ml RTQID NEB ; Start 05/23/21 at 08:00 Furosemide (Lasix) 40 mg DAILY IVP ; Start 05/23/21 at 09:00 Acetaminophen (Tylenol) 650 mg PRN Q4HRS PRN PO FEVER > 100.3'F; Start 05/22/21 at 23:00; Stop 05/23/21 at 22:59 Albuterol/ Ipratropium (Duoneb) 3 ml RTQID NEB ; Start 05/23/21 at 08:00; Stop 05/22/21 at 23:02; Status DC Active Scripts Active Pulmicort (Budesonide) 0.5 Mg/2 Ml Ampul.neb 1 Vial NEB BID 30 Days Culturelle (Lactobacillus Rhamnosus Gg) 1 Each Cap.sprink 1 Cap PO BID 7 Days Prednisone 20 Mg Tablet 20 Mg PO DAILY 4 Days Torsemide 20 Mg Tablet 20 Mg PO DAILY 30 Days Acetaminophen 325 Mg Tablet 650 Mg PO PRN Q6HRS PRN 30 Days Aspirin Ec (Aspirin) 81 Mg Tablet.dr 81 Mg PO DAILYWBKFT 30 Days Digoxin 125 Mcg Tablet 125 Mcg PO QODAY 30 Days Duoneb 0.5-3(2.5) Mg/3 Ml (Albuterol/Ipratropium) 3 Ml Ampul.neb 3 Ml NEB RTQID 30 Days Doxycycline Hyclate 100 Mg Tablet 100 Mg PO BID 4 Days Feosol (Ferrous Sulfate) 325 Mg Tablet 325 Mg PO DAILY 30 Days Reported Ocuvite Lutein 25-5 mg Softgel (Lutein/Zeaxanthin) 1 Each Capsule 1 Cap PO DAILY 30 Days Metoprolol Succinate ( Xl ) (Metoprolol Succinate) 100 Mg Tab.er.24h 1 Tab PO DAILY Miralax (Polyethylene Glycol 3350) 17 Gm Powd.pack 1 Pkt PO HS Levothyroxine Sodium 88 Mcg Tablet 1 Tab PO DAILY Protonix (Pantoprazole Sodium) 20 Mg Tablet.dr 40 Mg PO DAILY Crestor (Rosuvastatin Calcium) 20 Mg Tablet 20 Mg PO HS PRN Allergies Allergies: Coded Allergies: Sulfa (Sulfonamide Antibiotics) (Verified Allergy, Severe, Rash, 05/22/21) blisters on whole body fentanyl (Verified Allergy, Severe, 05/22/21) codeine (Verified Allergy, Intermediate, 05/22/21) morphine (Verified Adverse Reaction, Intermediate, Nausea and Vomiting, 05/22/21) ROS Review of System As per HPI, rest of the ROS is negative Physical Exam Physical Exam General: No acute distress, propped up in bed HEENT: Atraumatic, Mucous membr. moist/pink, O2 by [place] Neck Supple Lungs: Decreased at bases Non labored Heart: Normal S1, Normal S2, 2/6 systolic murmur Abdomen: Soft, No tenderness, Obese Extremities: No cyanosis, 1-2+ LE edema Skin: No Rash Neuro: Normal speech, Sensation intact, grossly normal Psych/Mental Status: Mental status NL, Mood NL No Price, No CVA or SP tenderness Vital Signs Vital Signs Date Time Temp Pulse Resp B/P (MAP) Pulse Ox O2 Delivery O2 Flow Rate FiO2 05/23/21 07:49 94 Nasal Cannula 3.0 05/23/21 07:00 97.4 92 20 148/66 (93) 97.4 Assessment & Plan CKD stage 3 B - Cr at he baseline currently. Baseline Creat 1.35-1.58 . TAMMY in 2019 Cr 2.6 . Admitted in Feb 2021 with Sepsis 2/2 UTI with TAMMY . Supportive care, Monitor , avoid Nephrotoxins. Maintain fluid balance Diuretics per cardiology Hx of TAMMY - at recent admission. Nephrology not consulted. Creat back to her baseline currently Anemia- Chronic. Had carreno in [place]- EGD and Colonscopy . In the past have been evaluated by GI at [facility] . Also seen by Hematology at of this year with Tsats of 16% . Scheduled for IVFe and ALYSSA as OP . Recd PRBC recently at [facility] as well Acute Resp Failure- 2/2 CHF/? COPD (On Home O2) , abnormal CxR Acute on chronic diastolic CHF Switched to Torsemide from Lasix at recent hospitalization- On IVLasix , card managing Hx of Cirrhosis- suspected Amiodarone induced UTI - UA cw UTI .Currently on Abx Hx of Multiple UTI's . Recent Hospitalization in Feb 2021 in [place] with UTI/ sepsis Edema Chronic . On Diuretics at home. Follows with cardiology . CAD; s/p PCI/stent x2 03/2018 in [place], [place]. Clinically stable. Hypertension; controlled PAFIB: Amiodarone discontinued 06/04 due to liver disease. rate now controlled after digoxin Labs Labs Laboratory Tests Test 05/22/21 19:55 05/22/21 20:05 05/22/21 20:09 05/22/21 23:45 Urine Collection Type Unknown Urine Color (Auto) Light yellow Urine Turbidity Clear Urine pH (Auto) 5.5 (<5.0-8.0) Urine Specific [place] 1.013 (1.000-1.030) Urine Protein (Auto) Negative mg/dL (Negative) Urine Glucose (Auto)(UA) Negative mg/dL (Negative) Urine Ketones (Auto) Negative mg/dL (Negative) Urine Blood (Auto) Negative (Negative) Urine Nitrite Negative (Negative) Urine Bilirubin (Auto) Negative (Negative) Urine Urobilinogen (Auto) Normal mg/dL (Normal) Urine Leukocyte Esterase (Auto) Moderate (Negative) Urine RBC 0 /HPF (0-2) Urine WBC 11-20 /HPF (0-4) Urine Squamous Epithelial Cells Few /LPF Urine Bacteria 0 /HPF (0-FEW) Sodium Level 142 mmol/L (136-145) Potassium Level 4.0 mmol/L (3.5-5.1) Chloride Level 102 mmol/L (98-107) Carbon Dioxide Level 28 mmol/L (21-32) Anion Gap 12 (6-14) Blood Urea Nitrogen 37 mg/dL (7-20) Creatinine 1.4 mg/dL (0.6-1.0) Estimated GFR (Cockcroft-Gault) 35.8 BUN/Creatinine Ratio 26 (6-20) Glucose Level 128 mg/dL (70-99) Lactic Acid Level 1.6 mmol/L (0.4-2.0) Calcium Level 9.4 mg/dL (8.5-10.1) Total Bilirubin 1.3 mg/dL (0.2-1.0) Aspartate Amino Transf (AST/SGOT) 17 U/L (15-37) Alanine Aminotransferase (ALT/SGPT) 15 U/L (14-59) Alkaline Phosphatase 82 U/L (46-116) Troponin I High Sensitivity 41 ng/L (4-50) 54 ng/L (4-50) LZ-Vax-D-Type Natriuretic Peptide 8009 pg/mL (0-449) Total Protein 7.0 g/dL (6.4-8.2) Albumin 3.7 g/dL (3.4-5.0) Albumin/Globulin Ratio 1.1 (1.0-1.7) Procalcitonin < 0.10 ng/mL (0.00-0.10) White Blood Count 13.2 x10^3/uL (4.0-11.0) Red Blood Count 2.78 x10^6/uL (3.50-5.40) Hemoglobin 8.5 g/dL (12.0-15.5) Hematocrit 26.3 % (36.0-47.0) Mean Corpuscular Volume 95 fL (79-100) Mean Corpuscular Hemoglobin 31 pg (25-35) Mean Corpuscular Hemoglobin Concent 32 g/dL (31-37) Red Cell Distribution Width 16.7 % (11.5-14.5) Platelet Count 219 x10^3/uL (140-400) Neutrophils (%) (Auto) 91 % (31-73) Lymphocytes (%) (Auto) 3 % (24-48) Monocytes (%) (Auto) 5 % (0-9) Eosinophils (%) (Auto) 0 % (0-3) Basophils (%) (Auto) 0 % (0-3) Neutrophils # (Auto) 12.0 x10^3/uL (1.8-7.7) Lymphocytes # (Auto) 0.4 x10^3/uL (1.0-4.8) Monocytes # (Auto) 0.7 x10^3/uL (0.0-1.1) Eosinophils # (Auto) 0.0 x10^3/uL (0.0-0.7) Basophils # (Auto) 0.1 x10^3/uL (0.0-0.2) Prothrombin Time 15.1 SEC (11.7-14.0) Prothromb Time International Ratio 1.2 (0.8-1.1) Activated Partial Thromboplast Time 37 SEC (24-38) Test 05/23/21 03:00 White Blood Count 5.6 x10^3/uL (4.0-11.0) Red Blood Count 2.40 x10^6/uL (3.50-5.40) Hemoglobin 7.2 g/dL (12.0-15.5) Hematocrit 22.9 % (36.0-47.0) Mean Corpuscular Volume 96 fL (79-100) Mean Corpuscular Hemoglobin 30 pg (25-35) Mean Corpuscular Hemoglobin Concent 31 g/dL (31-37) Red Cell Distribution Width 16.5 % (11.5-14.5) Platelet Count 176 x10^3/uL (140-400) Neutrophils (%) (Auto) 96 % (31-73) Lymphocytes (%) (Auto) 3 % (24-48) Monocytes (%) (Auto) 1 % (0-9) Eosinophils (%) (Auto) 0 % (0-3) Basophils (%) (Auto) 0 % (0-3) Neutrophils # (Auto) 5.4 x10^3/uL (1.8-7.7) Lymphocytes # (Auto) 0.2 x10^3/uL (1.0-4.8) Monocytes # (Auto) 0.0 x10^3/uL (0.0-1.1) Eosinophils # (Auto) 0.0 x10^3/uL (0.0-0.7) Basophils # (Auto) 0.0 x10^3/uL (0.0-0.2) Sodium Level 143 mmol/L (136-145) Potassium Level 4.0 mmol/L (3.5-5.1) Chloride Level 104 mmol/L (98-107) Carbon Dioxide Level 29 mmol/L (21-32) Anion Gap 10 (6-14) Blood Urea Nitrogen 39 mg/dL (7-20) Creatinine 1.3 mg/dL (0.6-1.0) Estimated GFR (Cockcroft-Gault) 39.0 Glucose Level 169 mg/dL (70-99) Calcium Level 8.5 mg/dL (8.5-10.1) Troponin I High Sensitivity 46 ng/L (4-50) Laboratory Tests Test 05/22/21 19:55 05/22/21 20:05 05/22/21 20:09 05/22/21 23:45 Urine Collection Type Unknown Urine Color (Auto) Light yellow Urine Turbidity Clear Urine pH (Auto) 5.5 (<5.0-8.0) Urine Specific [place] 1.013 (1.000-1.030) Urine Protein (Auto) Negative mg/dL (Negative) Urine Glucose (Auto)(UA) Negative mg/dL (Negative) Urine Ketones (Auto) Negative mg/dL (Negative) Urine Blood (Auto) Negative (Negative) Urine Nitrite Negative (Negative) Urine Bilirubin (Auto) Negative (Negative) Urine Urobilinogen (Auto) Normal mg/dL (Normal) Urine Leukocyte Esterase (Auto) Moderate (Negative) Urine RBC 0 /HPF (0-2) Urine WBC 11-20 /HPF (0-4) Urine Squamous Epithelial Cells Few /LPF Urine Bacteria 0 /HPF (0-FEW) Sodium Level 142 mmol/L (136-145) Potassium Level 4.0 mmol/L (3.5-5.1) Chloride Level 102 mmol/L (98-107) Carbon Dioxide Level 28 mmol/L (21-32) Anion Gap 12 (6-14) Blood Urea Nitrogen 37 mg/dL (7-20) Creatinine 1.4 mg/dL (0.6-1.0) Estimated GFR (Cockcroft-Gault) 35.8 BUN/Creatinine Ratio 26 (6-20) Glucose Level 128 mg/dL (70-99) Lactic Acid Level 1.6 mmol/L (0.4-2.0) Calcium Level 9.4 mg/dL (8.5-10.1) Total Bilirubin 1.3 mg/dL (0.2-1.0) Aspartate Amino Transf (AST/SGOT) 17 U/L (15-37) Alanine Aminotransferase (ALT/SGPT) 15 U/L (14-59) Alkaline Phosphatase 82 U/L (46-116) Troponin I High Sensitivity 41 ng/L (4-50) 54 ng/L (4-50) VF-Czd-F-Type Natriuretic Peptide 8009 pg/mL (0-449) Total Protein 7.0 g/dL (6.4-8.2) Albumin 3.7 g/dL (3.4-5.0) Albumin/Globulin Ratio 1.1 (1.0-1.7) Procalcitonin < 0.10 ng/mL (0.00-0.10) White Blood Count 13.2 x10^3/uL (4.0-11.0) Red Blood Count 2.78 x10^6/uL (3.50-5.40) Hemoglobin 8.5 g/dL (12.0-15.5) Hematocrit 26.3 % (36.0-47.0) Mean Corpuscular Volume 95 fL (79-100) Mean Corpuscular Hemoglobin 31 pg (25-35) Mean Corpuscular Hemoglobin Concent 32 g/dL (31-37) Red Cell Distribution Width 16.7 % (11.5-14.5) Platelet Count 219 x10^3/uL (140-400) Neutrophils (%) (Auto) 91 % (31-73) Lymphocytes (%) (Auto) 3 % (24-48) Monocytes (%) (Auto) 5 % (0-9) Eosinophils (%) (Auto) 0 % (0-3) Basophils (%) (Auto) 0 % (0-3) Neutrophils # (Auto) 12.0 x10^3/uL (1.8-7.7) Lymphocytes # (Auto) 0.4 x10^3/uL (1.0-4.8) Monocytes # (Auto) 0.7 x10^3/uL (0.0-1.1) Eosinophils # (Auto) 0.0 x10^3/uL (0.0-0.7) Basophils # (Auto) 0.1 x10^3/uL (0.0-0.2) Prothrombin Time 15.1 SEC (11.7-14.0) Prothromb Time International Ratio 1.2 (0.8-1.1) Activated Partial Thromboplast Time 37 SEC (24-38) Test 05/23/21 03:00 White Blood Count 5.6 x10^3/uL (4.0-11.0) Red Blood Count 2.40 x10^6/uL (3.50-5.40) Hemoglobin 7.2 g/dL (12.0-15.5) Hematocrit 22.9 % (36.0-47.0) Mean Corpuscular Volume 96 fL (79-100) Mean Corpuscular Hemoglobin 30 pg (25-35) Mean Corpuscular Hemoglobin Concent 31 g/dL (31-37) Red Cell Distribution Width 16.5 % (11.5-14.5) Platelet Count 176 x10^3/uL (140-400) Neutrophils (%) (Auto) 96 % (31-73) Lymphocytes (%) (Auto) 3 % (24-48) Monocytes (%) (Auto) 1 % (0-9) Eosinophils (%) (Auto) 0 % (0-3) Basophils (%) (Auto) 0 % (0-3) Neutrophils # (Auto) 5.4 x10^3/uL (1.8-7.7) Lymphocytes # (Auto) 0.2 x10^3/uL (1.0-4.8) Monocytes # (Auto) 0.0 x10^3/uL (0.0-1.1) Eosinophils # (Auto) 0.0 x10^3/uL (0.0-0.7) Basophils # (Auto) 0.0 x10^3/uL (0.0-0.2) Sodium Level 143 mmol/L (136-145) Potassium Level 4.0 mmol/L (3.5-5.1) Chloride Level 104 mmol/L (98-107) Carbon Dioxide Level 29 mmol/L (21-32) Anion Gap 10 (6-14) Blood Urea Nitrogen 39 mg/dL (7-20) Creatinine 1.3 mg/dL (0.6-1.0) Estimated GFR (Cockcroft-Gault) 39.0 Glucose Level 169 mg/dL (70-99) Calcium Level 8.5 mg/dL (8.5-10.1) Troponin I High Sensitivity 46 ng/L (4-50) Review All relevant outside records, renal labs, imaging studies, telemetry/EKG's were reviewed. Images Images Indication: Shortness of air. Comparison: 05/07/2021 Findings: Persistence of small bilateral pleural effusions with overlying volume loss. Emphysematous changes. Increased lung markings and scattered reticular densities similar to the prior. No newly seen lobar consolidation. No pneumothorax. Unchanged morphology of the cardiomediastinal silhouette and jackie. Aortic calcific atherosclerosis. Osteopenia. Previous compression fracture augmentation. Impression: There are again findings of pulmonary edema superimposed on emphysema. Small bilateral pleural effusions. No lobar consolidation to indicate a superimposed organizing pneumonia. FARHANA VALENZUELA MD May 23, 2021 09:15
--- NOTE | 2021-05-23 09:17 | HP ---
DATE OF SERVICE: 05/22/2021 ADMIT DATE: 05/22/2021 CHIEF COMPLAINT: Shortness of breath. HISTORY OF PRESENT ILLNESS: The patient is a pleasant elderly female who resides at home with her daughter. She has known COPD. Once again, she presents with shortness of breath and appears to have COPD exacerbation with concomitant heart failure. I discussed the case with ER physician. We are going to admit the patient. PAST MEDICAL HISTORY: COPD, polypharmacy, iron deficiency anemia, arrhythmias, hypertension, edema, constipation, GERD, arthritis, hypothyroidism. ALLERGIES: SULFA, CODEINE, FENTANYL, AND MORPHINE. FAMILY HISTORY: Diabetes. SOCIAL HISTORY: She quit smoking. No drink or drugs. She lives at home with her daughter. MEDICATIONS: Reviewed, she is on please refer to the MRAD. REVIEW OF SYSTEMS: GENERAL: No history of weight change, weakness or fevers. SKIN: No bruising, hair changes or rashes. EYES: No blurred, double or loss of vision. NOSE AND THROAT: No history of nosebleeds, hoarseness or sore throat. HEART: No history of palpitations, chest pain or shortness of breath on exertion. PULMONARY: She complains of shortness of breath. GASTROINTESTINAL: Denies changes in appetite, nausea, vomiting, diarrhea or constipation. GENITOURINARY: No history of frequency, urgency, hesitancy or nocturia. NEUROLOGIC: Denies history of numbness, tingling, tremor or weakness. PSYCHIATRIC: No history of panic, anxiety or depression. ENDOCRINE: No history of heat or cold intolerance, polyuria or polydipsia. EXTREMITIES: Denies muscle weakness, joint pain, pain on walking or stiffness. PHYSICAL EXAMINATION: VITALS: Within normal limits and are stable. GENERAL: No apparent distress. Alert and oriented. HEENT: Normal cephalic atraumatic, external auditory canals are patent EYES: Extraocular muscles are intact, pupils are equally round and reactive to light and accommodation MUSCULOSKELETAL: Well developed, well nourished, good range of motion ENDOCRINE: No thyromegaly was palpated LYMPHATICS: No cervical chain or axillary nodes were noted HEMATOPOIETIC: No bruising NECK: Supple, no JVD, no thyromegaly was noted. LUNGS: She has bibasilar crackles. HEART: She has a distant S1, S2 with soft S3. ABDOMEN: Soft, nontender. Positive bowel sounds no organomegaly, normal bowel sounds. EXTREMITIES: Without any cyanosis, clubbing, or edema. Pedal pulses intact, Homans sign is negative. NEUROLOGIC: Normal speech, normal tone. A and O x3, moves all extremities, no obvious focal deficits. PSYCHIATRIC: Normal affect, normal mood. Stable. SKIN: No ulcerations or rashes, good skin turgor, no jaundice. VASCULAR: Good capillary refill, neurovascular bundle appears to be intact. LABORATORY DATA: White count is 13, hemoglobin 8.5, platelets 219. BUN is high at 37, creatinine 1.4. INR 1.2. Urinalysis shows moderate leukocyte esterase with 11-20 white cells. ASSESSMENT AND PLAN: Chronic obstructive pulmonary disease and [id number] systolic and diastolic heart failure with incidental finding of UTI. The patient will be admitted. We will start IV antibiotics, breathing treatments, steroids, oxygen, IV Lasix. Consult Cardiology. Consult Pulmonary. Home meds. Deep venous thrombosis prophylaxis. Full code. ANGELES/ZOHRA/JACKY DR: Prudence TID: [id number]
[2021-05-23] MEDS: FUROSEMIDE 40 MG/4 ML VIAL. IVP SCH (09:19)
[2021-05-23 10:41] LABS: % BANDS 6 % (0-9); % LYMPHS 3 % (24-48); % MONOS 1 % (0-10); % SEGS 90 % (35-66); PLT ESTIMATE ADEQUATE (ADEQUATE)
[2021-05-23 10:42] LABS: ANISOCYTOSIS SLIGHT; POLYCHROMASIA SLIGHT
[2021-05-23] MEDS ORDERED: POLYETHYLENE GLYCOL 3350 17 GM PACKET. PO ONE (13:15)
[2021-05-23] MEDS ORDERED: FUROSEMIDE 40 MG/4 ML VIAL. IVP ONE (13:15)
--- NOTE | 2021-05-23 13:21 | PDOC2 ---
NAHUN SAENZ STAFF VETERINARIAN 05/23/21 1321: CARDIAC CONSULT DATE OF CONSULT Date of Consult DATE: 05/23/21 TIME: 12:58 REASON FOR CONSULT Reason for Consult: CHF REFERRING PHYSICIAN Referring Physician: Ej SOURCE Source: Chart review, Patient HISTORY OF PRESENT ILLNESS HISTORY OF PRESENT ILLNESS This is an 85 yo female admitted for complains of shortness of breath. Positive for orthopnes and PND as well in the last 2 days. No nausea or vomiting, no fever, chills. She has been getting more SOA despite O2 especially with exertion. Has had some chest pain and could not described it for me. Just going to bathroom or commode makes her SOA. PAST MEDICAL HISTORY Past Medical History Cardiovascular: AFIB, CAD (s/p PCI/stents 03/23/18 in [place], [place]), CHF, HTN, Hyperlipidemia, Other (carotid artery disease) Pulmonary: No pertinent hx CENTRAL NERVOUS SYSTEM: Other (tremors) GI: GERD Heme/Onc: Anemia, iron deficiency Hepatobiliary: Cirrhosis/portal hypertension - amiodarone stopped 05/2018 Psych: No pertinent hx Musculoskeletal: Osteoarthritis Rheumatologic: No pertinent hx Infectious disease: No pertinent hx ENT: No pertinent hx Renal/: Chronic renal insuff Endocrine: Hypothyroidism Dermatology: No pertinent hx PAST SURGICAL HISTORY Past Surgical History Appendectomy, Cataract Removal, Other (PCI/stents, left carotid endarterectomy) FAMILY HISTORY Family History Coronary Artery Disease (mother and father ) SOCIAL HISTORY Smoke: Quit ALCOHOL: none Drugs: None Lives: with Family CURRENT MEDICATIONS CURRENT MEDICATIONS Current Medications Medications (Trade) Dose Ordered Sig/Therese Route PRN Reason Start Time Stop Time Status Last Admin Dose Admin Azithromycin 500 mg/Sodium Chloride 250 ml @ 250 mls/hr 1X ONCE IV 05/22/21 22:00 05/22/21 22:59 DC 05/22/21 20:52 Albuterol/ Ipratropium (Duoneb) 3 ml 1X ONCE NEB 05/22/21 20:15 05/22/21 20:17 DC 05/22/21 22:11 Methylprednisolone Sodium Succinate (SOLU-Medrol 125MG VIAL) 125 mg 1X ONCE IV 05/22/21 20:15 05/22/21 20:17 DC 05/22/21 20:22 Furosemide (Lasix) 40 mg 1X ONCE IVP 05/22/21 20:15 05/22/21 20:17 DC 05/22/21 20:22 Acetaminophen (Tylenol) 1,000 mg 1X ONCE PO 05/22/21 20:15 05/22/21 20:17 DC 05/22/21 20:51 Ondansetron HCl (Zofran) 4 mg 1X ONCE IVP 05/22/21 20:30 05/22/21 20:31 DC 05/22/21 20:45 Methylprednisolone Sodium Succinate (SOLU-Medrol 40MG VIAL) 40 mg BID IV 05/23/21 09:00 05/23/21 09:19 Ceftriaxone Sodium (Rocephin) 1 gm Q24H IVP 05/22/21 23:00 05/23/21 00:15 Albuterol/ Ipratropium (Duoneb) 3 ml RTQID NEB 05/23/21 08:00 05/23/21 11:49 Furosemide (Lasix) 40 mg DAILY IVP 05/23/21 09:00 05/23/21 09:19 ALLERGIES ALLERGIES: Coded Allergies: Sulfa (Sulfonamide Antibiotics) (Verified Allergy, Severe, Rash, 05/22/21) blisters on whole body fentanyl (Verified Allergy, Severe, 05/22/21) codeine (Verified Allergy, Intermediate, 05/22/21) morphine (Verified Adverse Reaction, Intermediate, Nausea and Vomiting, 05/22/21) ROS Review of System 14 point ROS evaluated with pertinent positives noted per HPI PHYSICAL EXAM General: Alert, Oriented X3, Cooperative, mild distress HEENT: Atraumatic, Mucous membr. moist/pink Lungs: Other (basilar crackles) Heart: Regular rate (sinus tachycardia), Normal S1, Normal S2, Other (2/6 systolic murmur to LLS border) Abdomen: Soft, No tenderness Extremities: No cyanosis, Other (2+ bilateral Le pitting edema) Skin: No breakdown, No significant lesion Neuro: Normal speech, Sensation intact Psych/Mental Status: Mental status NL, Other (anxious) MUSCULOSKELETAL: Osteoarthritic changes both hands VITALS/I&O VITALS/I&O: Vital Signs Date Time Temp Pulse Resp B/P (MAP) Pulse Ox O2 Delivery O2 Flow Rate FiO2 05/23/21 11:49 97 Nasal Cannula 3.0 05/23/21 11:00 98.1 92 20 121/55 (77) 98.1 I & O 05/22/21 05/22/21 05/23/21 14:59 22:59 06:59 Output Total 500 ml Balance -500 ml LABS Lab: Laboratory Tests Test 05/22/21 19:55 05/22/21 20:05 05/22/21 20:09 05/22/21 23:45 Urine Collection Type Unknown Urine Color (Auto) Light yellow Urine Turbidity Clear Urine pH (Auto) 5.5 (<5.0-8.0) Urine Specific [place] 1.013 (1.000-1.030) Urine Protein (Auto) Negative mg/dL (Negative) Urine Glucose (Auto)(UA) Negative mg/dL (Negative) Urine Ketones (Auto) Negative mg/dL (Negative) Urine Blood (Auto) Negative (Negative) Urine Nitrite Negative (Negative) Urine Bilirubin (Auto) Negative (Negative) Urine Urobilinogen (Auto) Normal mg/dL (Normal) Urine Leukocyte Esterase (Auto) Moderate (Negative) Urine RBC 0 /HPF (0-2) Urine WBC 11-20 /HPF (0-4) Urine Squamous Epithelial Cells Few /LPF Urine Bacteria 0 /HPF (0-FEW) Sodium Level 142 mmol/L (136-145) Potassium Level 4.0 mmol/L (3.5-5.1) Chloride Level 102 mmol/L (98-107) Carbon Dioxide Level 28 mmol/L (21-32) Anion Gap 12 (6-14) Blood Urea Nitrogen 37 mg/dL (7-20) H Creatinine 1.4 mg/dL (0.6-1.0) H Estimated GFR (Cockcroft-Gault) 35.8 BUN/Creatinine Ratio 26 (6-20) H Glucose Level 128 mg/dL (70-99) H Lactic Acid Level 1.6 mmol/L (0.4-2.0) Calcium Level 9.4 mg/dL (8.5-10.1) Total Bilirubin 1.3 mg/dL (0.2-1.0) H Aspartate Amino Transferase (AST) 17 U/L (15-37) Alanine Aminotransferase (ALT) 15 U/L (14-59) Alkaline Phosphatase 82 U/L (46-116) Troponin I High Sensitivity 41 ng/L (4-50) 54 ng/L (4-50) H VB-Abf-P-Type Natriuretic Peptide 8009 pg/mL (0-449) H Total Protein 7.0 g/dL (6.4-8.2) Albumin 3.7 g/dL (3.4-5.0) Albumin/Globulin Ratio 1.1 (1.0-1.7) Procalcitonin < 0.10 ng/mL (0.00-0.10) White Blood Count 13.2 x10^3/uL (4.0-11.0) H Red Blood Count 2.78 x10^6/uL (3.50-5.40) L Hemoglobin 8.5 g/dL (12.0-15.5) L Hematocrit 26.3 % (36.0-47.0) L Mean Corpuscular Volume 95 fL (79-100) Mean Corpuscular Hemoglobin 31 pg (25-35) Mean Corpuscular Hemoglobin Concent 32 g/dL (31-37) Red Cell Distribution Width 16.7 % (11.5-14.5) H Platelet Count 219 x10^3/uL (140-400) Neutrophils (%) (Auto) 91 % (31-73) H Lymphocytes (%) (Auto) 3 % (24-48) L Monocytes (%) (Auto) 5 % (0-9) Eosinophils (%) (Auto) 0 % (0-3) Basophils (%) (Auto) 0 % (0-3) Neutrophils # (Auto) 12.0 x10^3/uL (1.8-7.7) H Lymphocytes # (Auto) 0.4 x10^3/uL (1.0-4.8) L Monocytes # (Auto) 0.7 x10^3/uL (0.0-1.1) Eosinophils # (Auto) 0.0 x10^3/uL (0.0-0.7) Basophils # (Auto) 0.1 x10^3/uL (0.0-0.2) Prothrombin Time 15.1 SEC (11.7-14.0) H Prothrombin Time INR 1.2 (0.8-1.1) H Activated Partial Thromboplast Time 37 SEC (24-38) Test 05/23/21 03:00 White Blood Count 5.6 x10^3/uL (4.0-11.0) Red Blood Count 2.40 x10^6/uL (3.50-5.40) L Hemoglobin 7.2 g/dL (12.0-15.5) L Hematocrit 22.9 % (36.0-47.0) L Mean Corpuscular Volume 96 fL (79-100) Mean Corpuscular Hemoglobin 30 pg (25-35) Mean Corpuscular Hemoglobin Concent 31 g/dL (31-37) Red Cell Distribution Width 16.5 % (11.5-14.5) H Platelet Count 176 x10^3/uL (140-400) Neutrophils (%) (Auto) 96 % (31-73) H Lymphocytes (%) (Auto) 3 % (24-48) L Monocytes (%) (Auto) 1 % (0-9) Eosinophils (%) (Auto) 0 % (0-3) Basophils (%) (Auto) 0 % (0-3) Neutrophils # (Auto) 5.4 x10^3/uL (1.8-7.7) Lymphocytes # (Auto) 0.2 x10^3/uL (1.0-4.8) L Monocytes # (Auto) 0.0 x10^3/uL (0.0-1.1) Eosinophils # (Auto) 0.0 x10^3/uL (0.0-0.7) Basophils # (Auto) 0.0 x10^3/uL (0.0-0.2) Segmented Neutrophils % 90 % (35-66) H Band Neutrophils % 6 % (0-9) Lymphocytes % 3 % (24-48) L Monocytes % 1 % (0-10) Platelet Estimate Adequate (ADEQUATE) Polychromasia Slight Anisocytosis Slight Sodium Level 143 mmol/L (136-145) Potassium Level 4.0 mmol/L (3.5-5.1) Chloride Level 104 mmol/L (98-107) Carbon Dioxide Level 29 mmol/L (21-32) Anion Gap 10 (6-14) Blood Urea Nitrogen 39 mg/dL (7-20) H Creatinine 1.3 mg/dL (0.6-1.0) H Estimated GFR (Cockcroft-Gault) 39.0 Glucose Level 169 mg/dL (70-99) H Calcium Level 8.5 mg/dL (8.5-10.1) Troponin I High Sensitivity 46 ng/L (4-50) Laboratory Tests 05/22/21 20:09 05/23/21 03:00 Laboratory Tests 05/22/21 20:05 05/23/21 03:00 ECHOCARDIOGRAM ECHOCARDIOGRAM <Conclusion> The left ventricle is normal size. The left ventricular systolic function is normal and the ejection fraction is within normal range. LV ejection fraction of 55 to 60%. There is normal LV segmental wall motion. There is mild concentric left ventricular hypertrophy. Doppler and Color Flow revealed no significant aortic regurgitation. There is no significant aortic valvular stenosis. Doppler and Color-flow revealed mild mitral regurgitation. Doppler and Color Flow revealed moderate tricuspid regurgitation. Estimated PAP 50-55 mmHg. DATE: 05/08/21 1601 ASSESSMENT/PLAN ASSESSMENT/PLAN 1. Acute on chronic diastolic CHF: appears compensated 2. TAMMY on CKD; CR improved 3. CAD; s/p PCI/stent x2 03/2018 in [place], [place]. Clinically stable. 4. Hypertension; controlled 5. Hyperlipidemia; statin 6. PAFIB: Amiodarone discontinued 05/2018 due to liver disease. Presently sinus tachycardia 7. Iron deficiency anemia: Hgb 7.2 8. H/o cirrhosis, portal hypertension 9. Hypothyroidism: on home replacement 10. Constipation 11. suspect CKD3 Recommendations Lasix therapy and 1 more after transfusion Not a NOAC candidate due to anemia and cirrhosis. Will need 1U PRBC. Continue ASA Continue metoprolol and QOD digoxin. Dig level Secondary prevention CHF is refractory possibly from combination of diastolic CHF, anemia, and cirrhosis. Could not completely rule out ischemic etiology. She had renal issues after her last LHC. Will optimize and will consider for inpt MPI. CLARA BAUM MD 05/23/21 6017: CARDIAC CONSULT ASSESSMENT/PLAN ASSESSMENT/PLAN Patient seen and examined. 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
--- NOTE | 2021-05-23 15:13 | NUR ---
SS following for discharge planning. SS reviewed pt chart and discussed with pt RN. Pt is from home with daughter and is currently requiring oxygen at three liters nasal canula. Pulmonology, Cardiology, and Nephrology following. Pt has home oxygen. Blood today. SS will continue to follow for discharge planning.
--- NOTE | 2021-05-23 16:12 | PDOC ---
[employer] PROGRESS NOTE Date of Service DOS: DATE: 05/23/21 TIME: 16:10 Chief Complaint Chief Complaint Acute on chronic diastolic CHF _ IV diuresis, acute vasomotor nephropathy CAD and. Hypertension, Hyperlipidemia symptomatic anemia Hepatic cirrhosis, portal hypertension Hypothyroidism: on History of Present Illness History of Present Illness Lasix therapy to impriofed renal function, PRBC given cirrhosis and anemia on meds for afib, rate control, anticoag contraindicated Vitals/I&O Vitals/I&O: Vital Signs Date Time Temp Pulse Resp B/P (MAP) Pulse Ox O2 Delivery O2 Flow Rate FiO2 05/23/21 15:35 97 Nasal Cannula 3.0 05/23/21 15:00 97.8 102 20 131/53 (79) 97.8 I & O 05/22/21 05/22/21 05/23/21 15:00 23:00 07:00 Output Total 500 ml Balance -500 ml Physical Exam General: Alert, Oriented X3, Cooperative, mild distress Heart: Regular rate (sinus tachycardia), Normal S1, Normal S2, Other (2/6 systolic murmur to LLS border) Lungs: Clear Abdomen: Soft, No tenderness Extremities: No cyanosis, Other (2+ bilateral Le pitting edema) Skin: No breakdown, No significant lesion Labs Labs: Laboratory Tests Test 05/22/21 19:55 05/22/21 20:05 05/22/21 20:09 05/22/21 23:45 Urine Collection Type Unknown Urine Color (Auto) Light yellow Urine Turbidity Clear Urine pH (Auto) 5.5 (<5.0-8.0) Urine Specific [place] 1.013 (1.000-1.030) Urine Protein (Auto) Negative mg/dL (Negative) Urine Glucose (Auto)(UA) Negative mg/dL (Negative) Urine Ketones (Auto) Negative mg/dL (Negative) Urine Blood (Auto) Negative (Negative) Urine Nitrite Negative (Negative) Urine Bilirubin (Auto) Negative (Negative) Urine Urobilinogen (Auto) Normal mg/dL (Normal) Urine Leukocyte Esterase (Auto) Moderate (Negative) Urine RBC 0 /HPF (0-2) Urine WBC 11-20 /HPF (0-4) Urine Squamous Epithelial Cells Few /LPF Urine Bacteria 0 /HPF (0-FEW) Sodium Level 142 mmol/L (136-145) Potassium Level 4.0 mmol/L (3.5-5.1) Chloride Level 102 mmol/L (98-107) Carbon Dioxide Level 28 mmol/L (21-32) Anion Gap 12 (6-14) Blood Urea Nitrogen 37 mg/dL (7-20) Creatinine 1.4 mg/dL (0.6-1.0) Estimated GFR (Cockcroft-Gault) 35.8 BUN/Creatinine Ratio 26 (6-20) Glucose Level 128 mg/dL (70-99) Lactic Acid Level 1.6 mmol/L (0.4-2.0) Calcium Level 9.4 mg/dL (8.5-10.1) Total Bilirubin 1.3 mg/dL (0.2-1.0) Aspartate Amino Transf (AST/SGOT) 17 U/L (15-37) Alanine Aminotransferase (ALT/SGPT) 15 U/L (14-59) Alkaline Phosphatase 82 U/L (46-116) Troponin I High Sensitivity 41 ng/L (4-50) 54 ng/L (4-50) SG-Bic-Y-Type Natriuretic Peptide 8009 pg/mL (0-449) Total Protein 7.0 g/dL (6.4-8.2) Albumin 3.7 g/dL (3.4-5.0) Albumin/Globulin Ratio 1.1 (1.0-1.7) Procalcitonin < 0.10 ng/mL (0.00-0.10) White Blood Count 13.2 x10^3/uL (4.0-11.0) Red Blood Count 2.78 x10^6/uL (3.50-5.40) Hemoglobin 8.5 g/dL (12.0-15.5) Hematocrit 26.3 % (36.0-47.0) Mean Corpuscular Volume 95 fL (79-100) Mean Corpuscular Hemoglobin 31 pg (25-35) Mean Corpuscular Hemoglobin Concent 32 g/dL (31-37) Red Cell Distribution Width 16.7 % (11.5-14.5) Platelet Count 219 x10^3/uL (140-400) Neutrophils (%) (Auto) 91 % (31-73) Lymphocytes (%) (Auto) 3 % (24-48) Monocytes (%) (Auto) 5 % (0-9) Eosinophils (%) (Auto) 0 % (0-3) Basophils (%) (Auto) 0 % (0-3) Neutrophils # (Auto) 12.0 x10^3/uL (1.8-7.7) Lymphocytes # (Auto) 0.4 x10^3/uL (1.0-4.8) Monocytes # (Auto) 0.7 x10^3/uL (0.0-1.1) Eosinophils # (Auto) 0.0 x10^3/uL (0.0-0.7) Basophils # (Auto) 0.1 x10^3/uL (0.0-0.2) Prothrombin Time 15.1 SEC (11.7-14.0) Prothromb Time International Ratio 1.2 (0.8-1.1) Activated Partial Thromboplast Time 37 SEC (24-38) Test 05/23/21 03:00 White Blood Count 5.6 x10^3/uL (4.0-11.0) Red Blood Count 2.40 x10^6/uL (3.50-5.40) Hemoglobin 7.2 g/dL (12.0-15.5) Hematocrit 22.9 % (36.0-47.0) Mean Corpuscular Volume 96 fL (79-100) Mean Corpuscular Hemoglobin 30 pg (25-35) Mean Corpuscular Hemoglobin Concent 31 g/dL (31-37) Red Cell Distribution Width 16.5 % (11.5-14.5) Platelet Count 176 x10^3/uL (140-400) Neutrophils (%) (Auto) 96 % (31-73) Lymphocytes (%) (Auto) 3 % (24-48) Monocytes (%) (Auto) 1 % (0-9) Eosinophils (%) (Auto) 0 % (0-3) Basophils (%) (Auto) 0 % (0-3) Neutrophils # (Auto) 5.4 x10^3/uL (1.8-7.7) Lymphocytes # (Auto) 0.2 x10^3/uL (1.0-4.8) Monocytes # (Auto) 0.0 x10^3/uL (0.0-1.1) Eosinophils # (Auto) 0.0 x10^3/uL (0.0-0.7) Basophils # (Auto) 0.0 x10^3/uL (0.0-0.2) Segmented Neutrophils % 90 % (35-66) Band Neutrophils % 6 % (0-9) Lymphocytes % 3 % (24-48) Monocytes % 1 % (0-10) Platelet Estimate Adequate (ADEQUATE) Polychromasia Slight Anisocytosis Slight Sodium Level 143 mmol/L (136-145) Potassium Level 4.0 mmol/L (3.5-5.1) Chloride Level 104 mmol/L (98-107) Carbon Dioxide Level 29 mmol/L (21-32) Anion Gap 10 (6-14) Blood Urea Nitrogen 39 mg/dL (7-20) Creatinine 1.3 mg/dL (0.6-1.0) Estimated GFR (Cockcroft-Gault) 39.0 Glucose Level 169 mg/dL (70-99) Calcium Level 8.5 mg/dL (8.5-10.1) Troponin I High Sensitivity 46 ng/L (4-50) Thyroid Stimulating Hormone (TSH) 1.576 uIU/mL (0.358-3.74) Digoxin Level 1.0 ng/mL (0.9-2.0) Digoxin Last Dose Date 05/22/21 Digoxin Last Dose Time 0900 Assessment and Plan Assessmemt and Plan Problems Medical Problems: (1) Acute exacerbation of congestive heart failure Status: Acute (2) Acute on chronic respiratory failure with hypoxemia Status: Acute (3) COPD with exacerbation Status: Acute Comment Review of Relevant I have reviewed the following items brittani (where applicable) has been applied. Medications: Current Medications Medications (Trade) Dose Ordered Sig/Therese Route PRN Reason Start Time Stop Time Status Last Admin Dose Admin Azithromycin 500 mg/Sodium Chloride 250 ml @ 250 mls/hr 1X ONCE IV 05/22/21 22:00 05/22/21 22:59 DC 05/22/21 20:52 Albuterol/ Ipratropium (Duoneb) 3 ml 1X ONCE NEB 05/22/21 20:15 05/22/21 20:17 DC 05/22/21 22:11 Methylprednisolone Sodium Succinate (SOLU-Medrol 125MG VIAL) 125 mg 1X ONCE IV 05/22/21 20:15 05/22/21 20:17 DC 05/22/21 20:22 Furosemide (Lasix) 40 mg 1X ONCE IVP 05/22/21 20:15 05/22/21 20:17 DC 05/22/21 20:22 Acetaminophen (Tylenol) 1,000 mg 1X ONCE PO 05/22/21 20:15 05/22/21 20:17 DC 05/22/21 20:51 Ondansetron HCl (Zofran) 4 mg 1X ONCE IVP 05/22/21 20:30 05/22/21 20:31 DC 05/22/21 20:45 Methylprednisolone Sodium Succinate (SOLU-Medrol 40MG VIAL) 40 mg BID IV 05/23/21 09:00 05/23/21 09:19 Ceftriaxone Sodium (Rocephin) 1 gm Q24H IVP 05/22/21 23:00 05/23/21 00:15 Albuterol/ Ipratropium (Duoneb) 3 ml RTQID NEB 05/23/21 08:00 05/23/21 15:34 Furosemide (Lasix) 40 mg DAILY IVP 05/23/21 09:00 05/23/21 09:19 Justifications for Admission Other Justification RAYA MANNING MD May 23, 2021 16:12
[2021-05-23] MEDS ORDERED: METOPROLOL IV PUSH 5 MG/5 ML VIAL. IVP ONE (16:15)
[2021-05-23] MEDS: ASPIRIN ENTERIC COATED 81 MG TABLET.DR. PO SCH (16:24)
[2021-05-23] MEDS: METOPROLOL SUCC 24HR ER 100 MG TAB.ER.24H. PO SCH (16:25)
[2021-05-23 16:32] LABS: HEMATOCRIT 24.6 % (36.0-47.0); HEMOGLOBIN 7.7 g/dL (12.0-15.5); RED BLOOD COUNT 2.56 x10^6/uL (3.50-5.40); RED CELL DISTRIBUTION WIDTH 16.9 % (11.5-14.5); WHITE BLOOD COUNT 6.1 x10^3/uL (4.0-11.0)
--- NOTE | 2021-05-23 16:50 | PDOC ---
PULMONARY PROGRESS NOTES DATE: 05/23/21 TIME: 16:49 Vitals Vital Signs Date Time Temp Pulse Resp B/P (MAP) Pulse Ox O2 Delivery O2 Flow Rate FiO2 05/23/21 16:25 102 131/53 05/23/21 15:35 97 Nasal Cannula 3.0 05/23/21 15:00 97.8 20 97.8 General: Alert, No acute distress Lungs: Clear Cardiovascular: S1 Abdomen: Soft Extremities: No Edema Labs Laboratory Tests Test 05/22/21 19:55 05/22/21 20:05 05/22/21 20:09 05/22/21 23:45 Urine Collection Type Unknown Urine Color (Auto) Light yellow Urine Turbidity Clear Urine pH (Auto) 5.5 (<5.0-8.0) Urine Specific [place] 1.013 (1.000-1.030) Urine Protein (Auto) Negative mg/dL (Negative) Urine Glucose (Auto)(UA) Negative mg/dL (Negative) Urine Ketones (Auto) Negative mg/dL (Negative) Urine Blood (Auto) Negative (Negative) Urine Nitrite Negative (Negative) Urine Bilirubin (Auto) Negative (Negative) Urine Urobilinogen (Auto) Normal mg/dL (Normal) Urine Leukocyte Esterase (Auto) Moderate (Negative) Urine RBC 0 /HPF (0-2) Urine WBC 11-20 /HPF (0-4) Urine Squamous Epithelial Cells Few /LPF Urine Bacteria 0 /HPF (0-FEW) Sodium Level 142 mmol/L (136-145) Potassium Level 4.0 mmol/L (3.5-5.1) Chloride Level 102 mmol/L (98-107) Carbon Dioxide Level 28 mmol/L (21-32) Anion Gap 12 (6-14) Blood Urea Nitrogen 37 mg/dL (7-20) Creatinine 1.4 mg/dL (0.6-1.0) Estimated GFR (Cockcroft-Gault) 35.8 BUN/Creatinine Ratio 26 (6-20) Glucose Level 128 mg/dL (70-99) Lactic Acid Level 1.6 mmol/L (0.4-2.0) Calcium Level 9.4 mg/dL (8.5-10.1) Total Bilirubin 1.3 mg/dL (0.2-1.0) Aspartate Amino Transf (AST/SGOT) 17 U/L (15-37) Alanine Aminotransferase (ALT/SGPT) 15 U/L (14-59) Alkaline Phosphatase 82 U/L (46-116) Troponin I High Sensitivity 41 ng/L (4-50) 54 ng/L (4-50) PM-Pkn-A-Type Natriuretic Peptide 8009 pg/mL (0-449) Total Protein 7.0 g/dL (6.4-8.2) Albumin 3.7 g/dL (3.4-5.0) Albumin/Globulin Ratio 1.1 (1.0-1.7) Procalcitonin < 0.10 ng/mL (0.00-0.10) White Blood Count 13.2 x10^3/uL (4.0-11.0) Red Blood Count 2.78 x10^6/uL (3.50-5.40) Hemoglobin 8.5 g/dL (12.0-15.5) Hematocrit 26.3 % (36.0-47.0) Mean Corpuscular Volume 95 fL (79-100) Mean Corpuscular Hemoglobin 31 pg (25-35) Mean Corpuscular Hemoglobin Concent 32 g/dL (31-37) Red Cell Distribution Width 16.7 % (11.5-14.5) Platelet Count 219 x10^3/uL (140-400) Neutrophils (%) (Auto) 91 % (31-73) Lymphocytes (%) (Auto) 3 % (24-48) Monocytes (%) (Auto) 5 % (0-9) Eosinophils (%) (Auto) 0 % (0-3) Basophils (%) (Auto) 0 % (0-3) Neutrophils # (Auto) 12.0 x10^3/uL (1.8-7.7) Lymphocytes # (Auto) 0.4 x10^3/uL (1.0-4.8) Monocytes # (Auto) 0.7 x10^3/uL (0.0-1.1) Eosinophils # (Auto) 0.0 x10^3/uL (0.0-0.7) Basophils # (Auto) 0.1 x10^3/uL (0.0-0.2) Prothrombin Time 15.1 SEC (11.7-14.0) Prothromb Time International Ratio 1.2 (0.8-1.1) Activated Partial Thromboplast Time 37 SEC (24-38) Test 05/23/21 03:00 05/23/21 16:15 White Blood Count 5.6 x10^3/uL (4.0-11.0) 6.1 x10^3/uL (4.0-11.0) Red Blood Count 2.40 x10^6/uL (3.50-5.40) 2.56 x10^6/uL (3.50-5.40) Hemoglobin 7.2 g/dL (12.0-15.5) 7.7 g/dL (12.0-15.5) Hematocrit 22.9 % (36.0-47.0) 24.6 % (36.0-47.0) Mean Corpuscular Volume 96 fL (79-100) 96 fL (79-100) Mean Corpuscular Hemoglobin 30 pg (25-35) 30 pg (25-35) Mean Corpuscular Hemoglobin Concent 31 g/dL (31-37) 31 g/dL (31-37) Red Cell Distribution Width 16.5 % (11.5-14.5) 16.9 % (11.5-14.5) Platelet Count 176 x10^3/uL (140-400) 190 x10^3/uL (140-400) Neutrophils (%) (Auto) 96 % (31-73) Lymphocytes (%) (Auto) 3 % (24-48) Monocytes (%) (Auto) 1 % (0-9) Eosinophils (%) (Auto) 0 % (0-3) Basophils (%) (Auto) 0 % (0-3) Neutrophils # (Auto) 5.4 x10^3/uL (1.8-7.7) Lymphocytes # (Auto) 0.2 x10^3/uL (1.0-4.8) Monocytes # (Auto) 0.0 x10^3/uL (0.0-1.1) Eosinophils # (Auto) 0.0 x10^3/uL (0.0-0.7) Basophils # (Auto) 0.0 x10^3/uL (0.0-0.2) Segmented Neutrophils % 90 % (35-66) Band Neutrophils % 6 % (0-9) Lymphocytes % 3 % (24-48) Monocytes % 1 % (0-10) Platelet Estimate Adequate (ADEQUATE) Polychromasia Slight Anisocytosis Slight Sodium Level 143 mmol/L (136-145) Potassium Level 4.0 mmol/L (3.5-5.1) Chloride Level 104 mmol/L (98-107) Carbon Dioxide Level 29 mmol/L (21-32) Anion Gap 10 (6-14) Blood Urea Nitrogen 39 mg/dL (7-20) Creatinine 1.3 mg/dL (0.6-1.0) Estimated GFR (Cockcroft-Gault) 39.0 Glucose Level 169 mg/dL (70-99) Calcium Level 8.5 mg/dL (8.5-10.1) Troponin I High Sensitivity 46 ng/L (4-50) Thyroid Stimulating Hormone (TSH) 1.576 uIU/mL (0.358-3.74) Digoxin Level 1.0 ng/mL (0.9-2.0) Digoxin Last Dose Date 05/22/21 Digoxin Last Dose Time 0900 Laboratory Tests Test 05/22/21 19:55 05/22/21 20:05 05/22/21 20:09 05/22/21 23:45 Urine Collection Type Unknown Urine Color (Auto) Light yellow Urine Turbidity Clear Urine pH (Auto) 5.5 (<5.0-8.0) Urine Specific [place] 1.013 (1.000-1.030) Urine Protein (Auto) Negative mg/dL (Negative) Urine Glucose (Auto)(UA) Negative mg/dL (Negative) Urine Ketones (Auto) Negative mg/dL (Negative) Urine Blood (Auto) Negative (Negative) Urine Nitrite Negative (Negative) Urine Bilirubin (Auto) Negative (Negative) Urine Urobilinogen (Auto) Normal mg/dL (Normal) Urine Leukocyte Esterase (Auto) Moderate (Negative) Urine RBC 0 /HPF (0-2) Urine WBC 11-20 /HPF (0-4) Urine Squamous Epithelial Cells Few /LPF Urine Bacteria 0 /HPF (0-FEW) Sodium Level 142 mmol/L (136-145) Potassium Level 4.0 mmol/L (3.5-5.1) Chloride Level 102 mmol/L (98-107) Carbon Dioxide Level 28 mmol/L (21-32) Anion Gap 12 (6-14) Blood Urea Nitrogen 37 mg/dL (7-20) Creatinine 1.4 mg/dL (0.6-1.0) Estimated GFR (Cockcroft-Gault) 35.8 BUN/Creatinine Ratio 26 (6-20) Glucose Level 128 mg/dL (70-99) Lactic Acid Level 1.6 mmol/L (0.4-2.0) Calcium Level 9.4 mg/dL (8.5-10.1) Total Bilirubin 1.3 mg/dL (0.2-1.0) Aspartate Amino Transf (AST/SGOT) 17 U/L (15-37) Alanine Aminotransferase (ALT/SGPT) 15 U/L (14-59) Alkaline Phosphatase 82 U/L (46-116) Troponin I High Sensitivity 41 ng/L (4-50) 54 ng/L (4-50) EO-Eex-S-Type Natriuretic Peptide 8009 pg/mL (0-449) Total Protein 7.0 g/dL (6.4-8.2) Albumin 3.7 g/dL (3.4-5.0) Albumin/Globulin Ratio 1.1 (1.0-1.7) Procalcitonin < 0.10 ng/mL (0.00-0.10) White Blood Count 13.2 x10^3/uL (4.0-11.0) Red Blood Count 2.78 x10^6/uL (3.50-5.40) Hemoglobin 8.5 g/dL (12.0-15.5) Hematocrit 26.3 % (36.0-47.0) Mean Corpuscular Volume 95 fL (79-100) Mean Corpuscular Hemoglobin 31 pg (25-35) Mean Corpuscular Hemoglobin Concent 32 g/dL (31-37) Red Cell Distribution Width 16.7 % (11.5-14.5) Platelet Count 219 x10^3/uL (140-400) Neutrophils (%) (Auto) 91 % (31-73) Lymphocytes (%) (Auto) 3 % (24-48) Monocytes (%) (Auto) 5 % (0-9) Eosinophils (%) (Auto) 0 % (0-3) Basophils (%) (Auto) 0 % (0-3) Neutrophils # (Auto) 12.0 x10^3/uL (1.8-7.7) Lymphocytes # (Auto) 0.4 x10^3/uL (1.0-4.8) Monocytes # (Auto) 0.7 x10^3/uL (0.0-1.1) Eosinophils # (Auto) 0.0 x10^3/uL (0.0-0.7) Basophils # (Auto) 0.1 x10^3/uL (0.0-0.2) Prothrombin Time 15.1 SEC (11.7-14.0) Prothromb Time International Ratio 1.2 (0.8-1.1) Activated Partial Thromboplast Time 37 SEC (24-38) Test 05/23/21 03:00 05/23/21 16:15 White Blood Count 5.6 x10^3/uL (4.0-11.0) 6.1 x10^3/uL (4.0-11.0) Red Blood Count 2.40 x10^6/uL (3.50-5.40) 2.56 x10^6/uL (3.50-5.40) Hemoglobin 7.2 g/dL (12.0-15.5) 7.7 g/dL (12.0-15.5) Hematocrit 22.9 % (36.0-47.0) 24.6 % (36.0-47.0) Mean Corpuscular Volume 96 fL (79-100) 96 fL (79-100) Mean Corpuscular Hemoglobin 30 pg (25-35) 30 pg (25-35) Mean Corpuscular Hemoglobin Concent 31 g/dL (31-37) 31 g/dL (31-37) Red Cell Distribution Width 16.5 % (11.5-14.5) 16.9 % (11.5-14.5) Platelet Count 176 x10^3/uL (140-400) 190 x10^3/uL (140-400) Neutrophils (%) (Auto) 96 % (31-73) Lymphocytes (%) (Auto) 3 % (24-48) Monocytes (%) (Auto) 1 % (0-9) Eosinophils (%) (Auto) 0 % (0-3) Basophils (%) (Auto) 0 % (0-3) Neutrophils # (Auto) 5.4 x10^3/uL (1.8-7.7) Lymphocytes # (Auto) 0.2 x10^3/uL (1.0-4.8) Monocytes # (Auto) 0.0 x10^3/uL (0.0-1.1) Eosinophils # (Auto) 0.0 x10^3/uL (0.0-0.7) Basophils # (Auto) 0.0 x10^3/uL (0.0-0.2) Segmented Neutrophils % 90 % (35-66) Band Neutrophils % 6 % (0-9) Lymphocytes % 3 % (24-48) Monocytes % 1 % (0-10) Platelet Estimate Adequate (ADEQUATE) Polychromasia Slight Anisocytosis Slight Sodium Level 143 mmol/L (136-145) Potassium Level 4.0 mmol/L (3.5-5.1) Chloride Level 104 mmol/L (98-107) Carbon Dioxide Level 29 mmol/L (21-32) Anion Gap 10 (6-14) Blood Urea Nitrogen 39 mg/dL (7-20) Creatinine 1.3 mg/dL (0.6-1.0) Estimated GFR (Cockcroft-Gault) 39.0 Glucose Level 169 mg/dL (70-99) Calcium Level 8.5 mg/dL (8.5-10.1) Troponin I High Sensitivity 46 ng/L (4-50) Thyroid Stimulating Hormone (TSH) 1.576 uIU/mL (0.358-3.74) Digoxin Level 1.0 ng/mL (0.9-2.0) Digoxin Last Dose Date 05/22/21 Digoxin Last Dose Time 0900 Medications Active Scripts Medications Dose Route/Sig Max Daily Dose Days Date Category Pulmicort (Budesonide) 0.5 Mg/2 Ml Ampul.neb 1 Vial NEB BID 30 05/08/21 Rx Culturelle (Lactobacillus Rhamnosus Gg) 1 Each Cap.sprink 1 Cap PO BID 7 05/08/21 Rx Prednisone 20 Mg Tablet 20 Mg PO DAILY 4 05/08/21 Rx Torsemide 20 Mg Tablet 20 Mg PO DAILY 30 05/08/21 Rx Acetaminophen 325 Mg Tablet 650 Mg PO PRN Q6HRS PRN 30 05/08/21 Rx Aspirin Ec (Aspirin) 81 Mg Tablet.dr 81 Mg PO DAILYWBKFT 30 05/08/21 Rx Digoxin 125 Mcg Tablet 125 Mcg PO QODAY 30 05/08/21 Rx Duoneb 0.5-3(2.5) Mg/3 Ml (Albuterol/Ipratropium) 3 Ml Ampul.neb 3 Ml NEB RTQID 30 05/08/21 Rx Doxycycline Hyclate 100 Mg Tablet 100 Mg PO BID 4 05/08/21 Rx Ocuvite Lutein 25-5 mg Softgel (Lutein/Zeaxanthin) 1 Each Capsule 1 Cap PO DAILY 30 05/05/21 Reported Metoprolol Succinate ( Xl ) (Metoprolol Succinate) 100 Mg Tab.er.24h 1 Tab PO DAILY 05/05/21 Reported Feosol (Ferrous Sulfate) 325 Mg Tablet 325 Mg PO DAILY 30 07/01/18 Rx Miralax (Polyethylene Glycol 3350) 17 Gm Powd.pack 1 Pkt PO HS 06/29/18 Reported Levothyroxine Sodium 88 Mcg Tablet 1 Tab PO DAILY 05/21/18 Reported Protonix (Pantoprazole Sodium) 20 Mg Tablet.dr 40 Mg PO DAILY 05/21/18 Reported Crestor (Rosuvastatin Calcium) 20 Mg Tablet 20 Mg PO HS PRN 05/21/18 Reported Impression . Full consult dictated I reviewed the chest x-ray I think the patient is in acute heart failure in addition to her chronic heart failure Clinically I do not think this is pneumonia Considering her renal failure will be difficult to diurese her without causing additional increase in BUN and creatinine Continue empiric antibiotics for now Check venous Dopplers of the lower extremities ISELA TORIBIO MD May 23, 2021 16:50
[2021-05-23] MEDS: ATORVASTATIN CALCIUM 40 MG TABLET. PO SCH (20:20)
--- NOTE | 2021-05-23 22:05 | CONS ---
DATE OF CONSULTATION: 05/23/2021 ATTENDING PHYSICIAN: Dr. Pagan. REASON FOR CONSULTATION: The patient is seen in pulmonary consultation at the request of Dr. Andrew for abnormal x-ray, increasing shortness of breath, respiratory failure. HISTORY OF PRESENT ILLNESS: The patient is an 85-year-old who has a history of tobacco use, quit some time ago. She has a history of [id number] smoking. Normally is on 2 liters of oxygen at rest, 3 with exertion. She presented with increasing shortness of breath. Chest x-ray was personally reviewed. There is bilateral pulmonary infiltrates compatible with CHF. She is currently being evaluated by Cardiology. She was last admitted here on 05/06 my partner, Dr. Nunn saw her. At that time, it sounds like she had similar type of presentation, she had an abnormal x-ray. She underwent a CT chest. CT revealed small bilateral effusions, some basilar atelectasis. No consolidation. She had a 5 mm nodule in the right middle lobe. She was due to follow up in the office for further management. She denies fever, chills or night sweats. She is up to date on COVID-19 vaccination. She did get natural infection with COVID back in February of this year. She denies hemoptysis. She is unable to lie down flat as a consequence of previous kyphoplasty to the lower back. She has had some lower extremity edema. She is monitoring her salt intake. There is no prior history of DVT or pulmonary embolism. PAST MEDICAL HISTORY: Chronic respiratory failure, chronic AFib, chronic heart failure, gastroesophageal reflux, hyperlipidemia, hypothyroidism, COPD. Previously abnormal CT chest revealing 5 mm nodule in the right middle lobe. She has had a previously abnormal chest x-ray. PAST SURGICAL HISTORY: Status post hysterectomy, carotid endarterectomy, appendectomy, cardiac stenting, kyphoplasty. ALLERGIES: FENTANYL, CODEINE, AND SULFA. FAMILY HISTORY: Diabetes. SOCIAL HISTORY: She quit tobacco 40 years ago, smoked for approximately 30 years. MEDICATIONS: List was reviewed. CURRENT MEDICATIONS: List was reviewed. She is currently on ceftriaxone, IV Lasix, nebulized treatments, IV Solu-Medrol. REVIEW OF SYSTEMS: CONSTITUTIONAL: No fever or chills. EYES: No change in visual acuity. HENT: No nasal congestion or sore throat. PULMONARY: As indicated above. CARDIOVASCULAR: As indicated above. GASTROINTESTINAL: No nausea, vomiting, diarrhea. GENITOURINARY: No dysuria or frequency. MUSCULOSKELETAL: No localized muscle aches or joint pains. SKIN: No new skin rashes. NEUROLOGIC: No headaches, diplopia or blurred vision. PHYSICAL EXAMINATION: VITAL SIGNS: Stable. O2 saturation was greater than 92%, currently on 3 liters. HEENT: Eyes: The sclerae were nonicteric. NECK: Jugular venous distention was not elevated. No lymphadenopathy. CHEST: Full expansion. LUNGS: Slight crackles in the bases. No wheezes. CARDIOVASCULAR: Regular rate and rhythm with S1, S2, no S3. ABDOMEN: Soft, nontender, nondistended, obese. EXTREMITIES: No clubbing, cyanosis. Minimal edema, right greater than left. LABORATORY DATA: Reviewed. BUN and creatinine were elevated. Hemoglobin was low. White count initially elevated. Chest x-ray revealed findings compatible with bilateral pulmonary infiltrates, bilateral effusions, compatible with CHF. IMPRESSION: 1. Acute on chronic respiratory failure. 2. Acute on chronic diastolic heart failure. 3. Abnormal x-ray. 4. Previously abnormal CT revealing right middle lobe 5 mm nodule. 5. Acute exacerbation of chronic obstructive pulmonary disease secondary to above. 6. Possible pneumonia, gram-negative. 7. Acute on chronic kidney injury. 8. Chronic renal failure. 9. History of cirrhosis with portal hypertension. PLAN: 1. Continue current support with oxygen supplementation. 2. Empiric antibiotics. 3. Diurese. 4. Obtain bilateral venous Dopplers of the lower extremities. 5. Repeat CT chest in June, July, the patient to follow up with Dr. Nunn upon discharge. 6. Optimize cardiac meds. 7. Control ventricular response to AFib. I do appreciate the privilege in sharing in the patient's care. GODFREY/ZOHRA MARQUEZ: Breanna TID: [id number]
[2021-05-24 00:12] VITALS: BP 103/53
[2021-05-24 02:33] VITALS: BP 91/50
[2021-05-24 05:31] LABS: CALCIUM 8.9 mg/dL (8.5-10.1); CREATININE 1.8 mg/dL (0.6-1.0); GFR 26.8; POTASSIUM 4.1 mmol/L (3.5-5.1)
[2021-05-24 05:41] LABS: DIG 0.8 ng/mL (0.9-2.0)
[2021-05-24 07:00] VITALS: BP 139/67
[2021-05-24] MEDS: IPRATRPIUM/ALBUTEROL 0.5/2.5MG 3 ML NEBU. NEB SCH ×4 (07:41→20:00)
[2021-05-24] MEDS: METOPROLOL SUCC 24HR ER 100 MG TAB.ER.24H. PO SCH ×2 (07:59→13:51)
[2021-05-24] MEDS: ASPIRIN ENTERIC COATED 81 MG TABLET.DR. PO SCH (08:01)
[2021-05-24] MEDS: FUROSEMIDE 40 MG/4 ML VIAL. IVP SCH (08:01)
--- NOTE | 2021-05-24 08:23 | PDOC ---
PULMONARY PROGRESS NOTES DATE: 05/24/21 TIME: 08:23 Subjective Catie still complains of being short of breath with minimal exertion, when she sits and does not think she is okay no chest pain or pressure Vitals Vital Signs Date Time Temp Pulse Resp B/P (MAP) Pulse Ox O2 Delivery O2 Flow Rate FiO2 05/24/21 07:42 99 Nasal Cannula 3.0 05/24/21 07:00 97.7 87 16 139/67 (91) 97.7 ROS: No Nausea, No Chest Pain, No Abdominal Pain, No Increase Cough General: Alert, No acute distress Lungs: Clear Cardiovascular: S1 Abdomen: Soft Neuro Exam: Alert Extremities: No Edema Skin: Warm Labs Laboratory Tests Test 05/22/21 19:55 05/22/21 20:05 05/22/21 20:09 05/22/21 23:45 Urine Collection Type Unknown Urine Color (Auto) Light yellow Urine Turbidity Clear Urine pH (Auto) 5.5 (<5.0-8.0) Urine Specific [place] 1.013 (1.000-1.030) Urine Protein (Auto) Negative mg/dL (Negative) Urine Glucose (Auto)(UA) Negative mg/dL (Negative) Urine Ketones (Auto) Negative mg/dL (Negative) Urine Blood (Auto) Negative (Negative) Urine Nitrite Negative (Negative) Urine Bilirubin (Auto) Negative (Negative) Urine Urobilinogen (Auto) Normal mg/dL (Normal) Urine Leukocyte Esterase (Auto) Moderate (Negative) Urine RBC 0 /HPF (0-2) Urine WBC 11-20 /HPF (0-4) Urine Squamous Epithelial Cells Few /LPF Urine Bacteria 0 /HPF (0-FEW) Sodium Level 142 mmol/L (136-145) Potassium Level 4.0 mmol/L (3.5-5.1) Chloride Level 102 mmol/L (98-107) Carbon Dioxide Level 28 mmol/L (21-32) Anion Gap 12 (6-14) Blood Urea Nitrogen 37 mg/dL (7-20) Creatinine 1.4 mg/dL (0.6-1.0) Estimated GFR (Cockcroft-Gault) 35.8 BUN/Creatinine Ratio 26 (6-20) Glucose Level 128 mg/dL (70-99) Lactic Acid Level 1.6 mmol/L (0.4-2.0) Calcium Level 9.4 mg/dL (8.5-10.1) Total Bilirubin 1.3 mg/dL (0.2-1.0) Aspartate Amino Transf (AST/SGOT) 17 U/L (15-37) Alanine Aminotransferase (ALT/SGPT) 15 U/L (14-59) Alkaline Phosphatase 82 U/L (46-116) Troponin I High Sensitivity 41 ng/L (4-50) 54 ng/L (4-50) OS-[place]-O-Type Natriuretic Peptide 8009 pg/mL (0-449) Total Protein 7.0 g/dL (6.4-8.2) Albumin 3.7 g/dL (3.4-5.0) Albumin/Globulin Ratio 1.1 (1.0-1.7) Procalcitonin < 0.10 ng/mL (0.00-0.10) White Blood Count 13.2 x10^3/uL (4.0-11.0) Red Blood Count 2.78 x10^6/uL (3.50-5.40) Hemoglobin 8.5 g/dL (12.0-15.5) Hematocrit 26.3 % (36.0-47.0) Mean Corpuscular Volume 95 fL (79-100) Mean Corpuscular Hemoglobin 31 pg (25-35) Mean Corpuscular Hemoglobin Concent 32 g/dL (31-37) Red Cell Distribution Width 16.7 % (11.5-14.5) Platelet Count 219 x10^3/uL (140-400) Neutrophils (%) (Auto) 91 % (31-73) Lymphocytes (%) (Auto) 3 % (24-48) Monocytes (%) (Auto) 5 % (0-9) Eosinophils (%) (Auto) 0 % (0-3) Basophils (%) (Auto) 0 % (0-3) Neutrophils # (Auto) 12.0 x10^3/uL (1.8-7.7) Lymphocytes # (Auto) 0.4 x10^3/uL (1.0-4.8) Monocytes # (Auto) 0.7 x10^3/uL (0.0-1.1) Eosinophils # (Auto) 0.0 x10^3/uL (0.0-0.7) Basophils # (Auto) 0.1 x10^3/uL (0.0-0.2) Prothrombin Time 15.1 SEC (11.7-14.0) Prothromb Time International Ratio 1.2 (0.8-1.1) Activated Partial Thromboplast Time 37 SEC (24-38) Test 05/23/21 03:00 05/23/21 16:15 05/24/21 04:00 White Blood Count 5.6 x10^3/uL (4.0-11.0) 6.1 x10^3/uL (4.0-11.0) Red Blood Count 2.40 x10^6/uL (3.50-5.40) 2.56 x10^6/uL (3.50-5.40) Hemoglobin 7.2 g/dL (12.0-15.5) 7.7 g/dL (12.0-15.5) Hematocrit 22.9 % (36.0-47.0) 24.6 % (36.0-47.0) Mean Corpuscular Volume 96 fL (79-100) 96 fL (79-100) Mean Corpuscular Hemoglobin 30 pg (25-35) 30 pg (25-35) Mean Corpuscular Hemoglobin Concent 31 g/dL (31-37) 31 g/dL (31-37) Red Cell Distribution Width 16.5 % (11.5-14.5) 16.9 % (11.5-14.5) Platelet Count 176 x10^3/uL (140-400) 190 x10^3/uL (140-400) Neutrophils (%) (Auto) 96 % (31-73) Lymphocytes (%) (Auto) 3 % (24-48) Monocytes (%) (Auto) 1 % (0-9) Eosinophils (%) (Auto) 0 % (0-3) Basophils (%) (Auto) 0 % (0-3) Neutrophils # (Auto) 5.4 x10^3/uL (1.8-7.7) Lymphocytes # (Auto) 0.2 x10^3/uL (1.0-4.8) Monocytes # (Auto) 0.0 x10^3/uL (0.0-1.1) Eosinophils # (Auto) 0.0 x10^3/uL (0.0-0.7) Basophils # (Auto) 0.0 x10^3/uL (0.0-0.2) Segmented Neutrophils % 90 % (35-66) Band Neutrophils % 6 % (0-9) Lymphocytes % 3 % (24-48) Monocytes % 1 % (0-10) Platelet Estimate Adequate (ADEQUATE) Polychromasia Slight Anisocytosis Slight Sodium Level 143 mmol/L (136-145) 139 mmol/L (136-145) Potassium Level 4.0 mmol/L (3.5-5.1) 4.1 mmol/L (3.5-5.1) Chloride Level 104 mmol/L (98-107) 103 mmol/L (98-107) Carbon Dioxide Level 29 mmol/L (21-32) 27 mmol/L (21-32) Anion Gap 10 (6-14) 9 (6-14) Blood Urea Nitrogen 39 mg/dL (7-20) 52 mg/dL (7-20) Creatinine 1.3 mg/dL (0.6-1.0) 1.8 mg/dL (0.6-1.0) Estimated GFR (Cockcroft-Gault) 39.0 26.8 Glucose Level 169 mg/dL (70-99) 134 mg/dL (70-99) Calcium Level 8.5 mg/dL (8.5-10.1) 8.9 mg/dL (8.5-10.1) Troponin I High Sensitivity 46 ng/L (4-50) Thyroid Stimulating Hormone (TSH) 1.576 uIU/mL (0.358-3.74) Digoxin Level 1.0 ng/mL (0.9-2.0) 0.8 ng/mL (0.9-2.0) Digoxin Last Dose Date 05/22/21 05/23/21 Digoxin Last Dose Time 0900 0900 Laboratory Tests Test 05/23/21 16:15 05/24/21 04:00 White Blood Count 6.1 x10^3/uL (4.0-11.0) Red Blood Count 2.56 x10^6/uL (3.50-5.40) Hemoglobin 7.7 g/dL (12.0-15.5) Hematocrit 24.6 % (36.0-47.0) Mean Corpuscular Volume 96 fL (79-100) Mean Corpuscular Hemoglobin 30 pg (25-35) Mean Corpuscular Hemoglobin Concent 31 g/dL (31-37) Red Cell Distribution Width 16.9 % (11.5-14.5) Platelet Count 190 x10^3/uL (140-400) Sodium Level 139 mmol/L (136-145) Potassium Level 4.1 mmol/L (3.5-5.1) Chloride Level 103 mmol/L (98-107) Carbon Dioxide Level 27 mmol/L (21-32) Anion Gap 9 (6-14) Blood Urea Nitrogen 52 mg/dL (7-20) Creatinine 1.8 mg/dL (0.6-1.0) Estimated GFR (Cockcroft-Gault) 26.8 Glucose Level 134 mg/dL (70-99) Calcium Level 8.9 mg/dL (8.5-10.1) Digoxin Level 0.8 ng/mL (0.9-2.0) Digoxin Last Dose Date 05/23/21 Digoxin Last Dose Time 0900 Medications Active Scripts Medications Dose Route/Sig Max Daily Dose Days Date Category Pulmicort (Budesonide) 0.5 Mg/2 Ml Ampul.neb 1 Vial NEB BID 30 05/08/21 Rx Culturelle (Lactobacillus Rhamnosus Gg) 1 Each Cap.sprink 1 Cap PO BID 7 05/08/21 Rx Prednisone 20 Mg Tablet 20 Mg PO DAILY 4 05/08/21 Rx Torsemide 20 Mg Tablet 20 Mg PO DAILY 30 05/08/21 Rx Acetaminophen 325 Mg Tablet 650 Mg PO PRN Q6HRS PRN 30 05/08/21 Rx Aspirin Ec (Aspirin) 81 Mg Tablet.dr 81 Mg PO DAILYWBKFT 30 05/08/21 Rx Digoxin 125 Mcg Tablet 125 Mcg PO QODAY 30 05/08/21 Rx Duoneb 0.5-3(2.5) Mg/3 Ml (Albuterol/Ipratropium) 3 Ml Ampul.neb 3 Ml NEB RTQID 30 05/08/21 Rx Doxycycline Hyclate 100 Mg Tablet 100 Mg PO BID 4 05/08/21 Rx Ocuvite Lutein 25-5 mg Softgel (Lutein/Zeaxanthin) 1 Each Capsule 1 Cap PO DAILY 30 05/05/21 Reported Metoprolol Succinate ( Xl ) (Metoprolol Succinate) 100 Mg Tab.er.24h 1 Tab PO DAILY 05/05/21 Reported Feosol (Ferrous Sulfate) 325 Mg Tablet 325 Mg PO DAILY 30 07/01/18 Rx Miralax (Polyethylene Glycol 3350) 17 Gm Powd.pack 1 Pkt PO HS 06/29/18 Reported Levothyroxine Sodium 88 Mcg Tablet 1 Tab PO DAILY 05/21/18 Reported Protonix (Pantoprazole Sodium) 20 Mg Tablet.dr 40 Mg PO DAILY 05/21/18 Reported Crestor (Rosuvastatin Calcium) 20 Mg Tablet 20 Mg PO HS PRN 05/21/18 Reported Impression . 1. Acute on chronic respiratory failure. 2. Acute on chronic diastolic heart failure. 3. Abnormal x-ray. 4. Previously abnormal CT revealing right middle lobe 5 mm nodule. 5. Acute exacerbation of chronic obstructive pulmonary disease secondary to above. 6. Possible pneumonia, gram-negative. 7. Acute on chronic kidney injury. 8. Chronic renal failure. 9. History of cirrhosis with portal hypertension. Plan . Updated 05/24 Venous Dopplers negative for DVT Continue empiric antibiotics Dr. Nunn in July, upon discharge Follow cardiology input PLAN: 1. Continue current support with oxygen supplementation. 2. Empiric antibiotics. 3. Diurese. 4. Obtain bilateral venous Dopplers of the lower extremities. 5. Repeat CT chest in June, July, the patient to follow up with Dr. Nunn upon discharge. 6. Optimize cardiac meds. 7. Control ventricular response to AFib. I do appreciate the privilege in sharing in the patient's care. ISELA TORIBIO MD May 24, 2021 08:23
--- NOTE | 2021-05-24 09:54 | PDOC ---
DATE OF SERVICE DATE: 05/24/21 TIME: 09:54 SUBJECTIVE ROS States her leg was hurting last night and she just got Doppler to rule out clots She Recd PRBC last night as well . States her SOb is stable as long as she is resting . She thinks she has Good UOp OBJECTIVE Vital Signs Vital Signs Date Time Temp Pulse Resp B/P (MAP) Pulse Ox O2 Delivery O2 Flow Rate FiO2 05/24/21 08:00 Nasal Cannula 3.0 05/24/21 07:42 99 05/24/21 07:00 97.7 87 16 139/67 (91) 97.7 I & 0 Intake and Output 05/24/21 07:00 Intake Total 880 ml Output Total 1000 ml Balance -120 ml Intake Oral 880 ml Output Urine Total 1000 ml PHYSICAL EXAM Physical Exam General: No acute distress, propped up in bed HEENT: Atraumatic, Mucous membr. moist/pink, O2 by NC Neck Supple Lungs: Decreased at bases Non labored Heart: Normal S1, Normal S2, 2/6 systolic murmur Abdomen: Soft, No tenderness, Obese Extremities: No cyanosis, 1-2+ LE edema Skin: No Rash Neuro: Normal speech, Sensation intact, grossly normal Psych/Mental Status: Mental status NL, Mood NL No Price, No CVA or SP tenderness DIAGNOSIS/ASSESSMENT Assessment & Plan TAMMY - cardiorenal/ Fluctuating Cr . . Supportive care, Monitor , avoid Nephrotoxins. Maintain fluid balance Diuretics per cardiology CKD stage 3 B - Cr at he baseline currently. Baseline Creat 1.35-1.58 . TAMMY in 2019 Cr 2.6 . Admitted in Feb 2021 with Sepsis 2/2 UTI with TAMMY UTI - on Abx Anemia- We have schedukled her for ALYSSA and Recd IV Fe as OP/ PRB recently at [place] and again Last night COMMENT/RELEVANT DATA Meds Current Medications Medications (Trade) Dose Ordered Sig/Therese Start Time Stop Time Status Last Admin Dose Admin Acetaminophen (Tylenol) 650 mg PRN Q4HRS PRN 05/22/21 23:00 05/23/21 22:59 DC Albuterol/ Ipratropium (Duoneb) 3 ml RTQID 05/23/21 08:00 05/22/21 23:02 DC Aspirin (Ecotrin) 81 mg DAILYWBKFT 05/23/21 13:00 05/24/21 08:01 81 MG Atorvastatin Calcium (Lipitor) 80 mg HS 05/23/21 21:00 05/23/21 20:20 80 MG Azithromycin 500 mg/Sodium Chloride 250 ml @ 250 mls/hr 1X ONCE 05/22/21 22:00 05/22/21 22:59 DC 05/22/21 20:52 250 MLS/HR Ceftriaxone Sodium (Rocephin) 1 gm Q24H 05/22/21 23:00 05/23/21 22:59 1 GM Digoxin (Lanoxin) 125 mcg QODAY 05/25/21 09:00 Diltiazem HCl (Cardizem Iv Push) 10 mg 1X ONCE 05/23/21 16:15 05/23/21 16:20 DC 05/23/21 17:13 10 MG Furosemide (Lasix) 40 mg 1X ONCE 05/23/21 13:15 05/23/21 13:24 DC 05/23/21 22:53 40 MG Methylprednisolone Sodium Succinate (SOLU-Medrol 40MG VIAL) 40 mg BID 05/23/21 09:00 05/23/21 16:51 DC 05/23/21 09:19 40 MG Methylprednisolone Sodium Succinate (SOLU-Medrol 125MG VIAL) 125 mg 1X ONCE 05/22/21 20:15 05/22/21 20:17 DC 05/22/21 20:22 125 MG Metoprolol Succinate (Toprol Xl) 100 mg DAILY 05/23/21 13:00 05/23/21 16:25 100 MG Metoprolol Tartrate (Lopressor Vial) 5 mg 1X ONCE 05/23/21 16:15 05/23/21 16:20 DC 05/23/21 17:51 5 MG Ondansetron HCl (Zofran) 4 mg 1X ONCE 05/22/21 20:30 05/22/21 20:31 DC 05/22/21 20:45 4 MG Polyethylene Glycol (miraLAX PACKET) 17 gm 1X ONCE 05/23/21 13:15 05/23/21 13:16 DC 05/23/21 16:25 17 GM Lab Laboratory Tests Test 05/23/21 16:15 05/24/21 04:00 White Blood Count 6.1 x10^3/uL (4.0-11.0) Red Blood Count 2.56 x10^6/uL (3.50-5.40) Hemoglobin 7.7 g/dL (12.0-15.5) Hematocrit 24.6 % (36.0-47.0) Mean Corpuscular Volume 96 fL (79-100) Mean Corpuscular Hemoglobin 30 pg (25-35) Mean Corpuscular Hemoglobin Concent 31 g/dL (31-37) Red Cell Distribution Width 16.9 % (11.5-14.5) Platelet Count 190 x10^3/uL (140-400) Sodium Level 139 mmol/L (136-145) Potassium Level 4.1 mmol/L (3.5-5.1) Chloride Level 103 mmol/L (98-107) Carbon Dioxide Level 27 mmol/L (21-32) Anion Gap 9 (6-14) Blood Urea Nitrogen 52 mg/dL (7-20) Creatinine 1.8 mg/dL (0.6-1.0) Estimated GFR (Cockcroft-Gault) 26.8 Glucose Level 134 mg/dL (70-99) Calcium Level 8.9 mg/dL (8.5-10.1) Digoxin Level 0.8 ng/mL (0.9-2.0) Digoxin Last Dose Date 05/23/21 Digoxin Last Dose Time 0900 Results All relevant outside records, renal labs, imaging studies, telemetry/EKG's were reviewed. Justicifation of Admission Dx: Justifications for Admission: Justification of Admission Dx: Yes FARHANA VALENZUELA MD May 24, 2021 09:54
[2021-05-24] MEDS ORDERED: REGADENOSON 0.4 MG/5 ML DISP.SYRIN. IV ONE (10:15)
--- NOTE | 2021-05-24 13:14 | RAD ---
EXAMINATION: US BILATERAL LOWEREXTREMITY VENOUS DOPPLER (LOWER EXTREMITY VENOUS ULTRASOUND) CLINICAL HISTORY: Bilateral lower extremity pain and edema. TECHNIQUE: Sonographic grayscale images obtained of the bilateral lower extremity deep venous systems with color flow Doppler, compression, and augmentation techniques as indicated. Images obtained and stored in a permanent archive. COMPARISON: None FINDINGS: RIGHT: No evidence of absent flow or incompressibility within the common femoral vein, femoral vein, or popl iteal vein. Visualized calf veins appear patent on limited evaluation. LEFT: No evidence of absent flow or incompressibility within the common femoral vein, femoral vein, or popl iteal vein. Visualized calf veins appear patent on limited evaluation. IMPRESSION: No evidence of bilateral lower extremity DVT. Electronically signed by: Robinson Acuna DO (05/24/2021 1:12 PM) [id number]
--- NOTE | 2021-05-24 13:21 | PDOC ---
NAHUN SAENZ [employer] MANA[employer] 05/24/21 1321: CARDIO Progress Notes Date and Time Date of Service 05/24/2021 Time of Evaluation 1300 Subjective Subjective: No Chest Pain, No shortness of breath, No Palpitations Vitals Vitals Vital Signs Date Time Temp Pulse Resp B/P (MAP) Pulse Ox O2 Delivery O2 Flow Rate FiO2 05/24/21 12:51 96 Nasal Cannula 3.0 05/24/21 07:00 97.7 87 16 139/67 (91) 97.7 Weight Weight [ ] Input and Output Intake and Output Intake and Output 05/24/21 07:00 Intake Total 880 ml Output Total 1000 ml Balance -120 ml Intake Oral 880 ml Output Urine Total 1000 ml Laboratory Labs Laboratory Tests Test 05/23/21 16:15 05/24/21 04:00 White Blood Count 6.1 x10^3/uL (4.0-11.0) Red Blood Count 2.56 x10^6/uL (3.50-5.40) Hemoglobin 7.7 g/dL (12.0-15.5) Hematocrit 24.6 % (36.0-47.0) Mean Corpuscular Volume 96 fL (79-100) Mean Corpuscular Hemoglobin 30 pg (25-35) Mean Corpuscular Hemoglobin Concent 31 g/dL (31-37) Red Cell Distribution Width 16.9 % (11.5-14.5) Platelet Count 190 x10^3/uL (140-400) Sodium Level 139 mmol/L (136-145) Potassium Level 4.1 mmol/L (3.5-5.1) Chloride Level 103 mmol/L (98-107) Carbon Dioxide Level 27 mmol/L (21-32) Anion Gap 9 (6-14) Blood Urea Nitrogen 52 mg/dL (7-20) Creatinine 1.8 mg/dL (0.6-1.0) Estimated GFR (Cockcroft-Gault) 26.8 Glucose Level 134 mg/dL (70-99) Calcium Level 8.9 mg/dL (8.5-10.1) Digoxin Level 0.8 ng/mL (0.9-2.0) Digoxin Last Dose Date 05/23/21 Digoxin Last Dose Time 0900 Microbiology Micro Microbiology 05/22/21 Blood Culture - Preliminary, Resulted NO GROWTH AFTER 1 DAY 05/22/21 Urine Culture - Preliminary, Resulted Escherichia Coli Physical Exam HEENT: Neck Supple W Full Motion Chest: Symmetric Assessment Assessment 1. Acute on chronic diastolic CHF: appears compensated 2. TAMMY on CKD; CR up to 1.8 3. CAD; s/p PCI/stent x2 03/2018 in [place], [place]. Clinically stable. 4. Hypertension; controlled 5. Hyperlipidemia; statin 6. PAFIB: Amiodarone discontinued 05/2018 due to liver disease. Now back in AFIB with RVR 7. Iron deficiency anemia: Hgb 7.2, post transfusion 8. H/o cirrhosis, portal hypertension 9. Hypothyroidism: on home replacement 10. Constipation 11. suspect CKD3 Recommendations Lasix therapy, monitor Cr Not a NOAC candidate due to anemia and cirrhosis. Continue ASA Continue metoprolol and QOD digoxin. Dig IV x1. Will titrate BB if BP would tolerate Secondary prevention CHF is refractory possibly from combination of diastolic CHF, anemia, and cirrhosis. Could not completely rule out ischemic etiology. She had renal issues after her last LHC. MPI today Justicifation of Admission Dx: Justifications for Admission: Justification of Admission Dx: Yes CLARA BAUM MD 05/24/21 2230: CARDIO Progress Notes Subjective Comments: No new complaints Assessment Assessment Patient seen and examined. Agree with RETREADER's assessment and carlos Ac on chr diastolic HF better compensated CAD clinically stable PAF presently sinus tachycardia She is poor candidate for retirement OAC due to anemia We will consider outpatient referral for LAAO Plan MPI to rule out ischemia once resp status improves NAHUN SAENZ APRN May 24, 2021 13:21 CLARA BAUM MD May 24, 2021 22:30
[2021-05-24] MEDS ORDERED: DIGOXIN IV 500 MCG/2 ML AMPUL. IV ONE (13:30)
[2021-05-24] MEDS ORDERED: METOPROLOL IV PUSH 5 MG/5 ML VIAL. IVP ONE (14:00)
[2021-05-24 14:48] LABS: HEMATOCRIT 28.4 % (36.0-47.0); HEMOGLOBIN 9.2 g/dL (12.0-15.5); RED BLOOD COUNT 2.97 x10^6/uL (3.50-5.40); RED CELL DISTRIBUTION WIDTH 16.7 % (11.5-14.5); WHITE BLOOD COUNT 11.3 x10^3/uL (4.0-11.0)
[2021-05-24 15:00] VITALS: BP 79/47
--- NOTE | 2021-05-24 16:43 | PDOC ---
[facility] PROGRESS NOTE Date of Service DOS: DATE: 05/24/21 TIME: 16:43 Chief Complaint Chief Complaint Acute on chronic diastolic CHF _ IV diuresis, acute vasomotor nephropathy CAD and. Hypertension, Hyperlipidemia symptomatic anemia Hepatic cirrhosis, portal hypertension Hypothyroidism: on History of Present Illness History of Present Illness Lasix therapy has improved renal function, s/p PRBC given for anemia, cirrhosis and anemia on meds for afib, rate control, anticoag contraindicated at this time due to anemia, fall Vitals/I&O Vitals/I&O: Vital Signs Date Time Temp Pulse Resp B/P (MAP) Pulse Ox O2 Delivery O2 Flow Rate FiO2 05/24/21 15:28 98 Nasal Cannula 3.0 05/24/21 15:00 98.0 110 16 79/47 (58) 98.0 I & O 05/23/21 05/23/21 05/24/21 14:59 22:59 06:59 Intake Total 460 ml 420 ml 0 ml Output Total 1000 ml Balance 460 ml 420 ml -1000 ml Physical Exam General: Alert, Oriented X3, Cooperative, mild distress Heart: Regular rate (sinus tachycardia), Normal S1, Normal S2, Other (2/6 systolic murmur to LLS border) Lungs: Clear Abdomen: Soft, No tenderness Extremities: No cyanosis, Other (2+ bilateral Le pitting edema) Skin: No breakdown, No significant lesion Labs Labs: Laboratory Tests Test 05/24/21 04:00 05/24/21 14:41 Sodium Level 139 mmol/L (136-145) Potassium Level 4.1 mmol/L (3.5-5.1) Chloride Level 103 mmol/L (98-107) Carbon Dioxide Level 27 mmol/L (21-32) Anion Gap 9 (6-14) Blood Urea Nitrogen 52 mg/dL (7-20) Creatinine 1.8 mg/dL (0.6-1.0) Estimated GFR (Cockcroft-Gault) 26.8 Glucose Level 134 mg/dL (70-99) Calcium Level 8.9 mg/dL (8.5-10.1) Digoxin Level 0.8 ng/mL (0.9-2.0) Digoxin Last Dose Date 05/23/21 Digoxin Last Dose Time 0900 White Blood Count 11.3 x10^3/uL (4.0-11.0) Red Blood Count 2.97 x10^6/uL (3.50-5.40) Hemoglobin 9.2 g/dL (12.0-15.5) Hematocrit 28.4 % (36.0-47.0) Mean Corpuscular Volume 96 fL (79-100) Mean Corpuscular Hemoglobin 31 pg (25-35) Mean Corpuscular Hemoglobin Concent 32 g/dL (31-37) Red Cell Distribution Width 16.7 % (11.5-14.5) Platelet Count 193 x10^3/uL (140-400) Assessment and Plan Assessmemt and Plan Problems Medical Problems: (1) Acute exacerbation of congestive heart failure Status: Acute (2) Acute on chronic respiratory failure with hypoxemia Status: Acute (3) COPD with exacerbation Status: Acute Comment Review of Relevant I have reviewed the following items brittani (where applicable) has been applied. Medications: Current Medications Medications (Trade) Dose Ordered Sig/Therese Route PRN Reason Start Time Stop Time Status Last Admin Dose Admin Atorvastatin Calcium (Lipitor) 80 mg HS PO 05/23/21 21:00 05/23/21 20:20 Regadenoson (Lexiscan) 0.4 mg 1X ONCE IV 05/24/21 10:15 05/24/21 10:16 DC 05/24/21 11:24 Metoprolol Tartrate (Lopressor Vial) 5 mg 1X ONCE IVP 05/24/21 14:00 05/24/21 14:01 DC 05/24/21 13:53 Justifications for Admission Other Justification RAYA MANNING MD May 24, 2021 16:43
--- NOTE | 2021-05-24 17:59 | RAD ---
MR#: [id number] Date of Study: 05/24/2021 Ordering Physician: NAHUN SAENZ, Referring Physician: CURT AGUSTIN Tech: RT Maria Esther (R) (N) APPROVED REPORT Test Type: Pharmacological Stress Nurse/Tech: KONRAD SEGAL Test Indications: AFIB, CHF, SHORTNESS OF BREATH, CHEST PAIN, CAD Cardiac History: SEE EMR Medications: SEE EMR Medical History: SEE EMR Resting ECG: AFIB Resting Heart Rate: 95 bpm Resting Blood Pressure: 141/56mmHg Pretest Chest Pain: No chest pain Nurse/Tech Notes IRREGULLAR RATE, AFIB PER MONITOR, O2 @ 3L PER NC, C/O OF CHRONIC SOA, DENIES CHEST PAIN. VSS. Consent: The procedure was explained to the patient in lay terms. Informed consent was witnessed. Jeferson eout was entered into [facility] [facility]. History and Stress Test performed by RADHA Gray, ARRT (R) (N) Pharm. Details Pharmacologic stress testing was performed using 0.4mg per 5ml of regadenoson given intravenously ove r 7-10 seconds. Stress Symptoms PT TOLERATED THE TEST WELL, ONLY COMPLAINT WAS OF SLIGHT NAUSEA TOWARDS THE END. VSS. DENIED CHEST PA IN OR WORSENING OF SHORTNESS OF AIR. POST EXERCISE Reason for Termination: Infusion complete Max HR: 132 bpm Max Blood Pressure: 141/47mmHg Blood Pressure response to exercise: Abnormal blood pressure response during stress. Heart Rate response to exercise: WNL Chest Pain: No. Arrhythmia: . CHRONIC AFIB, NO SIGNIFICANT CHANGES FROM BASELINE EKG. INTERPRETATION Stress EKG Conclusion: Baseline EKG showed atrial fibrillation. Nondiagnostic changes at peak stress . No other arrhythmias. Imaging Protocol IMAGE PROTOCOL: Rest Tc-99m/stress Tc-99m 1 day Rest: Stress: Viability: Radiopharm.Tc99m [id number] Sestamibi [id number] 31mCi Rest Admin Site:IV - Left AntecubitalAdministrator:RT Maria Esther (R)(N) Stress Admin Site: IV - Left AntecubitalAdministrator: Andra Le, NMTCB, ARRT (R)(N) STRESS DATA End Diast. Vol.62.0mlLVEDV index BSA34.0ml End Syst. Vol.20.0mlLVESV index BSA11.0ml Myocardial Ckjz618.0gEject. Ymufmbxs28.0% Stress Scores Regional WT2.00Summed WT18.00 Regional WM0.00Summed WM6.00 Study quality was . Left Ventricular size was Normal at Rest and Stress. Lung uptake was . Left Ventricular ejection fraction is 68%. The rest and stress images show normal perfusion, normal contraction and thickening. LV Perf. Quant 17 Seg. SSS7.00 17 Seg. SRS1.00 17 Seg. SDS6.00 Stress Defect Extent (% LAD)0.00Rest Defect Extent (% LAD)0.00Rev. Defect Extent (% LAD)0.00 Stress Defect Extent (% LCX) 43.80Rest Defect Extent (% LCX)7.50Rev. Defect Extent (% LCX)23.80 Stress Defect Extent (% RCA)0.00Rest Defect Extent (% RCA)1.10Rev. Defect Extent (% RCA)0.00 Stress Defect Extent (% NICK)7.60Rest Defect Extent (% NICK)3.70Rev. Defect Extent (% NICK)4.10 Conclusion 1. Regadenoson cardioisotope stress test did not show any evidence of ischemia or infarct. 2. Normal left ventricular systolic function with ejection fraction calculated at 68%. 3. Low risk for cardiac events. Signed by : Kenny Malone, Electronically Approved : 05/24/2021 17:58:46
[2021-05-24 19:00] VITALS: BP 119/57
[2021-05-24] MEDS: ATORVASTATIN CALCIUM 40 MG TABLET. PO SCH (20:44)
[2021-05-24 22:34] VITALS: BP 103/49
[2021-05-24] MEDS: cefTRIAXone IV Push 1 GM VIAL. IVP SCH (23:47)
[2021-05-25 02:36] VITALS: BP 132/59
[2021-05-25 02:39] LABS: CALCIUM 8.5 mg/dL (8.5-10.1); CREATININE 1.9 mg/dL (0.6-1.0); GFR 25.2; POTASSIUM 4.1 mmol/L (3.5-5.1)
[2021-05-25 07:00] VITALS: BP 147/70
--- NOTE | 2021-05-25 07:23 | PDOC ---
PROGRESS NOTES Date of Service: DATE: 05/25/21 TIME: 07:23 Subjective Subjective No new complaints Objective Objective Vital Signs Date Time Temp Pulse Resp B/P (MAP) Pulse Ox O2 Delivery O2 Flow Rate FiO2 05/25/21 02:36 97.9 97 16 132/59 (83) 98 Nasal Cannula 4.0 97.9 Intake and Output 05/25/21 07:00 Intake Total 300 ml Output Total 600 ml Balance -300 ml Intake Oral 300 ml Output Urine Total 600 ml Physical Exam Abdomen: Soft, No tenderness Heart: Regular rate (sinus tachycardia), Normal S1, Normal S2, Other (2/6 systo lic murmur to LLS border) Extremities: No cyanosis, Other (2+ bilateral Le pitting edema) General: Alert, Oriented X3, Cooperative, mild distress HEENT: Atraumatic, Mucous membr. moist/pink Lungs: Other (basilar crackles) MUSCULOSKELETAL: Osteoarthritic changes both hands Neuro: Normal speech, Sensation intact Psych/Mental Status: Mental status NL, Other (anxious) Skin: No breakdown, No significant lesion Assessment Assessment 1. Acute on chronic diastolic CHF: appears better compensated 2. TAMMY on CKD; CR up to 1.8 3. CAD; s/p PCI/stent x2 03/2018 in [place], [place]. Clinically stable. 4. Hypertension; controlled 5. Hyperlipidemia; statin 6. PAFIB: Amiodarone discontinued 05/2018 due to liver disease. Now back in AFIB with RVR 7. Iron deficiency anemia: Hgb 7.2, post transfusion 8. H/o cirrhosis, portal hypertension 9. Hypothyroidism: on home replacement 10. Constipation 11. suspect CKD3 Recommendations Lexiscan nuclear stress test did not show any significant ischemia Lasix therapy, monitor Cr Not a NOAC candidate due to anemia and cirrhosis. Continue ASA Continue metoprolol and QOD digoxin. Secondary prevention Plan Plan of Care Problems Medical Problems: (1) Acute exacerbation of congestive heart failure Status: Acute (2) Acute on chronic respiratory failure with hypoxemia Status: Acute (3) COPD with exacerbation Status: Acute Comment Review of Relevant I have reviewed the following items brittani (where applicable) has been applied. Labs Laboratory Tests Test 05/24/21 14:41 05/25/21 02:00 White Blood Count 11.3 x10^3/uL (4.0-11.0) Red Blood Count 2.97 x10^6/uL (3.50-5.40) Hemoglobin 9.2 g/dL (12.0-15.5) Hematocrit 28.4 % (36.0-47.0) Mean Corpuscular Volume 96 fL (79-100) Mean Corpuscular Hemoglobin 31 pg (25-35) Mean Corpuscular Hemoglobin Concent 32 g/dL (31-37) Red Cell Distribution Width 16.7 % (11.5-14.5) Platelet Count 193 x10^3/uL (140-400) Sodium Level 139 mmol/L (136-145) Potassium Level 4.1 mmol/L (3.5-5.1) Chloride Level 103 mmol/L (98-107) Carbon Dioxide Level 28 mmol/L (21-32) Anion Gap 8 (6-14) Blood Urea Nitrogen 57 mg/dL (7-20) Creatinine 1.9 mg/dL (0.6-1.0) Estimated GFR (Cockcroft-Gault) 25.2 Glucose Level 112 mg/dL (70-99) Calcium Level 8.5 mg/dL (8.5-10.1) Microbiology 05/22/21 Blood Culture - Preliminary, Resulted NO GROWTH AFTER 2 DAYS 05/22/21 Urine Culture - Preliminary, Resulted Escherichia Coli Medications Current Medications Digoxin (Lanoxin) 125 mcg QODAY PO ; Start 05/25/21 at 09:00 Digoxin (Lanoxin) 250 mcg 1X ONCE IV ; Start 05/24/21 at 13:30; Stop 05/24/21 at 13:31; Status DC Furosemide (Lasix) 20 mg DAILY IVP ; Start 05/25/21 at 09:00 Metoprolol Tartrate (Lopressor Vial) 5 mg 1X ONCE IVP Last administered on 05/24/21at 13:53; Start 05/24/21 at 14:00; Stop 05/24/21 at 14:01; Status DC Regadenoson (Lexiscan) 0.4 mg 1X ONCE IV Last administered on 05/24/21at 11:24; Start 05/24/21 at 10:15; Stop 05/24/21 at 10:16; Status DC Vitals/I & O Vital Sign - Last 24 Hours 4/8/22 4/8/22 4/8/22 4/8/22 07:42 08:00 12:51 13:51 Pulse 87 B/P (MAP) 139/67 Pulse Ox 99 96 O2 Delivery Nasal Cannula Nasal Cannula Nasal Cannula O2 Flow Rate 3.0 3.0 3.0 05/24/21 05/24/21 05/24/21 05/24/21 13:53 15:00 15:28 19:00 Temp 98.0 97.7 98.0 97.7 Pulse 87 110 92 Resp 16 16 B/P (MAP) 139/67 79/47 (58) 119/57 (77) Pulse Ox 97 98 100 O2 Delivery Nasal Cannula Nasal Cannula Nasal Cannula O2 Flow Rate 4.0 3.0 4.0 05/24/21 05/24/21 05/24/21 05/25/21 20:00 20:29 22:34 02:36 Temp 98.0 97.9 98.0 97.9 Pulse 88 97 Resp 16 16 B/P (MAP) 103/49 (67) 132/59 (83) Pulse Ox 98 100 98 O2 Delivery Nasal Cannula Nasal Cannula Nasal Cannula Nasal Cannula O2 Flow Rate 3.0 3.0 4.0 4.0 Intake and Output 05/24/21 05/24/21 05/25/21 15:00 23:00 07:00 Intake Total 300 ml Output Total 150 ml 50 ml 400 ml Balance -150 ml -50 ml -100 ml CLARA BAUM MD May 25, 2021 07:23
[2021-05-25] MEDS: IPRATRPIUM/ALBUTEROL 0.5/2.5MG 3 ML NEBU. NEB SCH ×4 (08:14→20:00)
--- NOTE | 2021-05-25 08:55 | PDOC ---
PULMONARY PROGRESS NOTES DATE: 05/25/21 TIME: 08:55 Subjective No overnight events Patient feels better but continues to be short of breath with exertion Vitals Vital Signs Date Time Temp Pulse Resp B/P (MAP) Pulse Ox O2 Delivery O2 Flow Rate FiO2 05/25/21 08:17 100 Nasal Cannula 3.0 05/25/21 02:36 97.9 97 16 132/59 (83) 97.9 ROS: No Nausea, No Chest Pain, No Abdominal Pain, No Increase Cough General: Alert, No acute distress Lungs: Clear Cardiovascular: S1 Abdomen: Soft Neuro Exam: Alert Extremities: No Edema Skin: Warm Labs Laboratory Tests Test 05/23/21 16:15 05/24/21 04:00 05/24/21 14:41 05/25/21 02:00 White Blood Count 6.1 x10^3/uL (4.0-11.0) 11.3 x10^3/uL (4.0-11.0) Red Blood Count 2.56 x10^6/uL (3.50-5.40) 2.97 x10^6/uL (3.50-5.40) Hemoglobin 7.7 g/dL (12.0-15.5) 9.2 g/dL (12.0-15.5) Hematocrit 24.6 % (36.0-47.0) 28.4 % (36.0-47.0) Mean Corpuscular Volume 96 fL (79-100) 96 fL (79-100) Mean Corpuscular Hemoglobin 30 pg (25-35) 31 pg (25-35) Mean Corpuscular Hemoglobin Concent 31 g/dL (31-37) 32 g/dL (31-37) Red Cell Distribution Width 16.9 % (11.5-14.5) 16.7 % (11.5-14.5) Platelet Count 190 x10^3/uL (140-400) 193 x10^3/uL (140-400) Sodium Level 139 mmol/L (136-145) 139 mmol/L (136-145) Potassium Level 4.1 mmol/L (3.5-5.1) 4.1 mmol/L (3.5-5.1) Chloride Level 103 mmol/L (98-107) 103 mmol/L (98-107) Carbon Dioxide Level 27 mmol/L (21-32) 28 mmol/L (21-32) Anion Gap 9 (6-14) 8 (6-14) Blood Urea Nitrogen 52 mg/dL (7-20) 57 mg/dL (7-20) Creatinine 1.8 mg/dL (0.6-1.0) 1.9 mg/dL (0.6-1.0) Estimated GFR (Cockcroft-Gault) 26.8 25.2 Glucose Level 134 mg/dL (70-99) 112 mg/dL (70-99) Calcium Level 8.9 mg/dL (8.5-10.1) 8.5 mg/dL (8.5-10.1) Digoxin Level 0.8 ng/mL (0.9-2.0) Digoxin Last Dose Date 05/23/21 Digoxin Last Dose Time 0900 Laboratory Tests Test 05/24/21 14:41 05/25/21 02:00 White Blood Count 11.3 x10^3/uL (4.0-11.0) Red Blood Count 2.97 x10^6/uL (3.50-5.40) Hemoglobin 9.2 g/dL (12.0-15.5) Hematocrit 28.4 % (36.0-47.0) Mean Corpuscular Volume 96 fL (79-100) Mean Corpuscular Hemoglobin 31 pg (25-35) Mean Corpuscular Hemoglobin Concent 32 g/dL (31-37) Red Cell Distribution Width 16.7 % (11.5-14.5) Platelet Count 193 x10^3/uL (140-400) Sodium Level 139 mmol/L (136-145) Potassium Level 4.1 mmol/L (3.5-5.1) Chloride Level 103 mmol/L (98-107) Carbon Dioxide Level 28 mmol/L (21-32) Anion Gap 8 (6-14) Blood Urea Nitrogen 57 mg/dL (7-20) Creatinine 1.9 mg/dL (0.6-1.0) Estimated GFR (Cockcroft-Gault) 25.2 Glucose Level 112 mg/dL (70-99) Calcium Level 8.5 mg/dL (8.5-10.1) Medications Active Scripts Medications Dose Route/Sig Max Daily Dose Days Date Category Pulmicort (Budesonide) 0.5 Mg/2 Ml Ampul.neb 1 Vial NEB BID 30 05/08/21 Rx Culturelle (Lactobacillus Rhamnosus Gg) 1 Each Cap.sprink 1 Cap PO BID 7 05/08/21 Rx Prednisone 20 Mg Tablet 20 Mg PO DAILY 4 05/08/21 Rx Torsemide 20 Mg Tablet 20 Mg PO DAILY 30 05/08/21 Rx Acetaminophen 325 Mg Tablet 650 Mg PO PRN Q6HRS PRN 30 05/08/21 Rx Aspirin Ec (Aspirin) 81 Mg Tablet.dr 81 Mg PO DAILYWBKFT 30 05/08/21 Rx Digoxin 125 Mcg Tablet 125 Mcg PO QODAY 30 05/08/21 Rx Duoneb 0.5-3(2.5) Mg/3 Ml (Albuterol/Ipratropium) 3 Ml Ampul.neb 3 Ml NEB RTQID 30 05/08/21 Rx Doxycycline Hyclate 100 Mg Tablet 100 Mg PO BID 4 05/08/21 Rx Ocuvite Lutein 25-5 mg Softgel (Lutein/Zeaxanthin) 1 Each Capsule 1 Cap PO DAILY 30 05/05/21 Reported Metoprolol Succinate ( Xl ) (Metoprolol Succinate) 100 Mg Tab.er.24h 1 Tab PO DAILY 05/05/21 Reported Feosol (Ferrous Sulfate) 325 Mg Tablet 325 Mg PO DAILY 30 07/01/18 Rx Miralax (Polyethylene Glycol 3350) 17 Gm Powd.pack 1 Pkt PO HS 06/29/18 Reported Levothyroxine Sodium 88 Mcg Tablet 1 Tab PO DAILY 05/21/18 Reported Protonix (Pantoprazole Sodium) 20 Mg Tablet.dr 40 Mg PO DAILY 05/21/18 Reported Crestor (Rosuvastatin Calcium) 20 Mg Tablet 20 Mg PO HS PRN 05/21/18 Reported Impression . 1. Acute on chronic respiratory failure. 2. Acute on chronic diastolic heart failure. 3. Abnormal x-ray. 4. Previously abnormal CT revealing right middle lobe 5 mm nodule. 5. Acute exacerbation of chronic obstructive pulmonary disease secondary to above. 6. Possible pneumonia, gram-negative. 7. Acute on chronic kidney injury. 8. Chronic renal failure. 9. History of cirrhosis with portal hypertension. Plan . Updated 05/25 Okay to discharge from my standpoint of view, Optimize cardiac meds Continue nebulized treatments Venous Dopplers negative for DVT Continue empiric antibiotics Dr. Nunn in July, upon discharge ISELA TORIBIO MD May 25, 2021 08:55
[2021-05-25] MEDS: ASPIRIN ENTERIC COATED 81 MG TABLET.DR. PO SCH (08:56)
[2021-05-25] MEDS ORDERED: FUROSEMIDE 20 MG/2 ML VIAL. IVP SCH (09:00)
[2021-05-25] MEDS ORDERED: DIGOXIN 125 MCG TABLET. PO SCH (09:00)
[2021-05-25 10:53] VITALS: BP 128/61
[2021-05-25] MEDS: POLYETHYLENE GLYCOL 3350 17 GM PACKET. PO SCH (11:49)
--- NOTE | 2021-05-25 14:07 | PDOC ---
PROGRESS NOTES Date of Service DATE: 05/25/21 TIME: 14:05 Subjective Subjective SEEN IN FOLLOW UP OF CKD 3/4 Objective Objective Vital Signs Date Time Temp Pulse Resp B/P (MAP) Pulse Ox O2 Delivery O2 Flow Rate FiO2 05/25/21 11:29 96 Nasal Cannula 3.0 05/25/21 10:53 97.9 89 18 128/61 (83) 97.9 Intake and Output 05/25/21 07:00 Intake Total 300 ml Output Total 600 ml Balance -300 ml Intake Oral 300 ml Output Urine Total 600 ml Physical Exam Abdomen: Normal bowel sounds, Soft, No tenderness, No hepatosplenomegaly, No masses Heart: Regular rate, Normal S1, Normal S2, No murmurs, Gallops Extremities: No clubbing, No cyanosis, No edema, Normal pulses, No tenderness/swelling General: Alert, Oriented X3, Cooperative, No acute distress Lungs: Other (DECREASED BS AT BASES) Psych/Mental Status: Mental status NL, Mood NL Diagnosis PULMONARY EDEMA: Acute RENAL FAILURE: Chronic (CKD stage IV) Assessment Assessment Problems Medical Problems: (1) Acute exacerbation of congestive heart failure Status: Acute (2) Acute on chronic respiratory failure with hypoxemia Status: Acute (3) COPD with exacerbation Status: Acute Plan Plan of Care SHE IS STILL SOB. CONT DIURESIS AND TREND LAB. SHE IS LIKELY CKD 4 NOW Comment Review of Relevant I have reviewed the following items brittani (where applicable) has been applied. Labs Laboratory Tests Test 05/23/21 16:15 05/24/21 04:00 05/24/21 14:41 05/25/21 02:00 White Blood Count 6.1 x10^3/uL (4.0-11.0) 11.3 x10^3/uL (4.0-11.0) Red Blood Count 2.56 x10^6/uL (3.50-5.40) 2.97 x10^6/uL (3.50-5.40) Hemoglobin 7.7 g/dL (12.0-15.5) 9.2 g/dL (12.0-15.5) Hematocrit 24.6 % (36.0-47.0) 28.4 % (36.0-47.0) Mean Corpuscular Volume 96 fL (79-100) 96 fL (79-100) Mean Corpuscular Hemoglobin 30 pg (25-35) 31 pg (25-35) Mean Corpuscular Hemoglobin Concent 31 g/dL (31-37) 32 g/dL (31-37) Red Cell Distribution Width 16.9 % (11.5-14.5) 16.7 % (11.5-14.5) Platelet Count 190 x10^3/uL (140-400) 193 x10^3/uL (140-400) Sodium Level 139 mmol/L (136-145) 139 mmol/L (136-145) Potassium Level 4.1 mmol/L (3.5-5.1) 4.1 mmol/L (3.5-5.1) Chloride Level 103 mmol/L (98-107) 103 mmol/L (98-107) Carbon Dioxide Level 27 mmol/L (21-32) 28 mmol/L (21-32) Anion Gap 9 (6-14) 8 (6-14) Blood Urea Nitrogen 52 mg/dL (7-20) 57 mg/dL (7-20) Creatinine 1.8 mg/dL (0.6-1.0) 1.9 mg/dL (0.6-1.0) Estimated GFR (Cockcroft-Gault) 26.8 25.2 Glucose Level 134 mg/dL (70-99) 112 mg/dL (70-99) Calcium Level 8.9 mg/dL (8.5-10.1) 8.5 mg/dL (8.5-10.1) Digoxin Level 0.8 ng/mL (0.9-2.0) Digoxin Last Dose Date 05/23/21 Digoxin Last Dose Time 0900 Laboratory Tests Test 05/24/21 14:41 05/25/21 02:00 White Blood Count 11.3 x10^3/uL (4.0-11.0) Red Blood Count 2.97 x10^6/uL (3.50-5.40) Hemoglobin 9.2 g/dL (12.0-15.5) Hematocrit 28.4 % (36.0-47.0) Mean Corpuscular Volume 96 fL (79-100) Mean Corpuscular Hemoglobin 31 pg (25-35) Mean Corpuscular Hemoglobin Concent 32 g/dL (31-37) Red Cell Distribution Width 16.7 % (11.5-14.5) Platelet Count 193 x10^3/uL (140-400) Sodium Level 139 mmol/L (136-145) Potassium Level 4.1 mmol/L (3.5-5.1) Chloride Level 103 mmol/L (98-107) Carbon Dioxide Level 28 mmol/L (21-32) Anion Gap 8 (6-14) Blood Urea Nitrogen 57 mg/dL (7-20) Creatinine 1.9 mg/dL (0.6-1.0) Estimated GFR (Cockcroft-Gault) 25.2 Glucose Level 112 mg/dL (70-99) Calcium Level 8.5 mg/dL (8.5-10.1) Microbiology 05/22/21 Blood Culture - Preliminary, Resulted NO GROWTH AFTER 2 DAYS 05/22/21 Urine Culture - Final, Complete Escherichia Coli Medications Current Medications Azithromycin 500 mg/Sodium Chloride 250 ml @ 250 mls/hr 1X ONCE IV Last administered on 05/22/21at 20:52; Start 05/22/21 at 22:00; Stop 05/22/21 at 22:59; Status DC Albuterol/ Ipratropium (Duoneb) 3 ml 1X ONCE NEB Last administered on 05/22/21at 22:11; Start 05/22/21 at 20:15; Stop 05/22/21 at 20:17; Status DC Methylprednisolone Sodium Succinate (SOLU-Medrol 125MG VIAL) 125 mg 1X ONCE IV Last administered on 05/22/21at 20:22; Start 05/22/21 at 20:15; Stop 05/22/21 at 20:17; Status DC Furosemide (Lasix) 40 mg 1X ONCE IVP Last administered on 05/22/21at 20:22; Start 05/22/21 at 20:15; Stop 05/22/21 at 20:17; Status DC Acetaminophen (Tylenol) 1,000 mg 1X ONCE PO Last administered on 05/22/21at 20:51; Start 05/22/21 at 20:15; Stop 05/22/21 at 20:17; Status DC Ondansetron HCl (Zofran) 4 mg 1X ONCE IVP Last administered on 05/22/21at 20:45; Start 05/22/21 at 20:30; Stop 05/22/21 at 20:31; Status DC Methylprednisolone Sodium Succinate (SOLU-Medrol 40MG VIAL) 40 mg BID IV Last administered on 05/23/21at 09:19; Start 05/23/21 at 09:00; Stop 05/23/21 at 16:51; Status DC Ceftriaxone Sodium (Rocephin) 1 gm Q24H IVP Last administered on 05/24/21 23:47; Start 05/22/21 at 23:00 Albuterol/ Ipratropium (Duoneb) 3 ml RTQID NEB Last administered on 05/25/21at 11:28; Start 05/23/21 at 08:00 Furosemide (Lasix) 40 mg DAILY IVP Last administered on 05/24/21at 08:01; Start 05/23/21 at 09:00; Stop 05/24/21 at 15:46; Status DC Acetaminophen (Tylenol) 650 mg PRN Q4HRS PRN PO FEVER > 100.3'F; Start 05/22/21 at 23:00; Stop 05/23/21 at 22:59; Status DC Albuterol/ Ipratropium (Duoneb) 3 ml RTQID NEB ; Start 05/23/21 at 08:00; Stop 05/22/21 at 23:02; Status DC Aspirin (Ecotrin) 81 mg DAILYWBKFT PO Last administered on 05/25/21at 08:56; Start 05/23/21 at 13:00 Digoxin (Lanoxin) 125 mcg QODAY PO Last administered on 05/25/21at 08:56; Start 05/25/21 at 09:00 Metoprolol Succinate (Toprol Xl) 100 mg DAILY PO Last administered on 05/24/21at 13:51; Start 05/23/21 at 13:00 Atorvastatin Calcium (Lipitor) 80 mg HS PO Last administered on 05/24/21at 20:44; Start 05/23/21 at 21:00 Polyethylene Glycol (miraLAX PACKET) 17 gm 1X ONCE PO Last administered on 05/23/21 16:25; Start 05/23/21 at 13:15; Stop 05/23/21 at 13:16; Status DC Furosemide (Lasix) 40 mg 1X ONCE IVP Last administered on 05/23/21at 22:53; Start 05/23/21 at 13:15; Stop 05/23/21 at 13:24; Status DC Metoprolol Tartrate (Lopressor Vial) 5 mg 1X ONCE IVP Last administered on 05/23/21at 17:51; Start 05/23/21 at 16:15; Stop 05/23/21 at 16:20; Status DC Diltiazem HCl (Cardizem Iv Push) 10 mg 1X ONCE IVP Last administered on 05/23/21at 17:13; Start 05/23/21 at 16:15; Stop 05/23/21 at 16:20; Status DC Regadenoson (Lexiscan) 0.4 mg 1X ONCE IV Last administered on 05/24/21at 11:24; Start 05/24/21 at 10:15; Stop 05/24/21 at 10:16; Status DC Digoxin (Lanoxin) 250 mcg 1X ONCE IV ; Start 05/24/21 at 13:30; Stop 05/24/21 at 13:31; Status DC Metoprolol Tartrate (Lopressor Vial) 5 mg 1X ONCE IVP Last administered on 05/24/21at 13:53; Start 05/24/21 at 14:00; Stop 05/24/21 at 14:01; Status DC Furosemide (Lasix) 20 mg DAILY IVP ; Start 05/25/21 at 09:00; Stop 05/25/21 at 07:38; Status DC Furosemide (Lasix) 20 mg DAILY IVP ; Start 05/26/21 at 09:00 Polyethylene Glycol (miraLAX PACKET) 17 gm DAILY PO Last administered on 05/25/21at 11:49; Start 05/25/21 at 12:30 Active Scripts Active Pulmicort (Budesonide) 0.5 Mg/2 Ml Ampul.neb 1 Vial NEB BID 30 Days Culturelle (Lactobacillus Rhamnosus Gg) 1 Each Cap.sprink 1 Cap PO BID 7 Days Prednisone 20 Mg Tablet 20 Mg PO DAILY 4 Days Torsemide 20 Mg Tablet 20 Mg PO DAILY 30 Days Acetaminophen 325 Mg Tablet 650 Mg PO PRN Q6HRS PRN 30 Days Aspirin Ec (Aspirin) 81 Mg Tablet.dr 81 Mg PO DAILYWBKFT 30 Days Digoxin 125 Mcg Tablet 125 Mcg PO QODAY 30 Days Duoneb 0.5-3(2.5) Mg/3 Ml (Albuterol/Ipratropium) 3 Ml Ampul.neb 3 Ml NEB RTQID 30 Days Doxycycline Hyclate 100 Mg Tablet 100 Mg PO BID 4 Days Feosol (Ferrous Sulfate) 325 Mg Tablet 325 Mg PO DAILY 30 Days Reported Ocuvite Lutein 25-5 mg Softgel (Lutein/Zeaxanthin) 1 Each Capsule 1 Cap PO DAILY 30 Days Metoprolol Succinate ( Xl ) (Metoprolol Succinate) 100 Mg Tab.er.24h 1 Tab PO DAILY Miralax (Polyethylene Glycol 3350) 17 Gm Powd.pack 1 Pkt PO HS Levothyroxine Sodium 88 Mcg Tablet 1 Tab PO DAILY Protonix (Pantoprazole Sodium) 20 Mg Tablet.dr 40 Mg PO DAILY Crestor (Rosuvastatin Calcium) 20 Mg Tablet 20 Mg PO HS PRN Vitals/I & O Vital Sign - Last 24 Hours 05/24/21 05/24/21 05/24/21 05/24/21 15:00 15:28 19:00 20:00 Temp 98.0 97.7 98.0 97.7 Pulse 110 92 Resp 16 16 B/P (MAP) 79/47 (58) 119/57 (77) Pulse Ox 97 98 100 O2 Delivery Nasal Cannula Nasal Cannula Nasal Cannula Nasal Cannula O2 Flow Rate 4.0 3.0 4.0 3.0 05/24/21 05/24/21 05/25/21 05/25/21 20:29 22:34 02:36 07:00 Temp 98.0 97.9 98.2 98.0 97.9 98.2 Pulse 88 97 88 Resp 16 16 18 B/P (MAP) 103/49 (67) 132/59 (83) 147/70 (95) Pulse Ox 98 100 98 100 O2 Delivery Nasal Cannula Nasal Cannula Nasal Cannula Nasal Cannula O2 Flow Rate 3.0 4.0 4.0 3.0 05/25/21 05/25/21 05/25/21 05/25/21 08:00 08:17 08:56 10:53 Temp 97.9 97.9 Pulse 97 89 Resp 18 B/P (MAP) 132/59 128/61 (83) Pulse Ox 100 100 O2 Delivery Nasal Cannula Nasal Cannula Nasal Cannula O2 Flow Rate 3.0 3.0 3.0 05/25/21 11:29 Pulse Ox 96 O2 Delivery Nasal Cannula O2 Flow Rate 3.0 Intake and Output 05/24/21 05/24/21 05/25/21 15:00 23:00 07:00 Intake Total 300 ml Output Total 150 ml 50 ml 400 ml Balance -150 ml -50 ml -100 ml Justifications for Admission Other Justification TIRSO CAMPBELL MD May 25, 2021 14:07
--- NOTE | 2021-05-25 14:16 | PDOC ---
[facility] PROGRESS NOTE Date of Service DOS: DATE: 05/25/21 TIME: 14:14 Chief Complaint Chief Complaint Acute on chronic diastolic CHF _ IV diuresis, acute vasomotor nephropathy CAD and. Hypertension, Hyperlipidemia symptomatic anemia Hepatic cirrhosis, portal hypertension Hypothyroidism: on History of Present Illness History of Present Illness 05/24, still weak, working on renal function, - discussed with Dr. Goodwin PT is following Lasix therapy has improved renal function, s/p PRBC given for anemia, cirrhosis and anemia on meds for afib, rate control, anticoag contraindicated at this time due to anemia, fall Vitals/I&O Vitals/I&O: Vital Signs Date Time Temp Pulse Resp B/P (MAP) Pulse Ox O2 Delivery O2 Flow Rate FiO2 05/25/21 11:29 96 Nasal Cannula 3.0 05/25/21 10:53 97.9 89 18 128/61 (83) 97.9 I & O 05/24/21 05/24/21 05/25/21 15:00 23:00 07:00 Intake Total 300 ml Output Total 150 ml 50 ml 400 ml Balance -150 ml -50 ml -100 ml Physical Exam General: Alert, Oriented X3, Cooperative, No acute distress Heart: Regular rate, Normal S1, Normal S2, No murmurs, Gallops Lungs: Clear Abdomen: Normal bowel sounds, Soft, No tenderness, No hepatosplenomegaly, No masses Extremities: No clubbing, No cyanosis, No edema, Normal pulses, No tenderness/swelling Skin: No breakdown, No significant lesion Labs Labs: Laboratory Tests Test 05/24/21 14:41 05/25/21 02:00 White Blood Count 11.3 x10^3/uL (4.0-11.0) Red Blood Count 2.97 x10^6/uL (3.50-5.40) Hemoglobin 9.2 g/dL (12.0-15.5) Hematocrit 28.4 % (36.0-47.0) Mean Corpuscular Volume 96 fL (79-100) Mean Corpuscular Hemoglobin 31 pg (25-35) Mean Corpuscular Hemoglobin Concent 32 g/dL (31-37) Red Cell Distribution Width 16.7 % (11.5-14.5) Platelet Count 193 x10^3/uL (140-400) Sodium Level 139 mmol/L (136-145) Potassium Level 4.1 mmol/L (3.5-5.1) Chloride Level 103 mmol/L (98-107) Carbon Dioxide Level 28 mmol/L (21-32) Anion Gap 8 (6-14) Blood Urea Nitrogen 57 mg/dL (7-20) Creatinine 1.9 mg/dL (0.6-1.0) Estimated GFR (Cockcroft-Gault) 25.2 Glucose Level 112 mg/dL (70-99) Calcium Level 8.5 mg/dL (8.5-10.1) Assessment and Plan Assessmemt and Plan Problems Medical Problems: (1) Acute exacerbation of congestive heart failure Status: Acute (2) Acute on chronic respiratory failure with hypoxemia Status: Acute (3) COPD with exacerbation Status: Acute Comment Review of Relevant I have reviewed the following items brittani (where applicable) has been applied. Medications: Current Medications Medications (Trade) Dose Ordered Sig/Therese Route PRN Reason Start Time Stop Time Status Last Admin Dose Admin Digoxin (Lanoxin) 125 mcg QODAY PO 05/25/21 09:00 05/25/21 08:56 Polyethylene Glycol (miraLAX PACKET) 17 gm DAILY PO 05/25/21 12:30 05/25/21 11:49 Justifications for Admission Other Justification RAYA MANNING MD May 25, 2021 14:16
[2021-05-25 15:00] VITALS: BP 120/59
[2021-05-25 19:12] VITALS: BP 149/61
[2021-05-25] MEDS: ATORVASTATIN CALCIUM 40 MG TABLET. PO SCH (21:59)
[2021-05-25] MEDS: cefTRIAXone IV Push 1 GM VIAL. IVP SCH (22:14)
[2021-05-25 22:44] VITALS: BP 119/76
[2021-05-26 02:52] VITALS: BP 140/62
[2021-05-26 04:10] LABS: CALCIUM 8.3 mg/dL (8.5-10.1); CREATININE 1.5 mg/dL (0.6-1.0); GFR 33.1
[2021-05-26 07:00] VITALS: BP 146/72
[2021-05-26] MEDS: IPRATRPIUM/ALBUTEROL 0.5/2.5MG 3 ML NEBU. NEB SCH ×2 (07:47→11:38)
[2021-05-26] MEDS: ASPIRIN ENTERIC COATED 81 MG TABLET.DR. PO SCH (07:54)
[2021-05-26] MEDS: POLYETHYLENE GLYCOL 3350 17 GM PACKET. PO SCH (07:55)
[2021-05-26] MEDS: METOPROLOL SUCC 24HR ER 100 MG TAB.ER.24H. PO SCH (07:55)
[2021-05-26] MEDS ORDERED: FUROSEMIDE 20 MG/2 ML VIAL. IVP SCH (09:00)
--- NOTE | 2021-05-26 09:27 | PDOC ---
PROGRESS NOTES Date of Service: DATE: 05/26/21 TIME: 09:27 Subjective Subjective Dyspnea improved. Denied any chest pain. Objective Objective Vital Signs Date Time Temp Pulse Resp B/P (MAP) Pulse Ox O2 Delivery O2 Flow Rate FiO2 05/26/21 08:00 Nasal Cannula 3.0 05/26/21 07:55 84 140/62 05/26/21 07:49 95 05/26/21 07:00 98.0 18 98.0 Intake and Output 05/26/21 07:00 Intake Total 330 ml Output Total 700 ml Balance -370 ml Intake Oral 330 ml Output Urine Total 700 ml Physical Exam Abdomen: Normal bowel sounds, Soft, No tenderness, No hepatosplenomegaly, No masses Heart: Regular rate, Normal S1, Normal S2, No murmurs, Gallops Extremities: No clubbing, No cyanosis, No edema, Normal pulses, No tenderness/swelling General: Alert, Oriented X3, Cooperative, No acute distress HEENT: Atraumatic, Mucous membr. moist/pink Lungs: Other (DECREASED BS AT BASES) MUSCULOSKELETAL: Osteoarthritic changes both hands Neuro: Normal speech, Sensation intact Psych/Mental Status: Mental status NL, Mood NL Skin: No breakdown, No significant lesion Diagnosis PULMONARY EDEMA: Acute RENAL FAILURE: Chronic (CKD stage IV) Assessment Assessment 1. Acute on chronic diastolic CHF: appears better compensated 2. TAMMY on CKD; CR up to 1.8 3. CAD; s/p PCI/stent x2 03/2018 in [place], [place]. Clinically stable. 4. Hypertension; controlled 5. Hyperlipidemia; statin 6. PAFIB: Amiodarone discontinued 05/2018 due to liver disease. Now back in AFIB with RVR 7. Iron deficiency anemia: Hgb 7.2, post transfusion 8. H/o cirrhosis, portal hypertension 9. Hypothyroidism: on home replacement 10. Constipation 11. suspect CKD3 Recommendations Lexiscan nuclear stress test did not show any significant ischemia Change Lasix to p.o. Not a NOAC candidate due to anemia and cirrhosis. Continue ASA Continue metoprolol and QOD digoxin. Okay for DC from cardiac standpoint. Follow-up in 1 month. Plan Plan of Care Problems Medical Problems: (1) Acute exacerbation of congestive heart failure Status: Acute (2) Acute on chronic respiratory failure with hypoxemia Status: Acute (3) COPD with exacerbation Status: Acute Comment Review of Relevant I have reviewed the following items brittani (where applicable) has been applied. Labs Laboratory Tests Test 05/26/21 03:30 Sodium Level 142 mmol/L (136-145) Potassium Level 4.0 mmol/L (3.5-5.1) Chloride Level 105 mmol/L (98-107) Carbon Dioxide Level 29 mmol/L (21-32) Anion Gap 8 (6-14) Blood Urea Nitrogen 47 mg/dL (7-20) Creatinine 1.5 mg/dL (0.6-1.0) Estimated GFR (Cockcroft-Gault) 33.1 Glucose Level 96 mg/dL (70-99) Calcium Level 8.3 mg/dL (8.5-10.1) Microbiology 05/22/21 Blood Culture - Preliminary, Resulted NO GROWTH AFTER 3 DAYS 05/22/21 Urine Culture - Final, Complete Escherichia Coli Medications Current Medications Diltiazem HCl (Cardizem) 60 mg Q8HRS PO ; Start 05/26/21 at 09:30 Furosemide (Lasix) 20 mg DAILY IVP Last administered on 05/26/21at 07:55; Start 05/26/21 at 09:00 Polyethylene Glycol (miraLAX PACKET) 17 gm DAILY PO Last administered on 05/17 at 07:55; Start 05/25/21 at 12:30 Vitals/I & O Vital Sign - Last 24 Hours 05/25/21 05/25/21 05/25/21 05/25/21 10:53 11:29 15:00 16:00 Temp 97.9 97.9 97.9 97.9 Pulse 89 81 Resp 18 16 B/P (MAP) 128/61 (83) 120/59 (79) Pulse Ox 100 96 100 100 O2 Delivery Nasal Cannula Nasal Cannula Nasal Cannula Nasal Cannula O2 Flow Rate 3.0 3.0 3.0 3.0 05/25/21 05/25/21 05/25/21 05/25/21 19:12 20:00 21:45 22:44 Temp 98.2 98.4 98.2 98.4 Pulse 87 80 Resp 18 18 B/P (MAP) 149/61 (90) 119/76 (90) Pulse Ox 100 100 98 O2 Delivery Nasal Cannula Nasal Cannula Nasal Cannula Nasal Cannula O2 Flow Rate 3.0 3.0 3.0 3.0 05/26/21 05/26/21 05/26/21 05/26/21 02:52 07:00 07:49 07:55 Temp 97.5 98.0 97.5 98.0 Pulse 84 88 84 Resp 16 18 B/P (MAP) 140/62 (88) 146/72 (96) 140/62 Pulse Ox 100 97 95 O2 Delivery Nasal Cannula Nasal Cannula Nasal Cannula O2 Flow Rate 3.0 3.0 05/26/21 08:00 O2 Delivery Nasal Cannula O2 Flow Rate 3.0 Intake and Output 05/25/21 05/25/21 05/26/21 15:00 23:00 07:00 Intake Total 180 ml 150 ml 0 ml Output Total 700 ml Balance 180 ml 150 ml -700 ml CLARA BAUM MD May 26, 2021 09:27
[2021-05-26] MEDS ORDERED: dilTIAZem HCL 30 MG TABLET PO SCH (09:30)
--- NOTE | 2021-05-26 09:34 | SNU/HH DC ---
DISCHARGE WITH HOME HEALTH DISCHARGE INFORMATION: Discharge Date: May 26, 2021 Final Diagnosis: Acute on chronic diastolic CHF _ IV diuresis required, acute vasomotor nephropathy CAD Hypertension, Hyperlipidemia symptomatic anemia Hepatic cirrhosis, portal hypertension, fatty liver disease, Hypothyroidism Problems Medical Problems: (1) Acute exacerbation of congestive heart failure Status: Acute (2) Acute on chronic respiratory failure with hypoxemia Status: Acute (3) COPD with exacerbation Status: Acute Condition on Discharge: Stable CODE STATUS: Code Status: Full HOME HEALTH: Face to Face: I certify this patient is under my care and that I had a face to face encounter that meets the physician face to face encounter requirements with this patient on 05/26 Medical Complications: CHF Shelter For: Assess & Educate Safety, Assess/Skilled Observatio RN For Eval/Treatment: Yes Physical Therapy For: Evalulation/Treatment Pt Meets Homebound Status: Extreme weakness w/ amb., Limited distance walking POST DISCHARGE ORDERS: Activity Instructions for Disc: No restrictions, Resume previous activity, Activity as tolerated Weight Bearing Status after Di: No restrictions, Full weight bearing, As tolerated DIET AFTER DISCHARGE: Cardiac Wound/Incision Care: No wound care needed CHECKS AFTER DISCHARGE: Checks after discharge: Check blood press - daily, Check your Temp as needed FOLLOW-UP: Follow up with: Noemy Duran, 1-2 weeks DC TO SNF LABS: BNP, BMP, mag, dig level every weeks for 2 wks TREATMENT/EQUIPMENT ORDERS: Adaptive Equipment Issued: None Discharge Respiratory Equipmen: Oxygen CERTIFICATION STATEMENT: Certification Statement: Certification Statement: Based on the above finding, I certify that this patient is confined to the home and needs intermittent residential care, physical therapy and/or speech therapy, or continues to need occupational therapy.~ This patient is under my care, and I have initiated the establishment of the plan of care.~ This patient will be followed by myself or a community physician who will periodically review the plan of care. Home Meds Active Scripts Budesonide (PULMICORT) 0.5 Mg/2 Ml Ampul.neb, 1 VIAL NEB BID for COPD for 30 Days, #60 VIAL 3 Refills Prov:SOILA ZHAO MD 05/08/21 Lactobacillus Rhamnosus Gg (CULTURELLE) 1 Each Cap.sprink, 1 CAP PO BID for GI prophylaxis for 7 Days, #14 CAP Prov:SOILA ZHAO MD 05/08/21 Torsemide (TORSEMIDE) 20 Mg Tablet, 20 MG PO DAILY for CHF for 30 Days, #30 TAB 2 Refills Prov:SOILA ZHAO MD 05/08/21 Acetaminophen (ACETAMINOPHEN) 325 Mg Tablet, 650 MG PO PRN Q6HRS PRN for MILD PAIN / TEMP > 100.3'F for 30 Days, #120 TAB Prov:SOILA ZHAO MD 05/08/21 Aspirin (ASPIRIN EC) 81 Mg Tablet., 81 MG PO DAILYWBKFT for CAD for 30 Days, #30 TAB.SR 11 Refills Prov:SOILA ZHAO MD 05/08/21 Digoxin (DIGOXIN) 125 Mcg Tablet, 125 MCG PO QODAY for Afib for 30 Days, #15 TAB 2 Refills Prov:SOILA ZHAO MD 05/08/21 Ipratropium/Albuterol Sulfate (DUONEB 0.5-3(2.5) MG/3 ML) 3 Ml Ampul.neb, 3 ML NEB RTQID for COPD for 30 Days, #120 EACH 3 Refills Prov:SOILA ZHAO MD 05/08/21 Ferrous Sulfate (FEOSOL) 325 Mg Tablet, 325 MG PO DAILY for iron deficiency for 30 Days, #30 TAB 11 Refills Prov:HILDA CHAO MD 07/01/18 Reported Medications Lutein/Zeaxanthin (Ocuvite Lutein 25-5 mg Softgel) 1 Each Capsule, 1 CAP PO DAILY for eyes for 30 Days, #30 CAP 0 Refills 05/05/21 Metoprolol Succinate (METOPROLOL SUCCINATE ( XL )) 100 Mg Tab.er.24h, 1 TAB PO DAILY for blood pressure, #30 TAB 5 Refills 05/05/21 Polyethylene Glycol 3350 (MIRALAX) 17 Gm Powd.pack, 1 PKT PO HS for chronic constipation, PKT 06/29/18 Levothyroxine Sodium (LEVOTHYROXINE SODIUM) 88 Mcg Tablet, 1 TAB PO DAILY for hypothyroidism , #30 TAB 5 Refills 05/21/18 Pantoprazole Sodium (PROTONIX) 20 Mg Tablet.dr, 40 MG PO DAILY for GERD, TAB 05/21/18 Rosuvastatin Calcium (CRESTOR) 20 Mg Tablet, 20 MG PO HS PRN for Cholesterol, #3 0 TAB 0 Refills 05/21/18 Discontinued Scripts Prednisone (PREDNISONE) 20 Mg Tablet, 20 MG PO DAILY for COPD for 4 Days, #4 TAB Prov:SOILA ZHAO MD 05/08/21 Doxycycline Hyclate (DOXYCYCLINE HYCLATE) 100 Mg Tablet, 100 MG PO BID for COPD for 4 Days, #8 TAB Prov:SOILA ZHAO MD 05/08/21 RAYA MANNING MD May 26, 2021 09:34
--- NOTE | 2021-05-26 09:43 | PDOC3 ---
Discharge Summary Visit Information Date of Admission: May 22, 2021 Date of Discharge: May 26, 2021 Final Diagnosis Acute on chronic diastolic CHF, required IV diuresis, acute vasomotor nephropathy CAD Hypertension, Hyperlipidemia symptomatic anemia - transfusion given Hepatic cirrhosis, portal hypertension Hypothyroidism obese, BMI 34 Problems Medical Problems: (1) Acute exacerbation of congestive heart failure Status: Acute (2) Acute on chronic respiratory failure with hypoxemia Status: Acute (3) COPD with exacerbation Status: Acute Brief Hospital Course Allergies Allergies Coded Allergies Type Severity Reaction Last Updated Verified Sulfa (Sulfonamide Antibiotics) Allergy Severe Rash 05/22/21 Yes fentanyl Allergy Severe 05/22/21 Yes codeine Allergy Intermediate 05/22/21 Yes morphine Adverse Reaction Intermediate Nausea and Vomiting 05/22/21 Yes Vital Signs Vital Signs Date Time Temp Pulse Resp B/P (MAP) Pulse Ox O2 Delivery O2 Flow Rate FiO2 05/26/21 08:00 Nasal Cannula 3.0 05/26/21 07:55 84 140/62 05/26/21 07:49 95 05/26/21 07:00 98.0 18 98.0 Lab Results Laboratory Tests Test 05/24/21 14:41 05/25/21 02:00 05/26/21 03:30 White Blood Count 11.3 x10^3/uL (4.0-11.0) Red Blood Count 2.97 x10^6/uL (3.50-5.40) Hemoglobin 9.2 g/dL (12.0-15.5) Hematocrit 28.4 % (36.0-47.0) Mean Corpuscular Volume 96 fL (79-100) Mean Corpuscular Hemoglobin 31 pg (25-35) Mean Corpuscular Hemoglobin Concent 32 g/dL (31-37) Red Cell Distribution Width 16.7 % (11.5-14.5) Platelet Count 193 x10^3/uL (140-400) Sodium Level 139 mmol/L (136-145) 142 mmol/L (136-145) Potassium Level 4.1 mmol/L (3.5-5.1) 4.0 mmol/L (3.5-5.1) Chloride Level 103 mmol/L (98-107) 105 mmol/L (98-107) Carbon Dioxide Level 28 mmol/L (21-32) 29 mmol/L (21-32) Anion Gap 8 (6-14) 8 (6-14) Blood Urea Nitrogen 57 mg/dL (7-20) 47 mg/dL (7-20) Creatinine 1.9 mg/dL (0.6-1.0) 1.5 mg/dL (0.6-1.0) Estimated GFR (Cockcroft-Gault) 25.2 33.1 Glucose Level 112 mg/dL (70-99) 96 mg/dL (70-99) Calcium Level 8.5 mg/dL (8.5-10.1) 8.3 mg/dL (8.5-10.1) Laboratory Tests Test 05/26/21 03:30 Sodium Level 142 mmol/L (136-145) Potassium Level 4.0 mmol/L (3.5-5.1) Chloride Level 105 mmol/L (98-107) Carbon Dioxide Level 29 mmol/L (21-32) Anion Gap 8 (6-14) Blood Urea Nitrogen 47 mg/dL (7-20) Creatinine 1.5 mg/dL (0.6-1.0) Estimated GFR (Cockcroft-Gault) 33.1 Glucose Level 96 mg/dL (70-99) Calcium Level 8.3 mg/dL (8.5-10.1) Brief Hospital Course Ms. Damon is a 85-year-old with chronic hypoxia, admit with worsenign dyspnea, CHF, congestion PULM and CV consutled, diuresed, Lasix therapy improved renal function, s/p PRBC given for anemia, cirrhosis and anemia CT revealed small bilateral effusions, some basilar atelectasis. No consolidation. She had a 5 mm nodule in the right middle lobe. some weakness, better with PT, try DC home Discharge Information Condition at Discharge: Improved Follow Up: Weeks Disposition/Orders: D/C to Home w/ HH Scheduled Aspirin (Aspirin Ec) 81 Mg Tablet., 81 MG PO DAILYWBKFT for CAD for 30 Days, #30 Ref 11 Prescribed by: SOILA ZHAO MD on 05/08/21 1333 Last Action: Continued on 05/23/21 1304 by NAHUN SAENZ Budesonide (Pulmicort) 0.5 Mg/2 Ml Ampul.neb, 1 VIAL NEB BID for COPD for 30 Days, #60 Ref 3 Prescribed by: SOILA ZHAO MD on 05/08/21 1334 Digoxin (Digoxin) 125 Mcg Tablet, 125 MCG PO QODAY for Afib for 30 Days, #15 Ref 2 Prescribed by: SOILA ZHAO MD on 05/08/21 1333 Last Action: Continued on 05/23/21 1304 by NAHUN SAENZ Ferrous Sulfate (Feosol) 325 Mg Tablet, 325 MG PO DAILY for iron deficiency for 30 Days, #30 Ref 11 Prescribed by: HILDA CHAO MD on 07/01/18 1645 Ipratropium/Albuterol Sulfate (Duoneb 0.5-3(2.5) Mg/3 Ml) 3 Ml Ampul.neb, 3 ML NEB RTQID for COPD for 30 Days, #120 Ref 3 Prescribed by: SOILA ZHAO MD on 05/08/21 1333 Lactobacillus Rhamnosus Gg (Culturelle) 1 Each Cap.sprink, 1 CAP PO BID for GI prophylaxis for 7 Days, #14 Prescribed by: SOILA ZHAO MD on 05/08/21 1333 Levothyroxine Sodium (Levothyroxine Sodium) 88 Mcg Tablet, 1 TAB PO DAILY for hypothyroidism , #30 Ref 5 (Reported) Entered as Reported by: MOE WESLEY on 05/21/181510 Lutein/Zeaxanthin (Ocuvite Lutein 25-5 mg Softgel) 1 Each Capsule, 1 CAP PO DAILY for eyes for 30 Days, #30 Ref 0 (Reported) Entered as Reported by: CORY KASPER on 05/05/21 183 Metoprolol Succinate (Metoprolol Succinate ( Xl )) 100 Mg Tab.er.24h, 1 TAB PO DAILY for blood pressure, #30 Ref 5 (Reported) Entered as Reported by: CORY KASPER on 05/05/21 1832 Last Action: Continued on 05/23/21 1304 by NAHUN SAENZ Pantoprazole Sodium (Protonix) 20 Mg Tablet.dr, 40 MG PO DAILY for GERD, (Reported) Entered as Reported by: MOE WESLEY on 05/21/181510 Polyethylene Glycol 3350 (Miralax) 17 Gm Powd.pack, 1 PKT PO HS for chronic constipation, (Reported) Entered as Reported by: SHOBHA CALLE on 06/29/182030 Torsemide (Torsemide) 20 Mg Tablet, 20 MG PO DAILY for CHF for 30 Days, #30 Ref 2 Prescribed by: SOILA ZHAO MD on 05/08/21 1333 Scheduled PRN Acetaminophen (Acetaminophen) 325 Mg Tablet, 650 MG PO PRN Q6HRS PRN for MILD PAIN / TEMP > 100.3'F for 30 Days, #120 Prescribed by: SOILA ZHAO MD on 05/08/21 1333 Rosuvastatin Calcium (Crestor) 20 Mg Tablet, 20 MG PO HS PRN for Cholesterol, #30 Ref 0 (Reported) Entered as Reported by: MOE WESLEY on 05/21/18 1503 Last Action: Converted on 05/23/21 1304 by NAHUN SAENZ Discontinued Medications Doxycycline Hyclate (Doxycycline Hyclate) 100 Mg Tablet, 100 MG PO BID for COPD for 4 Days, #8 Prescribed by: SOILA ZHAO MD on 05/08/21 1333 Prednisone (Prednisone) 20 Mg Tablet, 20 MG PO DAILY for COPD for 4 Days, #4 Prescribed by: SOILA ZHAO MD on 05/08/21 1333 Patient Instructions Patient Instructions face to face x2 restart her [facility] health Justicifation of Admission Dx: Justifications for Admission: Justification of Admission Dx: Yes RAYA MANNING MD May 26, 2021 09:43
[2021-05-26 11:00] VITALS: BP 126/69
--- NOTE | 2021-05-26 11:47 | PDOC ---
PULMONARY PROGRESS NOTES DATE: 05/26/21 TIME: 11:46 Subjective No overnight events Patient feels better but continues to be short of breath with exertion Vitals Vital Signs Date Time Temp Pulse Resp B/P (MAP) Pulse Ox O2 Delivery O2 Flow Rate FiO2 05/26/21 11:39 91 Nasal Cannula 3.0 05/26/21 10:13 84 140/62 05/26/21 07:00 98.0 18 98.0 ROS: No Nausea, No Chest Pain, No Abdominal Pain, No Increase Cough General: Alert, No acute distress Lungs: Clear Cardiovascular: S1 Abdomen: Soft Neuro Exam: Alert Extremities: No Edema Skin: Warm Labs Laboratory Tests Test 05/24/21 14:41 05/25/21 02:00 05/26/21 03:30 White Blood Count 11.3 x10^3/uL (4.0-11.0) Red Blood Count 2.97 x10^6/uL (3.50-5.40) Hemoglobin 9.2 g/dL (12.0-15.5) Hematocrit 28.4 % (36.0-47.0) Mean Corpuscular Volume 96 fL (79-100) Mean Corpuscular Hemoglobin 31 pg (25-35) Mean Corpuscular Hemoglobin Concent 32 g/dL (31-37) Red Cell Distribution Width 16.7 % (11.5-14.5) Platelet Count 193 x10^3/uL (140-400) Sodium Level 139 mmol/L (136-145) 142 mmol/L (136-145) Potassium Level 4.1 mmol/L (3.5-5.1) 4.0 mmol/L (3.5-5.1) Chloride Level 103 mmol/L (98-107) 105 mmol/L (98-107) Carbon Dioxide Level 28 mmol/L (21-32) 29 mmol/L (21-32) Anion Gap 8 (6-14) 8 (6-14) Blood Urea Nitrogen 57 mg/dL (7-20) 47 mg/dL (7-20) Creatinine 1.9 mg/dL (0.6-1.0) 1.5 mg/dL (0.6-1.0) Estimated GFR (Cockcroft-Gault) 25.2 33.1 Glucose Level 112 mg/dL (70-99) 96 mg/dL (70-99) Calcium Level 8.5 mg/dL (8.5-10.1) 8.3 mg/dL (8.5-10.1) Laboratory Tests Test 05/26/21 03:30 Sodium Level 142 mmol/L (136-145) Potassium Level 4.0 mmol/L (3.5-5.1) Chloride Level 105 mmol/L (98-107) Carbon Dioxide Level 29 mmol/L (21-32) Anion Gap 8 (6-14) Blood Urea Nitrogen 47 mg/dL (7-20) Creatinine 1.5 mg/dL (0.6-1.0) Estimated GFR (Cockcroft-Gault) 33.1 Glucose Level 96 mg/dL (70-99) Calcium Level 8.3 mg/dL (8.5-10.1) Medications Active Scripts Medications Dose Route/Sig Max Daily Dose Days Date Category Pulmicort (Budesonide) 0.5 Mg/2 Ml Ampul.neb 1 Vial NEB BID 30 05/08/21 Rx Culturelle (Lactobacillus Rhamnosus Gg) 1 Each Cap.sprink 1 Cap PO BID 7 05/08/21 Rx Prednisone 20 Mg Tablet 20 Mg PO DAILY 4 05/08/21 Rx Torsemide 20 Mg Tablet 20 Mg PO DAILY 30 05/08/21 Rx Acetaminophen 325 Mg Tablet 650 Mg PO PRN Q6HRS PRN 30 05/08/21 Rx Aspirin Ec (Aspirin) 81 Mg Tablet.dr 81 Mg PO DAILYWBKFT 30 05/08/21 Rx Digoxin 125 Mcg Tablet 125 Mcg PO QODAY 30 05/08/21 Rx Duoneb 0.5-3(2.5) Mg/3 Ml (Albuterol/Ipratropium) 3 Ml Ampul.neb 3 Ml NEB RTQID 30 05/08/21 Rx Doxycycline Hyclate 100 Mg Tablet 100 Mg PO BID 4 05/08/21 Rx Ocuvite Lutein 25-5 mg Softgel (Lutein/Zeaxanthin) 1 Each Capsule 1 Cap PO DAILY 30 05/05/21 Reported Metoprolol Succinate ( Xl ) (Metoprolol Succinate) 100 Mg Tab.er.24h 1 Tab PO DAILY 05/05/21 Reported Feosol (Ferrous Sulfate) 325 Mg Tablet 325 Mg PO DAILY 30 07/01/18 Rx Miralax (Polyethylene Glycol 3350) 17 Gm Powd.pack 1 Pkt PO HS 06/29/18 Reported Levothyroxine Sodium 88 Mcg Tablet 1 Tab PO DAILY 05/21/18 Reported Protonix (Pantoprazole Sodium) 20 Mg Tablet.dr 40 Mg PO DAILY 05/21/18 Reported Crestor (Rosuvastatin Calcium) 20 Mg Tablet 20 Mg PO HS PRN 05/21/18 Reported Impression . 1. Acute on chronic respiratory failure. 2. Acute on chronic diastolic heart failure. 3. Abnormal x-ray. 4. Previously abnormal CT revealing right middle lobe 5 mm nodule. 5. Acute exacerbation of chronic obstructive pulmonary disease secondary to above. 6. Possible pneumonia, gram-negative. 7. Acute on chronic kidney injury. 8. Chronic renal failure. 9. History of cirrhosis with portal hypertension. Plan . Updated 05/[address] Joseph Discharge today Follow-up with ISELA Buckley MD May 26, 2021 11:47
--- NOTE | 2021-05-26 13:42 | NUR ---
DISCHARGE PT TO DC HOME TODAY, WITH [facility] PREVIOUS. SHE ALREADY HAS 3L/NC HOME O2 ESTABLISHED WELL. DISCHARGE MEDICATIONS REVIEWED WITH PATIENT, ALL QUESTIONS ANSWERED TO HER SATISFACTION. PIV ET TELE DISCONTINUED, PT AWAITING DAUGHTER'S ARRIVAL. WILL UTILIZE W/C TO [facility]ONT DO[facility] FOR TRANSPORT HOME IN PRIVATE VEHICLE.
[2021-05-27] MEDS ORDERED: FUROSEMIDE 40 MG TABLET. PO SCH (09:00)
== END 2021-05-26 15:20 | disposition home health service (06) | DRG 291 ==
LOC: ER 19:48 → 6 SOUTH 21:23
PROVIDERS: ADMIT Internal Medicine; ATTEND Internal Medicine
PROC: 30233N1 Transfusion of Nonautologous Red Blood Cells into Peripheral Vein, Percutaneous Approach (ICD-10-PCS; principal; 2021-05-23)
DX: I13.0 Hypertensive heart and chronic kidney disease with heart failure and stage 1 through stage 4 chronic kidney disease, or unspecified chronic kidney disease (principal); J15.6 Pneumonia due to other Gram-negative bacteria; I50.43 Acute on chronic combined systolic (congestive) and diastolic (congestive) heart failure; J96.21 Acute and chronic respiratory failure with hypoxia; N17.0 Acute kidney failure with tubular necrosis; I48.20 Chronic atrial fibrillation, unspecified; K76.6 Portal hypertension; N39.0 Urinary tract infection, site not specified; D50.9 Iron deficiency anemia, unspecified; E03.9 Hypothyroidism, unspecified; E66.9 Obesity, unspecified; Z68.34 Body mass index [BMI] 34.0-34.9, adult; E78.5 Hyperlipidemia, unspecified; I25.10 Atherosclerotic heart disease of native coronary artery without angina pectoris; I48.0 Paroxysmal atrial fibrillation; J43.9 Emphysema, unspecified; K59.00 Constipation, unspecified; K74.60 Unspecified cirrhosis of liver; N18.30 Chronic kidney disease, stage 3 unspecified; Z95.5 Presence of coronary angioplasty implant and graft; K21.9 Gastro-esophageal reflux disease without esophagitis; K76.9 Liver disease, unspecified; M19.90 Unspecified osteoarthritis, unspecified site; Z88.5 Allergy status to narcotic agent; Z88.2 Allergy status to sulfonamides; Z88.8 Allergy status to other drugs, medicaments and biological substances; Z91.041 Radiographic dye allergy status; Z82.49 Family history of ischemic heart disease and other diseases of the circulatory system; Z83.3 Family history of diabetes mellitus; Z87.891 Personal history of nicotine dependence; Z90.710 Acquired absence of both cervix and uterus
CPT/HCPCS: 36415; 36430; 70450; 71045; 78452; 80048; 80053; 80162; 81001; 83605; 83880; 84145; 84443; 84484; 85007; 85025; 85027; 85610; 85730; 86850; 86900; 86901; 86920; 87040; 87077; 87086; 87186; 93005; 93017; 93970; 94640; 94760; 96365; 96366; 96375; A9500; J0456; J0696; J1940; J2405; J2785; J2920; J2930; J3490; J7050; P9016; 97110-GP; 97116-GP; 97530-GO; 97530-GP; 99291-25; G0378; J7030

== ENCOUNTER 2021-07-16 18:00 | Inpatient (IN) | payer MEDICARE ==
[~2021-07-16] VITALS: Ht 152.4 cm; Wt 75.9 kg
[~2021-07-16 18:00] MED LIST changes: +ALBU2.5V8 NEB; +FERR142T13 PO; +HYDR-2761 PO; +ZOLP5TAB PO
--- NOTE | 2021-07-16 19:14 | PHYS DOC ---
Past Medical History Past Medical History: A-Fib, CAD, CHF, GERD, Hypertension, Hypothyroid Additional Past Medical Histor: O2 dependence Past Surgical History: Appendectomy, Hysterectomy, Other Additional Past Surgical Histo: caratodidectomy; cardiac stent Smoking Status: Former Smoker Alcohol Use: None Drug Use: None General Adult EDM: Chief Complaint: SHORTNESS OF BREATH HPI: HPI: Patient is a 85 year old female with a history of chronic anemia and coronary artery disease, status post stent placement 2 weeks, ago who presents to the emergency department today with complaints of shortness of breath and concerns for renal insufficiency. Patient states she has had several weeks of shortness of breath, PND and orthopnea. She is also have bilateral lower extremity edema. She denies having any chest pain. She denies any abdominal pain. She denies any nausea, vomiting or diarrhea. She states she saw stoner out this morning. m she states labs were drawn at this time. She states this afternoon she was called and told to present to the emergency department as her kidneys were shutting down. Review of Systems: Review of Systems: Constitutional: Denies fever or chills. [] Eyes: Denies change in visual acuity. [] HENT: Denies nasal congestion or sore throat. [] Respiratory: Denies cough [] Cardiovascular: Denies chest pain [] GI: Denies abdominal pain, nausea, vomiting, bloody stools or diarrhea. [] : Denies dysuria. [] Musculoskeletal: Denies back pain or joint pain. [] Integument: Denies rash. [] Neurologic: Denies headache, focal weakness or sensory changes. [] Endocrine: Denies polyuria or polydipsia. [] Lymphatic: Denies swollen glands. [] Psychiatric: Denies depression or anxiety. [] Heart Score: C/O Chest Pain: No Family History: Family History: Noncontributory Allergies: Allergies: Allergies Coded Allergies Type Severity Reaction Last Updated Verified Sulfa (Sulfonamide Antibiotics) Allergy Severe Rash 05/22/21 Yes fentanyl Allergy Severe 05/22/21 Yes ciprofloxacin Allergy Intermediate Hives 07/04/21 Yes codeine Allergy Intermediate 05/22/21 Yes morphine Adverse Reaction Intermediate Nausea and Vomiting 05/22/21 Yes hydralazine Adverse Reaction Mild Nausea and Vomiting 07/03/21 Yes Physical Exam: PE: Constitutional: Well developed, well nourished, no acute distress, non-toxic appearance. [] HENT: Normocephalic, atraumatic, bilateral external ears normal, oropharynx moist, no oral exudates, nose normal. [] Eyes: PERRLA, EOMI, conjunctiva normal, no discharge. [] Neck: Normal range of motion, no tenderness, supple, no stridor. [] Cardiovascular:Heart rate regular rhythm, no murmur [] Lungs & Thorax: Bilateral breath sounds clear to auscultation [] Abdomen: Bowel sounds normal, soft, no tenderness, no masses, no pulsatile masses. [] Skin: Warm, dry, no erythema, no rash. [] Back: No tenderness, no CVA tenderness. [] Extremities: No tenderness, no cyanosis, no clubbing, ROM intact. 2+ bilateral lower extremity edema. Neurologic: Alert and oriented X 3, normal motor function, normal sensory function, no focal deficits noted. [] Psychologic: Affect normal, judgement normal, mood normal. [] Current Patient Data: Vital Signs: Vital Signs Date Time Temp Pulse Resp B/P (MAP) Pulse Ox O2 Delivery O2 Flow Rate FiO2 07/16/21 18:40 98.0 52 18 107/60 (76) 100 Nasal Cannula 3.0 98.0 EKG: EKG: EKG shows a normal sinus rhythm with a rate of 57. Intervals and axis are normal. Inverted T waves septally. No evidence of any acute ischemia or infarction. EKG was reviewed interpreted by myself. Radiology/Procedures: Radiology/Procedures: EXAM: CHEST 1 VIEW History: Shortness of breath COMPARISON: 07/02/2021 TECHNIQUE: Single portable radiograph of the chest FINDINGS: Mild cardiomegaly. Small bilateral pleural effusions with bibasilar lung airspace opacities likely infiltrates. Mild prominent bilateral interstitial lung markings.. IMPRESSION: 1.Small bilateral pleural effusions with bibasilar lung airspace opacities likely infiltrates. 2. Mild congestive changes. Electronically signed by: Delvis Le MD (07/16/2021 7:51 PM) [id number] Impression: CHF exacerbation Acute kidney injury Course & Med Decision Making: Course & Med Decision Making Patient remained hemodynamically stable in the emergency department. She was evaluated at the with a bedside physical exam. EKG without evidence of any acute ischemic changes. Chest x-ray concerning for pulmonary edema. Creatinine 2.8 up from 1.8 a week ago. Discussed with the hospitalist Dr. Pagan will admit to the hospitalist service for further evaluation management. Nguyễn Disclaimer: Nguyễn Disclaimer: This electronic medical record was generated, in whole or in part, using a voice recognition dictation system. Departure Departure Referrals: LIZ LAMBERT (PCP) TRAMAINE BARNES MD July 16, 2021 19:14
--- NOTE | 2021-07-16 19:53 | RAD ---
EXAM: CHEST 1 VIEW History: Shortness of breath COMPARISON: 07/02/2021 TECHNIQUE: Single portable radiograph of the chest FINDINGS: Mild cardiomegaly. Small bilateral pleural effusions with bibasilar lung airspace opacitie s likely infiltrates. Mild prominent bilateral interstitial lung markings.. IMPRESSION: 1.Small bilateral pleural effusions with bibasilar lung airspace opacities likely infiltrates. 2. Mild congestive changes. Electronically signed by: Delvis Le MD (07/16/2021 7:51 PM) [id number]
[2021-07-16 20:58] LABS: BASO # 0.1 x10^3/uL (0.0-0.2); BASO % 1 % (0-3); EOS # 0.1 x10^3/uL (0.0-0.7); EOS % 2 % (0-3); HEMATOCRIT 23.4 % (36.0-47.0); HEMOGLOBIN 7.8 g/dL (12.0-15.5); LYMPH # 0.7 x10^3/uL (1.0-4.8); LYMPH % 13 % (24-48); MEAN CORPUSCULAR HEMOGLOBIN 31 pg (25-35); MEAN CORPUSCULAR HGB CONC 33 g/dL (31-37); MEAN CORPUSCULAR VOLUME 92 fL (79-100); MONO # 0.4 x10^3/uL (0.0-1.1); MONO % 7 % (0-9); NEUT # 4.1 x10^3/uL (1.8-7.7); NEUT % 77 % (31-73); PLATELET COUNT 248 x10^3/uL (140-400); RED BLOOD COUNT 2.54 x10^6/uL (3.50-5.40); RED CELL DISTRIBUTION WIDTH 18.3 % (11.5-14.5); WHITE BLOOD COUNT 5.4 x10^3/uL (4.0-11.0)
[2021-07-16 21:22] LABS: CALCIUM 9.2 mg/dL (8.5-10.1); CREATININE 2.8 mg/dL (0.6-1.0); GFR 16.1; POTASSIUM 3.4 mmol/L (3.5-5.1)
--- NOTE | 2021-07-16 21:24 | EKG ---
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
[2021-07-16 21:49] VITALS: BP 118/68
== END 2021-07-17 | disposition home or self-care (01) | DRG 291 ==
LOC: ER 18:00 → 6 SOUTH 21:28
PROVIDERS: ADMIT Internal Medicine; ATTEND Internal Medicine
DX: I13.0 Hypertensive heart and chronic kidney disease with heart failure and stage 1 through stage 4 chronic kidney disease, or unspecified chronic kidney disease (principal); N17.0 Acute kidney failure with tubular necrosis; I50.43 Acute on chronic combined systolic (congestive) and diastolic (congestive) heart failure; J96.20 Acute and chronic respiratory failure, unspecified whether with hypoxia or hypercapnia; I48.19 Other persistent atrial fibrillation; E03.9 Hypothyroidism, unspecified; I25.10 Atherosclerotic heart disease of native coronary artery without angina pectoris; Z87.891 Personal history of nicotine dependence; Z90.49 Acquired absence of other specified parts of digestive tract; Z90.710 Acquired absence of both cervix and uterus; Z95.5 Presence of coronary angioplasty implant and graft; Z99.81 Dependence on supplemental oxygen; K21.9 Gastro-esophageal reflux disease without esophagitis; Z88.2 Allergy status to sulfonamides; Z88.8 Allergy status to other drugs, medicaments and biological substances; Z79.899 Other long term (current) drug therapy; E78.5 Hyperlipidemia, unspecified; I73.9 Peripheral vascular disease, unspecified; Z87.440 Personal history of urinary (tract) infections; D63.8 Anemia in other chronic diseases classified elsewhere; N18.32 Chronic kidney disease, stage 3b; K74.60 Unspecified cirrhosis of liver; Z79.01 Long term (current) use of anticoagulants
CPT/HCPCS: 36415; 71045; 80048; 83880; 84484; 85025; 93005; 99285-25; G0378